=== PATIENT | male | born 1950 | race Caucasian/White ===

== ENCOUNTER 2021-11-11 18:13 | Observation (INO) | payer MEDICARE, SELFPAY ==
[2021-11-11] VITALS (17 sets, daily range): BP systolic 104–152; BP diastolic 51–83; PULSE 88–102; RESP 16–31; TEMP 36.3–36.9; O2SAT 95–98; BMI 23.3
--- NOTE | ~2021-11-11 | CT_ITS ---
EXAMINATION: CTA chest abdomen pelvis DATE: 11/11/2021 20:09 INDICATION: chest pain that radiates to abdomen . TECHNIQUE: Computed tomography angiography (CTA) of the chest, abdomen, and pelvis was performed with 100 mL Omnipaque-350 intravenous contrast. Automated exposure control and iterative reconstruction t echnique were employed. The dose-length product was 469.94 mGy-cm. COMPARISON: None FINDINGS: Thoracic aorta: Mild ectasia and arch calcification.. Lung parenchyma and airways: 3.7 cm right hilar/infrahilar mass with bronchial extension and/or obstr uction. Multiple pulmonary nodules bilaterally. Several nodules display cavitation. Emphysematous priyanka nge. Thoracic inlet, axillae and chest wall: No thyroid or soft tissue mass. No axillary lymphadenopathy. Mediastinum: Mediastinal lymphadenopathy with calcification. Dilated pulmonary arteries as can be see n with pulmonary arterial hypertension. Heart and pericardium: Normal heart size. Trace pericardial effusion. Coronary artery calcifications: Mild. Pleura: No effusion or mass. Thoracic bones: No acute osseous finding in the chest. ABDOMEN/PELVIS: Liver: Normal. Biliary/Gallbladder: Gallbladder is normal. No bile duct dilation. Pancreas: No mass or duct dilation. Spleen: Normal. Adrenals:Thickening, likely hyperplasia. No nodules. Kidneys: Left midpole subcentimeter hypodensity, too small to characterize but most likely represents a cyst. No calcification, suspicious mass, or hydronephrosis. GI tract: No small or large bowel dilation. Appendix not visualized. Diverticulosis without diverticu litis. Mesentery/Peritoneum: No ascites, mass, or free air. Retroperitoneum: No mass. Atherosclerotic abdominal aortic and/or arterial calcifications. Pelvis: Bladder distention with mild wall thickening, likely secondary to outlet compromise from pros tatomegaly. Soft Tissues: Soft tissues and body wall unremarkable. Abdominopelvic bones: No acute osseous finding in the abdomen/pelvis. IMPRESSION: 3.7 cm right hilar/infrahilar mass, with bronchial invasion and/or obstruction. Mediastinal lymphaden opathy. Multiple pulmonary nodules, several of which are cavitary. These findings are concerning for primary lung carcinoma, such as squamous cell or small cell. Reviewed, dictated and finalized at location K. IMPRESSION: 3.7 cm right hilar/infrahilar mass, with bronchial invasion and/or obstruction. Mediastinal lymphadenopathy. Multiple pulmonary nodules, several of which are cavitary. These findings are concerning for primary lung carcinoma, such as squ amous cell or small cell.
--- NOTE | ~2021-11-11 | XR_ITS ---
EXAMINATION: XR chest 2V Exam Date/Time: 11/11/2021 18:38 CDT HISTORY: cp Comparison: None available. RESULT: Lines, tubes, and devices: None. Lungs and pleura: Clear. Cardiomediastinal silhouette: Stable. Other: No acute osseous or upper abdominal finding. IMPRESSION: No acute cardiopulmonary process. Reviewed, dictated and finalized at location K.
--- NOTE | 2021-11-11 18:17 | ECG_ITS ---
Measurements Intervals [place] Rate: 102 P: [place]: 0 QRS: 73 QRSD: 97 T: 69 QT: 335 QTc: 437 Interpretive Statements SINUS TACHYCARDIA NO PREVIOUS ECG AVAILABLE FOR COMPARISON Electronically Signed On 11-12-2021 18:10:43 CDT by Monisha Tubbs M.D.
[2021-11-11 18:50] LABS: Basophils Absolute Auto 0.1 K/mm3 (0.0-0.1); Basophils Percent Auto 0.4 % (0.2-1.2); Eosinophils Absolute Auto 0.3 K/mm3 (0-0.3); Eosinophils Percent Auto 2.2 % (0-4.4); Hematocrit 38.4 % (42.0-52.0); Hemoglobin 12.7 g/dL (14.0-18.0); Immature Granulocyte Absolute 0.24 K/mm3 (0.00-0.031); Immature Granulocyte Percent A 1.8 % (0-0.5); Lymphocytes Absolute Auto 2.83 K/mm3 (0.9-3.2); Lymphocytes Percent Auto 20.9 % (18.3-44.2); Mean Corpuscular HGB Conc 33.1 g/dl (32-36); Mean Corpuscular Hemoglobin 30.5 pg (26-34); Mean Corpuscular Volume 92.1 fl (80-100); Mean Platelet Volume 9.3 fl (7.4-10.4); Monocytes Absolute Auto 1.7 K/mm3 (0.1-0.6); Monocytes Percent Auto 12.2 % (2.6-8.5); Neutrophils Absolute Auto 8.5 K/mm3 (1.3-6.7); Neutrophils Percent Auto 62.5 % (45.5-73.1); Nucleated Red Blood Cells Perc 0.2 % (0.0-0.2); Platelet Count Result 336 k/mm3 (150-375); Red Blood Count 4.17 M/mm3 (4.6-6.20); Red Cell Distribution Width 15.9 % (11.5-14.5); White Blood Count 13.6 K/mm3 (4.5-10.0)
[2021-11-11 18:57] LABS: Alanine Aminotransferase 20 U/L (6-50); Albumin Level 4.2 g/dL (3.5-5.1); Alkaline Phosphatase 83 U/L (38-126); Anion Gap 12 mmol/L (8-16); Aspartate Amino Transferase 25 U/L (17-59); Bilirubin,Total 0.6 mg/dL (0.2-1.3); Blood Urea Nitrogen 6 mg/dL (9-20); Calcium 8.7 mg/dL (8.4-10.2); Carbon Dioxide 18 mmol/L (22-30); Chloride 91 mmol/L (98-107); Estimated CRCL calculation 96 ml/min; Estimated Glomerular Filt Rate > 60; Glucose 324 mg/dL (65-110); Lipase 39 U/L (23-300); Potassium 4.2 mmol/L (3.4-5.0); Sodium 121 mmol/L (137-145)
[2021-11-11 18:58] LABS: Prothrombin Time 13.2 Seconds (11.1-14.7)
[2021-11-11 18:59] LABS: Partial Thromboplastin Time 38.2 SECONDS (22.3-36.8)
[2021-11-11 19:07] LABS: Troponin I < 0.012 ng/mL (0.000-0.034)
--- NOTE | 2021-11-11 19:57 | ED.GENADULT ---
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 Patient states he has had increased stress over the last few weeks. Patient states that he had been abstaining from alcohol but over the last few weeks has been drinking again. Patient did have a recent hospitalization in [place] for colitis and is currently taking Augmentin. Patient states today he had some left-sided chest pain that radiated to his abdomen. Patient states it felt like a muscle spasm. Patient states he does also have some shortness of breath that is worsened when he lays down. Patient was aware of previous pulmonary nodules and had been following up with a party plan sales unit advisor in [place]. Patient states over the last few weeks he has been drinking approximately a case of beer a day and has not been eating or drinking well. Patient denies any prior history of seizure or alcohol withdrawal. Related Data Home Medications Medication Instructions Recorded Confirmed Humalog U-100 Insulin 11/11/21 albuterol sulfate 90 mcg/actuation 2 puff inhalation BID 11/11/21 11/11/21 aerosol inhaler alprazolam 0.5 mg tablet 0.5 mg PO HS PRN Anxiety 11/11/21 11/11/21 fluticasone propionate 50 2 spray intranasal DAILY PRN Sinus 11/11/21 11/11/21 mcg/actuation nasal Symptoms spray,suspension hydrocodone 7.5 mg-acetaminophen 1 tablet PO TID PRN Pain (Scale 11/11/21 11/11/21 325 mg tablet Score 7-10) [id number] 1 cap PO AC 11/11/21 11/11/21 36,000-114,000-180,000 unit capsule,delay rel (Creon) losartan 25 mg tablet 25 mg PO DAILY 11/11/21 11/11/21 pantoprazole 40 mg tablet,delayed 40 mg PO DAILY 11/11/21 11/11/21 release trazodone 150 mg tablet 150 mg PO HS 11/11/21 11/11/21 umeclidinium 62.5 mcg-vilanterol 1 inh inhalation BID 11/11/21 11/11/21 25 mcg/actuation powdr for inhalation (Anoro Ellipta) Allergies Allergy/AdvReac Type Severity Reaction Status Date / Time iodine Allergy Unknown Unknown Verified 11/11/21 19:57 Shrimp Allergy Unknown Vomiting Uncoded 11/11/21 18:30 Review of Systems Review of Systems: CONSTITUTIONAL: Dizziness lightheadedness EYES: Denies visual changes, redness, or discharge. ENT: Denies rhinorrhea, congestion, sore throat, or otalgia. CARDIOVASCULAR: Left-sided chest wall pain RESPIRATORY: See HPI GASTROINTESTINAL: Denies abdominal pain, nausea, vomiting, or diarrhea. GENITOURINARY: Denies dysuria or hematuria. SKIN: Denies rash or itching. MUSCULOSKELETAL: Denies back pain, joint pain, or myalgia. NEUROLOGIC: Denies headache, numbness, or weakness. PMFSH Social History Social History Smoking packs per day: 1 Smoking cigarettes per day: 20.0 Smoking status: Current every day smoker Tobacco type: cigarettes Alcohol intake: current Drinks per week: 84 Substance use: never Spiritual care concerns: No Exam Narrative: APPEARANCE: Well appearing, no pain, no distress, well-nourished. HEAD: normocephalic, atraumatic. EYES: PERRLA/EOMI, conjunctivae clear. NOSE: Normal no drainage THROAT: Pharynx clear, no exudate. NECK: Supple. No adenopathy, no masses. RESPIRATORY: Airway patent, respirations nonlabored. Clear to auscultation bilaterally, no rales, rhonchi, wheezing. CARDIOVASCULAR: Regular rate and rhythm without murmurs rubs or gallops. ABDOMINAL: Soft, nontender, nondistended, normal bowel sounds MUSCULOSKELETAL: Moves all extremities. Strength/ROM intact, No edema, No calf tenderness. NEURO: Alert. Cranial nerves II through XII intact. Grossly intact SKIN: Warm, dry. Normal Color PSYCHIATRIC: Normal affect/mood. Course Course Emergency
[2021-11-11] MEDS: SODIUM CHLORIDE 0.9% IV 1,000 ML 999 ML IV CONT (20:15)
[2021-11-11 20:45] LABS: Appearance Urine Clear (Clear); Bilirubin Urine Negative (Negative); Glucose Urine UA 2+ mg/dL (Negative); Ketones Urine Negative (Negative); Leukocyte Esterase Ur Negative LEU/UL (Negative); Nitrate Urine Negative (Negative); Protein Urine Negative (Negative); Urobilinogen Urine 0.2 mg/dL (<2.0)
[2021-11-11 20:51] LABS: RBC Urine 0-2 /hpf (0-2)
[2021-11-11 20:53] LABS: Add Urine Microscopic? YES; Blood Urine Trace-Intact (Negative); Color Urine Light Yellow (Yellow)
--- NOTE | 2021-11-11 21:10 | PC.NURSE ---
Dr. Zimmerman at bedside to update patient on results and plan of care.
--- NOTE | 2021-11-11 21:24 | PM.IMHP ---
H&P: HPI History of Present Illness Date/Time: 11/11/21 21:24 Chief Complaint: shortness of breath Narrative: This is a 70 yearWith past medical history significant for tobacco dependence patient smokes a pack of cigarettes daily, has been drinking a 12 pack of beers daily as of for the last 2 weeks or so, COPD/emphysema, obstructive sleep apnea on CPAP at nighttime. patient just recently relocated from [place]. presents today to the emergency room due to shortness of breath, unintentional weight loss of the cannot quantify how much, insomnia, anxiety, panic attacks, cough productive of clear phlegm, had been recently to emergency room in [place] where he was diagnosed with colitis and sent home on a course of amoxicillin. patient denies, hemoptysis, has had night sweats. Preliminary workup was significant for Chemistry panel showed a sodium of 121, CT angiogram of the chest with 3.7 cm right hilar/infrahilar mass, with bronchial invasion and/or obstruction. Mediastinal lymphadenopathy. Multiple pulmonary nodules, several of which are cavitary. These findings are concerning for primary lung carcinoma, such as squamous cell or small cell. patient is been admitted for further evaluation, management and treatment. Review of Systems Review of Systems: Shortness of breath, productive cough of clear phlegm, with unintentional weight loss, panic attacks, anxiety, binge drinking 12 pack of beers daily for the last 2 weeks, smoking up to 30 cigarettes a day. Constitutional: Constitutional: Reports difficulty sleeping, Reports night sweats, Reports poor appetite and Reports weight loss Eyes: Eyes: Denies change in vision ENT: Denies dysphagia, Denies vertigo, Denies dizziness and Denies odynophagia Cardiovascular: Cardiovascular: Denies pedal edema, Denies irregular heart rhythm, Denies leg edema, Denies lightheadedness, Denies palpitations, Reports dyspnea and Reports dyspnea on exertion Respiratory: Respiratory: Denies change in phlegm color, Reports cough, Denies hemoptysis, Reports dyspnea and Reports dyspnea on exertion Gastrointestinal: Gastrointestinal: Denies abdominal pain, Denies dyspepsia, Denies heartburn, Denies diarrhea, Denies nausea and Denies vomiting Genitourinary: Genitourinary: Reports no additional male genitourinary complaints and Reports as per HPI Musculoskeletal: Musculoskeletal: Denies myalgias Integumentary/Breasts: Skin/Breast: Denies rash Neurologic: Denies vertigo, Denies dizziness, Denies focal weakness and Denies Sensory deficit (Neuro) Psychiatric: Psychiatric: Reports no additional psychiatric complaints and Reports as per HPI Endocrine: Endocrine: Denies cold intolerance, Denies fatigue, Denies flushing, Denies heat intolerance, Denies polyphagia, Denies polydipsia and Denies palpitations Hematologic/Lymphatic: Hematologic/Lymphatic: Reports no additional hematologic/lymphatic complaints and Reports as per HPI Allergic/Immunologic: Allergic/Immunologic: Reports no additional allergic/immunologic complaints and Reports as per HPI PMFSH Social History Social History Smoking packs per day: 1 Smoking cigarettes per day: 20.0 Smoking status: Current every day smoker Tobacco type: cigarettes Alcohol intake: current Drinks per week: 84 Substance use: never Spiritual care concerns: No Meds Home Medications and Allergies Home Medications Medication Instructions Recorded Confirmed Type Humalog U-100 Insulin 11/11/21 History albuterol sulfate 90 mcg/actuation 2 puff inhalation BID 11/11/21 11/11/21 History aerosol inhaler alprazolam 0.5 mg tablet 0.5 mg PO HS PRN Anxiety 11/11/21 11/11/21 History fluticasone propionate 50 2 spray intranasal DAILY PRN Sinus 11/11/21 11/11/21 History mcg/actuation nasal Symptoms spray,suspension hydrocodone 7.5 mg-acetaminophen 1 tablet PO TID PRN Pain (Scale 11/11/21 11/11/21 History 325 mg tablet Score 7-10) [id number]
[2021-11-11] MEDS: LORazepam INJ (*CRX) 2 MG/ML VIAL 1 MG IV PUSH (21:49)
[2021-11-11] MEDS: SODIUM CHLORIDE 0.9% IV 1,000 ML 100 ML IV CONT (21:53)
[2021-11-11 21:56] LABS: NT Pro B Type Natriuretic Pept 56 pg/mL (5-100)
[2021-11-11 21:59] LABS: Troponin I < 0.012 ng/mL (0.000-0.034)
--- NOTE | 2021-11-11 23:19 | ADMGEN ---
This patient, Pradip Land, was admitted to 2 Medical Room 251-. Patient/family oriented to hospital policies and general routines including ID bracelet, bed and alarms, visiting hours, pain management, procedures, bathroom and other care routines, personal items, smoking policy, room service/diet, and visiting hours. Information on how to activate the Rapid Response Team has been discussed. Patient/Family are encouraged to report perceived risks to care and to ask questions if they do not understand what they are told or what they should do.
[2021-11-12 00:08] LABS: Glucose Point of Care 181 mg/dl (65-105)
[2021-11-12 00:40] LABS: Anion Gap 6 mmol/L (8-16); Blood Urea Nitrogen 5 mg/dL (9-20); Carbon Dioxide 26 mmol/L (22-30); Chloride 98 mmol/L (98-107); Estimated CRCL calculation 94 ml/min; Estimated Glomerular Filt Rate > 60; Glucose 174 mg/dL (65-110); Sodium 130 mmol/L (137-145)
[2021-11-12] MEDS: traZODone HCL 50 MG TABLET 150 MG PO ×2 (00:43→21:25)
[2021-11-12] MEDS: cefTRIAXone 2 GM in SODIUM CHLORIDE 0.9% IV 100 ML 200 ML IVPB (00:44)
[2021-11-12 00:51] LABS: Troponin I < 0.012 ng/mL (0.000-0.034)
[2021-11-12 05:46] VITALS: BP 122/73; PULSE 84; RESP 20; TEMP 36.7; O2SAT 99
[2021-11-12 06:41] LABS: Anion Gap 7 mmol/L (8-16); Blood Urea Nitrogen 5 mg/dL (9-20); Calcium 8.3 mg/dL (8.4-10.2); Carbon Dioxide 25 mmol/L (22-30); Chloride 101 mmol/L (98-107); Estimated CRCL calculation 108 ml/min; Estimated Glomerular Filt Rate > 60; Glucose 178 mg/dL (65-110); Sodium 133 mmol/L (137-145)
[2021-11-12] MEDS: LOSARTAN POTASSIUM 25 MG TABLET PO (08:53)
[2021-11-12] MEDS: LIPASE/AMYLASE/PROTEASE 12,000 UNITS CAP 3 CAP PO ×3 (08:53→16:20)
[2021-11-12] MEDS: ENOXAPARIN 40 MG/0.4 ML SYRINGE SUB-Q (08:54)
[2021-11-12] MEDS: PANTOPRAZOLE 40 MG TABLET PO (08:54)
[2021-11-12 09:02] LABS: Glucose Point of Care 130 mg/dl (65-105)
[2021-11-12] MEDS: UMECLIDINIUM/VILANTEROL 62.5-25 MCG ELLIPTA 1 PUFF INHALATION (09:10)
[2021-11-12 09:28] VITALS: O2SAT 97
--- NOTE | 2021-11-12 09:47 | PM.CNPUL ---
Assessment and Plan Assessment and plan (1) Hilar mass: Code(s): R91.8 - Other nonspecific abnormal finding of lung field Status: Acute Assessment and Plan: 70-year-old man with a history of COPD on maintenance bronchodilators, history of sarcoidosis for which he had had frequent chest CTs in [place], presented with some shortness of breath and atypical chest pain. Chest diagnostic studies have shown multiple lung nodules and a highly suspicious for malignancy right hilar mass. There is mediastinal lymphadenopathy as well. There is no evidence of COPD exacerbation or lower respiratory tract infection. The patient has been on bronchodilators and antibiotics. Plan: I would discontinue antibiotics and just treat patient with short-acting bronchodilators for COPD. patient has history of sarcoidosis with previous biopsy of left lung nodule done in 2009. Since then he has had frequent CT followups in [place] by his whiteprinting machine operator. The right hilar mass looks suspicious for lung cancer. We will request previous medical records and chest CTs from his whiteprinting machine operator in [place]. okay to discharge patient home following treatment for hyponatremia. We will re-evaluate the patient in the outpatient clinic after reviewing his medical records/chest CT. Patient's daughter will bring contact information for his doctor in [place]. The patient will remain on his maintenance bronchodilators for COPD. (2) Acute hyponatremia: Code(s): E87.1 - Hypo-osmolality and hyponatremia Status: Acute (3) Tobacco dependence: Code(s): F17.200 - Nicotine dependence, unspecified, uncomplicated Status: Acute (4) COPD (chronic obstructive pulmonary disease): Code(s): J44.9 - Chronic obstructive pulmonary disease, unspecified Status: Acute (5) T2DM (type 2 diabetes mellitus): Code(s): E11.9 - Type 2 diabetes mellitus without complications Status: Acute (6) Weight loss, unintentional: Code(s): R63.4 - Abnormal weight loss Status: Acute (7) History of sarcoidosis: Code(s): Z86.2 - Personal history of diseases of the blood and blood-forming organs and certain disorders involving the immune mechanism Status: Acute History of Present Illness History of Present Illness Consult date: 11/12/21 Chief complaint: hilar mass, hyponatremia Narrative: this 70-year-old man presented with a left-sided chest pain and some shortness of breath. The patient just relocated to [place] from [place] where he used to live. In fact he has not unloaded his car yet as he came to the emergency room complaining of some left-sided chest pain, productive cough and shortness of breath. he had no fever chills hemoptysis. He has had history of chronic acid reflux disease. The patient's history significant for COPD for which he has been on maintenance bronchodilators, hypertension, diabetes mellitus. The patient also stated that in 2009 he had a lung biopsy somewhere in [facility], which showed sarcoidosis. Since then the patient was followed with serial chest CTs by his doctor in [facility]. Recently he was told that 1 of the lung nodules had grown and needed a repeat chest CT that was going to be done next month. most details of his previous lung history are sketchy as patient could not recall where he had the 1st lung biopsy in [place] and what type of treatment has received in [facility] the for lung nodules. Just prior to coming to [place] he was evaluated at an emergency room in [place] for diarrhea. He was treated with antibiotics for possible colitis. He no longer has diarrhea. He has also history of obstructive sleep apnea on CPAP, history of anxiety insomnia panic attacks. A chest CT done on the day of admission showed no evidence of pulmonary embolism, COPD changes and a 3.7 cm right hilar/ infrahilar mass with bronchial invasion and obstruction. There was mediastinal lymphadenopathy and multiple
[2021-11-12] MEDS: SODIUM CHLORIDE 0.9% IV 1,000 ML 65 ML IV CONT (10:56)
--- NOTE | 2021-11-12 11:00 | PM.IMPN ---
Progress Note: A&P Assessment and Plan (1) Acute hyponatremia: Code(s): E87.1 - Hypo-osmolality and hyponatremia Status: Acute Assessment and Plan: likely to be multifactorial patient with lung mass hangs SIADH is a possibility also has been drinking a 12 pack beer daily for the last 2 weeks urine osmolality in progress serum osmolality in progress urine sodium in progress fluid restriction serial BMP responding to NS 0.9 normal saline (2) Hilar mass: Code(s): R91.8 - Other nonspecific abnormal finding of lung field Status: Acute Assessment and Plan: likely to be malignant??? Patient has had a biopsy of this mass before and has followed with a retail loss prevention specialist in [place]. Pending records retrieval. pulmonology consult IV antibiotics discontinue (3) Tobacco dependence: Code(s): F17.200 - Nicotine dependence, unspecified, uncomplicated Status: Acute Assessment and Plan: nicotine patch as needed (4) Alcohol abuse: Code(s): F10.10 - Alcohol abuse, uncomplicated Status: Acute Assessment and Plan: CIWA as needed (5) Weight loss, unintentional: Code(s): R63.4 - Abnormal weight loss Status: Acute Assessment and Plan: dietitian consult (6) T2DM (type 2 diabetes mellitus): Code(s): E11.9 - Type 2 diabetes mellitus without complications Status: Acute Assessment and Plan: Accu-Cheks AC and HS continue home meds (7) Pancreatic insufficiency: Code(s): K86.89 - Other specified diseases of pancreas Status: Acute Assessment and Plan: continue pancrelipase Subjective Date/time seen: 11/12/21 11:00 patient is alert and oriented this morning. He was sitting up in the bed on room air. He denies any chest pain or addition shortness of breath. IV antibiotics and IV fluids discontinued. Patient patient does not appear to have an acute infectious process. Will continue COPD medications pending pulmonary's recommendations about possible bronchoscopy inpatient versus outpatient. Pending outlying facility records from [place]. Review of Systems Review of Systems: All systems reviewed & are unremarkable except as noted in HPI and below Exam Narrative: General: No acute distress. Mental Status: Awake, alert and oriented to person, place, and time with clear speech. Skin: Skin in warm, dry and intact without rashes or lesions. Head: Normocephalic and atraumatic. Eyes: Conjunctivae are clear without exudates or hemorrhage. Sclera is non-icteric. EOM are intact, PERRLA. Ears: The external ear and canal are non-tender and without swelling or discharge. Nose: Nasal mucosa is pink and moist. Septum midline. Nares patent bilaterally. Throat: Oral mucosa pink and moist with good dentition. Tongue midline. Neck: The neck supple without adenopathy. Trachea midline. No JVD. Cardiac: S1 and S2 regular rate and rhythm. No murmurs, gallops, or rubs auscultated. Respiratory: Chest wall symmetric, nontender and without deformity or trauma. Respirations even and unlabored. Lung sounds are clear to auscultation in all lobes bilaterally without wheezes, rhonchi, or rales. Abdominal: Abdomen soft, round and non-tender to palpation. Bowel sounds present and normoactive in all 4 quadrants. Spine: Neck and back with grossly normal curvature, no deformity in appearance or signs of trauma. Extremities: Upper and lower extremities atraumatic without tenderness or deformity. Full range of motion and muscle strength 5/5 to all extremities bilaterally. Neurological: Full and symmetric motor and light touch sensation bilaterally. Cranial nerves II-XII grossly intact. Objective Data Vital Signs Vital Signs: Vital Signs - 24 hr 11/11/21 18:23 11/11/21 19:44 11/11/21 19:45 Temperature 98.5 F Pulse Rate 102 H 99 Respiratory Rate 16 31 H 21 H Blood Pressure 143/74 H Pulse Oximetry 95 [employer]
[2021-11-12 11:27] LABS: Sodium Urine Random 115 meq/L
[2021-11-12 11:46] LABS: Glucose Point of Care 149 mg/dl (65-105)
[2021-11-12 11:58] VITALS: BMI 23.3
[2021-11-12 14:19] VITALS: BP 116/61; PULSE 73; RESP 16; TEMP 36.4; O2SAT 98
[2021-11-12 16:51] LABS: Glucose Point of Care 154 mg/dl (65-105)
[2021-11-12] MEDS: NICOTINE (*PBKC) 21 MG PATCH 1 PATCH TRANSDERM (17:58)
[2021-11-12] MEDS: ALPRAZolam (*CRX) 0.5 MG TABLET PO (21:24)
[2021-11-12 21:56] VITALS: BP 119/73; PULSE 92; RESP 20; TEMP 36.2; O2SAT 98
[2021-11-12] MEDS: ALBUTEROL SULFATE (*SP) AEROSOL 1 PUFF 2 PUFF INHALATION (22:32)
[2021-11-13 00:14] LABS: Glucose Point of Care 166 mg/dl (65-105)
[2021-11-13 06:00] VITALS: BP 118/70; PULSE 84; RESP 20; TEMP 36.4; O2SAT 98
[2021-11-13 06:31] LABS: Basophils Percent Auto 0.3 % (0.2-1.2); Eosinophils Absolute Auto 0.3 K/mm3 (0-0.3); Eosinophils Percent Auto 2.9 % (0-4.4); Hematocrit 36.8 % (42.0-52.0); Hemoglobin 12.1 g/dL (14.0-18.0); Immature Granulocyte Absolute 0.12 K/mm3 (0.00-0.031); Immature Granulocyte Percent A 1.4 % (0-0.5); Lymphocytes Absolute Auto 2.09 K/mm3 (0.9-3.2); Mean Corpuscular HGB Conc 32.9 g/dl (32-36); Mean Corpuscular Volume 94.4 fl (80-100); Mean Platelet Volume 9.7 fl (7.4-10.4); Monocytes Absolute Auto 1.2 K/mm3 (0.1-0.6); Monocytes Percent Auto 14.2 % (2.6-8.5); Neutrophils Percent Auto 57.2 % (45.5-73.1); Platelet Count Result 301 k/mm3 (150-375); Red Cell Distribution Width 16.3 % (11.5-14.5); White Blood Count 8.7 K/mm3 (4.5-10.0)
--- NOTE | 2021-11-13 06:40 | PM.DS ---
DS: Admitting Diagnosis Discharge Date 11/13/2021 Admitting Diagnosis mild hyponatremia and hilar mass. DS: Discharge Diagnosis Discharge Diagnosis (1) Acute hyponatremia: Code(s): E87.1 - Hypo-osmolality and hyponatremia Status: Acute Assessment and Plan: likely to be multifactorial patient with lung mass hangs SIADH is a possibility also has been drinking a 12 pack beer daily for the last 2 weeks urine osmolality in progress serum osmolality in progress urine sodium in progress fluid restriction serial BMP responding to NS 0.9 normal saline (2) Hilar mass: Code(s): R91.8 - Other nonspecific abnormal finding of lung field Status: Acute Assessment and Plan: likely to be malignant??? Patient has had a biopsy of this mass before and has followed with a spa consultant in [place]. Pending records retrieval. pulmonology consult IV antibiotics discontinue (3) Tobacco dependence: Code(s): F17.200 - Nicotine dependence, unspecified, uncomplicated Status: Acute Assessment and Plan: nicotine patch as needed (4) Alcohol abuse: Code(s): F10.10 - Alcohol abuse, uncomplicated Status: Acute Assessment and Plan: CIWA as needed (5) Weight loss, unintentional: Code(s): R63.4 - Abnormal weight loss Status: Acute Assessment and Plan: dietitian consult (6) T2DM (type 2 diabetes mellitus): Code(s): E11.9 - Type 2 diabetes mellitus without complications Status: Acute Assessment and Plan: Accu-Cheks AC and HS continue home meds (7) Pancreatic insufficiency: Code(s): K86.89 - Other specified diseases of pancreas Status: Acute Assessment and Plan: continue pancrelipase DS: Summary Hospital Course Reason for hospitalization: Hyponatremia Hospital Course: patient is 70-year-old male with past medical history of tobacco dependence, COPD, emphysema, ANGY on CPAP and a known history of a hilar mass and sarcoidosis. Patient was recently located from [place]. He presented to the emergency department today due to increased shortness of breath, unintentional weight loss and unable to quantify how much weight loss however he also endorses insomnia, anxiety, panic attacks cough production with clear fluid and recently released from floor to emergency department was diagnosed with colitis was sent home with a course of antibiotics of amoxicillin. At the time of the evaluation patient denied any hemoptysis and night sweats. Preliminary workup in the emergency department revealed a WBC of 13.6, hemoglobin 12.7, hematocrit 38.4, platelet 336, sodium 121, potassium 4.2, chloride 91, carbon dioxide 18, BUN 6 and creatinine is 0.7 with a glucose at 3:24 a.m.. Patient's calcium 8.7- troponins and negative LFTs. UA was essentially negative. Chest CT of the abdomen and pelvis was performed which revealed a 3.7 cm hilar infrahilar mass with bronchial invasion and or obstruction. [place] down lymphadenopathy with multiple pulmonary nodules several of which are crit cavitary. These were concerning for primary lung carcinoma such as squamous cell or small cell. Therefore hospitalist was consulted for the hyponatremia as well as hilar mass. Pulmonary was consulted as well. Patient reported that he has previously had this mass biopsied however he would be interested in looking into this further if needed. Patient will follow up with Pulmonary outpatient basis within 2 weeks and discuss outpatient bronchoscopy for further evaluation. Patient's sodium level WNL upon discharge. Mental status WNL. And no neuro deficits. Blood glucose well controlled. Status at Discharge Cognitive/behavioral status at discharge: Alert and oriented x4 Time Spent with Patient Time attestation: Total time spent providing and/or coordinating discharge services: Exam Narrative: General: No acute distress. Mental S
[2021-11-13 07:08] LABS: Alanine Aminotransferase 18 U/L (6-50); Albumin Level 3.6 g/dL (3.5-5.1); Alkaline Phosphatase 71 U/L (38-126); Anion Gap 5 mmol/L (8-16); Aspartate Amino Transferase 26 U/L (17-59); Bilirubin,Total 0.5 mg/dL (0.2-1.3); Blood Urea Nitrogen 7 mg/dL (9-20); Calcium 8.6 mg/dL (8.4-10.2); Carbon Dioxide 29 mmol/L (22-30); Chloride 101 mmol/L (98-107); Estimated CRCL calculation 75 ml/min; Estimated Glomerular Filt Rate > 60; Glucose 107 mg/dL (65-110); Potassium 4.1 mmol/L (3.4-5.0); Sodium 135 mmol/L (137-145)
[2021-11-13 07:47] LABS: Glucose Point of Care 118 mg/dl (65-105)
[2021-11-13] MEDS: UMECLIDINIUM/VILANTEROL 62.5-25 MCG ELLIPTA 1 PUFF INHALATION (08:27)
[2021-11-13 08:29] VITALS: PULSE 97; O2SAT 97
[2021-11-13] MEDS: LIPASE/AMYLASE/PROTEASE 12,000 UNITS CAP 3 CAP PO ×2 (09:32→12:16)
[2021-11-13] MEDS: PANTOPRAZOLE 40 MG TABLET PO (09:33)
[2021-11-13] MEDS: ENOXAPARIN 40 MG/0.4 ML SYRINGE SUB-Q (09:33)
[2021-11-13] MEDS: NICOTINE (*PBKC) 21 MG PATCH 1 PATCH TRANSDERM (09:33)
[2021-11-13] MEDS: LOSARTAN POTASSIUM 25 MG TABLET PO (09:34)
[2021-11-13 11:38] LABS: Glucose Point of Care 204 mg/dl (65-105)
[2021-11-16 09:14] LABS: Osmolality, Urine 169 mOsm/kg (50-1200)
== END 2021-11-13 12:20 | disposition home or self-care (01) ==
LOC: ANHED 20:43 → ANH2MED 11-12 02:49
PROVIDERS: Family Medicine; Admitting Provider Internal Medicine; Emergency Provider Emergency Medicine; Visit Provider Nurse Practitioner Family
DX: E87.1 Hypo-osmolality and hyponatremia (principal); R91.8 Other nonspecific abnormal finding of lung field; F17.210 Nicotine dependence, cigarettes, uncomplicated; R63.4 Abnormal weight loss; Z68.23 Body mass index [BMI] 23.0-23.9, adult; E11.9 Type 2 diabetes mellitus without complications; K86.89 Other specified diseases of pancreas; R12 Heartburn; D86.9 Sarcoidosis, unspecified; G47.33 Obstructive sleep apnea (adult) (pediatric); R00.0 Tachycardia, unspecified; Z99.89 Dependence on other enabling machines and devices; J44.9 Chronic obstructive pulmonary disease, unspecified; F41.0 Panic disorder [episodic paroxysmal anxiety]; F41.9 Anxiety disorder, unspecified; K52.9 Noninfective gastroenteritis and colitis, unspecified; R06.02 Shortness of breath; F10.10 Alcohol abuse, uncomplicated; Z79.4 Long term (current) use of insulin; Z79.51 Long term (current) use of inhaled steroids; Z79.891 Long term (current) use of opiate analgesic
CPT/HCPCS: 36415; 71046; 71275; 74174; 80048; 80053; 81001; 82948; 83690; 83880; 83930; 83935; 84300; 84484; 85025; 85610; 85730; 87040; 93005; 94640; 96361; 96365; 96367; 96372; 96375; 99285; A9270; G0378; J0456; J0696; J1650; J2060; J7030; Q9967

== ENCOUNTER 2021-11-18 00:44 | Day surgery (SDC) | payer MEDICARE, SELFPAY ==
[2021-11-17 14:18] VITALS: BMI 21.6
[2021-11-18] VITALS (8 sets, daily range): BP systolic 106–129; BP diastolic 56–80; PULSE 95–108; RESP 16–23; TEMP 36.2–36.8; O2SAT 97–100
--- NOTE | ~2021-11-18 | XR_ITS ---
XR chest 1V portable 11/18/2021 14:33 Indication: Post bronchoscopy. Procedure: AP portable chest Comparison: CT dated 11/11/2021 Findings: There are bilateral upper lobe nodules, suspicious for malignancy. Heart size normal. The l ungs are hyperinflated which is consistent with, but not diagnostic of chronic obstructive pulmonary disease. No pneumothorax identified. No acute osseous abnormality. Impression: 1: No evidence for pneumothorax post bronchoscopy. 2: Bilateral upper lobe nodules, suspicious for malignancy. Reviewed, dictated and finalized at location B. Impression: 1: No evidence for pneumothorax post bronchoscopy. 2: Bilateral upper lobe nodules, suspicious for malignancy.
[2021-11-18] MEDS: LACTATED RINGERS 1,000 ML 150 ML IV CONT (11:56)
[2021-11-18 11:58] LABS: Glucose Point of Care 150 mg/dl (65-105)
--- NOTE | 2021-11-18 12:05 | WPDANESEPPF ---
Anes - Initial Pre Proc Eval Procedure: Operation Date: 11/18/21 13:00 Proposed Procedures p Flexible Bronchoscopy - Dylan Randall MD Date/Time: 11/18/21 12:05 Surgeon: Dylan Randall MD Pre Op Diagnosis: Lung nodule Patient Data Age: 70 Gender: M Height: 1.91 m Weight: 76.3 kg Last Vital Signs Temp 97.2 F L 11/18/21 11:51 Pulse 108 H 11/18/21 11:51 Resp 20 11/18/21 11:51 BP 106/56 L 11/18/21 11:51 Pulse Ox 97 11/18/21 11:51 O2 Del Method Room Air 11/18/21 11:51 Allergies Allergy/AdvReac Type Severity Reaction Status Date / Time Shrimp Allergy Unknown Vomiting Uncoded 11/18/21 11:49 Home Medications Medication Instructions Recorded Confirmed Type Humalog U-100 Insulin 1 unit subcut (via wearable 11/11/21 11/17/21 History injectr) Q1-2H albuterol sulfate 90 mcg/actuation 2 puff inhalation BID 11/11/21 11/17/21 History aerosol inhaler fluticasone propionate 50 2 spray intranasal DAILY PRN Sinus 11/11/21 11/17/21 History mcg/actuation nasal Symptoms spray,suspension hydrocodone 7.5 mg-acetaminophen 1 tablet PO TID PRN Pain (Scale 11/11/21 11/17/21 History 325 mg tablet Score 7-10) [id number]-cfzzocib-grtbaso 1 cap PO AC 11/11/21 11/17/21 History 36,000-114,000-180,000 unit capsule,delay rel (Creon) losartan 25 mg tablet 25 mg PO DAILY 11/11/21 11/17/21 History pantoprazole 40 mg tablet,delayed 40 mg PO DAILY 11/11/21 11/17/21 History release trazodone 150 mg tablet 150 mg PO HS 11/11/21 11/17/21 History umeclidinium 62.5 mcg-vilanterol 1 inh inhalation BID 11/11/21 11/17/21 History 25 mcg/actuation powdr for inhalation (Anoro Ellipta) alprazolam 0.5 mg tablet 0.5 mg PO HS PRN Anxiety #20 tabs 11/17/21 11/17/21 Rx Laboratory Tests 11/18/21 11:55 POC Capillary Glucose 150 mg/dl H mg/dl (65-105) Patient hx anesthesia problems: none Family hx anesthesia problems: none Results Review: All pre-operative results and documents have been reviewed as part of the pre-operative evaluation. [facility] Social History Social History Smoking packs per day: 1 Smoking cigarettes per day: 20.0 Years smoked: 20 Smoking pack-years: 20.00 Smoking status: Current every day smoker Tobacco type: cigarettes Alcohol intake: former Drinks per week: 84 Alcohol use details: stopped drinking for one year, recent stress caused binge weekend. No drinks since Substance use: never Substance use type: does not use Living arrangements: with family Spiritual care concerns: No Anes - Eval Final PreProcedure Day of Procedure 11/18/21 12:05 Patient weight: normal Heart: regular rate and rhythm Lungs: clear to auscultation Airway: Mallampati scale class II Neurological: alert and oriented Last oral intake: >/= 8 hours ASA classification: III Emergent: no Anesthetic plan: proceed Anesthesia type and monitoring: general ETT and standard monitoring Results Review: All pre-operative results and documents have been reviewed as part of the pre-operative evaluation. Informed Consent: The patient's anesthetic plan and its attendant risks and benefits were discussed with the patient/family/POA. Questions were solicited and answers provided to the satisfaction of the patient/family/POA.
--- NOTE | 2021-11-18 12:08 | SUR.PREOP ---
No repeat PT/INR lab draw per Dr Randall.
--- NOTE | 2021-11-18 12:50 | WPDHPUPDATE1 ---
History and Physical Update Update Date/Time: 11/18/21 12:50 History and Physical has been reviewed, including an updated exam of the patient. There are NO changes in the patient's condition. Risks, benefits, and alternatives have been discussed and questions answered. Patient agrees to proceed with procedure. 70-year-old man with a history of sarcoidosis with previous lung nodules and mediastinal lymphadenopathy for which he was having serial CTs to monitor stability of lung nodules and mediastinal lymphadenopathy. On most recent testing there was a question of increase in the size of the right hilar mass with bronchial obstruction. the patient will undergo a bronchoscopy today. Since last office visit he has had no new respiratory symptoms. Physical exam is also unchanged.
[2021-11-18 14:18] LABS: Glucose Point of Care 186 mg/dl (65-105)
[2021-11-18] MEDS: LIDOCAINE HCL 2% LOCAL INJ 20 ML VIAL INFILTRATE (14:36)
[2021-11-18] MEDS: SODIUM CHLORIDE 0.9% IV 500 ML BAG 40 ML IRRIGATION (14:38)
--- NOTE | 2021-11-18 14:40 | SUR.OPER ---
1mL Epinephrine diluted with 20 mL NS drawn up and on standby per Dr. Randall's verbal order but none was administered. Medication was wasted and disposed of per unit policy and procedure.
--- NOTE | 2021-11-19 10:17 | SUR.PHASEII ---
Dr Randall made aware of lab unable to run a respiratory culture on bronchoscopy specimen.
== END 2021-11-18 15:15 | disposition home or self-care (01) ==
PROVIDERS: Visit Provider Internal Medicine Pulmonary Disease
PROC: 0BJ08ZZ Inspection of Tracheobronchial Tree, Via Natural or Artificial Opening Endoscopic (ICD-10-PCS; CPT 31622; principal; 2021-11-18 13:00)
DX: D14.31 Benign neoplasm of right bronchus and lung (principal); R07.89 Other chest pain; J44.9 Chronic obstructive pulmonary disease, unspecified; F17.210 Nicotine dependence, cigarettes, uncomplicated; R91.8 Other nonspecific abnormal finding of lung field; Z86.2 Personal history of diseases of the blood and blood-forming organs and certain disorders involving the immune mechanism; F10.10 Alcohol abuse, uncomplicated; F41.9 Anxiety disorder, unspecified; Z79.4 Long term (current) use of insulin; Z79.51 Long term (current) use of inhaled steroids
CPT/HCPCS: 31625; 71045; 82948; 88108; 88305; 88342; J0171; J0330; J2405; J2704; J7040; J7120

== ENCOUNTER 2021-12-03 14:35 | Outpatient (CLI) | payer MEDICARE, SELFPAY ==
--- NOTE | 2021-12-04 06:54 | WPDPFTINT ---
PFT Procedure Performed PFT Procedure Performed Spirometry with Pre/Post Bronchodilator Plethysmography (Lung Vol) Diffusing Cap (DLCO) Flow Vol Loop PFT Interpretation This is a pulmonary function test with pre and post-bronchodilator spirometry, plethysmography and diffusing capacity. The test was performed and results interpreted in accordance with the 2019 and 2005 ATS/ERS Task Force guidelines respectively using the Global Lung Function Initiative-2012 reference equations. Patient demonstrated good effort and cooperation. Reproducibility criteria were met. The quality of the pre bronchodilator spirometry maneuver was Grade A and post bronchodilator spirometry maneuver was Grade A. Findings: Spirometry:There is decreased maximal expiratory airflow at all lung volumes with concave expiratory flow tracing. The contour the inspiratory flow tracing is normal. The pre bronchodilator FVC is 5.33 L, 105% predicted. The pre bronchodilator FEV1 is 2.67 L, 70% predicted. The pre bronchodilator FEV1: FVC ratio is 50%. The post bronchodilator FVC is 5.56 L, representing a 4% increase. The post bronchodilator FEV1 is 2.71 L, representing 1% increase. The post bronchodilator FEV1: FVC ratio is 49%. Plethysmography: Total lung capacity is 9.24 L, 114% predicted. The functional residual capacity is 6.24 L, 143% predicted. The residual volume is 3.91 L, 141% predicted. Diffusing capacity: The diffusing capacity unadjusted for hemoglobin and carboxyhemoglobin is 22.2, 78% predicted. The diffusing capacity adjusted for alveolar volume is 2.46, 67% predicted. Impression: There is a mild obstructive abnormality without significant improvement after inhaling a single dose of albuterol. The increase in residual volume is consistent with air trapping from an obstructive abnormality. Hyperinflation is present as demonstrated by the increase in functional residual capacity and is consistent with an obstructive abnormality. The diffusing capacity unadjusted for hemoglobin and carboxyhemoglobin is normal and is mildly decreased when adjusted for alveolar volume. There are no prior studies for comparison
== END 2021-12-03 14:36 | disposition home or self-care (01) ==
LOC: ANHPFT 14:38
PROVIDERS: PCP Family Medicine; Visit Provider Internal Medicine Pulmonary Disease
DX: J44.9 Chronic obstructive pulmonary disease, unspecified (principal); R94.2 Abnormal results of pulmonary function studies
CPT/HCPCS: 94060; 94726; 94729

== ENCOUNTER 2021-12-04 09:42 | Outpatient (CLI) | payer MEDICARE, SELFPAY ==
--- NOTE | ~2021-12-04 | PE_ITS ---
EXAMINATION: PET skull to mid thigh DATE: 12/04/2021 11:22 INDICATION: Abnormal finding of lung field. Lung nodule. TECHNIQUE: Blood glucose level was 117 mg/dL. 9.144 mCi of 18-fluorodeoxyglucose (18-FDG) was adminis tered i.v. Low dose computed tomography (CT) images were acquired from the base of the brain to the p roximal thighs for attenuation correction and anatomic localization. Positron emission tomography (PE T) images were acquired in the same distribution beginning 77 minutes after injection. Images includi ng fused PET/CT images were reconstructed in axial, coronal, and sagittal planes. Automated exposure control technique was employed. The dose-length product was 613.17mGy-cm. COMPARISON: CT chest, abdomen and pelvis dated 11/11/2021 FINDINGS: Head/neck: There is symmetric increased activity in the oral cavity, palatine tonsils, laryngeal muscles and ocu lar muscles without CT correlate, likely physiologic. No pathologically enlarged cervical lymphadenop athy or suspicious foci of increased FDG uptake in the visualized head or neck. Chest: Moderate emphysema. Again seen are reticular nodular opacities at the right upper lobe with a couple foci of increased FDG uptake with maximal SUV of 6.1 and 3.7 associated with an ill-defined approxima tely 2.6 x 1.5 cm spiculated, partially cavitary nodule at the right apex minimal FDG activity with m aximal SUV of 1.7 associated with a 1.4 x 1.0 cm left upper lobe nodule. 2.9 x 1.6 cm right upper lob e nodule with small central cavitation with maximal SUV of 2.0. The more peripheral to this nodule is a cluster of multiple subcentimeter nodules with slightly higher degree of increased FDG uptake with maximal SUV of 2.9. 3.9 x 3.4 cm right hilar mass with intense FDG uptake with maximal SUV of 14.0. There is persistent mucous plugging in the more peripheral basilar bronchi of the right lower lobe. T here are multiple additional scattered bilateral pulmonary nodules, the next largest in the superior segment of the left lower lobe measuring 1.6 x 0.7 cm, which are without discernible increased FDG ac tivity. Calcified right lower lobe nodule along with some calcified right hilar and mediastinal lymph nodes consistent with old granulomatous disease. 2.1 x 1.4 cm precarinal lymph node with mild to mod erately increased FDG uptake with maximal SUV of 4.3. Mild FDG uptake in the subcarinal lymph nodes w ith maximal SUV of 3.3 which is unable to be clearly distinguished from the esophagus and adjacent ly mph nodes to allow for accurate measurement. Heart size is normal. No pericardial or pleural effusion . Thoracic aorta is normal in caliber. Abdomen/pelvis/proximal thighs: Physiologic renal accumulation and excretion of FDG activity in the kidneys, bladder and along portio ns of ureters. Normal degree and heterogenous pattern of increased uptake throughout the liver withou t radiologic correlate or dominant FDG avid lesion. The gallbladder, pancreas, and spleen are normal. Nodular thickening of the midportion of the bilateral adrenal glands which is of relatively low dens ity without discernible FDG uptake has likely either adrenal adenomas or hyperplasia. Moderate scatte red colonic diverticulosis most prominent on the sigmoid colon without adjacent from 3 change to sugg est diverticulitis. Postoperative changes along the proximal colon with right lower quadrant ileocoli c anastomosis. Mild uptake scattered throughout the bowels without radiologic correlate, also likely physiologic. No other abnormal foci of increased FDG uptake or pathologically enlarged lymphadenopath y in the abdomen, pelvis or proximal thighs. Musculoskeletal: Extensive regions of osteonecrosis at the cephalad aspect of the bilateral femoral heads. No other horton spicious lytic, blastic or FDG avid bone lesions. IMPRESSION: 1. Moderate emphysema with mild to moderate increased uptake associate
[2021-12-04 09:56] LABS: Glucose Point of Care 117 mg/dl (65-105)
== END 2021-12-04 09:43 | disposition home or self-care (01) ==
PROVIDERS: PCP Family Medicine; Visit Provider Internal Medicine Pulmonary Disease
DX: R91.8 Other nonspecific abnormal finding of lung field (principal)
CPT/HCPCS: 78815; A9552

== ENCOUNTER 2022-01-05 11:27 | Outpatient (CLI) | payer MEDICARE, SELFPAY ==
[2022-01-05 19:48] LABS: Alanine Aminotransferase 18 U/L (6-50); Albumin Level 4.7 g/dL (3.5-5.1); Alkaline Phosphatase 79 U/L (38-126); Anion Gap 12 mmol/L (8-16); Aspartate Amino Transferase 77 U/L (17-59); Bilirubin,Total 0.6 mg/dL (0.2-1.3); Blood Urea Nitrogen 8 mg/dL (9-20); Calcium 9.3 mg/dL (8.4-10.2); Carbon Dioxide 23 mmol/L (22-30); Chloride 101 mmol/L (98-107); Cholesterol 185 mg/dL (0-200); Estimated Glomerular Filt Rate > 60; Glucose 189 mg/dL (65-110); HDL Direct 48 mg/dL; Potassium 3.9 mmol/L (3.4-5.0); Sodium 136 mmol/L (137-145); Triglycerides 115 mg/dL (<150)
[2022-01-05 19:58] LABS: Hemoglobin A1C 7.2 % (<5.7)
[2022-01-05 19:59] LABS: LDL Cholesterol Direct 95 mg/dL
[2022-01-05 20:16] LABS: Prostate Specific Antigen 1.6 ng/mL (< OR = 4.0)
[2022-01-05 20:37] LABS: Creatinine Urine 19.3 mg/dL
[2022-01-05 20:45] LABS: Microalbumin Urine Random < 6.0 mg/L (0-16.7)
[2022-01-05 20:48] LABS: Basophils Percent Auto 0.3 % (0.2-1.2); Eosinophils Absolute Auto 0.2 K/mm3 (0-0.3); Eosinophils Percent Auto 1.7 % (0-4.4); Hematocrit 42.1 % (42.0-52.0); Hemoglobin 13.6 g/dL (14.0-18.0); Immature Granulocyte Absolute 0.09 K/mm3 (0.00-0.031); Immature Granulocyte Percent A 0.7 % (0-0.5); Lymphocytes Absolute Auto 2.03 K/mm3 (0.9-3.2); Mean Corpuscular HGB Conc 32.3 g/dl (32-36); Mean Corpuscular Hemoglobin 30.5 pg (26-34); Mean Corpuscular Volume 94.4 fl (80-100); Mean Platelet Volume 10.1 fl (7.4-10.4); Monocytes Absolute Auto 1.3 K/mm3 (0.1-0.6); Monocytes Percent Auto 10.4 % (2.6-8.5); Neutrophils Percent Auto 70.9 % (45.5-73.1); Platelet Count Result 342 k/mm3 (150-375); Red Blood Count 4.46 M/mm3 (4.6-6.20); Red Cell Distribution Width 15.7 % (11.5-14.5); White Blood Count 12.7 K/mm3 (4.5-10.0)
== END 2022-01-05 11:28 | disposition home or self-care (01) ==
PROVIDERS: PCP Family Medicine; Visit Provider Family Medicine
DX: Z12.5 Encounter for screening for malignant neoplasm of prostate (principal); E11.9 Type 2 diabetes mellitus without complications; F10.10 Alcohol abuse, uncomplicated; F17.200 Nicotine dependence, unspecified, uncomplicated; Z00.00 Encounter for general adult medical examination without abnormal findings
CPT/HCPCS: 36415; 80053; 80061; 82043; 83036; 84153; 85025; G0103

== ENCOUNTER 2022-01-27 02:33 | Emergency (ER) | payer MEDICARE, SELFPAY ==
--- NOTE | ~2022-01-27 | CT_ITS ---
EXAMINATION: CTA chest PE protocol DATE: 01/27/2022 08:44 CDT INDICATION: Chest pain. History of lung cancer. TECHNIQUE: Computed tomographic angiography (CTA) of the chest was performed with 100 mL Omnipaque-35 0 intravenous contrast. The dose-length product was 315.83 mGy-cm. Maximum intensity projection 3D-re constructions of the aorta and other arteries were constructed by the technologist on a separate work station. COMPARISON: CT dated 11/11/2021 and PET/CT dated 12/04/2021 FINDINGS: There are is atherosclerosis of the aorta without evidence for aneurysm. No dissection. Mike dy is technically adequate without evidence for pulmonary embolism. There is mediastinal lymphadenopathy which has progressed. For instance right hilar lymph node measur ing 1.6 cm short axis compared with 1.3 cm on prior examination. Subcarinal lymph node measures 2.5 c m short axis compared with 2.1 cm on prior examination. Right hilar mass measures 3.9 x 3.5 cm compar ed with 3.4 x 3.1 cm on prior examination. There is either endobronchial spread of tumor or mucus plu gging in the right lower lobe. No significant pleural or pericardial effusion. Stable bilateral adren al thickening. Severe emphysema. Enlargement of partially cavitary nodule in the right upper lobe james suring 2.4 cm compared with 1.6 cm on prior examination. Right upper lobe nodule on series 4 image 49 has decreased slightly in size compared with prior examination now measuring 1.9 x 1.3 cm compared w ith 2.3 x 1.5 cm on prior study. No significant change to left upper lobe nodule, image 39 measuring 1.4 x 0.8 cm on current study. Left lower lobe nodule measures 1.7 x 0.8 cm compared with 1.2 x 0.7 c m on prior study. Mild thoracic spondylosis. No focal lytic or blastic lesions. IMPRESSION: 1. No evidence for pulmonary embolism. 2: Enlargement of right hilar mass and multiple mediastinal/hilar lymph nodes, consistent with progre ssion of malignancy. There is possible endobronchial spread of tumor in the right lower lobe versus m ucous plugging. 3: Severe emphysema. Reviewed, dictated and finalized at location B. IMPRESSION: 1. No evidence for pulmonary embolism. 2: Enlargement of right hilar mass and multiple mediastinal/hilar lymph nodes, consistent with progression of malignancy. There is possible endobronchial spre ad of tumor in the right lower lobe versus mucous plugging. 3: Severe emphysema.
--- NOTE | ~2022-01-27 | XR_ITS ---
EXAMINATION: XR chest 2V DATE: 01/27/2022 03:14 INDICATION: Lung cancer. Chest pain. TECHNIQUE: frontal view of the chest was obtained. COMPARISON: Chest radiograph dated 11/18/2021 and PET/CT dated 12/04/2021 FINDINGS: Hyperexpansion of lungs consistent with emphysema. Again seen is a right hilar mass concerning for ma lignancy. Persistent nodular airspace opacities at the right apex which were FDG avid on prior PET st udy consistent with either additional malignancy or chronic infection. There are few scattered small calcified nodules consistent with old granulomatous disease. No pleural effusion or pneumothorax. Hea rt size is normal. IMPRESSION: 1. No acute cardiopulmonary disease. 2. Persistent right hilar mass concerning for malignancy. 3. Unchanged nodular opacities at the right apex which could represent additional malignancy or chron ic infection. Reviewed, dictated and finalized at location A. IMPRESSION: 1. No acute cardiopulmonary disease. 2. Persistent right hilar mass concerning for malignancy. 3. Unchanged nodular opacities at the right apex which could represent addition al malignancy or chronic infection.
--- NOTE | 2022-01-27 02:36 | ECG_ITS ---
Measurements Intervals [place] Rate: 96 P: 150 [place]: 169 QRS: 145 QRSD: 102 T: 150 QT: 351 QTc: 444 Interpretive Statements SINUS RHYTHM ARM LEADS REVERSED [INVERTED P AND QRS IN I] COMPARED TO ECG 11/11/2021 18:34:33 SINUS RHYTHM NOW PRESENT LEAD REVERSAL NOW PRESENT Electronically Signed On 01-27-2022 16:07:00 CDT by Lionel Chi M.D.
[2022-01-27 02:37] VITALS: BP 141/93; PULSE 99; RESP 17; TEMP 36.5; O2SAT 98
[2022-01-27 02:44] VITALS: PULSE 99
[2022-01-27 02:48] LABS: Basophils Percent Auto 0.4 % (0.2-1.2); Eosinophils Absolute Auto 0.4 K/mm3 (0-0.3); Eosinophils Percent Auto 3.9 % (0-4.4); Hematocrit 40.7 % (42.0-52.0); Hemoglobin 13.6 g/dL (14.0-18.0); Immature Granulocyte Absolute 0.12 K/mm3 (0.00-0.031); Immature Granulocyte Percent A 1.2 % (0-0.5); Lymphocytes Absolute Auto 3.29 K/mm3 (0.9-3.2); Lymphocytes Percent Auto 32.4 % (18.3-44.2); Mean Corpuscular HGB Conc 33.4 g/dl (32-36); Mean Corpuscular Volume 92.7 fl (80-100); Mean Platelet Volume 9.3 fl (7.4-10.4); Monocytes Absolute Auto 1.3 K/mm3 (0.1-0.6); Monocytes Percent Auto 12.5 % (2.6-8.5); Neutrophils Absolute Auto 5.1 K/mm3 (1.3-6.7); Neutrophils Percent Auto 49.6 % (45.5-73.1); Platelet Count Result 301 k/mm3 (150-375); Red Blood Count 4.39 M/mm3 (4.6-6.20); Red Cell Distribution Width 16.4 % (11.5-14.5); White Blood Count 10.2 K/mm3 (4.5-10.0)
[2022-01-27] MEDS: SODIUM CHLORIDE 0.9% IV 1,000 ML 999 ML IV CONT (02:52)
[2022-01-27] MEDS: ASPIRIN 81 MG CHEWABLE TABLET 324 MG PO (02:53)
[2022-01-27] MEDS: ONDANSETRON INJ 4 MG/2 ML VIAL IV PUSH (02:53)
[2022-01-27 03:00] LABS: Alanine Aminotransferase 16 U/L (6-50); Albumin Level 4.5 g/dL (3.5-5.1); Alkaline Phosphatase 71 U/L (38-126); Anion Gap 12 mmol/L (8-16); Aspartate Amino Transferase 28 U/L (17-59); Bilirubin,Total 0.5 mg/dL (0.2-1.3); Blood Urea Nitrogen 6 mg/dL (9-20); Calcium 8.5 mg/dL (8.4-10.2); Carbon Dioxide 23 mmol/L (22-30); Chloride 102 mmol/L (98-107); Estimated Glomerular Filt Rate > 60; Glucose 214 mg/dL (65-110); Lipase 28 U/L (23-300); Prothrombin Time 12.5 Seconds (11.1-14.7); Sodium 137 mmol/L (137-145)
[2022-01-27 03:01] LABS: Partial Thromboplastin Time 36.2 SECONDS (22.3-36.8)
--- NOTE | 2022-01-27 03:06 | ED.GENADULT ---
HPI - General Adult General Chief complaint: Chest Pain Stated complaint: chest pain Time Seen by Provider: 01/27/22 02:39 History of Present Illness HPI narrative: Patient is a 71-year-old gentleman who presents the emergency department with chief complaint of chest pain. Patient states that he has been undergoing a lot of anxiety since he was diagnosed with lung cancer the patient states that over the last few weeks has been having some uncomfortable feeling in his chest and also over the last 3 days its gotten worse. The patient states that its been pretty well constant since then reports that its not worsened or improved by anything except that he has been under a lot of stress and has been not drinking more than normal. Patient states that he had an episode similar to this back in November whenever he was drinking heavily. Related Data Home Medications Medication Instructions Recorded Confirmed Humalog U-100 Insulin 1 unit subcut (via wearable 11/11/21 11/17/21 injectr) Q1-2H albuterol sulfate 90 mcg/actuation 2 puff inhalation BID 11/11/21 11/17/21 aerosol inhaler fluticasone propionate 50 2 spray intranasal DAILY PRN Sinus 11/11/21 11/17/21 mcg/actuation nasal Symptoms spray,suspension hydrocodone 7.5 mg-acetaminophen 1 tablet PO TID PRN Pain (Scale 11/11/21 11/17/21 325 mg tablet Score 7-10) losartan 25 mg tablet 25 mg PO DAILY 11/11/21 11/17/21 pantoprazole 40 mg tablet,delayed 40 mg PO DAILY 11/11/21 11/17/21 release trazodone 150 mg tablet 150 mg PO HS 11/11/21 11/17/21 umeclidinium 62.5 mcg-vilanterol 1 inh inhalation BID 11/11/21 11/17/21 25 mcg/actuation powdr for inhalation (Anoro Ellipta) fluticasone propionate 250 2 inh inhalation Q12H 01/05/22 mcg/actuation blister powder for inhalation [id number]-jmozunoo-nwlkjsn 1 cap PO BID 01/05/22 36,000-114,000-180,000 unit capsule,delay rel (Creon) Allergies Allergy/AdvReac Type Severity Reaction Status Date / Time Shrimp Allergy Unknown Vomiting Uncoded 01/05/22 10:12 Review of Systems Review of Systems: A 10 system review of systems was completed on the patient and is negative except for what is stated in the HPI. Nursing and ancillary documentation was reviewed. [facility] Social History Social History Smoking packs per day: 1 Smoking cigarettes per day: 20.0 Years smoked: 20 Smoking pack-years: 20.00 Smoking status: Current every day smoker Tobacco type: cigarettes Alcohol intake: former Drinks per week: 84 Alcohol use details: stopped drinking for one year, recent stress caused binge weekend. No drinks since Substance use: never Substance use type: does not use Gender identity (if verbalized by the patient): Male Spiritual care concerns: No Exam Narrative: GENERAL: Well-appearing, well-nourished, and in no acute distress. HEAD: Normocephalic, atraumatic. EYES: PERRLA and EOMI. ENT: Nares clear, no rhinorrhea or epistaxis. Mucous membranes moist. NECK: Supple. CHEST: Clear to auscultation. No respiratory distress. HEART: Regular rate and rhythm. No murmur heard. Normal peripheral pulses. ABDOMEN: Soft, nontender, nondistended, normal active bowel sounds. EXTREMITIES: Normal range of motion. No edema. SKIN: Warm, dry, no rash. NEURO: No focal deficits. Alert and oriented x3. PSYCH: Normal mood and affect. Course Course Emergency Course: EKG is sinus rhythm rate of [address] elevation or ST depression Vital Signs Vital signs: Vital Signs Temperature 36.5 C 01/27/22 02:37 Pulse Rate 99 01/27/22 02:37 Respiratory Rate 17 01/27/22 02:37 Blood Pressure 141/93 H 01/27/22 02:37 Pulse Oximetry 98 01/27/22 02:37 Oxygen Delivery Room Air 01/27/22 02:37 Temperature 36.5 C 01/27/22 02:37 Pulse Rate 89 01/27/22 04:15 Respiratory Rate 18 01/27/22 04:15 Blood Pressure 114/76 01/27/22 04:15 Pulse Oxim
--- NOTE | 2022-01-27 03:15 | PC.NURSE ---
pt. to ct
[2022-01-27 03:17] LABS: Ethanol 187 mg/dL (<10)
[2022-01-27 03:23] LABS: Troponin I < 0.012 ng/mL (0.000-0.034)
[2022-01-27 03:31] LABS: Influenza A QL RT-PCR Negative (Negative); Influenza B QL RT-PCR Negative (Negative); SARS-CoV-2 RNA PCR Negative
[2022-01-27] MEDS: LORazepam INJ (*CRX) 2 MG/ML VIAL 0.5 MG IV PUSH (03:41)
[2022-01-27 04:15] VITALS: BP 114/76; PULSE 89; RESP 18; O2SAT 94
[2022-01-27 05:35] VITALS: BP 132/80; PULSE 99; RESP 14; O2SAT 97
[2022-01-27 06:06] LABS: Troponin I < 0.012 ng/mL (0.000-0.034)
[2022-01-27 06:35] VITALS: BP 129/83; PULSE 95; RESP 14; O2SAT 97
--- NOTE | 2022-01-27 06:37 | PC.NURSE ---
pt. states he cannot call a ride until 0700.
== END 2022-01-27 07:00 | disposition home or self-care (01) ==
PROVIDERS: Emergency Provider Emergency Medicine; PCP Family Medicine
DX: R07.89 Other chest pain (principal); F41.9 Anxiety disorder, unspecified; C34.91 Malignant neoplasm of unspecified part of right bronchus or lung; F10.129 Alcohol abuse with intoxication, unspecified; Z20.822 Contact with and (suspected) exposure to COVID-19; Y90.6 Blood alcohol level of 120-199 mg/100 ml; F17.210 Nicotine dependence, cigarettes, uncomplicated; Z79.4 Long term (current) use of insulin; Z79.899 Other long term (current) drug therapy; J43.9 Emphysema, unspecified
CPT/HCPCS: 36415; 71046; 71275; 80053; 80307; 83690; 84484; 85025; 85610; 85730; 87502; 93005; 96361; 96374; 96375; 99284; A9270; J2060; J2405; J7030; Q9967; U0003; U0005

== ENCOUNTER 2022-04-16 10:00 | Outpatient (CLI) | payer MEDICARE, SELFPAY ==
[2022-04-16 10:40] LABS: Creatinine Urine 17.1 mg/dL
[2022-04-16 10:47] LABS: Hemoglobin A1C 7.6 % (<5.7)
[2022-04-16 10:58] LABS: Microalbumin Urine Random < 6.0 mg/L (0-16.7)
[2022-04-16 10:59] LABS: MALB Creatinine Ratio < 35.1 mg/g (0-30)
== END 2022-04-16 10:01 | disposition home or self-care (01) ==
LOC: ANHLAB 10:02
PROVIDERS: PCP Family Medicine; Visit Provider Family Medicine
DX: E11.9 Type 2 diabetes mellitus without complications (principal)
CPT/HCPCS: 36415; 82043; 83036

== ENCOUNTER 2022-07-16 10:00 | Outpatient (CLI) | payer MEDICARE, SELFPAY ==
[2022-07-16 11:28] LABS: Alanine Aminotransferase 18 U/L (6-50); Albumin Level 4.5 g/dL (3.5-5.1); Alkaline Phosphatase 71 U/L (38-126); Anion Gap 9 mmol/L (8-16); Aspartate Amino Transferase 23 U/L (17-59); Bilirubin,Total 0.5 mg/dL (0.2-1.3); Blood Urea Nitrogen 9 mg/dL (9-20); Calcium 9.1 mg/dL (8.4-10.2); Carbon Dioxide 26 mmol/L (22-30); Chloride 101 mmol/L (98-107); Estimated Glomerular Filt Rate > 60; Glucose 158 mg/dL (65-110); Potassium 4.5 mmol/L (3.4-5.0); Sodium 136 mmol/L (137-145)
[2022-07-16 11:51] LABS: Hemoglobin A1C 7.5 % (<5.7)
[2022-07-16 12:21] LABS: Creatinine Urine 164.9 mg/dL
[2022-07-16 12:24] LABS: Microalbumin Urine Random 54.4 mg/L (0-16.7)
== END 2022-07-16 10:01 | disposition home or self-care (01) ==
LOC: ANHLAB 10:01
PROVIDERS: PCP Family Medicine; Visit Provider Family Medicine
DX: E11.9 Type 2 diabetes mellitus without complications (principal)
CPT/HCPCS: 36415; 80053; 82043; 83036

== ENCOUNTER 2022-10-15 10:35 | Outpatient (CLI) | payer MEDICARE, SELFPAY ==
[2022-10-15 11:45] LABS: Hemoglobin A1C 7.5 % (<5.7)
== END 2022-10-15 10:36 | disposition home or self-care (01) ==
LOC: ANHLAB 10:36
PROVIDERS: PCP Family Medicine; Visit Provider Family Medicine
DX: E11.9 Type 2 diabetes mellitus without complications (principal)
CPT/HCPCS: 36415; 83036

== ENCOUNTER 2022-10-19 11:56 | Outpatient (CLI) | payer MEDICARE, SELFPAY ==
--- NOTE | ~2022-10-19 | XR_ITS ---
Right Knee Technique: AP, lateral, and sunrise views were obtained. Clinical History: Pain Findings: No fracture or dislocation is seen. There is mild spurring of the patella and medial joint line. Mild medial compartment narrowing. Soft tissues are unremarkable. No joint effusion is seen. Impression: Degenerative change of the medial and patellofemoral compartment, as above. Reviewed, dictated and finalized at location M. Impression: Degenerative change of the medial and patellofemoral compartment, as above.
[2022-10-19 19:35] LABS: Hemoglobin 12.8 g/dL (14.0-18.0); Mean Corpuscular HGB Conc 31.2 g/dl (32-36); Mean Corpuscular Hemoglobin 29.9 pg (26-34); Mean Corpuscular Volume 95.8 fl (80-100); Mean Platelet Volume 9.9 fl (7.4-10.4); Platelet Count Result 270 k/mm3 (150-375); Red Blood Count 4.28 M/mm3 (4.6-6.20); Red Cell Distribution Width 15.9 % (11.5-14.5)
[2022-10-19 19:38] LABS: Appearance Urine Clear (Clear); Bilirubin Urine Negative (Negative); Blood Urine Negative (Negative); Color Urine Yellow (Yellow); Glucose Urine UA 1+ mg/dL (Negative); Ketones Urine Negative (Negative); Leukocyte Esterase Ur Negative LEU/UL (NEGATIVE); Nitrate Urine Negative (Negative); Protein Urine Negative (Negative); Specific Grav Ur 1.006 (1.001-1.035); Urobilinogen Urine 0.2 mg/dL (<2.0)
[2022-10-19 19:54] LABS: Alanine Aminotransferase 18 U/L (6-50); Albumin Level 4.4 g/dL (3.5-5.1); Alkaline Phosphatase 55 U/L (38-126); Anion Gap 6 mmol/L (8-16); Aspartate Amino Transferase 45 U/L (17-59); Bilirubin,Total 0.5 mg/dL (0.2-1.3); Blood Urea Nitrogen 9 mg/dL (9-20); Calcium 9.3 mg/dL (8.4-10.2); Carbon Dioxide 31 mmol/L (22-30); Chloride 100 mmol/L (98-107); Estimated Glomerular Filt Rate > 60; Glucose 210 mg/dL (65-110); Potassium 4.4 mmol/L (3.4-5.0); Sodium 137 mmol/L (137-145)
[2022-10-19 19:57] LABS: Add Urine Microscopic? NO
== END 2022-10-19 11:57 | disposition home or self-care (01) ==
PROVIDERS: PCP Family Medicine; Visit Provider Family Medicine
DX: M25.561 Pain in right knee (principal); R53.83 Other fatigue; I10 Essential (primary) hypertension; G62.9 Polyneuropathy, unspecified; F10.10 Alcohol abuse, uncomplicated; F17.200 Nicotine dependence, unspecified, uncomplicated
CPT/HCPCS: 36415; 73562; 80053; 81003; 85027; 87086

== ENCOUNTER 2023-02-23 10:18 | Outpatient (CLI) | payer MEDICARE, SELFPAY ==
[2023-02-23 10:48] LABS: Hematocrit 42.8 % (42.0-52.0); Hemoglobin 13.5 g/dL (14.0-18.0); Mean Corpuscular HGB Conc 31.5 g/dl (32-36); Mean Corpuscular Hemoglobin 29.9 pg (26-34); Mean Corpuscular Volume 94.7 fl (80-100); Mean Platelet Volume 9.4 fl (7.4-10.4); Platelet Count Result 234 k/mm3 (150-375); Red Blood Count 4.52 M/mm3 (4.6-6.20); Red Cell Distribution Width 16.7 % (11.5-14.5); White Blood Count 10.2 K/mm3 (4.5-10.0)
[2023-02-23 11:00] LABS: Alanine Aminotransferase 17 U/L (6-50); Albumin Level 4.7 g/dL (3.5-5.1); Alkaline Phosphatase 50 U/L (38-126); Anion Gap 11 mmol/L (8-16); Aspartate Amino Transferase 28 U/L (17-59); Bilirubin,Total 0.7 mg/dL (0.2-1.3); Blood Urea Nitrogen 11 mg/dL (9-20); Calcium 9.4 mg/dL (8.4-10.2); Carbon Dioxide 26 mmol/L (22-30); Chloride 99 mmol/L (98-107); Estimated Glomerular Filt Rate > 60; Glucose 146 mg/dL (65-110); Potassium 4.6 mmol/L (3.4-5.0); Sodium 136 mmol/L (137-145)
[2023-02-23 11:09] LABS: Hemoglobin A1C 7.1 % (<5.7)
[2023-02-23 11:30] LABS: Prostate Specific Antigen 1.8 ng/mL (< OR = 4.0)
[2023-02-23 23:38] LABS: Creatinine Urine 34.9 mg/dL
[2023-02-23 23:59] LABS: Microalbumin Urine Random < 6.0 mg/L (0-16.7)
[2023-02-24] LABS: MALB Creatinine Ratio < 17.2 mg/g (0-30)
== END 2023-02-23 10:19 | disposition home or self-care (01) ==
PROVIDERS: PCP Family Medicine; Referring Provider Internal Medicine; Visit Provider Family Medicine
DX: Z00.00 Encounter for general adult medical examination without abnormal findings (principal); C34.90 Malignant neoplasm of unspecified part of unspecified bronchus or lung; E11.9 Type 2 diabetes mellitus without complications; E78.5 Hyperlipidemia, unspecified; E87.1 Hypo-osmolality and hyponatremia; F10.10 Alcohol abuse, uncomplicated; F17.200 Nicotine dependence, unspecified, uncomplicated; F41.9 Anxiety disorder, unspecified; G47.00 Insomnia, unspecified; G62.9 Polyneuropathy, unspecified; G89.4 Chronic pain syndrome; I10 Essential (primary) hypertension; J44.9 Chronic obstructive pulmonary disease, unspecified; K21.9 Gastro-esophageal reflux disease without esophagitis; K86.89 Other specified diseases of pancreas; R41.3 Other amnesia; R53.83 Other fatigue; R63.4 Abnormal weight loss; Z12.5 Encounter for screening for malignant neoplasm of prostate
CPT/HCPCS: 36415; 80053; 82043; 83036; 84153; 85027; G0103

== ENCOUNTER 2023-03-10 11:01 | Outpatient (CLI) | payer MEDICARE, SELFPAY ==
--- NOTE | ~2023-03-10 | XR_ITS ---
XR abdomen/kub 1V 03/10/2023 11:11 INDICATION: Left upper abdominal pain TECHNIQUE: KUB COMPARISON: None FINDINGS: Bowel gas pattern is normal. Moderate colonic fecal loading. There is no evidence of free a ir, mass, organomegaly, ascites or obstruction. No abnormal calculi are seen. The bones appear inta ct. IMPRESSION: 1: No acute abdominal abnormality identified. Reviewed, dictated and finalized at location B. [employer]
[2023-03-10 19:16] LABS: Basophils Percent Auto 0.3 % (0.2-1.2); Eosinophils Absolute Auto 0.2 K/mm3 (0-0.3); Eosinophils Percent Auto 1.7 % (0-4.4); Hematocrit 43.5 % (42.0-52.0); Hemoglobin 13.9 g/dL (14.0-18.0); Immature Granulocyte Absolute 0.05 K/mm3 (0.00-0.031); Immature Granulocyte Percent A 0.4 % (0-0.5); Mean Corpuscular Hemoglobin 30.5 pg (26-34); Mean Corpuscular Volume 95.6 fl (80-100); Mean Platelet Volume 9.9 fl (7.4-10.4); Monocytes Percent Auto 8.9 % (2.6-8.5); Neutrophils Absolute Auto 8.2 K/mm3 (1.3-6.7); Neutrophils Percent Auto 72.7 % (45.5-73.1); Platelet Count Result 258 k/mm3 (150-375); Red Blood Count 4.55 M/mm3 (4.6-6.20); Red Cell Distribution Width 16.1 % (11.5-14.5); White Blood Count 11.2 K/mm3 (4.5-10.0)
[2023-03-10 19:29] LABS: Amylase 53 U/L (30-110); Lipase 42 U/L (23-300)
== END 2023-03-10 11:02 | disposition home or self-care (01) ==
PROVIDERS: PCP Nurse Practitioner Adult Health; Visit Provider Nurse Practitioner Adult Health
DX: R10.9 Unspecified abdominal pain (principal)
CPT/HCPCS: 36415; 74018; 82150; 83690; 85025

== ENCOUNTER 2023-12-01 00:55 | Day surgery (SDC) | payer BC, SELFPAY ==
[2023-11-15 10:14] VITALS: BMI 25.0
[2023-12-01 08:22] VITALS: BP 136/77; PULSE 106; RESP 18; TEMP 36.5; O2SAT 98; BMI 24.3
--- NOTE | 2023-12-01 08:36 | WPDANESEPPF ---
Anes - Initial Pre Proc Eval Procedure: Operation Date: 12/01/23 09:30 Proposed Procedures p Esophagogastroduodenoscopy&Screen Colon - Wyatt Wong MD Date/Time: 12/01/23 08:36 Surgeon: Wyatt Wong MD Pre Op Diagnosis: GERD, Neoplasm screening Patient Data Age: 72 Gender: M Height: 1.88 m Weight: 88.6 kg Allergies Allergy/AdvReac Type Severity Reaction Status Date / Time Shrimp Allergy Unknown Vomiting Uncoded 12/01/23 08:29 Home Medications Medication Instructions Recorded Confirmed Type gabapentin 300 mg capsule 600 mg PO QPM 09/01/22 12/01/23 History insulin pump cartridge,automated #1 ea 12/15/22 12/01/23 Rx dose,BT with controller subcutaneous (Omnipod 5 G6 Intro Kit (Gen 5) subcutaneous cartridge with controller) insulin aspart U-100 100 unit/mL See Rx Instructions .Route 03/10/23 12/01/23 Rx subcutaneous solution (Novolog .COMPLEX insulin pump #90 mL U-100 Insulin aspart) insulin pump cart,automated,BT #45 caps 03/10/23 12/01/23 Rx (Omnipod 5 G6 Pods (Gen 5) subcutaneous cartridge) glucagon 1 mg/0.2 mL subcutaneous 1 mg (0.2 mL) subcut ONCE #0.4 mL 05/26/23 12/01/23 Rx auto-injector (Gvoke HypoPen 2-Pack) glucose 4 gram chewable tablet 16 g PO Q15M PRN hypoglycemia #360 05/26/23 12/01/23 Rx tabs insulin glargine 100 unit/mL (3 20 unit (0.2 mL) subcut QAM #3 mL 05/26/23 12/01/23 Rx mL) subcutaneous pen (Lantus Solostar U-100 Insulin) pantoprazole 40 mg tablet,delayed 40 mg PO DAILY #90 tabs 07/13/23 12/01/23 Rx release losartan 25 mg tablet See Rx Instructions .Route 07/14/23 12/01/23 Rx .COMPLEX #180 tabs atorvastatin 20 mg tablet 20 mg PO DAILY #90 tabs 09/07/23 12/01/23 Rx [id number] See Rx Instructions .Route 09/20/23 12/01/23 Rx 36,000-114,000-180,000 unit .COMPLEX #810 caps capsule,delay rel (Creon) albuterol sulfate 90 mcg/actuation See Rx Instructions .Route 10/14/23 12/01/23 Rx aerosol inhaler .COMPLEX #18 grams pantoprazole 40 mg tablet,delayed 40 mg PO QAM #90 tabs 10/14/23 12/01/23 Rx release (Protonix) trazodone 150 mg tablet See Rx Instructions .Route 10/14/23 12/01/23 Rx .COMPLEX #90 tabs hydrocodone 7.5 mg-acetaminophen 1 tablet PO TID PRN Pain (Scale 11/22/23 12/01/23 Rx 325 mg tablet Score 7-10) #90 tabs Patient hx anesthesia problems: none Family hx anesthesia problems: none Results Review: All pre-operative results and documents have been reviewed as part of the pre-operative evaluation. [facility] Past Medical History Medical History Acute hyponatremia Anxiety Chronic pain syndrome COPD (chronic obstructive pulmonary disease) Diabetes mellitus type 1.5 GERD (gastroesophageal reflux disease) Hilar mass History of sarcoidosis Hypertension Insomnia Lung cancer Neuropathy Pancreatic insufficiency Squamous papilloma T2DM (type 2 diabetes mellitus) Type 1.5 diabetes, managed as type 1 Surgical History Surgical History History of appendectomy History of tonsillectomy Family History Family History Sibling Carcinoma of colon sister Alcoholism brother Father Esophagus cancer Social History Social History Smoking packs per day: 0.75 Smoking cigarettes per day: 15.0 Years smoked: 59 Smoking pack-years: 44.25 Smoking status: Current every day smoker Tobacco type: cigarettes Additional smoking assessment comments: Started smoke around age 13 or 14 Alcohol intake: former Drinks per week: 84 Alcohol use details: stopped drinking for one year, recent stress caused binge weekend. No drinks since. Has quit drinking since 11/2022. Substance use: former Substance use type: does not use Other horton
[2023-12-01] MEDS: LACTATED RINGERS 1,000 ML 150 ML IV CONT (08:47)
[2023-12-01 08:49] LABS: Glucose Point of Care 196 mg/dl (65-105)
--- NOTE | 2023-12-01 09:35 | PM.HPGS ---
History of Present Illness History of Present Illness Consent: Risks, benefits, and alternatives have been discussed and questions answered. Patient agrees to proceed with procedure. Chief complaint: GERD, Neoplasm screening Narrative: Pradip Land is a 72 year old male with gerd controlled with pantoprazole, last egd 2019 (more symptomatic when was getting radiation therapy for lung cancer), also h/o colon polyp. Review of Systems Review of Systems: All systems reviewed & are unremarkable except as noted in HPI and below PMFSH Past Medical History Medical History (Updated 12/01/23 @ 09:38 by Wyatt Wong MD) Acute hyponatremia Anxiety Chronic pain syndrome Colon polyp COPD (chronic obstructive pulmonary disease) Diabetes mellitus type 1.5 GERD (gastroesophageal reflux disease) Hilar mass History of sarcoidosis Hypertension Insomnia Lung cancer Neuropathy Pancreatic insufficiency Squamous papilloma T2DM (type 2 diabetes mellitus) Type 1.5 diabetes, managed as type 1 Surgical History Surgical History History of appendectomy History of tonsillectomy Family History Family History Sibling Carcinoma of colon sister Alcoholism brother Father Esophagus cancer Social History Social History Smoking packs per day: 0.75 Smoking cigarettes per day: 15.0 Years smoked: 59 Smoking pack-years: 44.25 Smoking status: Current every day smoker Tobacco type: cigarettes Additional smoking assessment comments: Started smoke around age 13 or 14 Alcohol intake: former Drinks per week: 84 Alcohol use details: stopped drinking for one year, recent stress caused binge weekend. No drinks since. Has quit drinking since 11/2022. Substance use: former Substance use type: does not use Other substance usage details: cocaine Last use: 2009 Lack of Transportation: No Lack of Food: Never True Current Housing: I Have Housing Concerned About Future Housing: No Difficulty Paying Gas/Electric Bills: No Difficulty Paying for Meds: No Currently Unemployed: No Education: High School Diploma/GED Difficulty w/ Childcare or Family Care: No Living arrangements: with family Occupation/Education: retired Gender identity (if verbalized by the patient): Male Spiritual care concerns: No Meds Home Medications and Allergies Home Medications Medication Instructions Recorded Confirmed Type gabapentin 300 mg capsule 600 mg PO QPM 09/01/22 12/01/23 History insulin pump cartridge,automated #1 ea 12/15/22 12/01/23 Rx dose,BT with controller subcutaneous (Omnipod 5 G6 Intro Kit (Gen 5) subcutaneous cartridge with controller) insulin aspart U-100 100 unit/mL See Rx Instructions .Route 03/10/23 12/01/23 Rx subcutaneous solution (Novolog .COMPLEX insulin pump #90 mL U-100 Insulin aspart) insulin pump cart,automated,BT #45 caps 03/10/23 12/01/23 Rx (Omnipod 5 G6 Pods (Gen 5) subcutaneous cartridge) glucagon 1 mg/0.2 mL subcutaneous 1 mg (0.2 mL) subcut ONCE #0.4 mL 05/26/23 12/01/23 Rx auto-injector (Gvoke HypoPen 2-Pack) glucose 4 gram chewable tablet 16 g PO Q15M PRN hypoglycemia #360 05/26/23 12/01/23 Rx tabs insulin glargine 100 unit/mL (3 20 unit (0.2 mL) subcut QAM #3 mL 05/26/23 12/01/23 Rx mL) subcutaneous pen (Lantus Solostar U-100 Insulin) pantoprazole 40 mg tablet,delayed 40 mg PO DAILY #90 tabs 07/13/23 12/01/23 Rx release losartan 25 mg tablet See Rx Instructions .Route 07/14/23 12/01/23 Rx .COMPLEX #180 tabs atorvastatin 20 mg tablet 20 mg PO DAILY #90 tabs 09/07/23 12/01/23 Rx [id number] See Rx Instructions .Route 09/20/23 12/01/23 Rx 36,000-114,000-180,000 unit .COMPLEX #810 caps capsule,delay rel (Creon) albut
[2023-12-01] MEDS: BENZOCAINE (*SP) 60 ML SPRAY CAN (HURRICAINE) 1 SPRAY MUCOUS MEM (09:40)
--- NOTE | 2023-12-01 09:52 | SUR.OPER ---
EGD end time: 944, Colonoscopy start time: 951
[2023-12-01 10:15] VITALS: BP 106/68; PULSE 93; RESP 21; O2SAT 96
[2023-12-01 10:25] VITALS: BP 107/90; PULSE 90; RESP 21; O2SAT 98
--- NOTE | 2023-12-01 10:32 | SUR.PHASEII ---
pt has a dexcom and blood glucose is 147
[2023-12-01 10:35] VITALS: BP 128/94; PULSE 90; RESP 20; O2SAT 100
== END 2023-12-01 10:48 | disposition home or self-care (01) ==
PROVIDERS: PCP Nurse Practitioner Adult Health; Referring Provider Nurse Practitioner Adult Health; Visit Provider Internal Medicine Gastroenterology
PROC: 0DJ08ZZ Inspection of Upper Intestinal Tract, Via Natural or Artificial Opening Endoscopic (ICD-10-PCS; CPT 43235; principal; 2023-12-01 09:30)
DX: Z12.11 Encounter for screening for malignant neoplasm of colon (principal); D12.2 Benign neoplasm of ascending colon; D12.8 Benign neoplasm of rectum; K63.5 Polyp of colon; K57.30 Diverticulosis of large intestine without perforation or abscess without bleeding; K64.8 Other hemorrhoids; Z98.0 Intestinal bypass and anastomosis status; Z90.49 Acquired absence of other specified parts of digestive tract; K21.00 Gastro-esophageal reflux disease with esophagitis, without bleeding; K29.50 Unspecified chronic gastritis without bleeding; K44.9 Diaphragmatic hernia without obstruction or gangrene; Z85.118 Personal history of other malignant neoplasm of bronchus and lung; Z92.3 Personal history of irradiation; J44.9 Chronic obstructive pulmonary disease, unspecified; E13.40 Other specified diabetes mellitus with diabetic neuropathy, unspecified; G89.4 Chronic pain syndrome; F41.9 Anxiety disorder, unspecified; F17.210 Nicotine dependence, cigarettes, uncomplicated; Z96.41 Presence of insulin pump (external) (internal); Z79.4 Long term (current) use of insulin; Z79.51 Long term (current) use of inhaled steroids; Z79.891 Long term (current) use of opiate analgesic
CPT/HCPCS: 45385; 43239; 82948; 88305; J2704; J7120

== ENCOUNTER 2024-02-01 14:47 | Outpatient (CLI) | payer BC, SELFPAY ==
[2024-02-01 21:10] LABS: Prostate Specific Antigen 1.8 ng/mL (< OR = 4.0)
== END 2024-02-01 14:48 | disposition home or self-care (01) ==
LOC: ANHBWCLAB 14:48
PROVIDERS: PCP Nurse Practitioner Adult Health; Visit Provider Nurse Practitioner Adult Health
DX: Z12.5 Encounter for screening for malignant neoplasm of prostate (principal)
CPT/HCPCS: 36415; 84153; G0103

== ENCOUNTER 2024-05-24 11:45 | Inpatient (IN) | payer MEDICARE, SELFPAY ==
[2024-05-24] VITALS (9 sets, daily range): BP systolic 109–132; BP diastolic 72–88; PULSE 92–110; RESP 15–21; TEMP 36.3–36.8; O2SAT 94–98
--- NOTE | ~2024-05-24 | MR_ITS ---
EXAMINATION: MR venography brain DATE: 05/27/2024 07:43 INDICATION: Diplopia TECHNIQUE: Magnetic resonance venography (MRV) of the head was performed without intravenous contrast by coronal and sagittal 2D ljkp-et-kzidwy technique. Rotating maximum intensity projections were co nstructed. COMPARISON: Brain MR dated 05/26/2024 and brain and carotid CTA dated 05/24/2024 FINDINGS: The superior sagittal sinus, transverse and sigmoid sinuses, and proximal internal jugular veins are patent. Normal anatomic variant relative decreased size of the left transverse and sigmoid sinus and proximal left internal jugular vein relative to the contralateral right transverse and sigmoid sinuse s with corresponding asymmetric decreased size of the left jugular foramen on prior brain CTA. The i nternal cerebral veins, vein of Amor, and straight sinus are patent. IMPRESSION: 1. Normal MRV of the head Reviewed, dictated and finalized at location A. ALING OVEN OPERATOR IMPRESSION: 1. Normal MRV of the head
--- NOTE | ~2024-05-24 | MR_ITS ---
EXAMINATION: MR brain/brain stem wo/w con DATE: 05/26/2024 15:05 INDICATION: Diplopia TECHNIQUE: Magnetic resonance imaging (MRI) of the brain and brainstem was performed without and with 18 mL Multihance intravenous contrast. Sequences included sagittal and axial T1-weighted SE, axial d iffusion-weighted FS SE, axial 3D SWAN, axial T2-weighted FLAIR, and axial T2-weighted FSE. Postcontr ast axial and coronal T1-weighted SE was obtained. Apparent diffusion coefficient (ADC) maps were cre ated. COMPARISON: Head CT and CT angiogram dated 05/24/2024 FINDINGS: There are no areas of restricted diffusion to suggest acute infarction. No intracranial hemorrhage or abnormal intracranial mass lesion. There are no intraparenchymal signal abnormalities seen on the ot her pulse sequences. The ventricles are symmetric and normal in size. There are no abnormal extra-axi al fluid collections. Flow voids are seen in the cerebral arteries on the T2-weighted sequences consi stent with their expected patency. Left vertebral artery is dominant. Visualized orbits and soft tiss ues are unremarkable. There are no areas of abnormal enhancement on the post contrast images. IMPRESSION: 1. Normal brain. No acute intracranial process or abnormally enhancing brain lesions. Reviewed, dictated and finalized at location A. AL NURSE IMPRESSION: 1. Normal brain. No acute intracranial process or abnormally enhancing brain le sions.
--- NOTE | ~2024-05-24 | CT_ITS ---
Non-contrast Head CT History: Double vision Technique: Axial non-contrast imaging of the brain was performed. Dose reduction technique was used on this scan by utilizing automated exposure control and iterative reconstruction technique. The dose -length product (DLP) was 605.33 mGy-cm. Findings: There is no evidence of intracranial hemorrhage, mass lesion, or acute infarct. Brain par enchyma appears normal. The ventricles and subarachnoid spaces are normal in size. The calvarium ap pears normal. The visualized paranasal sinuses and mastoid air cells are clear. Impression: No significant abnormality seen. Reviewed, dictated and finalized at location . ALLERGY Impression: No significant abnormality seen.
--- NOTE | ~2024-05-24 | CT_ITS ---
Clinical Indication: Sarcoid, history of lung cancer CT Scan of the Chest, Abdomen, and Pelvis with Contrast: Technique: Contiguous sections were acquired throughout the chest, abdomen, and pelvis after intraven ous administration of 100 cc of Omnipaque 350. Dose reduction technique was used on this scan by dima saldana automated exposure control and iterative reconstruction technique. The dose-length product (DL P) was 1438.89 mGy-cm. Comparison: 01/27/2022 Findings: Mediastinal and hilar lymphadenopathy similar to prior exam, some which demonstrate coarse complicati on. No large central pulmonary embolus seen. No aortic aneurysm or dissection. No axillary lymphadeno yas. There is no evidence of pleural or pericardial effusion. There is a thick-walled cavitary lesion/nodule at the right lung apex measuring 4.0 cm in maximum tra nsverse dimension. There are several satellite irregular nodule opacities. These findings are likely chronic, and while they're more prominent than prior exam, are somewhat similar in distribution. Ther e are a few subcentimeter left apical pulmonary nodules, also somewhat similar to prior exam. There i s moderate emphysema in the upper lobes. There are a few scattered subcentimeter irregular nodules in the right lower lobe. There is patchy consolidation in the medial, perihilar right lower lobe. The liver, spleen, pancreas, gallbladder, left adrenal and, and kidneys are within normal limits. Sta ble right adrenal nodule present. There are atherosclerotic calcifications of the aorta. No lymphadenopathy. No teresa bowel obstruction. There is an area of possible concentric wall thickening and luminal narro wing at the hepatic flexure/proximal transverse colon versus peristalsis (axial images 158-178). Smal l bowel is unremarkable. Urinary bladder is unremarkable. No pelvic mass seen. No ascites. Impression: Thick-walled cavitary lesion/nodule the right lung apex with several irregular satellite nodules. Alt teresa these findings are more prominent as compared to prior exam, distribution is relatively similar , suggesting chronic findings such as postinflammatory change or sarcoidosis. Treated metastatic dise ase is a consideration. Active malignancy not excluded, though felt to be less likely. Patchy consolidation at the medial, perihilar right lower lobe at site of previous noted mass. This p robably represents postradiation change and sequelae of treated disease. Several irregular subcentimeter right lower lobe pulmonary nodules, indeterminate. Stable subcentimet er left apical pulmonary nodules. Moderate emphysema. Stable mediastinal/hilar lymphadenopathy, compatible with history of sarcoidosis. Luminal narrowing and possible concentric wall thickening at the hepatic flexure/proximal transverse colon, which could reflect colonic adenocarcinoma versus peristalsis. Correlate clinically. Consider colonoscopy. Reviewed, dictated and finalized at [facility]. EMER CONVERTER OPERATOR Impression: Thick-walled cavitary lesion/nodule the right lung apex with several irregular satellite nodules. Although these findings are more prominent as compared to pr ior exam, distribution is relatively similar, suggesting chronic findings such as postinflammatory change or sarcoidosis. Treated metastatic disease is a cons ideration. Active malignancy not excluded, though felt to be less likely. Patchy consolidation at the medial, perihilar right lower lobe at site of previ ous noted mass. This probably represents postradiation change and sequelae of t reated disease. Several irregular subcentimeter right lower lobe pulmonary nodules, indetermina te. Stable subcentimeter left apical pulmonary nodules. Moderate emphysema. Stable mediastinal/hilar lymphadenopathy, compatible with history of sarcoidosi s. Luminal narrowing and possible concentric wall thickening at the hepatic flexur e/proximal transverse colon, which could reflect colonic adenocarcinoma versus peristalsis. Correlate clinically. Consider colonoscopy.
--- NOTE | ~2024-05-24 | CT_ITS ---
EXAMINATION: CTA BRAIN/CAROTID DATE: 05/24/2024 15:52 INDICATION: Stroke with diplopia. TECHNIQUE: Computed tomographic angiography (CTA) of the head and neck was performed with 100 mL Omni paque-350 intravenous contrast. Multiplanar reconstructions and maximum intensity projection 3D-recon structions of the carotid arteries and of the intracranial arteries were created by the technologist on a separate workstation. Precontrast CT of the head was also obtained. Automated exposure control and iterative reconstruction technique were employed.The dose-length product was 1259.44 mGy-cm. COMPARISON: Head CT dated 05/24/2024 FINDINGS: Carotid arteries: Nonhemodynamically significant atherosclerotic plaque along the normal caliber thoracic aorta and gre at vessels arising from the arch with no dissection. The left vertebral artery is dominant. There is 30% stenosis of the right carotid bulb relative to normal distal artery lumen diameter (NASCET criter ia). There is 40% stenosis of the left carotid bulb relative to normal distal artery lumen diameter. Moderate emphysema with 3.8 x 1.9 cm cavitary mass in the right upper lobe. Mild thoracic lymphadenop athy calcified lymph nodes consistent with old granulomatous disease. Cervical soft tissues are unrem arkable. Mild to moderate cervical and upper thoracic spondylosis. Intracranial arteries Evaluation is mildly limited by suboptimal contrast opacification with the peak of the contrast bolus having passed into the venous phase. Left vertebral artery is dominant. There is small amount of ath erosclerotic plaque along the bilateral carotid siphons. There is no hemodynamically significant sten osis in the vertebral, basilar and internal carotid arteries. Vertebral arteries are codominant. Ther e are no aneurysms identified. Both A1 and P1 segments are patent. Cerebral arterial arborization a ppears symmetric. There are no abnormally enhancing brain lesions. IMPRESSION: 1. 30% stenosis of the right carotid bulb relative to normal distal artery lumen diameter (NASCET cri teria). 2. 40% stenosis of the left carotid bulb relative to normal distal artery lumen diameter. 3. Atherosclerotic plaque at the bilateral carotid siphons with no hemodynamically significant stenos is. No thrombosis or aneurysm in the cerebral arteries. 4. Moderate emphysema with cavitary mass in right upper lobe which could be infectious or malignant i n etiology. See separate chest CT report for further detail. Reviewed, dictated and finalized at location A. DER IMPRESSION: 1. 30% stenosis of the right carotid bulb relative to normal distal artery lume n diameter (NASCET criteria). 2. 40% stenosis of the left carotid bulb relative to normal distal artery lumen diameter. 3. Atherosclerotic plaque at the bilateral carotid siphons with no hemodynamica lly significant stenosis. No thrombosis or aneurysm in the cerebral arteries. 4. Moderate emphysema with cavitary mass in right upper lobe which could be inf ectious or malignant in etiology. See separate chest CT report for further deta il.
--- OUTSIDE RECORDS SUMMARY | 2024-05-24 11:48 | XMS_ITS | Patient Health Record ---
Author Organization [facility] Address [address] [place] [address] Care Team Providers Care Soiled Linen Distributor Name Role Phone Evaristo PINZON, Brian Primary Care Provider Unavailab rand Staples MD, Diana Unavailable [phone] Allergies Allergen (clinical drug ingredient) Drug/Non Drug Allergy documented on EMR Reaction Allergy Type Onset Date Status iodine (uncoded) Unknown Allergy Act ruth Shellfish (FN) shellfish (uncoded) Unknown Allergy Active Reason For Referral No Information Medications Medication SIG (Take, Route, Frequency, Duration) Notes Start Date End Date Status Metamucil 48.57 % 3 tablespoons Orally daily Active Vitamin B Complex - 1 tablet Orally once a day Active ProAir HFA 108 (90 Base) MCG/ACT 1 puff as needed Inhalation as needed Active HumaLOG 100 UNIT/ML as directed Subcutaneous Active Fluticasone Propionate 50 MCG/ACT 1 spray in each nostril Nasally Once a day Active Advair Diskus 250-50 MCG/DOSE 1 puff Inhalation Twice a day Active traZODone HCl 150 MG 1 tablet at bedtime Orally Once a day Active Pantoprazole Sodium 40 MG 1 tablet Orally Once a day Active Losartan Potassium 25 MG 1 tablet Orally Once a day Active HYDROcodone-Acetaminophen 7.5-325 MG 1 tablet as needed Orally every 6 hrs Active Immunizations Vaccine Route Administration Date Status Comme nts Influenza vaccine, high dose seasonal Unknown 02/03/2019 Administered Pneumococcal polysaccharide PPV23 Unknown 09/05/2019 Re fused Social History Tobacco Use: Social History Observation Description Date Details (start date - stop date) Current Smoker NA - NA Tobacco Use/Smoking (Archived) Question Answer Notes Are you a? current smoker How often do you smoke cigarettes? every day How many cigarettes a day do you smoke? 21-30 How soon after you wake up d o you smoke your first cigarette? after 60 minutes Are you interested in quitting? Ready to quit Additional Findings: Tobacco User Heavy cigarett e smoker (20-39 cigs/day) Additional Findings: Tobacco Non-User Does not u se moist powdered tobacco Alcohol Screen (Audit-C) Question Answer Notes Did you have a drink contain ing alcohol in the past year? Yes How often did you have a dri nk containing alcohol in the past year? 2 to 3 times a week (3 points) How many drinks did you have on a typical day when you were drinking in the past year? 7 to 9 drinks (3 points) How often did you have 6 or more drinks on one occasion in the past year? Daily or almost daily (4 points) Points 10 Interpretation Positive Smoking Cessation Question Answer Notes Patient counselled on the da ngers of tobacco use and urged to quit. 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 Problem 665949850 Ventral hernia without obstruction or gangrene (K43.9) Active confirmed Problem 636139967 First degree hemorrhoids (K64.0) Active confirmed Problem 940389791 Generalized abdominal pain (R10.84) Active confirmed Problem 74774822 Heartburn (R12) Active confirmed Problem 559581587 History of adenomatous polyp of colon (Z86.010) Active confirmed Problem 959951441 Diverticulosis large intestine w/o perforation or abscess w/o bleeding (K57.30) Active confirmed Problem 938036136 Family history o f colon cancer (Z80.0) Active confirmed Problem 38687912 Hiatal hernia (K44.9) Active confirmed Problem 2547076 Gastritis, prese nce of bleeding unspecified, unspecified chronicity, unspecified gastritis type (K29.70) Active confirmed Problem 10342630 Esophageal stricture (K22.2) Active confirmed Problem 17148068 Alcohol abuse (F10.10) Active confirmed Problem 076351363 Fecal soiling (R15.1) Active confirmed Problem 023834898 Tobacco abuse (Z72.0) Active confirmed Problem 510945082 Polyp of sigmoid colon, unspecified type (K63.5) Active confirmed Plan Of Treatment No Information Insurance Providers Payer Name Payer Address Payer Phone Subscriber Number Group Number Insured Name Patient Relationship to Insured Coverage Start Date Coverage End Date [employer] MEDICARE [address] [place], [place] [id number] Pradip Land Self - patient is the insured Medical (General) History Medical History History ICD Code diabetes hypertension COPD asthma sarcoidosis adenomatous colon polyps diverticulosis Correia's esophagus gastritis hiatal hernia ventral hernia Surgical History Surgery Date(Month/Year) right knee arthroscopy x 2 tonsillectomy left knee arthroscopy colonoscopy 2019 EGD 2019
--- OUTSIDE RECORDS SUMMARY | 2024-05-24 11:48 | XMS_ITS | Encounter Summary ---
Author Organization [facility] Address [address] [place] [address] Phone Care Team Providers Care Roller Print Tender Name Role Phone Eugene Vega MD Primary Care Provi shantell Todd Gallardo MD Primary Care Provider [phone] aWi Espinoza MD Unavailable [phone] Justin Pineda MD Unavailable Encounter Details Date Type Department Care Team (Latest Contact Info) Description 11/11/2021 Orders Only [facility] Scanning, Provider Social History Tobacco Use Types Packs/Day Years Used Date Smoking Tobacco: Every Day Cigarettes 1 61.1 Started: 1962 Smokeless Tobacco: Never Alcohol Use Standard Drinks/Week Comments Yes 0 (1 standard drink = 0.6 oz pur e alcohol) PHQ-2 Answer Date Recorded PHQ-2 Score 4 12/15/2018 Sex and Gender Information Value Date Recorded Sex Assigned at Not on file Legal Sex Male 12:03 AM PULL UP HAND Gender Identity Male 01/06/2022 12:16 PM CDT Sexual Orientation Not on file documented as of this encounter Plan of Treatment Not on file documented as of this encounter Procedures Procedure Name Priority Date/Time Associated Diagnosis Comments SCAN - RADIOLOGY/IMAGING 11/11/2021 documented in this encounter Results * SCAN - RADIOLOGY/IMAGING (11/11/2021) Anatomical Region Laterality Modality Other us Provider Scanning Final Result documented in this encounter Visit Diagnoses Not on filedocumented in this encounter Care Teams Roller Print Tender Relationship Specialty Start Date End Date Eugene Vega MD [address] [place] [address] PCP - General Family Medicine 08/30/18 01/19/22 Todd Gallardo MD [address] [place] [address] PCP - General Family Practice 01/20/22 Wai Espinoza MD [address] DIV IM MEDICAL ONCOLOGY, [address] [place] [address] Medical Oncologist/Sailor Medical Oncology 01/20/22 Justin Pineda MD [address] [place] [address] Radiation Oncologist Radiation Oncology 02/02/22 documented as of this encounter
--- OUTSIDE RECORDS SUMMARY | 2024-05-24 11:48 | XMS_ITS | Encounter Summary ---
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 Gender Identity Male 01/06/2022 12:16 PM CDT Sexual Orientation Not on file documented as of this encounter Plan of Treatment Not on file documented as of this encounter Procedures Procedure Name Priority Date/Time Associated Diagnosis Comments SCAN - RADIOLOGY/IMAGING 12/05/2021 documented in this encounter Results * SCAN - RADIOLOGY/IMAGING (12/05/2021) Anatomical Region Laterality Modality Other us Provider Scanning Final Result documented in this encounter Visit Diagnoses Not on filedocumented in this encounter Care Teams Skills Trainer Relationship Specialty Start Date End Date Eugene Vega MD [address] [place] [address] PCP - General Family Medicine 08/30/18 01/19/22 Todd Gallardo MD [address] [place] [address] PCP - General Family Practice 01/20/22 Wai Espinoza MD [address] DIV IM MEDICAL ONCOLOGY, [address] [place] [address] Medical Oncologist/Quality Review Specialist Medical Oncology 01/20/22 Justin Pineda MD [address] [place] [address] Radiation Oncologist Radiation Oncology 02/02/22 documented as of this encounter
--- OUTSIDE RECORDS SUMMARY | 2024-05-24 11:48 | XMS_ITS | Encounter Summary ---
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 Gender Identity Male 01/06/2022 12:16 PM CDT Sexual Orientation Not on file documented as of this encounter Plan of Treatment Not on file documented as of this encounter Procedures Procedure Name Priority Date/Time Associated Diagnosis Comments SCAN - RADIOLOGY/IMAGING 12/04/2021 documented in this encounter Results * SCAN - RADIOLOGY/IMAGING (12/04/2021) Anatomical Region Laterality Modality Other us Provider Scanning Final Result documented in this encounter Visit Diagnoses Not on filedocumented in this encounter Care Teams Parts Room Assistant Relationship Specialty Start Date End Date Eugene Vega MD [address] [place] [address] PCP - General Family Medicine 08/30/18 01/19/22 Todd Gallardo MD [address] [place] [address] PCP - General Family Practice 01/20/22 Wai Espinoza MD [address] DIV IM MEDICAL ONCOLOGY, [address] [place] [address] Medical Oncologist/Fingerer Medical Oncology 01/20/22 Justin Pineda MD [address] [place] [address] Radiation Oncologist Radiation Oncology 02/02/22 documented as of this encounter
--- OUTSIDE RECORDS SUMMARY | 2024-05-24 11:48 | XMS_ITS | Clinical Summary ---
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 Role Phone Todd Gallardo MD Primary Care Provider [phone] Wai Espinoza MD Unavailable [phone] Justin Pineda MD Unavailable Allergies Active Allergy Reactions Criticality Noted Date Comments Lisinopril Cough Low 09/06/2018 Shellfish Unknown 05/07/2022 Shellfish Containing Products Vomiting Low 2013 Medications insulin aspart (NovoLOG) 100 unit/mL (3 mL) pen for injection daily Active losartan (COZAAR) 25 mg tablet 1 tablet (25 mg total) daily 09/25/19 17 Active albuterol HFA (PROVENTIL HFA,VENTOLIN HFA,PROAIR HFA) 90 mcg/actuation inhaler Inhale 2 puffs every 4 (four) hours as needed Active fluticasone propion-salmet Jackie (ADVAIR DISKUS) 250-50 mcg/dose diskus inhaler 1 puff every 12 hours Active traZODone (DESYREL) 100 mg tablet TAKE 1 TABLET BY MOUTH EVERY DAY AT BEDTIME NEEDED 30 tablet 6 10/28/19 19 Active HYDROcodone-ac etaminophen (NORCO) 7.5-325 mg per tabletIndicati ons:Cervicalgi a Take 1 tablet by mouth every 6 (six) hours as needed for pain 120 tablet 11/25/19 19 Active ALPRAZolam (XANAX) 0.5 mg tabletIndicati ons:Psychophys iological insomnia Take 1 tablet (0.5 mg total) by mouth nightly as needed for anxiety 30 tablet 2 12/08/19 19 Active Additional Information Patient not taking.Reported on 09/30/2023 OneTouch Ultra Test strip 11/21/19 22 Active OneTouch Ultra2 Meter misc 11/21/19 22 Active fluticasone propionate (FLONASE) 50 mcg/actuation nasal spray Administer 1 spray into affected nostril(s) daily as needed Active Creon 36,000-114,000 - 180,000 unit capsule 12/12/19 22 Active prochlorperazi ne (Compazine) 10 mg tabletIndicati ons:Prophylaxi s for chemotherapy-i nduced neutropenia,Pr imary cancer of right upper lobe of lung (HCC) Take 1 tablet (10 mg total) by mouth every 6 (six) hours as needed for nausea or vomiting Use first for nausea 120 tablet 3 02/12/20 22 Active ondansetron (ZOFRAN) 8 mg tabletIndicati ons:Prophylaxi s for chemotherapy-i nduced neutropenia,Pr imary cancer of right upper lobe of lung (HCC) Take 1 tablet (8 mg total) by mouth every 8 (eight) hours as needed for nausea or vomiting Use if prochlorperazine does not stop nausea 24 tablet 3 02/12/20 22 Active loratadine (CLARITIN) 10 mg tablet Take 1 tablet daily for 5 days 02/12-02/16 and 03/04-03/08/22 10 tablet 02/13/20 22 Active tamsulosin (FLOMAX) 0.4 mg extended release capsule 03/10/20 22 Active traZODone (DESYREL) 150 mg tablet 05/12/[address] (PROTONIX) 40 mg EC tabletIndicati ons:Primary cancer of right upper lobe of lung (HCC) Take 1 tablet (40 mg total) by mouth daily 30 tablet 06/13/19 23 Active guaiFENesin-co deine (GUAITUSS AC) liquid 100-10 mg/5 mLIndications: Primary cancer of right upper lobe of lung (HCC) Take 5 mL by mouth 3 (three) times a day as needed for cough 120 mL 1 06/20/19 23 Active Omnipod 5 G6 Pods, Gen 5, cartridge 10/08/19 23 Active LANTUS 100 unit/mL (3 mL) pen for injection 10/08/19 23 Active Gvoke HypoPen 2-Pack 1 mg/0.2 mL auto-injector 10/08/19 23 Active benzonatate (TESSALON) 100 mg capsuleIndicat ions:Cough Take 1 capsule (100 mg total) by mouth 3 (three) times a day as needed for cough 90 capsule 02/13/20 23 Active atorvastatin (LIPITOR) 20 mg tablet Take 1 tablet (20 mg total) by mouth daily 02/25/20 23 Active NovoLOG 100 unit/mL vial for injection 06/21/19 24 Active gabapentin (NEURONTIN) 300 mg capsule Take 2 capsules (600 mg total) by mouth nightly 60 capsule 3 09/30/19 24 Active baclofen (LIORESAL) 5 mg tablet Take 1 tablet (5 mg total) by mouth 3 (three) times a day as needed for muscle spasms 60 tablet 09/30/19 24 Active buPROPion XL (WELLBUTRIN XL) 150 mg 24 hr tablet Take 1 tablet (150 mg total) by mouth every morning 02/01/20 24 Active Omnipod 5 G6-G7 Pods, Gen 5, cartridge 02/24/20 24 Active celecoxib (CeleBREX) 200 mg capsule Take by mouth daily 12/16/19 24 Active Active Problems Problem Noted Date Diagnosed Date Prophylaxis for chemotherapy-induced neutropenia 02/05/2022 Primary cancer of right upper lobe of lung 01/21 Cancer Staging:Clinical:Stage IIB(cT2b, cN1, cM0) - Unsigned Right lower lobe pulmonary nodule 12/24/2021 Chronic pain 09/06/2018 Diabetes mellitus with insulin therapy ([facility]) 09/06/2018 Disorder of vitamin B12 09/06/2018 Hypoglycemia 09/06/2018 Vitamin D deficiency 09/06/2018 Anxiety disorder 05/06/2018 Tobacco abuse 05/06/2018 Type 2 diabetes mellitus wit h other circulatory complications 09/06/2017 CPAP (continuous positive airway pressure) depen dence 09/06/2017 Insulin long-term use ([facility]) 09/06/[address] 09/06/2017 Major depressive disorder, r ecurrent episode with anxious distress ([facility]) 09/06/2017 Opioid use 09/06/2017 Chronic sinusitis 10/27/2016 Moderate persistent asthma, uncomplicated 2016 Occupational exposure to unspecified risk factor 10/27/2016 Sleep apnea 10/27/2016 Alcohol dependence 09/29/2016 Sarcoidosis 09/29/2016 Hypertensive disorder 01/17/2016 Hyperlipidemia 01/17/2016 Gastroesophageal reflux disease 01/10/2016 Cervicalgia 11/01/2015 ED (erectile dysfunction) 10/23/2015 Encounters Date Type Department Care Team Description 03/23/2024 10:00 AM [facility] Office Visit [facility] Oncology [facility] Floor [address] [place] [address] Wai Espinoza MD Primary cancer of right upper lobe of lung (HCC) (Primary Dx) 03/20/2024 1:30 PM [facility] Lab [facility] Oncology Lab [facility] Floor [address] [place] [address] Primary cancer of right upper lobe of lung (HCC) 03/20/2024 12:45 PM [facility]VER Clinical Support [facility] - Lab Collection [address] [facility] [address] [place] [address] Primary cancer of right upper lobe of lung (HCC) 03/20/2024 11:37 AM VALVER - 03/20/2024 11:59 PM [facility]VER Hospital Encounter [facility] - [place] [address] [facility] [address] [place] [address] Primary cancer of right upper lobe of lung (HCC) Discharge Disposition: Discharge to home or self care from Last 3 Months Immunizations Immunization Administration Dates Next Due Influenza, Quadrivalent, Spl it, Intramuscular 01/26/2017 Influenza, Quadrivalent, Spl it, Preservative Free, Intramuscular 01/06/2020 Influenza, Trivalent, High D ose, Split, Preservative Free, Intramuscular 02/03/2019 Influenza, Trivalent, Preser vative Free, Intramuscular 12/31/2011 Pneumococcal Conjugate PCV 13 02/23/2017 Pneumococcal Polysaccharide PPV23 12/12/2013,04/2013,12/31/2011 TD Preservative Free 10/04/2015 Tdap 10/03/2015,01/02/2014 Surgical History Surgery Date Site/Laterality Comments KNEE SURGERY 04/05/2000 - 04/04/2001 Right meniscus x2 KNEE SURGERY Left meniscus x2 TONSILLECTOMY APPENDECTOMY 04/05/2019 - 04/04/2020 COLON SURGERY 01/04/2020 - 02/03/2020 they cut some of it out EYE SURGERY PORT PLACEMENT CHEST >5 YEARS 02/11/2022 N/A PORT REMOVAL 07/23/2022 N/A Medical History Medical History Date Comments Insomnia GERD (gastroesophageal reflux disease) Diabetes mellitus (HCC) Alcoholism (CMS/HCC) (HCC) Sleep apnea Arthritis Asthma COPD (chronic obstructive pulmonary disease) (HC C) Awareness under anesthesia Primary cancer of right upper lobe of lung (HCC) 01/21/2022 Hypertension Type 2 diabetes mellitus (HCC) Family History Medical History Relation Name Comments Cancer Father Esophageal cancer Father Colon cancer Sister Relation Name Status Comments Father Sister Social History Tobacco Use Types Packs/Day Years Used Date Smoking Tobacco: Every Day Cigarettes 1 61.1 Started: 1962 Smokeless Tobacco: Never Tobacco Cessation:Ready to Q uit: Not Asked; Counseling Given: Not Answered Alcohol Use Standard Drinks/Week Comments Yes 0 (1 standard drink = 0.6 oz pur e alcohol) AUDIT-C Answer Date Recorded Q1: How often do you have a drink containing alc ohol? Monthly or less 07/23/2022 Average Number of Drinks Not on file 023 Frequency of Binge Drinking Not on file 07/05 PHQ-2 Answer Date Recorded PHQ-2 Score 4 12/15/2018 Personal Safety Answer Date Recorded Have you ever been in or are you currently in a harmful physical or emotional relationship or is someone making you feel afraid or unsafe? Denies 07/23/2022 Sex and Gender Information Value Date Recorded Sex Assigned at Not on file Legal Sex Male 12:03 AM VALVER Gender Identity Male 01/06/2022 12:16 PM CDT Sexual Orientation Not on file Obstetrics History Last Filed Vital Signs Vital Sign Reading Time Taken Comments Blood Pressure 135/70 03/23/2024 10:02 AM VALVER Pulse 97 03/23/2024 10:02 AM VALVER Temperature 36.4 C (97.5 F) 03/23/2024 10:02 AM VALVER Respiratory Rate 18 03/23/2024 10:02 AM VALVER Oxygen Saturation 93% 03/23/2024 10:02 AM VALVER Inhaled Oxygen Concentration - - Weight 87.8 kg (193 lb 9.6 oz) 03/23/2024 10:02 AM VALVER Height 187 cm (6' 1.62 ) 10/08/2022 9:27 AM CDT Body Mass Index 25.11 10/08/2022 9:27 AM CDT Plan of Treatment Health Maintenance Due Date Last Done Comments Colon Cancer Screening-Colonoscopy 1950 Hepatitis C Screening 1950 Dilated Eye Exam 1950 Foot Exam 1950 Hepatitis B Screening 12/28/1969 Zoster Vaccine (1 of 2) 12/28/2001 Albumin Creatinine Ratio, Urine 11/08/2018 8 Pneumococcal vaccine 65+ (3 of 3 - PPSV23 or PCV20) 12/12/2018 02/23/2017, 12/12/2013, 04/05/2013, Additional history exists Hemoglobin A1C 06/08/2019 12/08/2018, 08/04, 09/15/2016, Additional history exists Lipid Panel 12/09/2019 12/08/2018, 08/2018, 08/30/2018, Additional history exists Depression Screening 12/16/2019 12/15/2018, 12/15/2018, 09/06/2018, Additional history exists Well Visit 65+ 12/16/2019 12/15/2018, 09/06/2018 Fall Risk Assessment 07/24/2023 07/23/2022, 02/04/2022, 12/15/2018, Additional history exists Influenza Vaccine (#1) 2023 , 02/03/2019, 01/26/2017, Additional history exists eGFR 03/20/2025 03/20/2024, 11/05, 09/13/2023, Additional history exists DTaP/Tdap/Td Vaccine (4 - Td or Tdap) 10/03/2025 10/04/2015, 10/03/2015, 01/02/2014 Prostate Cancer Screening-PSA Discontinued 11/08/2017, 10/23/2015 Abdominal Aortic Aneurysm (A AA) Screen Completed 03/20/2024, 12/04/2023, 09/13/2023, Additional history exists Medical Devices Implanted Type Area Model Technician Device Identifier Shelf Expiration Date Model / Serial / Lot [employer] Power Inj. Port 8f Plastic Preattached Implanted:Qty: 1 on 02/11/2022 at [facility] [employer] [facility] [id number] 06/24/2026 [id number] / / [id number] Procedures Procedure Name Priority Date/Time Associated Diagnosis Comments EGFR Routine 03/20/2024 12:44 PM [facility] Primary cancer of right upper lobe of lung (HCC) DIFFERENTIAL AUTO Routine 03/20/2024 12:44 PM [facility] Primary cancer of right upper lobe of lung (HCC) CBC WITH AUTO DIFFERENTIAL Routine 03/20/2024 12:44 PM [facility] Primary cancer of right upper lobe of lung (HCC) COMPREHENSIVE METABOLIC PANEL Routine 03/20/2024 12:44 PM [facility] Primary cancer of right upper lobe of lung (HCC) CT CHEST ABDOMEN W CONTRAST Schedule Routine, Read Routine (OP Routine) 03/20/2024 12:03 PM [facility] Primary cancer of right upper lobe of lung (HCC) POCT CREATININE - DEVICE Routine 03/20/2024 11:54 AM [facility] HEMOGLOBIN A1C Routine 12/08/2018 7:35 AM CDT Type 2 diabetes mellitus with other circulatory complications (CMS/HCC) LIPID PANEL Routine 12/08/2018 7:35 AM CDT Mixed hyperlipidemia ALBUMIN CREATININE RATIO, URINE Routine 11/08/2017 7:48 AM CDT PSA, TOTAL Routine 11/08/2017 7:48 AM CDT from Last 3 Months or Most Recently Relevant to Health Maintenance Results * eGFR (03/20/2024 12:44 PM [facility]) eGFR 80 >=60 mL/min/1. 73 m2 Comment: Interpretive Data Reference Interval Normal >/= 90 mL/min/1.73m2 Mildly decreased* 60 - 89 mL/min/1.73m2 Mildly to moderately decreased 45 - 59 mL/min/1.73m2 Moderately to severely decreased 30 - 44 mL/min/1.73m2 Severely decreased 15 - 29 mL/min/1.73m2 Kidney Failure < 15 mL/min/1.73m2 *Relative to young adult level Estimated glomerular filtration rate is determined by the 2020 CKD-EPI equation recommended by the National Kidney Foundation (A Unifying Approach to GFR Estimation: Recommendations of the NKF-ASK Task Force on Reassessing the Inclusion of Race in Diagnosing Kidney Disease, JASN 2020). The CKD-EPI equation should not be used for patients with unstable renal function and has not been validated in children and those over 70. Current interpretive data was last reviewed 2021. Blood 03/20/2024 12:4 4 PM [facility] 03/20/2024 12:51 PM [facility]VER us Wai Espinoza MD LAB BLOOD ORDERABLES Marysol dietrich Result [facility] Department [place] [address] * (ABNORMAL) Differential, auto (03/20/2024 12:44 PM [facility]) Neutrophil abs 7.7(H) 1.5 - 6.5 K/cumm Comment:Testing performed by : [facility], [address] [place] [phone] Lymphocyte abs 2.0 0.8 - 3.3 K/cumm [facility] Comment:Testing performed by : [facility], [address] [place] [phone] Monocyte abs 0.8 0.2 - 0.8 K/cumm [facility] Comment:Testing performed by : [facility], [address] [place] [phone] Eosinophil abs 0.2 0.0 - 0.5 K/cumm [facility] Comment:Testing performed by : [facility], [address] [place] [phone] Basophil abs 0.1 0.0 - 0.1 K/cumm [facility] Comment:Testing performed by : [facility], [address] [place] [phone] Neutrophil pct 71.4 % [facility] Comment: Interpretive Data Percent cell count reference ranges are not reported, since discordance with absolute values may lead to misinterpretation of CBC data. Current Interpretive Data was last revised on 2017. Testing performed by: [facility], [address] [place] [phone] Lymphocyte pct 18.4 % [facility] Comment: Interpretive Data Percent cell count reference ranges are not reported, since discordance with absolute values may lead to misinterpretation of CBC data. Current Interpretive Data was last revised on 2017. Testing performed by: [facility], [address] [place] [phone] Monocyte pct 7.8 % [facility] Comment: Interpretive Data Percent cell count reference ranges are not reported, since discordance with absolute values may lead to misinterpretation of CBC data. Current Interpretive Data was last revised on 2017. Testing performed by: [facility], [address] [place] [phone] Eosinophil pct 1.5 % [facility] Comment: Interpretive Data Percent cell count reference ranges are not reported, since discordance with absolute values may lead to misinterpretation of CBC data. Current Interpretive Data was last revised on 2017. Testing performed by: [facility], [address] [place] [phone] Basophil pct 0.9 % [facility] Comment: Interpretive Data Percent cell count reference ranges are not reported, since discordance with absolute values may lead to misinterpretation of CBC data. Current Interpretive Data was last revised on 2017. Testing performed by: [facility], [address] [place] [phone] Blood 03/20/2024 12:4 4 PM [facility] 03/20/2024 12:49 PM [facility]VER us Wai Espinoza MD LAB BLOOD ORDERABLES Marysol kaur Result [facility] Department [place] [address] * (ABNORMAL) CBC with auto differential (03/20/2024 12:44 PM [facility]) WBC 10.8(H) 3.8 - 9.9 K/cumm Comment:Testing performed by : [facility], [address] [place] [address] Hgb 12.9(L) 13.0 - 17.5 g/dL [facility] Comment:Testing performed by : [facility], [address] [place] [address] Hct 40.0 38.9 - 50.3 % [facility] Comment:Testing performed by : [facility], [address] [place] [address] Plt 262 150 - 400 K/cumm [facility] Comment:Testing performed by : [facility], [address] [place] [address] MPV 8.0 6.8 - 10.[address] [facility] Comment:Testing performed by : [facility], [address] [place] [address] RBC 4.32 4.30 - 5.80 M/cumm [facility] Comment:Testing performed by : [facility], [address] [place] [address] MCV 92.7 81.3 - 96.[address] [facility] Comment:Testing performed by : [facility], [address] [place] [address] MCH 30.0 27.1 - 33.3 pg [facility] Comment:Testing performed by : [facility], [address] [place] [address] MCHC 32.4 32.3 - 35.7 g/dL [facility] Comment:Testing performed by : [facility], [address] [place] [address] RDW CV 16.1(H) 11.1 - 14.9 % [facility] Comment:Testing performed by : [facility], [address] [place] [address] NRBC abs 0.00 0.00 - 0.01 K/cumm [facility] Comment:Testing performed by : [facility], [address] [place] [phone] Blood 03/20/2024 12:4 4 PM [facility] 03/20/2024 12:49 PM [facility]VER us Wai Espinoza MD LAB BLOOD ORDERABLES Marysol kaur Result [facility] Department [place] [address] * Comprehensive metabolic panel (03/20/2024 12:44 PM [facility]) Sodium 136 135 - 145 mmol/L Potassium, pl 4.4 3.3 - 4.9 mmol/L [facility] Chloride 102 97 - 110 mmol/L [facility] CO2 30 22 - 32 mmol/L [facility] Anion gap 4 2 - 15 mmol/L [facility] BUN 10 6 - 25 mg/dL [facility] Creatinine 1.00 0.80 - 1.30 mg/dL [facility] Glucose 151 70 - 199 mg/dL [facility] Comment: Interpretive Data Fasting glucose >/= 126 mg/dl is diagnostic for diabetes. Fasting is defined as no caloric intake for at least 8 hours. Fasting glucose between 100 mg/dl to 125 mg/dl is diagnostic of prediabetes. In a patient with classic symptoms of hyperglycemia or hyperglycemic crisis, a random glucose >/= 200 mg/dl is diagnostic for diabetes. In the absence of unequivocal hyperglycemia, results should be confirmed by repeat testing. The classification and Diagnosis of Diabetes Diabetes Care 202; 46: S19-S40. Current interpretive data was last revised 2022. Calcium 8.8 8.5 - 10.3 mg/dL [facility] Bilirubin, total 0.3 0.1 - 1.2 mg/dL [facility] Protein, pl 6.8 6.5 - 8.5 g/dL [facility] Albumin 4.1 3.5 - 5.0 g/dL [facility] Alk phos 62 40 - 130 Units/L [facility] ALT 8 7 - 55 Units/L [facility] AST 17 10 - 50 Units/L [facility] Comment:Hemolyzed; result ma y be falsely elevated Blood 03/20/2024 12:4 4 PM [facility] 03/20/2024 12:51 PM [facility]VER us Wai Espinoza MD LAB BLOOD ORDERABLES Marysol l Result [facility] Department [place] [address] * CT Chest Abdomen W Contrast (03/20/2024 12:03 PM [facility]) Anatomical Region Laterality Modality Body N/A Computed Tomogra phy 03/20/2024 12:5 1 PM [facility] Impressions 03/20/2024 12:51 PM [facility] 1. Stable posttreatment changes in the right lung with stable scattered pulmonary nodules bilaterally. 2. No evidence of metastatic disease in the abdomen. Electronically signed by: Padmaja Gibbs M.D. 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 COMPARISON: 12/04/2023 FINDINGS: Chest: Chronic biapical pleural parenchymal scarring. Moderately severe upper lobe predominant centrilobular emphysematous change. Stable spiculated cavitary medial right upper lobe lung mass which currently measures 4.3 x 1.7 cm, previously 4.3 x 1.9 cm (series 3, image 41). Persistent architectural distortion and scarring comments portable with posttreatment change. Unchanged architectural distortion with traction bronchiectasis and consolidation within the right lower lobe. Stable cluster of sub-5 mm nodules within the peripheral right upper lobe for example 5 mm nodule on image 54, unchanged. No new pulmonary nodule. No focal pneumonic consolidation, pneumothorax or pleural effusion. Stable scattered calcified granulomata. Dependent secretions within the trachea. Visualized thyroid gland is unremarkable. No suspicious supraclavicular, axillary adenopathy. Unchanged appearance of multiple partly calcified prominent bilateral mediastinal and hilar lymph nodes for example 1.4 cm short axis right lower paratracheal lymph node on image 78 and stable calcified 2 cm short axis subcarinal node on image 91. No new lymphadenopathy. Stable heart size without pericardial effusion. Scattered atherosclerotic calcifications in the thoracic aorta and branch vessels including three-vessel coronary artery calcifications. Small sliding hiatal hernia. Abdomen: Unchanged benign appearing portal caval and gastrohepatic lymph nodes. No new or suspicious abdominal or lymphadenopathy. Stable tiny segment 4/8 hypodensity, too small to characterize but possibly simple cyst on image 153. No new or suspicious liver lesions. Portal vein branches are patent. Normal gallbladder, pancreas and spleen with adjacent accessory splenule. Stable 1.5 cm right adrenal adenoma, with unchanged nodular thickening of the left adrenal gland. Subcutaneous changes of right hemicolectomy, partly visualized. Scattered uncomplicated diverticulosis of the imaged colon without abnormal bowel thickening or dilatation. Moderately severe atherosclerotic calcifications of the imaged nonaneurysmal abdominal aorta. Nephrograms are symmetric bilaterally without hydronephrosis or nephrocalcinosis. No aggressive osseous lesions. 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 COMPARISON: 12/04/2023 FINDINGS: Chest: Chronic biapical pleural parenchymal scarring. Moderately severe upper lobe predominant centrilobular emphysematous change. Stable spiculated cavitary medial right upper lobe lung mass which currently measures 4.3 x 1.7 cm, previously 4.3 x 1.9 cm (series 3, image 41). Persistent architectural distortion and scarring comments portable with posttreatment change. Unchanged architectural distortion with traction bronchiectasis and consolidation within the right lower lobe. Stable cluster of sub-5 mm nodules within the peripheral right upper lobe for example 5 mm nodule on image 54, unchanged. No new pulmonary nodule. No focal pneumonic consolidation, pneumothorax or pleural effusion. Stable scattered calcified granulomata. Dependent secretions within the trachea. Visualized thyroid gland is unremarkable. No suspicious supraclavicular, axillary adenopathy. Unchanged appearance of multiple partly calcified prominent bilateral mediastinal and hilar lymph nodes for example 1.4 cm short axis right lower paratracheal lymph node on image 78 and stable calcified 2 cm short axis subcarinal node on image 91. No new lymphadenopathy. Stable heart size without pericardial effusion. Scattered atherosclerotic calcifications in the thoracic aorta and branch vessels including three-vessel coronary artery calcifications. Small sliding hiatal hernia. Abdomen: Unchanged benign appearing portal caval and gastrohepatic lymph nodes. No new or suspicious abdominal or lymphadenopathy. Stable tiny segment 4/8 hypodensity, too small to characterize but possibly simple cyst on image 153. No new or suspicious liver lesions. Portal vein branches are patent. Normal gallbladder, pancreas and spleen with adjacent accessory splenule. Stable 1.5 cm right adrenal adenoma, with unchanged nodular thickening of the left adrenal gland. Subcutaneous changes of right hemicolectomy, partly visualized. Scattered uncomplicated diverticulosis of the imaged colon without abnormal bowel thickening or dilatation. Moderately severe atherosclerotic calcifications of the imaged nonaneurysmal abdominal aorta. Nephrograms are symmetric bilaterally without hydronephrosis or nephrocalcinosis. No aggressive osseous lesions. IMPRESSION: 1. Stable posttreatment changes in the right lung with stable scattered pulmonary nodules bilaterally. 2. No evidence of metastatic disease in the abdomen. Electronically signed by: Padmaja Gibbs M.D. Wai Espinoza MD IMG CT PROCEDURES Final R esult * POCT creatinine (03/20/2024 11:54 AM [facility]) Creatinine POC 1.2 0.7 - 1.3 mg/dL Blood 03/20/2024 11:5 4 AM [facility] 03/20/2024 11:54 AM [facility] us Wai Espinoza MD LAB POCT ORDERABLES - DEV ICE Final Result [facility] Department [place] [address] * (ABNORMAL) Hemoglobin A1c (12/08/2018 7:35 AM CDT) Pathologist [facility] Hgb A1C 7.5(H) <5.7 % of total Hgb [facility] - [place] Comment: For someone without known diabetes, a hemoglobin A1c value of 6.5% or greater indicates that they may have diabetes and this should be confirmed with a follow-up test. For someone with known diabetes, a value <7% indicates that their diabetes is well controlled and a value greater than or equal to 7% indicates suboptimal control. A1c targets should be individualized based on duration of diabetes, age, comorbid conditions, and other considerations. Currently, no consensus exists regarding use of hemoglobin A1c for diagnosis of diabetes for children. Blood specimen (specimen) 12/08/2018 7:35 AM CDT 12/08/2018 7:36 AM CDT Narrative [facility] - 12/09/2018 11:40 AM CDT FASTING:YES FASTING: YES Resulting Agency Comment Performing Organization Information: Site ID: ID Name: [facility] Address: [address] [place] [id number] Director: Robin Case D.O., MPH us Eugene Vega MD LAB BLOOD ORDERABLE S Final Result [facility] [place] * (ABNORMAL) Lipid panel (12/08/2018 7:35 AM CDT) Pathologist [facility] Cholesterol 238(H) <200 mg/dL [facility] - [place] HDL 77 >40 mg/dL [facility] - [place] Triglycerides 84 <150 mg/dL [facility] - [place] LDL 142(H) mg/dL (calc) [facility] Comment: Reference range: <100 Desirable range <100 mg/dL for primary prevention; <70 mg/dL for patients with CHD or diabetic patients with > or = 2 CHD risk factors. LDL-C is now calculated using the Izaiah calculation, which is a validated novel method providing better accuracy than the Friedewald equation in the estimation of LDL-C. Kervin LUGO et al. KP. 2013;310(19): 5207-3157 (http://education.[employer].MVERSE/faq/VYI080) Chol/HDL ratio 3.1 <5.0 (calc) [facility] [place] Non-HDL, (LDL+VLDL) 161(H) <130 mg/dL (calc) [facility] [place] Comment: For patients with diabetes plus 1 major ASCVD risk factor, treating to a non-HDL-C goal of <100 mg/dL (LDL-C of <70 mg/dL) is considered a therapeutic option. Blood specimen (specimen) 12/08/2018 7:35 AM CDT 12/08/2018 7:36 AM CDT Narrative [facility] - 12/09/2018 11:40 AM CDT FASTING:YES FASTING: YES Resulting Agency Comment Performing Organization Information: Site ID: ID Name: [facility] Address: [address] [facility] [place] [id number] Director: Robin Case D.O., MPH us Eugene Vega MD LAB BLOOD ORDERABLE S Final Result [facility] [place] * PSA, total (11/08/2017 7:48 AM CDT) Pathologist [facility] PSA, TOTAL 1.0 < OR = 4.0 ng/mL [facility] Comment: The total PSA value from this assay system is standardized against the WHO standard. The test result will be approximately 20% lower when compared to the equimolar-standardized total PSA (Brendon [place]). Comparison of serial PSA results should be interpreted with this fact in mind. This test was performed using the Siemens chemiluminescent method. Values obtained from different assay methods cannot be used interchangeably. PSA levels, regardless of value, should not be interpreted as absolute evidence of the presence or absence of disease. 11/08/2017 7:48 AM CDT 11/09/2017 1:15 PM CDT Narrative [facility] - 11/09/2017 1:01 PM CDT AN UPDATE OR CORRECTION HAS BEEN MADE TO NAME PERFORMING LAB: [place], [facility] [address], [place] [id number] Robin Caes D.O., MPH Eugene Vega MD LAB BLOOD ORDERABLE S Final Result Performing Organization Address [facility]/ZIP Co de Phone Number [facility] * Microalbumin / creatinine ratio, urine, random (11/08/2017 7:48 AM CDT) CREATININE, RANDOM URINE 201 20 - 370 mg/dL [facility] MICROALBUMIN 1.4 See Note: mg/dL [facility] Comment: Reference Range: Reference Range Not established MICROALBUMIN/CREAT ININE RATIO, RANDOM URINE 7 <30 mcg/mg creat [facility] Comment: The ADA defines abnormalities in albumin excretion as follows: Category Result (mcg/mg creatinine) Normal < 30 Microalbuminuria 30-299 Clinical albuminuria > OR = 300 The ADA recommends that at least two of three specimens collected within a 3-6 month period be abnormal before considering a patient to be within a diagnostic category. 11/08/2017 7:48 AM CDT 11/09/2017 1:15 PM CDT Narrative [facility] - 11/09/2017 1:01 PM CDT AN UPDATE OR CORRECTION HAS BEEN MADE TO NAME PERFORMING LAB: [place] [facility] [address], [place] [id number] Robin Case D.O., MPH Eugene Vega MD LAB URINE ORDERABLE S Final Result Performing Organization Address [facility] Co de Phone Number [facility] from Last 3 Months or Most Recently Relevant to Health Maintenance Insurance [employer] COV[place] ASO CMR PPO AET MEDICARE BLUE [employer] MEDICARE PREFERRED HMO PPO [employer]UE [employer] MEDICARE PREFERRED HMO PPO Advance Directives For more information, please contact: [phone] * Full Code (Latest Code Status on File) Date Activated Date Inactivated Comments 07/23/2022 12:36 PM 07/24/2022 4:57 AM * Full Code Date Activated Date Inactivated Comments 02/11/2022 7:13 AM 02/12/2022 5:03 AM Care Teams Rope Silica Machine Operator Relationship Specialty Start Date End Date Todd Gallardo MD PCP - General Family Practice 01/20/22 Wai Espinoza MD [address] DIV IM MEDICAL ONCOLOGY, [address] [place] [address] Medical Oncologist/Concert Manager Medical Oncology 01/20/22 Justin Pineda MD [address] [place] [address] Radiation Oncologist Radiation Oncology 02/02/22
--- OUTSIDE RECORDS SUMMARY | 2024-05-24 11:48 | XMS_ITS | Encounter Summary ---
Author Organization [facility] Address [address] [place] [address] Phone Care Team Providers Care Apartment House Manager Name Role Phone Eugene Vega MD Primary Care Provi shantell Todd Gallardo MD Primary Care Provider [phone] Wai Espinoza MD Unavailable [phone] Justin Pineda MD Unavailable Encounter Details Date Type Department Care Team (Latest Contact Info) Description 11/18/2021 Orders Only [facility] Scanning, Provider [...] on file Legal Sex Male 12:03 AM PARCEL POST CARRIER Gender Identity Male 01/06/2022 12:16 PM CDT Sexual Orientation Not on file documented as of this encounter Plan of Treatment Not on file documented as of this encounter Procedures Procedure Name Priority Date/Time Associated Diagnosis Comments PULMONARY - RESULT SCAN 12/03/2021 documented in this encounter Results * PULMONARY - RESULT SCAN (12/03/2021) Anatomical Region Laterality Modality Other us Provider Scanning Edited Result - Final documented in this encounter Visit Diagnoses Not on filedocumented in this encounter Care Teams Apartment House Manager Relationship Specialty Start Date End Date Eugene Vega MD [address] [place] [address] PCP - General Family Medicine 08/30/18 01/19/22 Todd Gallardo MD [address] [place] [address] PCP - General Family Practice 01/20/22 Wai Espinoza MD [address] DIV IM MEDICAL ONCOLOGY, [address] [place] [address] Medical Oncologist/Training Development Specialist Medical Oncology 01/20/22 Justin Pineda MD [address] [place] [address] Radiation Oncologist Radiation Oncology 02/02/22 documented as of this encounter
--- OUTSIDE RECORDS SUMMARY | 2024-05-24 11:48 | XMS_ITS | Referral Summary ---
Author Organization [facility] [place] [address] Address [address] [place] [address] Care Team Providers Care Radio Program Checker Name Role Phone Todd Gallardo MD Primary Care Provider [phone] Wai Espinoza MD Unavailable [phone] Justin Pineda MD Unavailable Encounters Date Type Department Care Team Description 03/23/2024 10:00 AM LICENSED MASSAGE PRACTITIONER Office Visit [facility] Oncology [address] [facility] Floor 5 [place] [id number] Wai Espinoza MD Primary cancer of right upper lobe of lung (HCC) (Primary Dx) 03/20/2024 12:45 PM LICENSED MASSAGE PRACTITIONER Clinical Support [facility] - Lab Collection [address] [facility] Floor 6 [place] [address] Primary cancer of right upper lobe of lung (HCC) 03/20/2024 1:30 PM LICENSED MASSAGE PRACTITIONER Lab [facility] Oncology Lab [address] [facility] Floor 6 [place] [address] Primary cancer of right upper lobe of lung (HCC) 03/20/2024 11:37 AM LICENSED MASSAGE PRACTITIONER - 03/20/2024 11:59 PM LICENSED MASSAGE PRACTITIONER Hospital Encounter [facility] - [place] [address] [facility] Floor 8 [place] [address] Primary cancer of right upper lobe of lung (HCC) Discharge Disposition: Discharge to home or self care from Last 3 Months Allergies Active Allergy Reactions Criticality Noted Date [...] on 09/30/2023 OneTouch Ultra Test strip 11/21/19 Active OneTouch Ultra2 Meter misc 11/21/19 Active fluticasone propionate (FLONASE) 50 mcg/actuation nasal [...] 5 G6-G7 Pods, Gen 5, cartridge 02/24/20 Active celecoxib (CeleBREX) 200 mg capsule Take by mouth daily 12/16/19 24 Active Active Problems Problem Noted Date Diagnosed Date Prophylaxis for chemotherapy-induced neutropenia 02/05/2022 Primary cancer of right upper lobe of lung 01/21 Cancer Staging:Clinical:Stage IIB(cT2b, cN1, cM0) - Unsigned Right lower lobe pulmonary nodule 12/24/2021 Chronic pain 09/06/2018 Diabetes mellitus with insulin therapy ([facility]) 09/06/2018 Disorder of vitamin B12 09/06/2018 Hypoglycemia 09/06/2018 Vitamin D deficiency 09/06/2018 Anxiety disorder 05/06/2018 Tobacco abuse 05/06/2018 Type 2 diabetes mellitus wit h other circulatory complications 09/06/2017 CPAP (continuous positive airway pressure) depen dence 09/06/2017 Insulin long-term use ([facility]) 09/06/[address] 09/06/2017 Major depressive disorder, r ecurrent episode with anxious distress ([facility]) 09/06/2017 Opioid use 09/06/2017 Chronic sinusitis 10/27/2016 Moderate persistent asthma, uncomplicated 2016 Occupational exposure to unspecified risk factor 10/27/2016 Sleep apnea 10/27/2016 Alcohol dependence 09/29/2016 Sarcoidosis 09/29/2016 Hypertensive disorder 01/17/2016 Hyperlipidemia 01/17/2016 Gastroesophageal reflux disease 01/10/2016 Cervicalgia 11/01/2015 ED (erectile dysfunction) 10/23/2015 Immunizations Immunization Administration Dates Next Due Influenza, Quadrivalent, Spl it, Intramuscular 01/26/2017 Influenza, Quadrivalent, Spl it, Preservative Free, Intramuscular 01/06/2020 Influenza, Trivalent, High D ose, Split, Preservative Free, Intramuscular 02/03/2019 Influenza, Trivalent, Preser vative Free, Intramuscular 12/31/2011 Pneumococcal Conjugate PCV 13 02/23/2017 Pneumococcal Polysaccharide PPV23 12/12/2013,04/2013,12/31/2011 TD Preservative Free 10/04/2015 Tdap 10/03/2015,01/02/2014 Social History Tobacco Use Types Packs/Day Years [...] on file Legal Sex Male 12:03 AM LICENSED MASSAGE PRACTITIONER Gender Identity Male 01/06/2022 12:16 PM CDT Sexual Orientation Not on file Last Filed Vital Signs Vital Sign Reading Time Taken Comments Blood Pressure 135/70 03/23/2024 10:02 AM LICENSED MASSAGE PRACTITIONER Pulse 97 03/23/2024 10:02 AM LICENSED MASSAGE PRACTITIONER Temperature 36.4 C (97.5 F) 03/23/2024 10:02 AM LICENSED MASSAGE PRACTITIONER Respiratory Rate 18 03/23/2024 10:02 AM LICENSED MASSAGE PRACTITIONER Oxygen Saturation 93% 03/23/2024 10:02 AM LICENSED MASSAGE PRACTITIONER Inhaled Oxygen Concentration - - Weight 87.8 kg (193 lb 9.6 oz) 03/23/2024 10:02 AM LICENSED MASSAGE PRACTITIONER Height 187 cm (6' 1.62 ) 10/08/2022 9:27 AM CDT Body Mass Index 25.11 10/08/2022 9:27 AM CDT Plan of Treatment Not on file Medical Devices Implanted Type Area Ton Cylinder Inspector Device Identifier Shelf Expiration Date Model / Serial / Lot [employer] Power Inj. Port 8f Plastic Preattached Implanted:Qty: 1 on 02/11/2022 at [facility] [place] [id number] 06/24/2026 [id number] / / [id number] Procedures Procedure Name Priority Date/Time Associated Diagnosis Comments EGFR Routine 03/20/2024 12:44 PM LICENSED MASSAGE PRACTITIONER Primary cancer of right upper lobe of lung (HCC) DIFFERENTIAL AUTO Routine 03/20/2024 12:44 PM LICENSED MASSAGE PRACTITIONER Primary cancer of right upper lobe of lung (HCC) CBC WITH AUTO DIFFERENTIAL Routine 03/20/2024 12:44 PM LICENSED MASSAGE PRACTITIONER Primary cancer of right upper lobe of lung (HCC) COMPREHENSIVE METABOLIC PANEL Routine 03/20/2024 12:44 PM LICENSED MASSAGE PRACTITIONER Primary cancer of right upper lobe of lung (HCC) CT CHEST ABDOMEN W CONTRAST Schedule Routine, Read Routine (OP Routine) 03/20/2024 12:03 PM LICENSED MASSAGE PRACTITIONER Primary cancer of right upper lobe of lung (HCC) POCT CREATININE - DEVICE Routine 03/20/2024 11:54 AM LICENSED MASSAGE PRACTITIONER HEMOGLOBIN A1C Routine 12/08/2018 7:35 AM CDT Type 2 diabetes mellitus with other circulatory complications (CMS/HCC) LIPID PANEL Routine 12/08/2018 7:35 AM CDT Mixed hyperlipidemia ALBUMIN CREATININE RATIO, URINE Routine 11/08/2017 7:48 AM CDT PSA, TOTAL Routine 11/08/2017 7:48 AM CDT from Last 3 Months or Most Recently Relevant to Health Maintenance Results * eGFR (03/20/2024 12:44 PM LICENSED MASSAGE PRACTITIONER) eGFR 80 >=60 mL/min/1. 73 m2 Comment: [...] of Race in Diagnosing Kidney Disease, JASN 2021). The CKD-EPI equation should not be used for patients with unstable renal function and has not been validated in children and those over 70. Current interpretive data was last reviewed 2021. Blood 03/20/2024 12:4 4 PM LICENSED MASSAGE PRACTITIONER 03/20/2024 12:51 PM LICENSED MASSAGE PRACTITIONER us Wai Espinoza MD LAB BLOOD ORDERABLES Marysol kaur Result [facility] Department [place] [address] * (ABNORMAL) Differential, auto (03/20/2024 12:44 PM LICENSED MASSAGE PRACTITIONER) Neutrophil abs 7.7(H) 1.5 - 6.5 K/cumm Comment:Testing performed by : [facility], [address] [place], [place] [phone] Lymphocyte abs 2.0 0.8 - 3.3 K/cumm CERNER BJ Comment:Testing performed by : [facility], [address] [place] [phone] Monocyte abs 0.8 0.2 - 0.8 K/cumm CERNER BJ Comment:Testing performed by : [facility], [address] [place] [phone] Eosinophil abs 0.2 0.0 - 0.5 K/cumm CERNER BJ Comment:Testing performed by : [facility], [address] [place] [phone] Basophil abs 0.1 0.0 - 0.1 K/cumm CERNER BJ Comment:Testing performed by : [facility], [address] [place] [phone] Neutrophil pct 71.4 % CERNER BJ Comment: Interpretive Data Percent cell count reference ranges are not reported, since discordance with absolute values may lead to misinterpretation of CBC data. Current Interpretive Data was last revised on 2017. Testing performed by: [facility], [address] [place] [phone] Lymphocyte pct 18.4 % CERTAMARA RUBIN Comment: Interpretive Data Percent cell count reference ranges are not reported, since discordance with absolute values may lead to misinterpretation of CBC data. Current Interpretive Data was last revised on 2017. Testing performed by: [facility], [address] [place] [phone] Monocyte pct 7.8 % FABY RUBIN Comment: Interpretive Data Percent cell count reference ranges are not reported, since discordance with absolute values may lead to misinterpretation of CBC data. Current Interpretive Data was last revised on 2017. Testing performed by: [facility], [address] [place] [phone] Eosinophil pct 1.5 % FABY RUBIN Comment: Interpretive Data Percent cell count reference ranges are not reported, since discordance with absolute values may lead to misinterpretation of CBC data. Current Interpretive Data was last revised on 2017. Testing performed by: [facility], [address] [place] [phone] Basophil pct 0.9 % FABY RUBIN Comment: Interpretive Data Percent cell count reference ranges are not reported, since discordance with absolute values may lead to misinterpretation of CBC data. Current Interpretive Data was last revised on 2017. Testing performed by: [facility], [address] [place] [phone] Blood 03/20/2024 12:4 4 PM LICENSED MASSAGE PRACTITIONER 03/20/2024 12:49 PM LICENSED MASSAGE PRACTITIONER us Wai Espinoza MD LAB BLOOD ORDERABLES Marysol l Result FABY RUBIN [facility] Department [place] [address] * (ABNORMAL) CBC with auto differential (03/20/2024 12:44 PM LICENSED MASSAGE PRACTITIONER) WBC 10.8(H) 3.8 - 9.9 K/cumm Comment:Testing performed by : [facility], [address] [place] [address] Hgb 12.9(L) 13.0 - 17.5 g/dL CERNER BJ Comment:Testing performed by : [facility], [address] [place] [address] Hct 40.0 38.9 - 50.3 % CERNER BJ Comment:Testing performed by : [facility], [address] [place], [place] [phone] Plt 262 150 - 400 K/cumm CERNER BJ Comment:Testing performed by : [facility], [address] [place] [address] MPV 8.0 6.8 - 10.4 fL CERNER BJ Comment:Testing performed by : [facility], [address] [place], [place] [phone] RBC 4.32 4.30 - 5.80 M/cumm CERNER BJ Comment:Testing performed by : [facility], [address] [place] [address] MCV 92.7 81.3 - 96.4 fL CERNER BJ Comment:Testing performed by : [facility], [address] [place] [address] MCH 30.0 27.1 - 33.3 pg CERNER BJ Comment:Testing performed by : [facility], [address] [place] [address] MCHC 32.4 32.3 - 35.7 g/dL CERNER BJ Comment:Testing performed by : [facility], [address] [place] [address] RDW CV 16.1(H) 11.1 - 14.9 % CERNER BJ Comment:Testing performed by : [facility], [address] [place] [address] NRBC abs 0.00 0.00 - 0.01 K/cumm CERNER BJ Comment:Testing performed by : [facility], [address] [place] [address] Blood 03/20/2024 12:4 4 PM LICENSED MASSAGE PRACTITIONER 03/20/2024 12:49 PM LICENSED MASSAGE PRACTITIONER us Wai Espinoza MD LAB BLOOD ORDERABLES Marysol dietrich Result [facility] Department [place] [address] * Comprehensive metabolic panel (03/20/2024 12:44 PM LICENSED MASSAGE PRACTITIONER) Pathologist [facility] Sodium 136 135 - 145 mmol/L Potassium, pl 4.4 3.3 - 4.9 mmol/L [facility] Chloride 102 97 - 110 mmol/L CERNER [facility] CO2 30 22 - 32 mmol/L CERNER [facility] Anion gap 4 2 - 15 mmol/L [facility] BUN 10 6 - 25 mg/dL [facility] Creatinine 1.00 0.80 - 1.30 mg/dL [facility] Glucose 151 70 - 199 mg/dL [facility] Comment: Interpretive Data Fasting glucose >/= 126 [...] classification and Diagnosis of Diabetes Diabetes Care 2021; 46: S19-S40. Current interpretive data was last revised 2022. Calcium 8.8 8.5 - 10.3 mg/dL CERNER [facility] Bilirubin, total 0.3 0.1 - 1.2 mg/dL [facility] Protein, pl 6.8 6.5 - 8.5 g/dL [facility] Albumin 4.1 3.5 - 5.0 g/dL [facility] Alk phos 62 40 - 130 Units/L CERNER [facility] ALT 8 7 - 55 Units/L [facility] AST 17 10 - 50 Units/L [facility] Comment:Hemolyzed; result ma y be falsely elevated Blood 03/20/2024 12:4 4 PM LICENSED MASSAGE PRACTITIONER 03/20/2024 12:51 PM LICENSED MASSAGE PRACTITIONER us Wai Espinoza MD LAB BLOOD ORDERABLES Marysol dietrich Result F[facility]Y [facility] Department [place] [address] * CT Chest Abdomen W Contrast (03/20/2024 12:03 PM LICENSED MASSAGE PRACTITIONER) Anatomical Region Laterality Modality Body N/A Computed Tomogra phy 03/20/2024 12:5 1 PM LICENSED MASSAGE PRACTITIONER Impressions 03/20/2024 12:51 PM LICENSED MASSAGE PRACTITIONER 1. Stable posttreatment changes in the right lung with stable scattered pulmonary nodules bilaterally. 2. No evidence of metastatic disease in the abdomen. Electronically signed by: Padmaja Gibbs M.D. Narrative 03/20/2024 12:51 PM LICENSED MASSAGE PRACTITIONER EXAMINATION: Computed tomography of the chest and [...] esult * POCT creatinine (03/20/2024 11:54 AM LICENSED MASSAGE PRACTITIONER) [facility] [address] Creatinine POC 1.2 0.7 - 1.3 mg/dL Blood 03/20/2024 11:5 4 AM LICENSED MASSAGE PRACTITIONER 03/20/2024 11:54 AM LICENSED MASSAGE PRACTITIONER Wai Espinoza MD LAB POCT ORDERABLES - DEV ICE Final Result FABY [facility] Department [place] [address] * (ABNORMAL) Hemoglobin A1c (12/08/2018 7:35 AM CDT) Pathologist [facility] Hgb A1C 7.5(H) <5.7 % of total Hgb [facility] [place] Comment: For someone without known diabetes, a [...] Agency Comment Performing Organization Information: Site ID: [place] Name: [facility] Address: [address] [address] Director: Robin Case D.O., MPH Eugene Vega MD LAB BLOOD ORDERABLE S Final Result [facility] [place] * (ABNORMAL) Lipid panel (12/08/2018 7:35 AM CDT) Cholesterol 238(H) <200 mg/dL [facility] [place] HDL 77 >40 mg/dL [facility] [place] Triglycerides 84 <150 mg/dL [facility] [place] LDL 142(H) mg/dL (calc) [facility] [place] Comment: Reference range: <100 Desirable range <100 mg/dL for primary prevention; <70 mg/dL for patients with CHD or diabetic patients with > or = 2 CHD risk factors. LDL-C is now calculated using the Izaiah calculation, which is a validated novel method providing better accuracy than the Friedewald equation in the estimation of LDL-C. Kervin LUGO et al. KP. 2013;310(19): 5976-9990 (http://education.CompassMed/faq/NVT931) Chol/HDL ratio 3.1 <5.0 (calc) [facility] [place] Non-HDL, (LDL+VLDL) 161(H) <130 mg/dL (calc) [facility] [place] Comment: For patients with diabetes plus 1 major ASCVD risk factor, treating to a non-HDL-C goal of <100 mg/dL (LDL-C of <70 mg/dL) is considered a therapeutic option. Blood specimen (specimen) 12/08/2018 7:35 AM CDT 12/08/2018 7:36 AM CDT Narrative [facility] - 12/09/2018 11:40 AM CDT FASTING:YES FASTING: YES Resulting Agency Comment Performing Organization Information: Site ID: [place] Name: [facility] Address: [address] [address] Director: Robin Case D.O. MPH Eugene Vega MD LAB BLOOD ORDERABLE S Final Result Performing Organization Address [facility] Co de Phone Number [facility] - [place] * PSA, total (11/08/2017 7:48 AM CDT) Pathologist [facility] PSA, TOTAL 1.0 < OR = 4.0 ng/mL [facility] HISTORICAL RESULTS Comment: The total PSA value from this assay system is standardized against the WHO standard. The test result will be approximately 20% lower when compared to the equimolar-standardized total PSA (Brendon Sadia). Comparison of serial PSA results should be interpreted with this fact in mind. This test was performed using the Siemens chemiluminescent method. Values obtained from different assay methods cannot be used interchangeably. PSA levels, regardless of value, should not be interpreted as absolute evidence of the presence or absence of disease. 11/08/2017 7:48 AM CDT 11/09/2017 1:15 PM CDT [facility] HISTORICAL RESULTS - 11/09/2017 1:01 PM CDT AN UPDATE OR CORRECTION HAS BEEN MADE TO NAME PERFORMING LAB: [place] [facility] [address] [place] [address] Robin Case D.O., MPH Eugene Vega MD LAB BLOOD ORDERABLE S Final Result Performing Organization Address City/[facility]/ZIP Co de Phone Number [facility] HISTORICAL RESULTS * Microalbumin / creatinine ratio, urine, random (11/08/2017 7:48 AM CDT) CREATININE, RANDOM URINE 201 20 - 370 mg/dL [facility] HISTORICAL RESULTS MICROALBUMIN 1.4 See Note: mg/dL [facility] HISTORICAL RESULTS Comment: Reference Range: Reference Range Not established MICROALBUMIN/CREAT ININE RATIO, RANDOM URINE 7 <30 mcg/mg creat [facility] HISTORICAL RESULTS Comment: The ADA defines abnormalities [...] AM CDT 11/09/2017 1:15 PM CDT Narrative [facility] HISTORICAL RESULTS - 11/09/2017 1:01 PM CDT AN UPDATE OR CORRECTION HAS BEEN MADE TO NAME PERFORMING LAB: [place], [facility] [address] [place] [address] Robin Case D.O., MPH Eugene Vega MD LAB URINE ORDERABLE S Final Result [facility] HISTORICAL RESULTS from Last 3 Months or Most Recently Relevant to Health Maintenance Insurance [facility] AET[employer] MEDICARE [place]UE [place] MEDICARE PREFERRED O PPO [employer]UE [employer] MEDICARE PREFERRED O PPO Advance Directives For more information, please contact: [phone] * Full Code (Latest Code Status on File) Date Activated Date Inactivated Comments 07/23/2022 12:36 PM 07/24/2022 4:57 AM * Full Code Date Activated Date Inactivated Comments 02/11/2022 7:13 AM 02/12/2022 5:03 AM Care Teams Radio Program Checker Relationship Specialty Start Date End Date Todd Gallardo MD PCP - General Family Practice 01/20/22 Wai Espinoza MD [address] DIV IM MEDICAL ONCOLOGY, [address] [place] [address] Medical Oncologist/Hand I Blocker Medical Oncology 01/20/22 Justin Pineda MD [address] [place] [address] Radiation Oncologist Radiation Oncology 02/02/22
--- OUTSIDE RECORDS SUMMARY | 2024-05-24 11:49 | XMS_ITS | Encounter Summary ---
Author Organization [facility] Address [address] [place] [address] Care Team Providers Care Setter Helper Name Role Phone Todd Gallardo MD Primary Care Provider [phone] Wai Espinoza MD Unavailable [phone] Justin Pineda MD Unavailable Encounter Details Date Type Department Care Team (Late st Contact Info) Description 02/10/2022 Telephone [facility] Radiology [address] [place] [address] Shruthi Higgins, RN Social History Tobacco Use Types Packs/Day Years Used Date Smoking Tobacco: Every Day Cigarettes 1 61.1 Started: 1962 Smokeless Tobacco: Never Alcohol Use Standard Drinks/Week Comments Yes 0 (1 standard drink = 0.6 oz pur e alcohol) AUDIT-C Answer Date Recorded Q1: How often do you have a drink containing alcohol? Monthly or less 02/11/2022 Q2: How many drinks containi ng alcohol do you have on a typical day when you are drinking? 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 Gender Identity Male 01/06/2022 12:16 PM CDT Sexual Orientation Not on file documented as of this encounter Functional Status documented as of this encounter Miscellaneous Notes * Telephone Encounter - Shruthi Higgins, KEVYN - 02/10/2022 4:39 PM CST EL LOADER documented in this encounter Plan of Treatment Not on file documented as of this encounter Visit Diagnoses Not on filedocumented in this encounter Care Teams Setter Helper Relationship Specialty Start Date End Date Todd Gallardo MD PCP - General Family Practice 01/20/22 Wai Espinoza MD [address] DIV IM MEDICAL ONCOLOGY, [address] [place] [address] Medical Oncologist/Negative Turner Apprentice Medical Oncology 01/20/22 Justin Pineda MD [address] [place] [address] Radiation Oncologist Radiation Oncology 02/02/22 documented as of this encounter
--- OUTSIDE RECORDS SUMMARY | 2024-05-24 11:49 | XMS_ITS ---
Author Organization [facility] [address] Address [address] [place] [address] Care Team Providers Care Finger Lift Operator Name Role Phone Todd Gallardo MD Primary Care Provider [phone] Wai Espinoza MD Unavailable Justin Pineda MD Unavailable Active Problems Problem Noted Date Diagnosed Date Prophylaxis for chemotherapy-induced neutropenia 02/05/2022 Primary cancer of right upper lobe of lung 01/21 Cancer Staging:Clinical:Stage IIB(cT2b, cN1, cM0) - Unsigned Right lower lobe pulmonary nodule 12/24/2021 Chronic pain 09/06/2018 Diabetes mellitus with insulin therapy ([facility]) 09/06/2018 Disorder of vitamin B12 09/06/2018 Hypoglycemia 09/06/2018 Vitamin D deficiency 09/06/2018 Anxiety disorder 05/06/2018 Tobacco abuse 05/06/2018 Type 2 diabetes mellitus wit h other circulatory complications 09/06/2017 CPAP (continuous positive airway pressure) depen dence 09/06/2017 Insulin long-term use ([facility]) 09/06/[address] 09/06/2017 Major depressive disorder, r ecurrent episode with anxious distress ([facility]) 09/06/2017 Opioid use 09/06/2017 Chronic sinusitis 10/27/2016 Moderate persistent asthma, uncomplicated 2016 Occupational exposure to unspecified risk factor 10/27/2016 Sleep apnea 10/27/2016 Alcohol dependence 09/29/2016 Sarcoidosis 09/29/2016 Hypertensive disorder 01/17/2016 Hyperlipidemia 01/17/2016 Gastroesophageal reflux disease 01/10/2016 Cervicalgia 11/01/2015 ED (erectile dysfunction) 10/23/2015 Current Treatment and Therapy Plans HYDRATION THERAPY PLAN* Plan Start Date:02/19/2022 Plan Provider:Wai Espinoza MD Linked Problems Primary cancer of right uppe r lobe of lung (HCC) Treatment Medications No medications scheduled. Past Treatment and Therapy Plans Oncology Chemotherapy Treatment Plan Name Start Date Discontinue Date Treatment Medications Discontinue Reason Plan Provider Cycles durvalumab consolidation 14 Day Cycles - Lung 3 10/08/2022 durvalumab (IMFINZI)durva lumab (IMFINZI) IVPB in 100 mL solution Therapy Complete Wai Monroy rn, MD 4 of 26 cycles started nab-PACLItaxel / CARBOplatin with Concurrent Radiation: Induction / Weekly - Non-Small Cell Lung 3 06/22/2022 albumin-bound PACLItaxel (ABRAXANE) 5 mg/mLCARBOplat in (PARAPLATIN) IVPB in 250 mL Therapy Complete Wai Monroy rn, MD 1 of 1 cycle started nab-PACLItaxel (Changed Cycle 2 from Paclitaxel) / CARBOplatin 21 Day Cycles - Non-Small Cell Lung 02/13/20 22 04/09/2022 albumin-bound PACLItaxel (ABRAXANE) 5 mg/mLCARBOplat in (PARAPLATIN)CA RBOplatin (PARAPLATIN) IVPB in 250 mLPACLitaxel (TAXOL)PACLIta xel (TAXOL) IVPB in 500 mL Therapy Complete Wai Monroy rn, MD 2 of 2 cycles started PACLItaxel / CARBOplatin with Concurrent Radiation: Induction / Weekly - Non-Small Cell Lung 02/13/20 22 02/05/2022 CARBOplatin (PARAPLATIN)PA CLitaxel (TAXOL) Provider Discretion Wai Monroy rn, MD Treatment not started Radiation Treatments * Course [id number] - 06/10/2022 Treatment Period Energy Fraction Dose Fractions Total Dose Plans Planned RT HILUM 04/29/2022 - 06/10/2022 200 30 / 6,000 Reference Points Delivered [id number] 04/29/2022 - 06/10/2022 6,000 Lifetime Dose Tracking * Chemical Lifetime Dose Automatic Entry Manual Entr y Fluoro Time 1 minutes 1 minutes 0 minutes Air kerma at the reference point (Ka,r) 2 mGy 2 mGy 0 mGy DLP 6,425.8 mGycm 6,425.8 mGycm 0 mGycm
--- OUTSIDE RECORDS SUMMARY | 2024-05-24 11:49 | XMS_ITS ---
Author Organization [facility] Address [address] [place] [address] Care Team Providers [employer]er Name Role Phone Migration, Provider Unavailable Unavailable REASON FOR VISIT [facility] Encounters Encounter Location Date Provider Diagnosis [facility] [address] [place] [address] 02/05/2024 Provider Migration Plan Of Treatment Medication Medication Name Sig Start Date Stop Date Notes predniSONE 20 MG take 1 tablet by oral route every day Oral 12/27/2019 05/14/2020 Tamsulosin HCl 0.4 MG take 1 capsule by oral route every day 1/2 hour following the same meal each day Oral 03/19/2021 07/24/2021 taking as directed Protonix 40 MG TAKE 1 TABLET BY MOUTH EVERY DAY Oral 04/08/2021 08/20/2021 taking as directed traZODone HCl 50 MG take 1 tablet by oral route every day Oral 02/11/2015 02/23/2017 taking as directed tiZANidine HCl 2 MG take 1 capsule by oral route every 12 - 24 hours as needed not to exceed 3 doses in 24 hours Oral 05/14/2020 08/20/2020 taking as directed Naproxen 500 MG take 1 tablet by oral route every day with food Oral 06/07/2013 10/09/2013 taking as directed Ondansetron HCl 4 MG take 1 Tablet by oral route every 8 hours for 2 days Oral 03/20/2014 03/21/2014 predniSONE 10 MG take 1 tablet by oral route every day Oral 03/15/2019 03/15/2019 NovoLOG Mix 70/30 FlexPen (70-30) 100 UNIT/ML inject by subcutaneous route 30 units QAM Subcutaneous 10/02/2013 10/17/2013 taking as directed NexIUM 40 MG take 1 capsule by oral route every day Oral 11/09/2013 01/08/2014 taking as directed Nabumetone 500 MG take 1 tablet by oral route 2 times every day Oral 10/09/2013 12/14/2013 taking as directed metFORMIN HCl 500 MG take 1 tablet by oral route every day with morning meal Oral 02/13/2014 02/27/2014 Medrol 4 MG take by Oral route as directed Oral 04/16/2021 07/24/2021 Losartan Potassium 25 MG take 1 tablet b y oral route 2 times every day for hypertension Oral 07/24/2021 08/20/2021 taking as directed Lexapro 10 MG take 1 tablet by oral route every day Oral 04/07/2019 04/18/2019 taking as directed Levemir FlexPen 100 UNIT/ML inject by Subdermal route 65 units in am and 45at night Subcutaneous 01/08/2014 02/11/2015 taking as directed *Reorder from [employer] for eRx and Interaction Alerts* Flomax 0.4 MG take 1 capsule by oral route every day 1/2 hour following the same meal each day Oral 07/24/2021 11/14/2021 taking as directed DULoxetine HCl 60 MG take 1/2 capsule by oral route every day Oral 03/15/2019 04/07/2019 taking as directed Fluticasone Furoate 50 MCG/ACT SHAKE LIQUID AND USE 1 TO 2 SPRAYS IN EACH NOSTRIL EVERY DAY NEEDED Inhalation 07/24/2021 09/22/2021 taking as directed hydroCHLOROthiazide 25 MG take 1 tablet by oral route every day Oral 08/16/2017 02/22/2018 taking as directed Cymbalta 60 MG take 1 capsule by oral route every day Oral 07/31/2014 02/11/2015 DULoxetine HCl 30 MG take 1 capsule by oral route every day Oral 01/17/2019 03/15/2019 taking as directed Cymbalta 30 MG take 1 capsule by oral route every day Oral 07/31/2014 02/11/2015 Ciprofloxacin-dexAMETHason e 0.3-0.1 % instill 4 drop by otic route 2 times every day for 7 days into affected ear(s) Otic 05/09/2015 05/15/2015 Cyclobenzaprine HCl 10 MG take 1 tablet by oral route 3 times every day Oral 11/09/2013 02/13/2014 taking as directed Cetirizine HCl 10 MG take 1 tablet by oral route every day Oral 02/14/2019 07/24/2021 taking as directed busPIRone HCl 10 MG take 1 tablet by oral route 2 times every day Oral 02/17/2021 03/19/2021 taking as directed HYDROcodone-Acetaminophen 7.5-325 MG take 1 tablet by oral route every 8 hours as needed for pain for Non Acute Pain Oral 01/29/2022 04/14/2022 taking as directed busPIRone HCl 5 MG take 1 tablet by oral route 2 times every day Oral 04/18/2018 01/17/2019 taking as directed Azithromycin 250 MG take 2 tablet by oral route every day for 1 day then 1 tablet (250 mg) by oral route once daily for 4 days Oral 04/16/2021 04/20/2021 Amoxicillin-Pot Clavulanate 875-125 MG take 1 tablet by oral route every 12 hours Oral 02/22/2019 03/15/2019 taking as directed Atorvastatin Calcium 20 MG take 1 tablet by oral route every day Oral 03/31/2017 08/16/2017 taking as directed hydrocodone 7.5 mg-acetaminophen 750 mg tablet 7.5 mg-750 mg take 1 tablet by oral route every 6 hours as needed for pain not to exceed 5 tablets in 24hrs ORAL 05/24/2013 06/07/2013 *Reorder from [employer] for eRx and Interaction Alerts* azelastine 137 mcg (0.1 %) nasal spray aerosol 137 mcg (0.1 %) spray 2 spray by intranasal route 2 times every day in each nostril NASAL 02/14/2019 07/24/2021 taking as directed *Reorder from [employer] for eRx and Interaction Alerts* Azithromycin 500 MG take 1 tablet by oral route every day for 7 days Oral 03/20/2014 03/26/2014 Fluticasone Propionate Diskus 50 MCG/ACT SHAKE LIQUID AND USE 1 TO 2 SPRAYS IN EACH NOSTRIL EVERY DAY NEEDED Inhalation 06/18/2021 07/24/2021 taking as directed *Reorder from [employer] for eRx and Interaction Alerts* FLUTICASONE PROPIONATE 50MCG/ACTUATION SPRY 50 mcg/actuation SHAKE LIQUID AND USE 1 TO TWO SPRAYS IN EACH NOSTRIL DAILY NEEDED NASAL 09/22/2021 11/25/2021 taking as directed [facility]* Flonase Allergy Relief 50 MCG/ACT SPRAY 1 - 2 SPRAY BY INTRANASAL ROUTE EVERY DAY IN EACH NOSTRIL NEEDED Nasal 08/16/2017 02/22/2018 Patient requests 90 days supply ProAir RespiClick 108 (90 Base) MCG/ACT inhale 2 puff by inhalation route every 6 hours as needed Inhalation 04/28/2019 09/07/2019 Ambien 10 MG take 1 tablet by oral route every day at bedtime Oral 01/07/2015 02/11/2015 Nesina 25 MG take 1 tablet by oral route every day Oral 03/20/2014 02/11/2015 taking as directed Anoro Ellipta 62.5-25 MCG/INH inhale 1 puff by inhalation route every day at the same time each day Inhalation 10/23/2019 01/26/2020 ALPRAZolam 0.5 MG take 1 tablet by oral route every day as needed for anxiety Oral 01/13/2021 02/17/2021 taking as directed Tribenzor 40-10-25 MG take 1/2 Tablet by oral route every day Oral 06/07/2013 09/14/2013 Advair Diskus 250-50 MCG/DOSE INHALE 1 PUFF INTO THE LUNGS TWICE A DAY IN THE MORNING AND THE EVENING APPROXIMATELY 12 HOURS APART Inhalation 11/25/2021 12/16/2021 taking as directed Wellbutrin XL 150 MG take 1 tablet by oral route every day Oral 03/19/2021 07/24/2021 taking as directed traZODone HCl 150 MG take 1 tablet by oral route every day Oral 04/16/2021 09/15/2021 taking as directed Ventolin HFA 108 (90 Base) MCG/ACT inhale 2 puff by inhalation route every 6 hours as needed Inhalation 05/24/2013 04/28/2019 taking as directed Victoza 18 MG/3ML inject 0.6 milliliter by subcutaneous route every day Subcutaneous 02/28/2014 04/03/2014 taking as directed Wellbutrin XL 300 MG TAKE 1 TABLET BY ORAL ROUTE EVERY DAY Oral 01/12/2022 01/19/2022 taking as directed traZODone HCl 100 MG take 1 tablet by oral route every day after meals Oral 01/07/2018 04/18/2019 taking as directed Progress Notes * Pradip CELESTE DDOB:1950 (73 yo M)Acc No.[id number]:02/05/2024 Patient: Pradip CALZADA :1950 A ge:73 Y S ex:Male Address:[address] [place] [address], [place] [address] * Refills Stop Advair Diskus Aerosol Powder Breath Activated, 250-50 MCG/DOSE, Inhalation, 0, inhale 1 puff by inhalation route 2 times every day in the morning and evening approximately 12 hours apart Stop Advair Diskus Aerosol Powder Breath Activated, 250-50 MCG/DOSE, Inhalation, 1, inhale 1 puff by inhalation route 2 times every day in the morning and evening approximately 12 hours apart Stop Advair Diskus Aerosol Powder Breath Activated, 250-50 MCG/DOSE, Inhalation, 30, inhale 1 puff by inhalation route 2 times every day in the morning and evening approximately 12 hours apart Stop Advair Diskus Aerosol Powder Breath Activated, 250-50 MCG/DOSE, Inhalation, 30, inhale 1 puff by inhalation route 2 times every day in the morning and evening approximately 12 hours apart Stop Advair Diskus Aerosol Powder Breath Activated, 250-50 MCG/DOSE, Inhalation, 60, INHALE 1 PUFF INTO THE LUNGS TWICE DAILY IN THE MORNING AND THE EVENING APPROXIMATELY 12 HOURS APART Stop Advair Diskus Aerosol Powder Breath Activated, 250-50 MCG/DOSE, Inhalation, 60, INHALE 1 PUFF INTO THE LUNGS TWICE A DAY IN THE MORNING AND THE EVENING APPROXIMATELY 12 HOURS APART Stop Advair Diskus Aerosol Powder Breath Activated, 250-50 MCG/DOSE, Inhalation, 60, INHALE 1 PUFF INTO THE LUNGS TWICE A DAY IN THE MORNING AND THE EVENING APPROXIMATELY 12 HOURS APART Stop ALPRAZolam Tablet, 0.5 MG, Oral, 15, take 1 tablet by oral route every day as needed for anxiety Stop Ambien Tablet, 10 MG, Oral, 30, take 1 tablet by oral route every day at bedtime Stop Ambien Tablet, 10 MG, Oral, 30, take 1 tablet by oral route every day at bedtime Stop Amoxicillin-Pot Clavulanate Tablet, 875-125 MG, Oral, 14, take 1 tablet by oral route every 12 hours Stop Amoxicillin-Pot Clavulanate Tablet, 875-125 MG, Oral, 14, take 1 tablet by oral route every 12 hours Stop Amoxicillin-Pot Clavulanate Tablet, 875-125 MG, Oral, 14, take 1 tablet by oral route every 12 hours Stop Amoxicillin-Pot Clavulanate Tablet, 875-125 MG, Oral, 14, take 1 tablet by oral route every 12 hours Stop Atorvastatin Calcium Tablet, 20 MG, Oral, 0, take 1 tablet by oral route every day Stop Atorvastatin Calcium Tablet, 20 MG, Oral, 0, take 1 tablet by oral route every day Stop Atorvastatin Calcium Tablet, 20 MG, Oral, 90, take 1 tablet by oral route every day Stop Azithromycin Tablet, 500 MG, Oral, 7, take 1 tablet by oral route every day for 7 days Stop Azithromycin Tablet, 250 MG, Oral, 1, take 2 tablet by oral route every day for 1 day then 1 tablet (250 mg) by oral route once daily for 4 days Stop busPIRone HCl Tablet, 10 MG, Oral, 0, take 1 tablet by oral route 2 times every day Stop busPIRone HCl Tablet, 10 MG, Oral, 0, take 1 tablet by oral route 3 times every day Stop busPIRone HCl Tablet, 5 MG, Oral, 60, take 1 tablet by oral route 2 times every day for anxiety Stop busPIRone HCl Tablet, 5 MG, Oral, 60, take 1 tablet by oral route 2 times every day Stop busPIRone HCl Tablet, 10 MG, Oral, 60, take 1 tablet by oral route 2 times every day Stop busPIRone HCl Tablet, 10 MG, Oral, 60, take 1 tablet by oral route 2 times every day Stop Cetirizine HCl Tablet, 10 MG, Oral, 30, take 1 tablet by oral route every day Stop Cetirizine HCl Tablet, 10 MG, Oral, 30, take 1 tablet by oral route every day Stop Ciprofloxacin-dexAMETHasone Suspension, 0.3-0.1 %, Otic, 1, instill 4 drop by otic route 2 times every day for 7 days into affected ear(s) Stop Cyclobenzaprine HCl Tablet, 10 MG, Oral, 0, take 1 tablet by oral route 3 times every day Stop Cymbalta Capsule Delayed Release Particles, 30 MG, Oral, 7, take 1 capsule by oral route every day Stop Cymbalta Capsule Delayed Release Particles, 60 MG, Oral, 90, take 1 capsule by oral route every day Stop DULoxetine HCl Capsule Delayed Release Particles, 30 MG, Oral, 30, take 1 capsule by oral route every day Stop DULoxetine HCl Capsule Delayed Release Particles, 60 MG, Oral, 30, take 1 capsule by oral route every day Stop DULoxetine HCl Capsule Delayed Release Particles, 60 MG, Oral, 30, take 1/2 capsule by oral route every day Stop Flomax Capsule, 0.4 MG, Oral, 90, take 1 capsule by oral route every day 1/2 hour following the same meal each day Stop Flomax Capsule, 0.4 MG, Oral, 30, take 1 capsule by oral route every day 1/2 hour following the same meal each day Stop Fluticasone Furoate Aerosol Powder Breath Activated, 50 MCG/ACT, Inhalation, 1, spray 1 - 2 spray by intranasal route every day in each nostril as needed Stop Fluticasone Furoate Aerosol Powder Breath Activated, 50 MCG/ACT, Inhalation, 1, SPRAY 1 - 2 SPRAY BY INTRANASAL ROUTE EVERY DAY IN EACH NOSTRIL NEEDED Stop Fluticasone Furoate Aerosol Powder Breath Activated, 50 MCG/ACT, Inhalation, 1, SPRAY 1 - 2 SPRAY BY INTRANASAL ROUTE EVERY DAY IN EACH NOSTRIL NEEDED Stop Fluticasone Furoate Aerosol Powder Breath Activated, 50 MCG/ACT, Inhalation, 1, SPRAY 1 - 2 SPRAY BY INTRANASAL ROUTE EVERY DAY IN EACH NOSTRIL NEEDED Stop Fluticasone Furoate Aerosol Powder Breath Activated, 50 MCG/ACT, Inhalation, 1, SPRAY 1 - 2 SPRAY BY INTRANASAL ROUTE EVERY DAY IN EACH NOSTRIL NEEDED Stop Fluticasone Furoate Aerosol Powder Breath Activated, 50 MCG/ACT, Inhalation, 16, SHAKE LIQUID AND USE 1 TO 2 SPRAYS IN EACH NOSTRIL EVERY DAY NEEDED Stop hydroCHLOROthiazide Tablet, 25 MG, Oral, 0, take 1 tablet by oral route every day Stop HYDROcodone-Acetaminophen Tablet, 7.5-325 MG, Oral, 0, take 1 tablet by oral route every 6 hours as needed for pain Stop HYDROcodone-Acetaminophen Tablet, 7.5-325 MG, Oral, 90, take 1 tablet by oral route every 6 hours as needed for pain Stop HYDROcodone-Acetaminophen Tablet, 7.5-325 MG, Oral, 90, take 1 tablet by oral route every 6 hours as needed for pain Stop HYDROcodone-Acetaminophen Tablet, 7.5-325 MG, Oral, 90, take 1 tablet by oral route every 6 hours as needed for pain Stop HYDROcodone-Acetaminophen Tablet, 7.5-325 MG, Oral, 90, take 1 tablet by oral route every 6 hours as needed for pain Stop HYDROcodone-Acetaminophen Tablet, 7.5-325 MG, Oral, 90, take 1 tablet by oral route every 6 hours as needed for pain Stop HYDROcodone-Acetaminophen Tablet, 7.5-325 MG, Oral, 90, take 1 tablet by oral route every 6 hours as needed for pain Stop HYDROcodone-Acetaminophen Tablet, 7.5-325 MG, Oral, 90, take 1 tablet by oral route every 6 hours as needed for pain Stop HYDROcodone-Acetaminophen Tablet, 7.5-325 MG, Oral, 90, take 1 tablet by oral route every 6 hours as needed for pain Stop HYDROcodone-Acetaminophen Tablet, 7.5-325 MG, Oral, 90, take 1 tablet by oral route every 6 hours as needed for pain Stop HYDROcodone-Acetaminophen Tablet, 7.5-325 MG, Oral, 90, take 1 tablet by oral route every 6 hours as needed for pain Stop HYDROcodone-Acetaminophen Tablet, 7.5-325 MG, Oral, 90, take 1 tablet by oral route every 6 hours as needed for pain Stop HYDROcodone-Acetaminophen Tablet, 7.5-325 MG, Oral, 90, take 1 tablet by oral route every 6 hours as needed for pain Stop HYDROcodone-Acetaminophen Tablet, 7.5-325 MG, Oral, 90, take 1 tablet by oral route every 6 hours as needed for pain Stop HYDROcodone-Acetaminophen Tablet, 7.5-325 MG, Oral, 90, take 1 tablet by oral route every 6 hours as needed for pain Stop HYDROcodone-Acetaminophen Tablet, 7.5-325 MG, Oral, 90, take 1 tablet by oral route every 6 hours as needed for pain Stop HYDROcodone-Acetaminophen Tablet, 7.5-325 MG, Oral, 90, take 1 tablet by oral route every 6 hours as needed for pain Stop HYDROcodone-Acetaminophen Tablet, 7.5-325 MG, Oral, 90, take 1 tablet by oral route every 6 hours as needed for pain Stop HYDROcodone-Acetaminophen Tablet, 7.5-325 MG, Oral, 90, take 1 tablet by oral route every 6 hours as needed for pain Stop HYDROcodone-Acetaminophen Tablet, 7.5-325 MG, Oral, 90, take 1 tablet by oral route every 6 hours as needed for pain Stop HYDROcodone-Acetaminophen Tablet, 7.5-325 MG, Oral, 90, take 1 tablet by oral route every 6 hours as needed for pain Stop HYDROcodone-Acetaminophen Tablet, 7.5-325 MG, Oral, 90, take 1 tablet by oral route every 6 hours as needed for pain Stop HYDROcodone-Acetaminophen Tablet, 7.5-325 MG, Oral, 90, take 1 tablet by oral route every 6 hours as needed for pain Stop HYDROcodone-Acetaminophen Tablet, 7.5-325 MG, Oral, 90, take 1 tablet by oral route every 6 hours as needed for pain Stop HYDROcodone-Acetaminophen Tablet, 7.5-325 MG, Oral, 90, take 1 tablet by oral route every 6 hours as needed for pain Stop HYDROcodone-Acetaminophen Tablet, 7.5-325 MG, Oral, 90, take 1 tablet by oral route every 6 hours as needed for pain Stop HYDROcodone-Acetaminophen Tablet, 7.5-325 MG, Oral, 90, take 1 tablet by oral route every 6 hours as needed for pain Stop HYDROcodone-Acetaminophen Tablet, 7.5-325 MG, Oral, 90, take 1 tablet by oral route every 6 hours as needed for pain Stop HYDROcodone-Acetaminophen Tablet, 7.5-325 MG, Oral, 90, take 1 tablet by oral route every 6 hours as needed for pain Stop HYDROcodone-Acetaminophen Tablet, 7.5-325 MG, Oral, 90, take 1 tablet by oral route every 6 hours as needed for pain Stop HYDROcodone-Acetaminophen Tablet, 7.5-325 MG, Oral, 90, take 1 tablet by oral route every 6 hours as needed for pain Stop HYDROcodone-Acetaminophen Tablet, 7.5-325 MG, Oral, 120, take 1 tablet by oral route every 6 hours as needed for pain Stop HYDROcodone-Acetaminophen Tablet, 7.5-325 MG, Oral, 120, take 1 tablet by oral route every 6 hours as needed for pain Stop HYDROcodone-Acetaminophen Tablet, 7.5-325 MG, Oral, 120, take 1 tablet by oral route every 6 hours as needed for pain Stop HYDROcodone-Acetaminophen Tablet, 7.5-325 MG, Oral, 120, take 1 tablet by oral route every 6 hours as needed for pain Stop HYDROcodone-Acetaminophen Tablet, 7.5-325 MG, Oral, 120, take 1 tablet by oral route every 6 hours as needed for pain for chronic pain Stop HYDROcodone-Acetaminophen Tablet, 7.5-325 MG, Oral, 120, take 1 tablet by oral route every 6 hours as needed for pain for Non Acute Pain Stop HYDROcodone-Acetaminophen Tablet, 7.5-325 MG, Oral, 120, take 1 tablet by oral route every 6 hours as needed for pain for Non Acute Pain Stop HYDROcodone-Acetaminophen Tablet, 7.5-325 MG, Oral, 120, take 1 tablet by oral route every 6 hours as needed for pain for Non Acute Pain Stop HYDROcodone-Acetaminophen Tablet, 7.5-325 MG, Oral, 120, take 1 tablet by oral route every 6 hours as needed for pain for Non Acute Pain Stop HYDROcodone-Acetaminophen Tablet, 7.5-325 MG, Oral, 120, take 1 tablet by oral route every 6 hours as needed for pain for Non Acute Pain Stop HYDROcodone-Acetaminophen Tablet, 7.5-325 MG, Oral, 120, take 1 tablet by oral route every 6 hours as needed for pain for Non Acute Pain Stop HYDROcodone-Acetaminophen Tablet, 7.5-325 MG, Oral, 120, take 1 tablet by oral route every 6 hours as needed for pain for Non Acute Pain Stop HYDROcodone-Acetaminophen Tablet, 7.5-325 MG, Oral, 120, take 1 tablet by oral route every 6 hours as needed for pain for Non Acute Pain Stop HYDROcodone-Acetaminophen Tablet, 7.5-325 MG, Oral, 120, take 1 tablet by oral route every 6 hours as needed for pain for Non Acute Pain Stop HYDROcodone-Acetaminophen Tablet, 7.5-325 MG, Oral, 120, take 1 tablet by oral route every 6 hours as needed for pain for Non Acute Pain Stop HYDROcodone-Acetaminophen Tablet, 7.5-325 MG, Oral, 120, take 1 tablet by oral route every 6 hours as needed for pain for Non Acute Pain Stop HYDROcodone-Acetaminophen Tablet, 7.5-325 MG, Oral, 120, take 1 tablet by oral route every 6 hours as needed for pain for Non Acute Pain Stop HYDROcodone-Acetaminophen Tablet, 7.5-325 MG, Oral, 120, take 1 tablet by oral route every 6 hours as needed for pain for Non Acute Pain Stop HYDROcodone-Acetaminophen Tablet, 7.5-325 MG, Oral, 120, take 1 tablet by oral route every 6 hours as needed for pain for Non Acute Pain Stop HYDROcodone-Acetaminophen Tablet, 7.5-325 MG, Oral, 120, take 1 tablet by oral route every 6 hours as needed for pain for Non Acute Pain Stop HYDROcodone-Acetaminophen Tablet, 7.5-325 MG, Oral, 90, take 1 tablet by oral route every 8 hours as needed for pain for Non Acute Pain Stop HYDROcodone-Acetaminophen Tablet, 7.5-325 MG, Oral, 90, take 1 tablet by oral route every 8 hours as needed for pain for Non Acute Pain Stop HYDROcodone-Acetaminophen Tablet, 7.5-325 MG, Oral, 90, take 1 tablet by oral route every 8 hours as needed for pain for Non Acute Pain Stop HYDROcodone-Acetaminophen Tablet, 7.5-325 MG, Oral, 90, take 1 tablet by oral route every 8 hours as needed for pain for Non Acute Pain Stop HYDROcodone-Acetaminophen Tablet, 7.5-325 MG, Oral, 90, take 1 tablet by oral route every 8 hours as needed for pain for Non Acute Pain Stop HYDROcodone-Acetaminophen Tablet, 7.5-325 MG, Oral, 90, take 1 tablet by oral route every 8 hours as needed for pain for Non Acute Pain Stop HYDROcodone-Acetaminophen Tablet, 7.5-325 MG, Oral, 90, take 1 tablet by oral route every 8 hours as needed for pain for Non Acute Pain Stop HYDROcodone-Acetaminophen Tablet, 7.5-325 MG, Oral, 90, take 1 tablet by oral route every 8 hours as needed for pain for Non Acute Pain Stop HYDROcodone-Acetaminophen Tablet, 7.5-325 MG, Oral, 90, take 1 tablet by oral route every 8 hours as needed for pain for Non Acute Pain Stop HYDROcodone-Acetaminophen Tablet, 7.5-325 MG, Oral, 90, take 1 tablet by oral route every 8 hours as needed for pain for Non Acute Pain Stop HYDROcodone-Acetaminophen Tablet, 7.5-325 MG, Oral, 90, take 1 tablet by oral route every 8 hours as needed for pain for Non Acute Pain Stop HYDROcodone-Acetaminophen Tablet, 7.5-325 MG, Oral, 90, take 1 tablet by oral route every 8 hours as needed for pain for Non Acute Pain Stop HYDROcodone-Acetaminophen Tablet, 7.5-325 MG, Oral, 90, take 1 tablet by oral route every 8 hours as needed for pain for Non Acute Pain Stop HYDROcodone-Acetaminophen Tablet, 7.5-325 MG, Oral, 90, take 1 tablet by oral route every 8 hours as needed for pain for Non Acute Pain Stop HYDROcodone-Acetaminophen Tablet, 7.5-325 MG, Oral, 90, take 1 tablet by oral route every 8 hours as needed for pain for Non Acute Pain Stop HYDROcodone-Acetaminophen Tablet, 7.5-325 MG, Oral, 90, take 1 tablet by oral route every 8 hours as needed for pain for Non Acute Pain Stop HYDROcodone-Acetaminophen Tablet, 7.5-325 MG, Oral, 90, take 1 tablet by oral route every 8 hours as needed for pain for Non Acute Pain Stop HYDROcodone-Acetaminophen Tablet, 7.5-325 MG, Oral, 90, take 1 tablet by oral route every 8 hours as needed for pain for Non Acute Pain Stop HYDROcodone-Acetaminophen Tablet, 7.5-325 MG, Oral, 90, take 1 tablet by oral route every 8 hours as needed for pain for Non Acute Pain Stop HYDROcodone-Acetaminophen Tablet, 7.5-325 MG, Oral, 90, take 1 tablet by oral route every 8 hours as needed for pain for Non Acute Pain Stop HYDROcodone-Acetaminophen Tablet, 7.5-325 MG, Oral, 90, take 1 tablet by oral route every 8 hours as needed for pain for Non Acute Pain Stop HYDROcodone-Acetaminophen Tablet, 7.5-325 MG, Oral, 90, take 1 tablet by oral route every 8 hours as needed for pain for Non Acute Pain Stop HYDROcodone-Acetaminophen Tablet, 7.5-325 MG, Oral, 90, take 1 tablet by oral route every 8 hours as needed for pain for Non Acute Pain Stop HYDROcodone-Acetaminophen Tablet, 7.5-325 MG, Oral, 90, take 1 tablet by oral route every 8 hours as needed for pain for Non Acute Pain Stop HYDROcodone-Acetaminophen Tablet, 7.5-325 MG, Oral, 90, take 1 tablet by oral route every 8 hours as needed for pain for Non Acute Pain Stop HYDROcodone-Acetaminophen Tablet, 7.5-325 MG, Oral, 90, take 1 tablet by oral route every 8 hours as needed for pain for Non Acute Pain Stop HYDROcodone-Acetaminophen Tablet, 7.5-325 MG, Oral, 90, take 1 tablet by oral route every 8 hours as needed for pain for Non Acute Pain Stop Levemir FlexPen Solution Pen-injector, 100 UNIT/ML, Subcutaneous, 0, inject 60 units in am 40 units in pm Stop Levemir FlexPen Solution Pen-injector, 100 UNIT/ML, Subcutaneous, 0, inject by Subdermal route 55 units in am and 35 units in pm Stop Levemir FlexPen Solution Pen-injector, 100 UNIT/ML, Subcutaneous, 0, inject by Subdermal route 65 units in am and 25 units in pm Stop Levemir FlexPen Solution Pen-injector, 100 UNIT/ML, Subcutaneous, 0, inject by Subdermal route 65 units in am and 25 units in pm Stop Levemir FlexPen Solution Pen-injector, 100 UNIT/ML, Subcutaneous, 0, inject by Subdermal route 65 units in am and 30 units in pm Stop Levemir FlexPen Solution Pen-injector, 100 UNIT/ML, Subcutaneous, 0, inject by Subdermal route 60 units in am and 30 units in pm Stop Levemir FlexPen Solution Pen-injector, 100 UNIT/ML, Subcutaneous, 0, inject by Subdermal route 60 units in am Stop Levemir FlexPen Solution Pen-injector, 100 UNIT/ML, Subcutaneous, 20, inject by Subdermal route 60 units in am Stop Levemir FlexPen Solution Pen-injector, 100 UNIT/ML, Subcutaneous, 20, inject by Subdermal route 60 units in am Stop Levemir FlexPen Solution Pen-injector, 100 UNIT/ML, Subcutaneous, 20, inject by Subdermal route 60 units in am and 10 at night Stop Levemir FlexPen Solution Pen-injector, 100 UNIT/ML, Subcutaneous, 20, inject by Subdermal route 65 units in am and 30 at night Stop Levemir FlexPen Solution Pen-injector, 100 UNIT/ML, Subcutaneous, 20, inject by Subdermal route 65 units in am and 30 at night Stop Levemir FlexPen Solution Pen-injector, 100 UNIT/ML, Subcutaneous, 20, inject by Subdermal route 65 units in am and 45at night Stop Levemir FlexPen Solution Pen-injector, 100 UNIT/ML, Subcutaneous, 20, inject 65 units in am 40 units in pm Stop Lexapro Tablet, 10 MG, Oral, 30, take 1 tablet by oral route every day Stop Lexapro Tablet, 10 MG, Oral, 30, TAKE 1 TABLET BY ORAL ROUTE EVERY DAY Stop Lexapro Tablet, 10 MG, Oral, 30, take 1 tablet by oral route every day Stop Lexapro Tablet, 10 MG, Oral, 30, take 1 tablet by oral route every day Stop Losartan Potassium Tablet, 25 MG, Oral, 0, take 1 tablet by oral route every day Stop Losartan Potassium Tablet, 25 MG, Oral, 90, take 1 tablet by oral route every day for hypertension Stop Losartan Potassium Tablet, 25 MG, Oral, 90, take 1 tablet by oral route 2 times every day for hypertension Stop Medrol Tablet Therapy Pack, 4 MG, Oral, 1, take by Oral route as directed Stop metFORMIN HCl Tablet, 500 MG, Oral, 60, take 1 tablet by oral route 2 times every day with morning and evening meals Stop metFORMIN HCl Tablet, 500 MG, Oral, 60, take 1 tablet by oral route 2 times every day with morning and evening meals Stop metFORMIN HCl Tablet, 500 MG, Oral, 30, take 1 tablet by oral route every day with morning meal Stop Nabumetone Tablet, 500 MG, Oral, 0, take 1 tablet by oral route 2 times every day Stop Naproxen Tablet, 500 MG, Oral, 0, take 1 tablet by oral route every day with food Stop NexIUM Capsule Delayed Release, 40 MG, Oral, 30, take 1 capsule by oral route every day Stop NexIUM Capsule Delayed Release, 40 MG, Oral, 0, take 1 capsule by oral route every day Stop NexIUM Capsule Delayed Release, 40 MG, Oral, 30, take 1 capsule by oral route every day Stop NovoLOG Mix 70/30 FlexPen Suspension Pen-injector, (70-30) 100 UNIT/ML, Subcutaneous, 1, inject by subcutaneous route 10 units QAM Stop NovoLOG Mix 70/30 FlexPen Suspension Pen-injector, (70-30) 100 UNIT/ML, Subcutaneous, 1, inject by subcutaneous route 15 units QAM Stop NovoLOG Mix 70/30 FlexPen Suspension Pen-injector, (70-30) 100 UNIT/ML, Subcutaneous, 1, inject by subcutaneous route 20 units QAM Stop NovoLOG Mix 70/30 FlexPen Suspension Pen-injector, (70-30) 100 UNIT/ML, Subcutaneous, 1, inject by subcutaneous route 30 units QAM Stop Ondansetron HCl Tablet, 4 MG, Oral, 30, take 1 Tablet by oral route every 8 hours for 2 days Stop predniSONE Tablet, 10 MG, Oral, 0, take 1 tablet by oral route every day Stop predniSONE Tablet, 20 MG, Oral, 0, take 1 tablet by oral route every day Stop Protonix Tablet Delayed Release, 40 MG, Oral, 30, take 1 tablet by oral route every day Stop Protonix Tablet Delayed Release, 40 MG, Oral, 30, TAKE 1 TABLET BY MOUTH DAILY Stop Protonix Tablet Delayed Release, 40 MG, Oral, 30, TAKE 1 TABLET BY MOUTH DAILY Stop Protonix Tablet Delayed Release, 40 MG, Oral, 30, TAKE 1 TABLET BY MOUTH DAILY Stop Protonix Tablet Delayed Release, 40 MG, Oral, 90, TAKE 1 TABLET BY MOUTH EVERY DAY Stop Protonix Tablet Delayed Release, 40 MG, Oral, 90, take 1 tablet by oral route every day Stop Protonix Tablet Delayed Release, 40 MG, Oral, 90, TAKE 1 TABLET BY MOUTH EVERY DAY Stop Protonix Tablet Delayed Release, 40 MG, Oral, 90, TAKE 1 TABLET BY MOUTH EVERY DAY Stop Protonix Tablet Delayed Release, 40 MG, Oral, 90, TAKE 1 TABLET BY MOUTH EVERY DAY Stop Protonix Tablet Delayed Release, 40 MG, Oral, 90, TAKE 1 TABLET BY MOUTH EVERY DAY Stop Tamsulosin HCl Capsule, 0.4 MG, Oral, 90, take 1 capsule by oral route every day 1/2 hour following the same meal each day Stop Tamsulosin HCl Capsule, 0.4 MG, Oral, 90, take 1 capsule by oral route every day 1/2 hour following the same meal each day Stop tiZANidine HCl Capsule, 2 MG, Oral, 20, take 1 capsule by oral route every 12 - 24 hours as needed not to exceed 3 doses in 24 hours Stop tiZANidine HCl Capsule, 2 MG, Oral, 20, take 1 capsule by oral route every 12 - 24 hours as needed not to exceed 3 doses in 24 hours Stop traZODone HCl Tablet, 100 MG, Oral, 0, take 1 tablet by oral route every bedtime Stop traZODone HCl Tablet, 50 MG, Oral, 60, take 1 tablet by oral route every day Stop traZODone HCl Tablet, 100 MG, Oral, 60, take 1 tablet by oral route every day after meals Stop traZODone HCl Tablet, 100 MG, Oral, 60, take 1 tablet by oral route every day after meals Stop traZODone HCl Tablet, 100 MG, Oral, 60, take 1 tablet by oral route every day after meals Stop traZODone HCl Tablet, 150 MG, Oral, 90, take 1 tablet by oral route every day Stop traZODone HCl Tablet, 150 MG, Oral, 90, take 1 tablet by oral route every day Stop traZODone HCl Tablet, 150 MG, Oral, 90, take 1 tablet by oral route every day Stop traZODone HCl Tablet, 150 MG, Oral, 90, take 1 tablet by oral route every day Stop traZODone HCl Tablet, 150 MG, Oral, 90, TAKE 1 TABLET BY MOUTH EVERY DAY Stop traZODone HCl Tablet, 150 MG, Oral, 90, take 1 tablet by oral route every day Stop traZODone HCl Tablet, 150 MG, Oral, 90, TAKE 1 TABLET BY MOUTH EVERY DAY Stop traZODone HCl Tablet, 150 MG, Oral, 90, TAKE 1 TABLET BY MOUTH EVERY DAY Stop traZODone HCl Tablet, 150 MG, Oral, 90, TAKE 1 TABLET BY MOUTH EVERY DAY Stop traZODone HCl Tablet, 150 MG, Oral, 90, take 1 tablet by oral route every day Stop traZODone HCl Tablet, 150 MG, Oral, 90, take 1 tablet by oral route every day Stop Ventolin HFA Aerosol Solution, 108 (90 Base) MCG/ACT, Inhalation, 0, inhale 2 puff by inhalation route every 6 hours as needed Stop Wellbutrin XL Tablet Extended Release 24 Hour, 150 MG, Oral, 30, take 1 tablet by oral route every day Stop Wellbutrin XL Tablet Extended Release 24 Hour, 150 MG, Oral, 30, take 1 tablet by oral route every day Stop Wellbutrin XL Tablet Extended Release 24 Hour, 300 MG, Oral, 30, take 1 tablet by oral route every day Stop Wellbutrin XL Tablet Extended Release 24 Hour, 300 MG, Oral, 30, take 1 tablet by oral route every day Stop Wellbutrin XL Tablet Extended Release 24 Hour, 300 MG, Oral, 90, TAKE 1 TABLET BY ORAL ROUTE EVERY DAY Stop Victoza Solution Pen-injector, 18 MG/3ML, Subcutaneous, 5, inject 0.6 milliliter by subcutaneous route every day Stop Tribenzor Tablet, 40-10-25 MG, Oral, 0, take 1/2 Tablet by oral route every day Stop Nesina Tablet, 25 MG, Oral, 90, take 1 tablet by oral route every day Stop Anoro Ellipta Aerosol Powder Breath Activated, 62.5-25 MCG/INH, Inhalation, 3, inhale 1 puff by inhalation route every day at the same time each day Stop Flonase Allergy Relief Suspension, 50 MCG/ACT, Nasal, 1, spray 1 - 2 spray by intranasal route every day in each nostril as needed Stop Flonase Allergy Relief Suspension, 50 MCG/ACT, Nasal, 1, SPRAY 1 - 2 SPRAY BY INTRANASAL ROUTE EVERY DAY IN EACH NOSTRIL NEEDED Stop ProAir RespiClick Aerosol Powder Breath Activated, 108 (90 Base) MCG/ACT, Inhalation, 1, inhale 2 puff by inhalation route every 6 hours as needed Stop Fluticasone Propionate Diskus Aerosol Powder Breath Activated, 50 MCG/ACT, Inhalation, 16, SHAKE LIQUID AND USE 1 TO 2 SPRAYS IN EACH NOSTRIL EVERY DAY NEEDED Stop FLUTICASONE PROPIONATE 50MCG/ACTUATION SPRY SPRAY SUSP, 50 mcg/actuation, NASAL, 48, SHAKE LIQUID AND USE 1 TO TWO SPRAYS IN EACH NOSTRIL DAILY NEEDED Stop hydrocodone 7.5 mg-acetaminophen 750 mg tablet TABLET, 7.5 mg-750 mg, ORAL, 0, take 1 tablet by oral route every 6 hours as needed for pain not to exceed 5 tablets in 24hrs Stop azelastine 137 mcg (0.1 %) nasal spray aerosol SPRAY/PUMP, 137 mcg (0.1 %), NASAL, 1, spray 2 spray by intranasal route 2 times every day in each nostril Subjective: * Chief Complaints: * E MR-Gómez * Medical History: * Surgical History: * Hospitalization/Major Diagno stic Procedure: * Medications: Objective: * Physical Examination: Plan: * Treatment: * Procedure Codes: Billing Information: * Visit Code: * Procedure Codes: * * Date:
--- OUTSIDE RECORDS SUMMARY | 2024-05-24 11:49 | XMS_ITS | Encounter Summary ---
Author Organization [facility] Care Team Providers Care Senior Grant Writer Name Role Phone Eugene Vega MD Primary Care Provi shantell Todd Gallardo MD Primary Care Provider [phone] Wai Espinoza MD Unavailable [phone] Justin Pineda MD Unavailable Encounter Details Date Type Department Care Team (Latest Contact Info) Description 10/14/2016 Orders Only [facility] ProviderKayla MD [address] [place] [id number] Social History Tobacco Use Types Packs/Day Years Used Date Smoking Tobacco: Never Assessed Sex and Gender Information Value Date Recorded Sex Assigned at Not on file 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 Historical Provider [facility] Final Result documented in this encounter Visit Diagnoses Not on filedocumented in this encounter Care Teams Senior Grant Writer Relationship Specialty Start Date End Date Eugene Vega MD [address] [place] [address] PCP - General Family Medicine 08/30/18 01/19/22 Todd Gallardo MD [address] [place] [address] PCP - General Family Practice 01/20/22 Wai Espinoza MD [address] DIV IM MEDICAL ONCOLOGY, [address] [place] [address] Medical Oncologist/Branch Office Administrator Medical Oncology 01/20/22 Justin Pineda MD [address] [place] [address] Radiation Oncologist Radiation Oncology 02/02/22 documented as of this encounter
--- OUTSIDE RECORDS SUMMARY | 2024-05-24 11:49 | XMS_ITS | Clinical Summary ---
Author Organization [facility] Address [address] [place] [id number] Care Team Providers Care Finishing Supervisor Name Role Phone Eugene Vega MD Primary Care Provider Social History Tobacco Use Types Packs/Day Years Used Date Smoking Tobacco: Never Assessed Sex and Gender Information Value Date Recorded Sex Assigned at Not on file Legal Sex Male 9:06 PM CDT Gender Identity Not on file Sexual Orientation Not on file Plan of Treatment Health Maintenance Due Date Last Done Comments Colorectal Cancer Screening Colonoscopy (10 Years) 1950 Hepatitis C 12/28/1969 DTaP, Tdap and Td Vaccines ( 1 - Tdap) 12/28/1970 Zoster Vaccines (1 of 2) 12/28/2001 Pneumococcal Vaccine: 65+ Ye ars (1 of 1 - PCV) 12/28/2016 COVID-19 Vaccine ( - 2023-2 5 season) 2023 Influenza Adult (#1) 2024 RSV Immunization or 60+ Years (1 - 1-dose 75+ series) 12/28/2026 Meningococcal B Vaccine Aged Out No l onger eligible based on patient's age to complete this topic Meningococcal Vaccine Aged Out No kike sky eligible based on patient's age to complete this topic RSV Immunizations Under 20 Months Aged Out No longer eligible based on patient's age to complete this topic Care Teams Finishing Supervisor Relationship Specialty Start Date End Date Eugene Vega MD PCP - General 01/30/12
--- OUTSIDE RECORDS SUMMARY | 2024-05-24 11:49 | XMS_ITS | Continuity of Care Document ---
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 Name Role Phone Evaristo Jimenez MD, Armen Unavailable Unavail able Allergies, Adverse Reactions, Alerts Substance Reaction Status Criticality shellfish derived Nausea / Vomiting Active No In formation iodine Nausea / Vomiting Active No Informa tion Medications Medication Instructions Dosage Effective Dates (start - stop) Status Comments BUPROPION HCL XL 300MG TAB TAKE 1 TABLET BY ORAL ROUTE EVERY DAY - Active FLUTICASONE PROPIONA 250-50MCG/ACTUA INH INHALE 1 PUFF INTO THE LUNGS TWICE A DAY IN THE MORNING AND THE EVENING APPROXIMATELY 12 HOURS APART - Active tamsulosin 0.4 mg capsule take 1 capsule by oral route every day 1/2 hour following the same meal each day 0.4 MG - Active Medrol (Pola) 4 mg tablets in a dose pack take by Oral route as directed Not Available - Active TRAZODONE HYDROCHLOR 150MG TAB TAKE ONE TABLET BY MOUTH DAILY 150 MG - Active Protonix 40 mg tablet,delayed release TAKE 1 TABLET BY MOUTH EVERY DAY - Active losartan 25 mg tablet take 1 tablet by oral route 2 times every day for hypertension 25 MG - Active ProAir HFA 90 mcg/actuation aerosol inhaler inhale 2 puff by inhalation route every 6 hours as needed 2 puff - Active Humalog 100 unit/mL subcutaneous cartridge inject by subcutaneous route per prescriber's instructions. Insulin dosing requires individualization. 0.00 - Active hydrocodone 7.5 mg-acetaminophen 325 mg tablet take 1 tablet by oral route every 8 hours as needed for pain for Non Acute Pain 1 tablet - No Longer Active Procedures Procedure Date ESTABLISHED PATIENT DETAILED Covid & Flu Rapid Test ESTABLISHED PATIENT DETAILED OFFICE/OUTPATIENT VISIT EST ESTABLISHED PATIENT DETAILED OFFICE/OUTPATIENT VISIT EST ESTABLISHED PATIENT DETAILED OFFICE/OUTPATIENT VISIT EST OFFICE/OUTPATIENT VISIT EST OFFICE/OUTPATIENT VISIT EST OFFICE/OUTPATIENT VISIT EST ESTABLISHED PATIENT DETAILED ESTABLISHED PATIENT DETAILED ESTABLISHED PATIENT DETAILED ESTABLISHED PATIENT DETAILED ESTABLISHED PATIENT DETAILED OFFICE/OUTPATIENT VISIT, EST OFFICE/OUTPATIENT VISIT, EST Admin influenza virus vac FLU VACC PRSV FREE INC ANTIG OFFICE/OUTPATIENT VISIT, EST OFFICE/OUTPATIENT VISIT, EST OFFICE/OUTPATIENT VISIT, EST Admin pneumococcal vaccine PNEUMOCOCCAL VACC 13 MARY IM OFFICE/OUTPATIENT VISIT, EST Admin influenza virus vac Fluvirin vacc, 3 yrs & >, im OFFICE/OUTPATIENT VISIT, EST OFFICE/OUTPATIENT VISIT, EST OFFICE/OUTPATIENT VISIT, EST Admin influenza virus vac Fluvirin vacc, 3 yrs & >, im Admin influenza virus vac OFFICE/OUTPATIENT VISIT, EST OFFICE/OUTPATIENT VISIT, EST OFFICE/OUTPATIENT VISIT, EST OFFICE/OUTPATIENT VISIT, EST OFFICE/OUTPATIENT VISIT, EST OFFICE/OUTPATIENT VISIT, EST OFFICE/OUTPATIENT VISIT, EST OFFICE/OUTPATIENT VISIT, EST Afluria vacc, 3 yrs & >, im Admin influenza virus vac OFFICE/OUTPATIENT VISIT, EST OFFICE/OUTPATIENT VISIT, EST OFFICE/OUTPATIENT VISIT, EST OFFICE/OUTPATIENT VISIT, EST OFFICE/OUTPATIENT VISIT, NEW ELECTROCARDIOGRAM, COMPLETE Advance Directives Directive Yes / No Effective Date File Name No Information Encounters Encounter Description Practice Location Reason(s) For Visit Diagnoses Date Provider Providers Copied on Encounter [facility], [address], [place], [address] [place] [address], tel:[phone] [facility] No Information 2 MD Armen Mckeon. [address] [facility] , [place], [place], [address] [place] [address], . tel:[phone] [facility], [address], [place], [address] [place] [address], tel:[phone] [facility] No Information 2 MD Armen Mckeon. [address] [facility] [address] [place], [place], [address] [place] [address], . tel:[phone] [facility], [address], [place], [id number], tel:[phone] [facility] No Information 2 MD Armen Mckeon. [address] [facility] [address] [place], [place], [address] [place] [address], . tel:[phone] [facility], [address], [place], [address] [place] [address], tel:[phone] [facility] No Information 2 MD Armen Mckeon. [address] [facility] [address] [place], [address] [place] [address], . tel:[phone] [facility], [address] [facility], [address], [address] [place] [address], tel:[phone] [facility] No Information 2 MD Armen Mckeon. [address] [facility] , [place], [address] [place] [address], . tel:[phone] ESTABLISHED PATIENT DETAILED [facility], [address] [place] [address], [address] [place] [address], tel:[phone] [facility] Cough (chief complaint)Hea dache (chief complaint)Pos itive exposure (chief complaint) Mixed anxiety and depressive disorderEncou nter for observation for suspected exposure to other biological agents ruled outOther chronic pain 2 MD Armen Mckeon. [address] [place] [address] , [place], [address] [place] [address], . tel:[phone] Referring Provider: Matty Jones MD, [address] [place], [address] . tel:[phone] [facility], [address] [place] [address], [address] [place] [address], tel:[phone] [facility] No Information 2 MD Armen Mckeon. [address] [place] [address] , [place], [address] [place] [address], . tel:[phone] [facility], [address] [place] [address], [address] [place] [address], tel:[phone] [facility] No Information 2 MD Armen Mckeon. [address] [place] [address] , [place], [address] [place] [address], . tel:[phone] ESTABLISHED PATIENT DETAILED [facility], [address] [place] [address], [address] [place] [address], tel:[phone] [facility] hypertension (chief complaint)pro state enlargement (chief complaint)gay betes (chief complaint)Anx iety/Depressi on (chief complaint) Type 1 diabetes mellitus on insulin therapyMixed anxiety and depressive disorderOther chronic painTobacco use 2 MD Armen Mckeon. [address] [facility] , [place], [place], [id number], . tel:[phone] Referring Provider: Armen Jimenez MD, [address] [facility] , [place], [address] . tel:[phone] OFFICE/OUTPA TIENT VISIT EST [facility], [address] [place] [address], [address], [id number], tel:[phone] [facility] URI, acuteCOPD exacerbation 2 MD Armen Mckeon. [address] [place] [address] , [place], [place], [id number], . tel:[phone] Referring Provider: Armen Jimenez MD, [address] [place] [address] , [place], [address] . tel:[phone] [facility], [address] [place] [address], [address], [id number], tel:[phone] [facility] Mixed anxiety and depressive disorderType 1 diabetes mellitus on insulin therapyEssent ial (primary) hypertensionP rostate enlargementSc reening PSA (prostate specific antigen) 1 MD Armen Mckeon. [address] [place] [address] Dr [place], [place], [id number], . tel:[phone] Referring Provider: Armen Jimenez MD, [address] [place] [address] , [place], [address] . tel:[phone] ESTABLISHED PATIENT DETAILED [facility], [address] [place] [address], [address], [id number], tel:[phone] [facility] Depression (chief complaint) Tobacco useMixed anxiety and depressive disorderOther chronic pain 1 MD Armen Mckeon. [address] [place] [address] Dr [place], [place], [id number], . tel:[phone] Referring Provider: Armen Jimenez MD, [address] [place] [address] , [place], [address] . tel:[phone] OFFICE/OUTPA TIENT VISIT EST [facility], [address] [place] [address], [id number], tel:[phone] [facility] Mixed anxiety and depressive disorderOther chronic painAlcohol use disorder, mild, abuse 1 MD Armen Mckeon. [address] [place] [address] , [place], [place], [id number], [place]. tel:[phone] Referring Provider: Armen Jimenez MD, [address] [place] [address] , [place], [address] . tel:[phone] ESTABLISHED PATIENT DETAILED [facility], [address] [place] [address], [id number], tel:[phone] [facility] hyperlipidemi a (chief complaint)gay betes (chief complaint) Mixed anxiety and depressive disorderOther chronic painType 1 diabetes mellitus on insulin therapyAcute pain of right kneeOSA on CPAPDependenc e on other enabling machines and devicesTobacc o use 1 MD Armen Mckeon. [address] [place] [address] , [place], [place], [id number], [place]. tel:[phone] Referring Provider: Armen Jimenez MD, [address] [place] [address] , [place], [address] . tel:[phone] OFFICE/OUTPA TIENT VISIT EST [facility], [address] [place] [address], [address], [id number], [place] tel:[phone] [facility] Other chronic painAcute torticollisNe ck painMixed anxiety and depressive disorder 1 MD Armen Mckeon. [address] [place] [address] [address] [place], [place], [id number], . tel:[phone] Referring Provider: Armen Jimenez MD, [address] [place] [address] Dr, [place], [address] . tel:[phone] OFFICE/OUTPA TIENT VISIT EST [facility], [address] [place] [address], [id number], tel:[phone] [facility] Acute torticollisNe ck pain Sep-2 3-202 0 MD Armen Mckeon. [address] [facility] , [place], [place], [id number], [place]. tel:[phone] Referring Provider: Armen Jimenez MD, [address] [facility] , [place], [address] . tel:[phone] OFFICE/OUTPA TIENT VISIT EST [facility], [address] [place] [address], [id number], tel:[phone] [facility] Neck painAcute torticollis Sep-1 7-202 0 MD Armen Mckeon. [address] [facility] , [place], [id number], [place]. tel:[phone] Referring Provider: Armen Jimenez MD, [address] [facility] , [place], [address] . tel:[phone] OFFICE/OUTPA TIENT VISIT [facility], [address] [place] [address], [id number], tel:[phone] [facility] Essential (primary) hypertensionM ixed anxiety and depressive disorderOther chronic pain Иван-2 0-202 0 MD Armen Mckeon. [address] [facility] , [place], [id number], [place]. tel:[phone] Referring Provider: Armen Jimenez MD, [address] [facility] , [place], [address] . tel:[phone] [facility] [employer] [facility], [address] [place] [address], [address], [id number], tel:[phone] [facility] No Information Mainor-0 4-202 0 MD Armen Mckeon. [address] [facility] [address] [place], [place], [id number], . tel:[phone] ESTABLISHED PATIENT DETAILED [facility], [address], [id number], tel:[phone] [facility] Essential (primary) hypertensionM ixed anxiety and depressive disorderType 1 diabetes mellitus on insulin therapyUrinar y dribbling 0 MD Armen Mckeon. [address] [facility] [address] [place], [place], [id number], . tel:[phone] Referring Provider: Armen Jimenez MD, [address] [place] [address] [place], [address] . tel:[phone] ESTABLISHED PATIENT DETAILED [facility], [address] [place] [address], [id number], tel:[phone] [facility] hyperlipidemi a (chief complaint)gay betes (chief complaint) Body mass index (BMI) 25.0-25.9, adultType 1 diabetes mellitus on insulin therapyEssent ial (primary) hypertensionM ixed anxiety and depressive disorder 0 MD Armen Mckeon. [address] [place] [address] Dr [place], [place], [id number], . tel:[phone] Referring Provider: Matty Jones MD, [address] [facility] [place], [place], [address] . tel:[phone] ESTABLISHED PATIENT DETAILED [facility], [address] [place] [address], [address], [id number], tel:[phone] [facility] med review (chief complaint) Other chronic painType 1 diabetes mellitus on insulin therapyEssent ial (primary) hypertensionM ixed anxiety and depressive disorderAlcoh ol abuse with alcohol-induc ed disorder 9 MD Armen Mckeon. [address] [facility] [address] [place], [id number], . tel:[phone] Referring Provider: Armen Jimenez MD, [address] [place] [address] , [place], [address] . tel:[phone] ESTABLISHED PATIENT DETAILED [facility], [address] [facility], [address], [id number], tel:[phone] [facility] Med review (chief complaint) Body mass index (BMI) 24.0-24.9, adultOther chronic painViral upper respiratory tract infectionAlle rgic rhinitis, unspecified seasonality, unspecified triggerSleep apnea, unspecified type 9 MD Armen Mckeon. [address] [place] [address] Dr, [place], [place], [id number], [place]. tel:[phone] Referring Provider: Armen Jimenez MD, [address] [place] [address] , [place], [address] . tel:[phone] ESTABLISHED PATIENT DETAILED [facility], [address] [place] [address], [address], [id number], tel:[phone] [facility] med review (chief complaint) Body mass index (BMI) 24.0-24.9, adultType 1 diabetes mellitus on insulin therapyAnxiet yEssential (primary) hypertensionM ixed anxiety and depressive disorder 9 MD Matty Jones. [address] [place] [address], [id number], . tel:[phone] Referring Provider: Matty Jones MD, [address] [place] [address], [address] . tel:[phone] OFFICE/OUTPA TIENT VISIT, EST [facility], [address] [facility], [address], [id number], tel:[phone] [facility] cough (chief complaint)hea dache (chief complaint) Upper respiratory tract infection, unspecified typeRight ear impacted cerumenPain in right kneePain in left kneeOther chronic pain Jun-2 0 9 Sherrie Messina. [address], [address], [place], [place], [id number], . tel:[phone] Referring Provider: Matty Jones MD, [address] [place] [address], [address] . tel:[phone] OFFICE/OUTPA TIENT VISIT, [facility], [address] [place] [address], [address], [id number], [place] tel:[phone] [facility] medication review (chief complaint) Current mild episode of major depressive disorder without prior episodeEssent ial (primary) hypertensionT ype 1 diabetes mellitus on insulin therapyAnxiet y 8 LANDEN Garcia. [address] [place] [address] , [place], [address]. tel:[phone] Referring Provider: Matty Jones MD, [address] [place] [address], [address] . tel:[phone] OFFICE/OUTPA TIENT VISIT, [facility], [address] [place] [address], [address], [id number], [place] tel:[phone] [facility] ear problems (chief complaint)gay betes (chief complaint) Essential (primary) hypertensionT ype 1 diabetes mellitus on insulin therapyOther hyperlipidemi aAcute non-recurrent frontal sinusitisLeft otitis media with effusionCurre nt mild episode of major depressive disorder without prior episode 8 LANDEN Garcia. [address] [place] [address] , [place], [address]. tel:[phone] Referring Provider: Matty Jones MD, [address] [place] [address], [address] . tel:[phone] OFFICE/OUTPA TIENT VISIT, [facility], [address] [place] [address], [address], [id number], [place] tel:[phone] [facility] Back pain (chief complaint) Midline low back pain without sciatica, unspecified chronicityTyp e 2 diabetes mellitus with hyperglycemia Other hyperlipidemi a Feb 8 Dean Macdonald. [address] [place] [address] , [place], [place], [id number], [place]. tel:[phone] Referring Provider: Matty Jones MD, [address] [place] [address], [id number] . tel:[phone] OFFICE/OUTPA TIENT VISIT, [facility], [address] [place] [address], [address], [id number], tel:[phone] [facility] Hypertension (chief complaint)Hyp erlipidemia (chief complaint)Gay betes Mellitus (chief complaint) Essential (primary) hypertensionT ype 1 diabetes mellitus on insulin therapyOther hyperlipidemi a 7 Deray Ramu. [address] [facility], [address], [facility], [facility], . tel:[phone] Referring Provider: Matty Jones MD, [address] [place] [address], [address] . tel:[phone] OFFICE/OUTPA TIENT VISIT, [facility], [address] [place] [address], [address], [id number], [place] tel:[phone] [facility] Frequent urination (chief complaint) Urinary frequency 201 7 Deray Ramu. [address] [facility], [address] [place] [address], [facility], [facility], [place]. tel:[phone] Referring Provider: Matty Jones MD, [address] [place] [address], [address] . tel:[phone] OFFICE/OUTPA TIENT VISIT, [facility], [address] [place] [address], [address], [id number], tel:[phone] [facility] Pain (chief complaint) Type 2 diabetes mellitus with hyperglycemia Essential (primary) hypertensionO ther hyperlipidemi a 8201 6 Deray Ramu. [address] [facility], [address] [place] [address], [facility], [facility], [place]. tel:[phone] Referring Provider: Matty Jones MD, [address] [place] [address], [address] . tel:[phone] OFFICE/OUTPA TIENT VISIT, [facility], [address] [place] [address], [id number], tel:[phone] [facility] ringing in his left ear (chief complaint) Otitis externa 0 4201 6 Deray Ramu. [address] [facility], [address] [place] [address], [facility], [facility], . tel:[phone] Referring Provider: Matty Jones MD, [address] [place] [address], [address] . tel:[phone] OFFICE/OUTPA TIENT VISIT, [facility], [address] [place] [address], [id number], tel:[phone] [facility] SHOULDER PAIN (chief complaint) Pain in left shoulder 0 9201 5 Deray Ramu. [address] [facility], [address], [facility], [facility]–1983, . tel:[phone] Referring Provider: Matty Jones MD, [address] [place] [address], [address] . tel:[phone] OFFICE/OUTPA TIENT VISIT, [facility], [address] [place] [address], [id number], tel:[phone] [facility] diabetes (chief complaint) Diabetes Mellitus, Adult Onset, Uncontrolled Jul-2 8201 5 Deray Ramu. [address] [facility], [address], [facility], [facility], . tel:[phone] Referring Provider: Matty Jones MD, [address] [place] [address], [address] . tel:[phone] OFFICE/OUTPA TIENT VISIT, [facility], [address] [place] [address], [address], [id number], tel:[phone] [facility] diabetes (chief complaint)hyp ertension (chief complaint) Diabetes Mellitus, Adult Onset, UncontrolledH ypertension, BenignOther and unspecified hyperlipidemi a Jun- 0-201 5 Deray Ramu. [address] [facility], [address] [place] [address], [facility], [facility], . tel:[phone] Referring Provider: Matty Jones MD, [address] [place] [address], [address] . tel:[phone] OFFICE/OUTPA TIENT VISIT, [facility], [address] [place] [address], [id number], tel:[phone] [facility] fatigue (chief complaint)gay betes (chief complaint) Diabetes Mellitus, Adult Onset, UncontrolledF atigueHyperte nsion, Benign 0-201 4 Deray Ramu. [address] [facility], [address], [facility], [facility]–1983, . tel:[phone] Referring Provider: Matty Jones MD, [address] [place] [address], [address] . tel:[phone] OFFICE/OUTPA TIENT VISIT, [facility], [address] [place] [address], [id number], tel:[phone] [facility] fatigue (chief complaint)gauri sea (chief complaint)vom itting (chief complaint) Fatigue 6201 4 Deray Ramu. [address] [facility], [address] [place] [address], [facility], [facility], . tel:[phone] Referring Provider: Matty Jones MD, [address] [place] [address], [address] . tel:[phone] OFFICE/OUTPA TIENT VISIT, [facility], [address] [place] [address], [id number], tel:[phone] [facility] diabetes (chief complaint) Diabetes Mellitus, Adult Onset, Uncontrolled 4 Deray Ramu. [address] [facility], [address] [place] [address], [facility], [facility], . tel:[phone] Referring Provider: Matty Jones MD, [address] [place] [address], [address] . tel:[phone] OFFICE/OUTPA TIENT VISIT, [facility], [address] [place] [address], [id number], tel:[phone] [facility] diabetes (chief complaint)sandra rtness of breath (chief complaint) Diabetes Mellitus, Adult Onset, Uncontrolled 4 Deray Ramu. [address] [facility], [address], [place], [place], [facility], [facility], . tel:[phone] Referring Provider: Matty Jones MD, [address] [place] [address], [address] . tel:[phone] OFFICE/OUTPA TIENT VISIT, [facility], [address] [place] [address], [id number], [place] tel:[phone] [facility] high blood sugars (chief complaint) Diabetes Mellitus, Adult Onset, UncontrolledN ondependent alcohol abuse, continuous drinking behaviorTobac co Abuse 4 No Information Referring Provider: Matty Jones MD, [address] [place] [address], [address] . tel:[phone] [facility], [address] [place] [address], [id number], tel:[phone] [facility] No Information 4 MD Matty Jones. [address] [place] [address], [id number], [place]. tel:[phone] OFFICE/OUTPA TIENT VISIT, [facility], [address] [facility], [address], [id number], tel:[phone] [facility] Diabetes (chief complaint) Diabetes Mellitus, Adult Onset, UncontrolledH ypertension, Benign Dec- 4 Deray Ramu. [address] [facility], [address] [place] [address], [facility], [facility]–1983, . tel:[phone] Referring Provider: Matty Jones MD, [address] [place] [address], [address] . tel:[phone] OFFICE/OUTPA TIENT VISIT, [facility], [address] [place] [address], [address], [id number], [place] tel:[phone] [facility] diabetes (chief complaint) Diabetes Mellitus, Adult Onset, UncontrolledH ypertension, BenignTobacco Abuse 4 Deray Ramu. [address] [facility], [address] [place] [address], [facility], [facility]–1983, . tel:[phone] Referring Provider: Matty Jones MD, [address] [place] [address], [address] . tel:[phone] OFFICE/OUTPA TIENT VISIT, [facility], [address] [place] [address], [address], [id number], [place] tel:[phone] [facility] diabetes (chief complaint) Diabetes Mellitus, Adult Onset, UncontrolledH ypertension, Benign 4 Deray Ramu. [address] [facility], [address], [place], [facility], [facility], . tel:[phone] Referring Provider: Matty Jones MD, [address] [place] [address], [address] . tel:[phone] OFFICE/OUTPA TIENT VISIT, [email or web address], [facility], [address], [id number], [place] tel:[phone] [facility] depression (chief complaint)gay betes (chief complaint) Diabetes Mellitus, Adult Onset, UncontrolledO ther and unspecified hyperlipidemi aHypertension , Benign 4 MD Matty Jones. [address] [place] [address], [address] [place] [address], . tel:[phone] Referring Provider: Matty Jones MD, [address] [place] [address], [id number] . tel:[phone] OFFICE/OUTPA TIENT VISIT, [facility], [address] [place] [address], [address], [id number], [phone] [place] [facility] diabetes (chief complaint)tristin k pain (chief complaint) Diabetes Mellitus, Adult Onset, UncontrolledH ypertension, BenignOther and unspecified hyperlipidemi a 4 MD Matty Jones. [address] [place] [address], [id number], . [phone] Referring Provider: Matty Jones MD, [address] [place] [address], [id number] . tel:[phone] OFFICE/OUTPA TIENT VISIT, [facility] [employer] [facility], [address] [place] [address], [address], [id number], [phone] [facility] new patient (chief complaint)vom iting (chief complaint)ins omnia (chief complaint)wea kness (chief complaint)no energy (chief complaint) Other and unspecified hyperlipidemi aHypertension , BenignGastrit isTobacco AbuseDiabetes Mellitus, Adult Onset, UncontrolledS arcoidosisNon dependent alcohol abuse, continuous drinking behaviorHyper tension, Benign 4 MD Matty Jones. [address] [place] [address], [id number], . tel:[phone] Referring Provider: Matty Jones MD, [address] [place] [address], [address] . tel:[phone] Family History Family Member Type Diagnosis Age At Onset Mother Problem (finding) Fibromyalgia Sister Problem (finding) cancer of colon Father Problem (finding) cancer of the esophagus 89 Immunizations Vaccine Date Status Comments Influenza, high dose seasonal administere d Source: New Immunization Record Pneumococcal conjugate PCV 13 administere d Source: New Immunization Record Influenza, seasonal, injectable administered Source: New Immuniza tion Record Influenza, seasonal, injectable administered Source: New Immuniza tion Record Flu (split) (3 yrs or older) administered Note: office ; Source: Source Unspecified Pneumo (2 yrs or older)(PPV) administered Note: office ; Source: Source Unspecified Payers Payer name Insurance type Covered republican ID Authoriza tion(s) No Information Social History Type Description Quantity Date Captured Comments Sex Male Smoking Status No Information Sexual Orientation Choose not to disclose Gender Identity Female Chief Complaint And Reason For Visit No Information Reason For Referral Reason For Referral No Information Plan Of Treatment Date Type Action Status Goal Foot exam. Due on due Goal Dilated eye exam . Due on due Goal Abdominal Ultrasound due Goal Influenza vaccin e. Due on due Goal FOBT. Due on due Goal Cognitive assess ment. Due on due Goal Tetanus Toxoid V accine. Due on due Goal Medicare Wellnes s Visit. Due on due Goal Tdap. Due on due Goal Wellness Visit. Due on due Goal Chronic Care Man agement (CCM) Program. Due on due Goal Colonoscopy. Due on 020 due Goal Form for Advance d Directives. Due on due Goal Annual Care Visi t. Due on due Goal Depression scree meredith. Due on due Goal Dilated eye exam . Due on due Goal Foot exam. Due on due Goal Colonoscopy. Due on 020 due Goal Wellness Visit. Due on due Goal Annual Care Visi t. Due on due Goal Influenza vaccin e. Due on due Goal Tetanus Toxoid V accine. Due on due Goal Tdap. Due on due Goal Abdominal Ultrasound due Goal Medicare Wellnes s Visit. Due on due Goal Chronic Care Man agement (CCM) Program. Due on due Goal FOBT. Due on due Goal Form for Advance d Directives. Due on due Goal Cognitive assess ment. Due on due Goal Depression scree meredith. Due on due Goal Abdominal Ultrasound due Goal Annual Care Visi t. Due on due Goal Chronic Care Man agement (CCM) Program. Due on due Goal FOBT. Due on due Goal Cognitive assess ment. Due on due Goal Medicare Wellnes s Visit. Due on due Goal Tdap. Due on due Goal Form for Advance d Directives. Due on due Goal Wellness Visit. Due on due Goal Influenza vaccin e. Due on due Goal Colonoscopy. Due on due Goal Tetanus Toxoid V accine. Due on due Goal Foot exam. Due on due Goal Dilated eye exam . Due on due Goal Depression scree meredith. Due on due Goal Form for Advance d Directives. Due on due Goal Tetanus Toxoid V accine. Due on due Goal Medicare [facility] Visit. Due on due Goal Influenza vaccin e. Due on due Goal Abdominal Ultrasound due Goal Annual Care Visi t. Due on due Goal Wellness Visit. Due on due Goal FOBT. Due on due Goal Chronic Care Man agement (CCM) Program. Due on due Goal Depression scree meredith. Due on due Goal Tdap. Due on due Goal Colonoscopy. Due on due Goal Cognitive assess ment. Due on due Goal Medicare [facility] Visit. Due on due Goal FOBT. Due on due Goal Chronic Care Man agement (CCM) Program. Due on due Goal Colonoscopy. Due on due Goal Influenza vaccin e. Due on due Goal Tdap. Due on due Goal Wellness Visit. Due on due Goal Cognitive assess ment. Due on due Goal Tetanus Toxoid V accine. Due on due Goal Abdominal Ultrasound due Goal Depression scree meredith. Due on due Goal Form for Advance d Directives. Due on due Goal Annual Care Visi t. Due on due Goal Medicare [facility] Visit. Due on due Goal Chronic Care Man agement (CCM) Program. Due on due Goal Tetanus Toxoid V accine. Due on due Goal Cognitive assess ment. Due on due Goal Annual Care Visi t. Due on due Goal Colonoscopy. Due on 020 due Goal Abdominal Ultrasound due Goal Tdap. Due on due Goal FOBT. Due on due Goal Depression scree meredith. Due on due Goal Wellness Visit. Due on due Goal Form for Advance d Directives. Due on due Goal Influenza vaccin e. Due on due Goal Medicare [facility] Visit. Due on due Goal Form for Advance d Directives. Due on due Goal Abdominal Ultrasound due Goal FOBT. Due on due Goal Chronic Care Man agement (CCM) Program. Due on due Goal Influenza vaccin e. Due on due Goal Wellness Visit. Due on due Goal Annual Care Visi t. Due on due Goal Colonoscopy. Due on due Goal Depression scree meredith. Due on due Goal Cognitive assess ment. Due on due Goal Tdap. Due on due Goal Tetanus Toxoid V accine. Due on due Goal Chronic Care Man agement (CCM) Program. Due on due Goal Wellness Visit. Due on due Goal Lipid panel. Due on due Goal Abdominal Ultrasound due Goal Form for Advance d Directives. Due on due Goal Tetanus Toxoid V accine. Due on due Goal Tdap. Due on due Goal Medicare Wellnes s Visit. Due on due Goal Colonoscopy. Due on due Goal Influenza vaccin e. Due on due Goal Cognitive assess ment. Due on due Goal Annual Care Visi t. Due on due Goal Depression scree meredith. Due on due Goal FOBT. Due on due Goal Chronic Care Man agement (CCM) Program. Due on due Goal Tetanus Toxoid V accine. Due on due Goal Lipid panel. Due on due Goal Tdap. Due on due Goal Cognitive assess ment. Due on due Goal Abdominal Ultrasound due Goal Annual Care Visi t. Due on due Goal FOBT. Due on due Goal Depression scree meredith. Due on due Goal Medicare Wellnes s Visit. Due on due Goal Form for Advance d Directives. Due on due Goal Wellness Visit. Due on due Goal Influenza vaccin e. Due on due Goal Colonoscopy. Due on due Goal Abdominal Ultrasound due Goal Cognitive assess ment. Due on due Goal Chronic Care Man agement (CCM) Program. Due on due Goal Tetanus Toxoid V accine. Due on due Goal Lipid panel. Due on due Goal Tdap. Due on due Goal Depression scree meredith. Due on due Goal Form for Advance d Directives. Due on due Goal Wellness Visit. Due on due Goal Medicare Wellnes s Visit. Due on due Goal Annual Care Visi t. Due on due Goal Influenza vaccin e. Due on due Goal FOBT. Due on due Goal Colonoscopy. Due on due Goal Chronic Care Man agement (CCM) Program. Due on due Goal Tetanus Toxoid V accine. Due on due Goal Lipid panel. Due on due Goal Influenza vaccin e. Due on due Goal Depression scree meredith. Due on due Goal Cognitive assess ment. Due on due Goal Abdominal Ultras ound. Due on due Goal Tdap. Due on due Goal Annual Care Visi t. Due on due Goal Form for Advance d Directives. Due on due Goal Wellness Visit. Due on due Goal Medicare Wellnes s Visit. Due on due Goal FOBT. Due on due Goal Colonoscopy. Due on due Goal Lipid panel. Due on due Goal Colonoscopy. Due on due Goal Wellness Visit. Due on due Goal FOBT. Due on due Goal Medicare Wellnes s Visit. Due on due Goal Annual Care Visi t. Due on due Goal Tdap. Due on due Goal Cognitive assess ment. Due on due Goal Form for Advance d Directives. Due on due Goal Depression scree meredith. Due on due Goal Influenza vaccin e. Due on due Goal Chronic Care Man agement (CCM) Program. Due on due Goal Abdominal Ultras ound. Due on due Goal Tetanus Toxoid V accine. Due on due Goal Tdap. Due on due Goal Cognitive assess ment. Due on due Goal Wellness Visit. Due on due Goal Form for Advance d Directives. Due on due Goal Colonoscopy. Due on due Goal Abdominal Ultras ound. Due on due Goal Chronic Care Man agement (CCM) Program. Due on due Goal Depression scree meredith. Due on due Goal Annual Care Visi t. Due on due Goal Medicare Wellnes s Visit. Due on due Goal Lipid panel. Due on due Goal Influenza vaccin e. Due on due Goal Tetanus Toxoid V accine. Due on due Goal Special diet education compl eted Goal Lipid panel. Due on due Goal Tdap. Due on due Goal Cognitive assess ment. Due on due Goal Colonoscopy. Due on due Goal Form for Advance d Directives. Due on due Goal Wellness Visit. Due on due Goal Chronic Care Man agement (CCM) Program. Due on due Goal Annual Care Visi t. Due on due Goal Depression scree meredith. Due on due Goal Medicare Wellnes s Visit. Due on due Goal Influenza vaccin e. Due on due Goal Abdominal Ultras ound. Due on due Goal Tetanus Toxoid V accine. Due on due Goal Tdap. Due on due Goal Depression scree meredith. Due on due Goal Cognitive assess ment. Due on due Goal Lipid panel. Due on due Goal Abdominal Ultras ound. Due on due Goal Wellness Visit. Due on due Goal Form for Advance d Directives. Due on due Goal Colonoscopy. Due on due Goal Influenza vaccin e. Due on due Goal Chronic Care Man agement (CCM) Program. Due on due Goal Annual Care Visi t. Due on due Goal Medicare Wellnes s Visit. Due on due Goal Tetanus Toxoid V accine. Due on due Goal Tetanus Toxoid V accine. Due on due Goal Influenza vaccin e. Due on due Goal Depression scree meredith. Due on due Goal Form for Advance d Directives. Due on due Goal Colonoscopy. Due on due Goal Wellness Visit. Due on due Goal Abdominal Ultras ound. Due on due Goal Lipid panel. Due on due Goal Cognitive assess ment. Due on due Goal Annual Care Visi t. Due on due Goal Medicare Wellnes s Visit. Due on due Goal Tdap. Due on due Goal Chronic Care Man agement (CCM) Program. Due on due Goal Special diet education compl eted Goal Depression scree meredith. Due on due Goal Form for Advance d Directives. Due on due Goal Cognitive assess ment. Due on due Goal Annual Care Visi t. Due on due Goal Chronic Care Man agement (CCM) Program. Due on due Goal Tdap. Due on due Goal Medicare Wellnes s Visit. Due on due Goal Influenza vaccin e. Due on due Goal Colonoscopy. Due on due Goal Abdominal Ultras ound. Due on due Goal Wellness Visit. Due on due Goal Tetanus Toxoid V accine. Due on due Goal Wellness Visit. Due on due Goal Colonoscopy. Due on due Goal Medicare Wellnes s Visit. Due on due Goal Cognitive assess ment. Due on due Goal Form for Advance d Directives. Due on due Goal Annual Care Visi t. Due on due Goal Tetanus Toxoid V accine. Due on due Goal Chronic Care Man agement (CCM) Program. Due on due Goal Depression scree meredith. Due on due Goal Influenza vaccin e. Due on due Goal Abdominal Ultras ound. Due on due Goal Tdap. Due on due Goal Cognitive assess ment. Due on due Goal Medicare Wellnes s Visit. Due on due Goal Influenza vaccin e. Due on due Goal Wellness Visit. Due on due Goal Tetanus Toxoid V accine. Due on due Goal Annual Care Visi t. Due on due Goal Abdominal Ultras ound. Due on due Goal Chronic Care Man agement (CCM) Program. Due on due Goal Depression scree meredith. Due on due Goal Form for Advance d Directives. Due on due Goal Annual Care Visi t. Due on due Goal Tetanus Toxoid V accine. Due on due Goal Depression scree meredith. Due on due Goal Chronic Care Man agement (CCM) Program. Due on due Goal Cognitive assess ment. Due on due Goal Prevnar 13 due Goal Form for Advance d Directives. Due on due Goal Wellness Visit. Due on due Goal Medicare Wellnes s Visit. Due on due Goal Abdominal Ultras ound. Due on due Goal Prevnar 13. Due on 17 due Goal Wellness Visit. Due on due Goal Medicare Wellnes s Visit. Due on due Goal Annual Care Visi t. Due on due Goal Chronic Care Man agement (CCM) Program. Due on due Goal Cognitive assess ment. Due on due Goal Tetanus Toxoid V accine. Due on due Goal Depression scree meredith. Due on due Goal Abdominal Ultras ound. Due on due Goal Form for Advance d Directives. Due on due Goal Influenza vaccin e. Due on due Goal Tetanus Toxoid V accine. Due on due Goal Depression scree meredith. Due on due Goal PSA. Due on due Goal Tetanus Toxoid V accine. Due on due Goal Depression scree meredith. Due on due Goal Tetanus Toxoid V accine. Due on due Goal PSA. Due on due Goal Depression scree meredith. Due on due Goal Abdominal Ultras ound. Due on due Goal Wellness Visit. Due on due Goal Depression scree meredith. Due on due Goal PSA. Due on due Goal Abdominal Ultras ound. Due on due Goal Wellness Visit. Due on due Goal Tetanus Toxoid V accine. Due on due Goal Abdominal Ultras ound. Due on due Goal Abdominal Ultras ound. Due on due Goal Abdominal Ultras ound. Due on due Goal Abdominal Ultras ound. Due on due Goal Abdominal Ultras ound. Due on due Goal Abdominal Ultras ound. Due on due Goal Abdominal Ultras ound. Due on due Goal Pneumococcal vaccine due Goal Abdominal Ultras ound. Due on due Goal Abdominal Ultras ound. Due on due Goal Abdominal Ultras ound. Due on due Goal Depression scree meredith. Due on due Goal FOBT. Due on due Goal Zoster vaccine. Due on due Goal Influenza vaccin e. Due on due Goal Colonoscopy. Due on 014 due Goal Td Vaccine. Due on 14 due Goal Colonoscopy. Due on 014 due Goal Abdominal Ultras ound. Due on due Goal Td Vaccine. Due on 14 due Goal FOBT. Due on due Goal Zoster vaccine. Due on due Goal Influenza vaccin e. Due on due Goal Depression scree meredith. Due on due Goal Influenza vaccin e. Due on due Goal PSA. Due on due Goal Td Vaccine. Due on 14 due Goal FOBT. Due on due Goal Colonoscopy. Due on 014 due Future Order: Radiology Order Ch est X-ray, 2 views ([id number]), Ordered on: Ordered Future Order: Lab Order CMP ([id number]), Ordered on: Ordered Future Order: Lab Order Hemoglob in A1c ([id number]), Ordered on: Ordered Future Order: Lab Order CBC w/di ff ([id number]), Ordered on: Ordered Future Order: Lab Order CMP ([id number]), Ordered on: Ordered Future Order: Lab Order Lipid Pa miriam ([id number]), Ordered on: Ordered Future Order: Lab Order TSH Rfx on Abnormal to Free T4 ([id number]), Ordered on: Ordered Future Order: Lab Order CBC w/di ff ([id number]), Ordered on: Ordered Future Order: Lab Order BMP ([id number]), Ordered on: Ordered Future Order: Lab Order Hemoglob in A1c ([id number]), Ordered on: Ordered Future Order: Lab Order Microalb umin, Random Urine ([id number]), Ordered on: Ordered Future Order: Lab Order TSH Rfx on Abnormal to Free T4 ([id number]), Ordered on: Ordered Future Order: Lab Order Hemoglob in A1c ([id number]), Ordered on: Ordered Future Order: Lab Order CMP ([id number]), Ordered on: Ordered Future Order: Lab Order PSA ([id number]), Ordered on: Ordered Future Order: Lab Order HEMOGLOB IN A1C (HGBA1C), Ordered on: Ordered Future Order: Lab Order PSA FREE AND TOTAL (PSAFREE), Ordered on: Ordered Future Order: Lab Order CH7-BASI C METABOLIC PANEL (CH7), Ordered on: Ordered Future Order: Lab Order MICROALB UMIN (RANDOM) (MICROA), Ordered on: Ordered History Of Present Illness Encounter Date Complaint History Of Prese nt Illness Headache Cough Positive exposure Anxiety/Depression diabetes prostate enlargement hypertension Depression diabetes Comorbidity: Hyp ertension. hyperlipidemia Risk factors inc lude age over 50. hyperlipidemia Risk factors inc lude age over 50. diabetes Comorbidity: Hyp ertension. med review Med review med review cough headache medication review diabetes ear problems Back pain Hyperlipidemia Hypertension Diabetes Mellitus Frequent urination Pain ringing in his left ear SHOULDER PAIN diabetes hypertension diabetes fatigue diabetes vomitting fatigue nausea diabetes Comorbidity: Hyp ertension. shortness of breath diabetes He Has been herve ged with oral medications. Comorbidity: Hypertension. high blood sugars Diabetes diabetes He Has been herve ged with oral medications. Comorbidity: Hypertension. diabetes Functional Status Date Functional Assessmen t No Information Instructions Date Instruction Additional Infor mation Special diet education Related t o Body mass index (BMI) 25.0-25.9, adult Weight gain advised Related to B veronika mass index (BMI) 24.0-24.9, adult Prescribed activity/ exercise education Related to Body mass index (BMI) 24.0-24.9, adult Special diet education Related t o Body mass index (BMI) 24.0-24.9, adult Assessments Type Assessment Date No Information Patient Care Teams Name Effective Dates (start - stop) Status Members No Information
--- OUTSIDE RECORDS SUMMARY | 2024-05-24 11:49 | XMS_ITS | Data Portability ---
Author Organization [facility], MAIN OFFICE Address [address] [place] [address] Assessment No assessment recorded. Plan of Treatment Reminders Order Date Submit Date Provider Last Modified By Organization Details Last Modified Time Details Appointments None record ed. Lab None record ed. Referral ENT referr al 2014 015 ciroichesterslila pp Wes Cam MD, [address] [place] [address], [facility] [address], [address], 5 07:48:08 Procedures None record ed. Surgeries None record ed. Imaging None record ed. Medication Orders Medrol (Pola) 4 mg tablet s in a dose pack 2015 016 achichestershe pp Not available 6 09:05:10 amoxic illin 500 mg capsul e 2014 015 achichestershe pp [facility], [address], [address], [place], [address], 5 13:33:50 neomyc in-david ymyxin -hydro ray 3.5 mg-10, 000 unit/m L-1 % ear drops, susp 2014 015 INTERFACE [facility], [address], [address], [place], [address], 5 12:08:42 Patient TargetsNo targets recorded. Patient Instructions Encounter Date Encounter Id Patient Instructions Last Modified By Organization Details Last Modified Time 03/19/2015 [id number] pt d/c home in stable condtion pt states that he ears feels great pt understands that he might exp. some vertigo and he needs to be careful. [email or web address] Not available 03/19/2015 12:04:49 03/28/2015 1989 pt understands that he will have to f/u with ENT if no improvement in sx. 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 for further evaluation smoking cessation discussed [email or web address] Not available 05/04/2015 09:05:10 Reason for Referral ENT Referral for Otitis medi a Referring Physician: Chinedu Villarreal, Commercial Loan Officer, Encounter Date: 03/28/2015 Problems Name Problem SNOMED Code Status Onset Date Resolution Date Notes Provider Name and Address Organization Details Recorded Time Impacted cerumen 56613247 Active Sugey muñoz [place] - [facility] 6 08:42:17 Otitis media 31312134 Active Sugey muñoz [place] - [facility] 6 08:42:17 Tinnitus 84729642 Active Chinedu Yanez PA-C [address] [place] [address], [address] , [facility] 6 09:05:10 Problem Notes None recorded. Procedures Surgical History Date Name Laterality Status Provider Name and Address Organization Details Recorded Time 5 Cerumen Removal completed Chinedu hong PA-C [address] [place], [address], [facility] 03/19/2015 11:10:30 Imaging Results None recorded. Procedure Notes None recorded. Medical Equipment None Reported. Allergies No known drug allergies Medications Name Sig Start Date Stop Date Status Note LastModified by Organization Details LastModified Time novolog flexpen 100 unit/ml sopn active Not Available Not Available Not Available ondansetron hcl 4 mg tabs active Not Available Not Availabl e Not Available pantoprazole sodium 40 mg tbec active Not Available Not Available Not Available levemir flextouch 100 unit/ml sopn active Not Available Not Available Not Available duloxetine hcl 30 mg cpep active Not Available Not Available N ot Available humalog 100 unit/ml soln active Not Available Not Available Not Available nesina 25 mg tabs active Not Available Not Available Not Available hydrocodone/ac etaminophen 7.5-325 mg tabs active Not Available Not Available Not Available azithromycin 250 mg tabs active Not Available Not Available Not Available buspirone hcl 15 mg tabs active Not Available Not Available N ot Available amoxicillin 500 mg caps active Not Available Not Available Not Available ventolin hfa 108 (90 base) mcg/actaers active Not Available Not Available Not Available neomycin/polym yxin/hydrocort isone 3.5-83611-2 susp active Not Available Not Available Not Available pen needles 29gx1/2 29g x 12mm misc active Not Available Not Available No t Available trazodone hcl 100 mg tabs active Not Available Not Available Not Available azithromycin 500 mg tabs active Not Available Not Available Not Available levemir flexpen 100 unit/ml sopn active Not Available Not Available Not Available tramadol hcl 50 mg tabs active Not Available Not Available N ot Available trazodone hcl 50 mg tabs active Not Available Not Available N ot Available proair hfa 108 (90 base) mcg/act aers active Not Available Not Available Not Available amoxicillin 500 mg capsule Take 2 capsules every 12 hours by oral route for 10 days. 2014 active Not Available Not Available Not Avai lable Medrol (Pola) 4 mg tablets in a dose pack Take by oral route. 2015 active Not Available Not Available Not Avai lable neomycin-polym yxin-hydrocort 3.5 mg-10,000 unit/mL-1 % ear drops,susp INSTILL 4 DROPS INTO AFFECTED EAR(S) BY OTIC ROUTE 3 TIMES PER DAY 2014 active Not Available Not Available Not Avai lable Vitals Date Recorded Body weight Body height Oxygen saturation Oxygen saturation in Arterial blood by Pulse oximetry Body temperature Body mass index (BMI) Heart rate Systolic blood pressure Diastolic blood pressure Provider Name and Address Organization Details Last Updated DateTime 6 66258.6 9689 g 187.325 cm 97 % 97 % 98.2 [degF] 25.5 kg/m2 89 /min 136 mm[Hg] 77 mm[Hg] Sugey Tyler [facility] 6 08:42:17 Date Recorded Body weight Oxygen saturation Oxygen saturation in Arterial blood by Pulse oximetry Body height Body temperature Heart rate Body mass index (BMI) Systolic blood pressure Diastolic blood pressure Provider Name and Address Organization Details Last Updated DateTime 5 40116.6 9689 g 98 % 98 % 190.5 cm 98.4 [degF] 91 /min 24.6 kg/m2 143 mm[Hg] 85 mm[Hg] [facility] 5 10:57:07 Date Recorded Body weight Oxygen saturation Oxygen saturation in Arterial blood by Pulse oximetry Body height Body mass index (BMI) Body temperature Heart rate Systolic blood pressure Diastolic blood pressure Provider Name and Address Organization Details Last Updated DateTime 5 99745.8 8163 g 96 % 96 % 190.5 cm 24.9 kg/m2 98.1 [degF] 95 /min 142 mm[Hg] 84 mm[Hg] [facility] 5 10:34:23 Social History None recorded. Functional Status None recorded. Mental Status None recorded. Family History Nothing Reported. Medical History Condition Response Diabetes Y Asthma Y Past Encounters Encounter ID Performer Location Encounter Start Date Encounter Closed Date Diagnosis/Indication Diagnosis SNOMED-CT Code Diagnosis ICD10 Code Diagnosis Note 1864 Chinedu Yanez PA-C MAIN OFFICE [address] [place] [address] 03/19/2015 10:44:24 03/19/2015 15:06:21 Impacted cerumen 64606413 H61.21 1988 Chinedu Yanez PA-C MAIN OFFICE [address] [place] [address] 03/28/2015 10:11:22 03/28/2015 13:42:58 Otitis media 29945210 H65.04 [id number] Chinedu Yanez PA-C MAIN OFFICE [address] [place] [address] 05/04/2015 08:32:53 05/04/2015 14:49:28 Tinnitus 96001817 H93.12 Health Concerns Section Related Observation LastModified by Organization Detai ls LastModified Time None Recorded Concern Status LastModified by Organization Details LastModified Time None Recorded Advance Directives Directive None Recorded Payers Encounter Date Sequence Insurance Name Policy Number Policy Hooper Covered Member ID Hooper Member ID Guarantor Name 03/19/2015 [place] Pradip D Guard [id number] Pradip Guard 03/28/2015 1 [place] Pradip D Guard [id number] Pradip Guard 05/04/2015 1 [place] Pradip D Guard [id number] Pradip Guard 05/04/2015 2 [facility] (PPO) Pradip Guard [id number] Pradip Guard Notes Date Note Type Note Provider Name and Address Organization Details Recorded Time 03/19/2015 text/html [facility] Quality[facility] Severity:pain level 4/10 Duration:intermittent ; worst at night Onset/TiminweeksNo sara:sx x 1 week RT ear pain no D/C no recent swimming no dec. in hearing no Qtip use Chinedu quiros PA-C [address] [place], [address], [facility] 03/19/2015 12:05:32 03/28/2015 text/html EaracheRep[facility]patient.[facility] Quality:cannot identify Severity:same Duration:frequent Timing:gradual Context:no sick contacts; no recent swimming/water in ear Associated Symptoms:no discharge from the ears; no ringing in the earsNotes:pt states that after last visit his RT ear was better but states that last night he started have ear pain again no dec. in hear more than whats normal pt denies any d/c no rec. swimming pt unable to describe his RT ear discomfort Chinedu quiros PA-C [address] [place], [address], [facility] 03/28/2015 13:34:13 05/04/2015 text/html EaracheReported bypatient.Location:[facility] Quality:hissing Severity:same Duration:intermittent Context:no recent swimming/water in ear Associated Symptoms:no discharge from the ears; no hearing loss; no nose/sinus problemsNotes:pt state the saw ent and was to that his ear was fine pt describes humming/buzzing pt denies any pain no dec. in hearing but due to buzzing, pt is unable to really hear well no episodes of vertigo or hearing loss. pt reports that he uses to work in [employer] and has been exposed to a lot of loud noises LINDA RicciC [address] [place] [address], [address], [facility] - [facility] 05/04/2015 09:05:27
--- OUTSIDE RECORDS SUMMARY | 2024-05-24 11:49 | XMS_ITS | Encounter Summary ---
Author Organization [facility] Facility Care Team Providers Care Vocational Nurse Name Role Phone Eugene Vega MD Primary Care Provi shantell Todd Gallardo MD Primary Care Provider + [phone] Wai Espinoza MD Unavailable [phone] Justin Pineda MD Unavailable Encounter Details Date Type Department Care Team (Latest Contact Info) Description 09/29/2016 Orders Only [facility] CLINCONV ProviderKayla MD [address] [place] [address] Social History Tobacco Use Types Packs/Day Years Used Date Smoking Tobacco: Never Assessed Sex and Gender Information Value Date Recorded Sex Assigned at Not on file 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 Historical Provider [facility] Final Result documented in this encounter Visit Diagnoses Not on filedocumented in this encounter Care Teams Vocational Nurse Relationship Specialty Start Date End Date Eugene Vega MD [address] [place] [address] PCP - General Family Medicine 08/30/18 01/19/22 Todd Gallardo MD [address] [place] [address] PCP - General Family Practice 01/20/22 Wai Espinoza MD [address] DIV IM MEDICAL ONCOLOGY, [address] [place] [address] Medical Oncologist/Edge Trimming Machine Operator Medical Oncology 01/20/22 Justin Pineda MD [address] [place] [address] Radiation Oncologist Radiation Oncology 02/02/22 documented as of this encounter
--- OUTSIDE RECORDS SUMMARY | 2024-05-24 11:49 | XMS_ITS | Encounter Summary ---
Author Organization [facility] Facility Care Team Providers Care Stoneworker Name Role Phone Eugene Vega MD Primary Care Provi shantell Todd Gallardo MD Primary Care Provider + [phone] Wai Espinoza MD Unavailable [phone] Justin Pineda MD Unavailable Encounter Details Date Type Department Care Team (Latest Contact Info) Description 02/22/2012 Orders Only [facility] CLINCONV ProviderKayla MD [address] [place] [address] Social History Tobacco Use Types Packs/Day Years Used Date Smoking Tobacco: Never Assessed Sex and Gender Information Value Date Recorded Sex Assigned at Not on file 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 us Historical Provider Final Res ult documented in this encounter Visit Diagnoses Not on filedocumented in this encounter Care Teams Stoneworker Relationship Specialty Start Date End Date Eugene Vega MD [address] [place] [address] PCP - General Family Medicine 08/30/18 01/19/22 Todd Gallardo MD [address] [place] [address] PCP - General Family Practice 01/20/22 Wai Espinoza MD [address] DIV IM MEDICAL ONCOLOGY, [address] [place] [address] Medical Oncologist/Tool And Die Supervisor Medical Oncology 01/20/22 Justin Pineda MD [address] [place] [address] Radiation Oncologist Radiation Oncology 02/02/22 documented as of this encounter
--- OUTSIDE RECORDS SUMMARY | 2024-05-24 11:49 | XMS_ITS | Encounter Summary ---
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 Gender Identity Male 01/06/2022 12:16 PM CDT Sexual Orientation Not on file documented as of this encounter Plan of Treatment Not on file documented as of this encounter Visit Diagnoses Not on filedocumented in this encounter Care Teams Afternoon Nanny Relationship Specialty Start Date End Date Todd Gallardo MD PCP - General Family Practice 01/20/22 Wai Espinoza MD [address] DIV IM MEDICAL ONCOLOGY, [address] [place] [address] Medical Oncologist/Sales Developer Medical Oncology 01/20/22 Justin Pineda MD [address] [place] [address] Radiation Oncologist Radiation Oncology 02/02/22 documented as of this encounter
--- OUTSIDE RECORDS SUMMARY | 2024-05-24 11:49 | XMS_ITS | Patient Health Record ---
Author Organization [facility] Address [address] [place] [address] Care Team Providers Care Paper Wrapping Machine Operator Name Role Phone Migration, Provider Unavailable Unavailable Reason For Referral No Information Medications Medication SIG (Take, Route, Frequency, Duration) Notes Start Date End Date Status Ventolin HFA 108 (90 Base) MCG/ACT inhale 2 puff by inhalation route every 6 hours as needed Inhalation taking as directed 05/24/2013 Active Fluticasone Furoate 50 MCG/ACT SPRAY 1 - 2 SPRAY BY INTRANASAL ROUTE EVERY DAY IN EACH NOSTRIL NEEDED Inhalation Patient requests 90 days supply 06/22/2018 Active Wellbutrin XL 300 MG TAKE 1 TABLET BY OR AL ROUTE EVERY DAY Oral taking as directed 01/19/2022 Active HumaLOG 100 UNIT/ML inject by subcutaneo us route per prescriber's instructions. Insulin dosing requires individualization. Subcutaneous taking as directed 01/31/2016 Active ProAir RespiClick 108 (90 Base) MCG/ACT inhale 2 puff by inhalation route every 6 hours as needed Inhalation taking as directed 09/07/2019 Active HYDROcodone-Acetamin ophen 7.5-325 MG take 1 tablet by oral route every 6 hours as needed for pain for Non Acute Pain Oral taking as directed 07/27/2018 Active Losartan Potassium 25 MG take 1 tablet by oral route every day for hypertension Oral taking as directed 02/22/2018 Active Medrol 4 MG take by Oral route a s directed Oral 10/29/2021 Active Protonix 40 MG TAKE 1 TABLET BY LUIS TH EVERY DAY Oral taking as directed 08/05/2015 Active Advair Diskus 250-50 MCG/DOSE INHALE 1 PUFF INTO THE LUNGS TWICE A DAY IN THE MORNING AND THE EVENING APPROXIMATELY 12 HOURS APART Inhalation taking as directed 12/16/2021 Active traZODone HCl 100 MG take 1 tablet by or al route every day after meals Oral taking as directed 01/07/2018 Active busPIRone HCl 5 MG TAKE 1 TABLET BY ORA L ROUTE 2 TIMES EVERY DAY FOR ANXIETY Oral taking as directed 04/18/2018 Active traZODone HCl 150 MG TAKE ONE TABLET BY MOUTH DAILY Oral taking as directed 09/15/2021 Active Flomax 0.4 MG take 1 capsule by or al route every day 1/2 hour following the same meal each day Oral taking as directed 11/14/2021 Active Immunizations Vaccine Route Administration Date Status Comme nts Flu vaccine no Preserv 3 and > Unknown 12/14/2013 Administered office Influenza (split), 3 yrs and above IM Intramuscular 02/11/2015 Administered Influenza (split), 3 yrs and above IM Intramuscular 05/21/2016 Administered Influenza, high dose seasonal IM Intramuscular 02/22/2018 Administered Pneumococcal conjugate PCV 13 IM Intramuscular 02/23/2017 Administered Pneumococcal polysaccharide PPV23 Unknown 12/14/2013 Administered office Problems Problem Type SNOMED Code ICD Code Onset Dates Problem Status W/U Status Risk Notes Problem Sarcoidosis (70860553) Sarcoidosis (135) Active confirmed Problem Type II diabetes mellitus uncontrolled (569094202) Diabetes mellitus without mention of complication, type II or unspecified type, uncontrolled (250.02) Active confirmed Problem Hyperlipidemia (33077286) Other and unspecified hyperlipidemia (272.4) Active confirmed Problem Tobacco user (334437769) Nondependent tobacco use disorder (305.1) Active confirmed Problem Benign essential hypertension (0064366) Essential hypertension, benign (401.1) Active confirmed Problem Gastroduodenitis (171114849) Unspecified gastritis and gastroduodenitis without mention of hemorrhage (535.50) Active confirmed Problem Malaise and fatigue (791738144) Other malaise and fatigue (780.79) Active confirmed Problem Type I diabetes mellitus without complication (781717549) Type 1 diabetes mellitus without complications (E10.9) Active confirmed Problem Hyperglycemia due to type 2 diabetes mellitus (916533021743252) Type 2 diabetes mellitus with hyperglycemia (E11.65) Active confirmed Problem Hyperlipidemia (29763102) Other hyperlipidemia (E78.4) Active confirmed Problem Alcohol abuse (36257736) Alcohol abuse, uncomplicated (F10.10) Active confirmed Problem Alcohol abuse wi th unspecified alcohol-induced disorder (F10.19) Active confirmed Problem Mild major depression, single episode (14415084) Major depressive disorder, single episode, mild (F32.0) Active confirmed Problem Anxiety disorder (103347121) Other specified anxiety disorders (F41.8) Active confirmed Problem Anxiety disorder (411818550) Anxiety disorder, unspecified (F41.9) Active confirmed Problem Sleep apnea (94650382) Sleep apnea, unspecified (G47.30) Active confirmed Problem Obstructive sleep apnea syndrome (disorder) (61142039) Obstructive sleep apnea (adult) (pediatric) (G47.33) Active confirmed Problem Chronic pain (25377154) Other chronic pain (G89.29) Active confirmed Problem Otitis externa (7236412) Unspecified otitis externa, unspecified ear (H60.90) Active confirmed Problem Impacted cerumen (01005728) Impacted cerumen, right ear (H61.21) Active confirmed Problem Non-suppurative otitis media (152301775) Unspecified nonsuppurative otitis media, left ear (H65.92) 018 Active confirmed Problem Essential hypertension (72607861) Essential (primary) hypertension (I10) Active confirmed Problem Acute frontal sinusitis (93910902) Acute frontal sinusitis, unspecified (J01.10) 018 Active confirmed Problem Acute upper respiratory infection (44892076) Acute upper respiratory infection, unspecified (J06.9) Active confirmed Problem Allergic rhinitis (11538822) Allergic rhinitis, unspecified (J30.9) Active confirmed Problem Acute exacerbation of chronic obstructive airways disease (743760849) Chronic obstructive pulmonary disease with (acute) exacerbation (J44.1) Active confirmed Problem Shoulder joint pain (261797915) Pain in left shoulder (M25.512) Active confirmed Problem Pain of right knee region (finding) (452134515548390) Pain in right knee (M25.561) Active confirmed Problem Pain of left knee joint (finding) (836593800977863) Pain in left knee (M25.562) Active confirmed Problem Torticollis (15195860) Torticollis (M43.6) Active confirmed Problem Cervicalgia (59681747) Cervicalgia (M54.2) Active confirmed Problem Low back pain (149277463) Low back pain (M54.5) 018 Active confirmed Problem Dribbling of urine (03850746) Post-void dribbling (N39.43) Active confirmed Problem Frequency of micturition (487876085) Frequency of micturition (R35.0) 017 Active confirmed Problem History of suspected exposure to biological agent (23365716743594) Encounter for observation for suspected exposure to other biological agents ruled out (Z03.818) Active confirmed Problem Screening for malignant neoplasm of prostate (399106582) Encounter for screening for malignant neoplasm of prostate (Z12.5) Active confirmed Problem Tobacco use (066592919) Tobacco use (Z72.0) Active confirmed Problem Dependence on enabling machine or device (119269953) Dependence on other enabling machines and devices (Z99.89) Active confirmed Problem Enlarged prostate (562092520) Enlarged prostate without lower urinary tract symptoms (N40.0) Active confirmed Problem Normal body mass index (87981232) Body mass index (BMI) 24.0-24.9, adult (Z68.24) 019 Active confirmed Problem Nondependent alcohol abuse, continuous (864731546) Nondependent alcohol abuse, continuous pattern of use (305.01) Active confirmed Problem BMI 25-29 - overweight (652406236) Body mass index (BMI) 25.0-25.9, adult (Z68.25) 020 Active confirmed Encounters Encounter Location Date Provider Diagnosis Pooja Tapia ND [address] [address] 02/05/2024 Provider Migration Pooja Tapia [facility] [address] [address] 02/06/2024 Provider Migration Plan Of Treatment No Information Insurance Providers Payer Name Payer Address Payer Phone Subscriber Number Group Number Insured Name Patient Relationship to Insured Coverage Start Date Coverage End Date Rcm Missing Insurance PLEASE SCAN FRONT [place] [address] [phone] [id number] Pradip Land Self - patient is the insured Medical (General) History Surgical History Surgery Date(Month/Year) Med_system:HEENT, Sx_Procedure : Tonsill ectomy
--- OUTSIDE RECORDS SUMMARY | 2024-05-24 11:49 | XMS_ITS | Encounter Summary ---
Author Organization [facility] Facility Care Team Providers Care Pre School Manager Name Role Phone Eugene Vega MD Primary Care Provi shantell Todd Gallardo MD Primary Care Provider + [phone] Wai Espinoza MD Unavailable [phone] Justin Pineda MD Unavailable Encounter Details Date Type Department Care Team (Latest Contact Info) Description 10/08/2016 Orders Only [facility] CLINCONV ProviderKayla MD [address] [place] [id number] Social History Tobacco Use Types Packs/Day Years Used Date Smoking Tobacco: Never Assessed Sex and Gender Information Value Date Recorded Sex Assigned at Not on file 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 us Historical Provider Final Res ult documented in this encounter Visit Diagnoses Not on filedocumented in this encounter Care Teams Pre School Manager Relationship Specialty Start Date End Date Eugene Vega MD [address] [place] [address] PCP - General Family Medicine 08/30/18 01/19/22 Todd Gallardo MD [address] [place] [address] PCP - General Family Practice 01/20/22 Wai Espinoza MD [address] DIV IM MEDICAL ONCOLOGY, [address] [place] [address] Medical Oncologist/Metaphysicist Medical Oncology 01/20/22 Justin Pineda MD [address] [place] [address] Radiation Oncologist Radiation Oncology 02/02/22 documented as of this encounter
--- OUTSIDE RECORDS SUMMARY | 2024-05-24 11:49 | XMS_ITS ---
Author Organization [facility] Address [address] [place] [address] Care Team Providers Care Hydrographical Technical Officer Name Role Phone Migration, Provider Unavailable Unavailable Allergies Allergen (clinical drug ingredient) Drug/Non Drug Allergy documented on EMR Reaction Allergy Type Onset Date Status Iodine Nausea / Vomiting Drug Allergy Active Shellfish (FN) Shellfish-derived Products Nausea / Vomiting Drug Allergy Active REASON FOR VISIT EMR-[facility] Medications Medication SIG (Take, Route, Frequency, Duration) Notes Start Date End Date Status Ventolin HFA 108 (90 Base) MCG/ACT inhale 2 puff by inhalation route every 6 hours as needed Inhalation taking as directed 05/24/2013 Active Wellbutrin XL 300 MG TAKE 1 TABLET BY OR AL ROUTE EVERY DAY Oral taking as directed 01/19/2022 Active ProAir RespiClick 108 (90 Base) MCG/ACT inhale 2 puff by inhalation route every 6 hours as needed Inhalation taking as directed 09/07/2019 Active traZODone HCl 100 MG take 1 tablet by or al route every day after meals Oral taking as directed 01/07/2018 Active traZODone HCl 150 MG TAKE ONE TABLET BY MOUTH DAILY Oral taking as directed 09/15/2021 Active HumaLOG 100 UNIT/ML inject by subcutaneo us route per prescriber's instructions. Insulin dosing requires individualization. Subcutaneous taking as directed 01/31/2016 Active HYDROcodone-Acetamin ophen 7.5-325 MG take 1 [...] DAY Oral taking as directed 08/05/2015 Active Fluticasone Furoate 50 MCG/ACT SPRAY 1 - 2 SPRAY BY INTRANASAL ROUTE EVERY DAY IN EACH NOSTRIL NEEDED Inhalation Patient requests 90 days supply 06/22/2018 Active Advair Diskus 250-50 MCG/DOSE INHALE 1 PUFF INTO THE LUNGS TWICE A DAY IN THE MORNING AND THE EVENING APPROXIMATELY 12 HOURS APART Inhalation taking as directed 12/16/2021 Active busPIRone HCl 5 MG TAKE 1 TABLET BY ORA L ROUTE 2 TIMES EVERY DAY FOR ANXIETY Oral taking as directed 04/18/2018 Active Flomax 0.4 MG take 1 capsule by or al route every day 1/2 hour following the same meal each day Oral taking as directed 11/14/2021 Active Encounters Encounter Location Date Provider Diagnosis [facility] [place] [address] [place] [address] 02/06/2024 Provider Migration Plan Of Treatment No Information Progress Notes * Pradip CELESTE DDOB:1950 (73 yo M)Acc No.[id number]:02/06/2024 Patient: Glenis JOYCE Pradip Leos :1950 A ge:73 Y S ex:Male Address:[address] [place] [address] Subjective: * Chief Complaints: * E MR-[facility] * Medical History: Disease : anxiety, , Disease : apendectomy, , Disease : colon polyp, , Med_system:cardiovascular, Disease : Hyperlipidemia, , Med_system:metabolic/endocrine, Disease : Diabetes, , Med_system:psychiatric, Disease : Depression, , Med_system:pulmonary, Disease : COPD, , Med_system:pulmonary, Disease : Sarcoidosis, , Problems: Benign essential hypertension, Added Date: 09/15/2013, Onset Date: 05/24/2013:Active , Problems: Hyperlipidemia, Added Date: 09/15/2013, Onset Date: 05/24/2013:Active , Problems: Nondependent alcohol abuse, continuous, Added Date: 09/15/2013, Onset Date: 05/24/2013:Active , Problems: Sarcoidosis, Added Date: 09/15/2013, Onset Date: 05/24/2013:Active , Problems: Uncontrolled Type 2 diabetes mellitus, Added Date: 09/15/2013, Onset Date: 05/24/2013:Active * Surgical History: Med_system:HEENT, Sx_Procedure : Tonsillectomy * Hospitalization/Major Diagno stic Procedure: * Family History: A unt: MothersSister: cancer of colon. M aternal Grandfather: MothersFather: cancer of the esophagus. M aternal Grandmother: MothersMother: Fibromyalgia. * Medications: T akingAdvair Diskus 250-50 MCG/DOSE Aerosol Powder Breath Activated INHALE 1 PUFF INTO THE LUNGS TWICE A DAY IN THE MORNING AND THE EVENING APPROXIMATELY 12 HOURS APART Inhalation , Notes to Pharmacist: taking as directedbusPIRone HCl 5 MG Tablet TAKE 1 TABLET BY ORAL ROUTE 2 TIMES EVERY DAY FOR ANXIETY Oral , Notes to Pharmacist: taking as directedFlomax 0.4 MG Capsule take 1 capsule by oral route every day 1/2 hour following the same meal each day Oral , Notes to Pharmacist: taking as directedFluticasone Furoate 50 MCG/ACT Aerosol Powder Breath Activated SPRAY 1 - 2 SPRAY BY INTRANASAL ROUTE EVERY DAY IN EACH NOSTRIL NEEDED Inhalation , Notes to Pharmacist: Patient requests 90 days supplyHumaLOG 100 UNIT/ML Solution Cartridge inject by subcutaneous route per prescriber's instructions. Insulin dosing requires individualization. Subcutaneous , Notes to Pharmacist: taking as directedHYDROcodone-Acetaminophen 7.5-325 MG Tablet take 1 tablet by oral route every 6 hours as needed for pain for Non Acute Pain Oral , Notes to Pharmacist: taking as directedLosartan Potassium 25 MG Tablet take 1 tablet by oral route every day for hypertension Oral , Notes to Pharmacist: taking as directedLosartan Potassium 25 MG Tablet take 1 tablet by oral route 2 times every day for hypertension Oral , Notes to Pharmacist: taking as directedMedrol 4 MG Tablet Therapy Pack take by Oral route as directed Oral Protonix 40 MG Tablet Delayed Release TAKE 1 TABLET BY MOUTH EVERY DAY Oral , Notes to Pharmacist: taking as directedProtonix 40 MG Tablet Delayed Release TAKE 1 TABLET BY MOUTH EVERY DAY Oral , Notes to Pharmacist: taking as directedtraZODone HCl 100 MG Tablet take 1 tablet by oral route every day after meals Oral , Notes to Pharmacist: taking as directedtraZODone HCl 150 MG Tablet TAKE ONE TABLET BY MOUTH DAILY Oral , Notes to Pharmacist: taking as directedVentolin HFA 108 (90 Base) MCG/ACT Aerosol Solution inhale 2 puff by inhalation route every 6 hours as needed Inhalation , Notes to Pharmacist: taking as directedWellbutrin XL 300 MG Tablet Extended Release 24 Hour TAKE 1 TABLET BY ORAL ROUTE EVERY DAY Oral , Notes to Pharmacist: taking as directedProAir RespiClick 108 (90 Base) MCG/ACT Aerosol Powder Breath Activated inhale 2 puff by inhalation route every 6 hours as needed Inhalation , Notes to Pharmacist: taking as directedTaking Advair Diskus 250-50 MCG/DOSE Aerosol Powder Breath Activated INHALE 1 PUFF INTO THE LUNGS TWICE A DAY IN THE MORNING AND THE EVENING APPROXIMATELY 12 HOURS APART Inhalation , Notes to Pharmacist: taking as directedTaking busPIRone HCl 5 MG Tablet TAKE 1 TABLET BY ORAL ROUTE 2 TIMES EVERY DAY FOR ANXIETY Oral , Notes to Pharmacist: taking as directedTaking Flomax 0.4 MG Capsule take 1 capsule by oral route every day 1/2 hour following the same meal each day Oral , Notes to Pharmacist: taking as directedTaking Fluticasone Furoate 50 MCG/ACT Aerosol Powder Breath Activated SPRAY 1 - 2 SPRAY BY INTRANASAL ROUTE EVERY DAY IN EACH NOSTRIL NEEDED Inhalation , Notes to Pharmacist: Patient requests 90 days supplyTaking HumaLOG 100 UNIT/ML Solution Cartridge inject by subcutaneous route per prescriber's instructions. Insulin dosing requires individualization. Subcutaneous , Notes to Pharmacist: taking as directedTaking HYDROcodone-Acetaminophen 7.5-325 MG Tablet take 1 tablet by oral route every 6 hours as needed for pain for Non Acute Pain Oral , Notes to Pharmacist: taking as directedTaking Losartan Potassium 25 MG Tablet take 1 tablet by oral route every day for hypertension Oral , Notes to Pharmacist: taking as directedTaking Losartan Potassium 25 MG Tablet take 1 tablet by oral route 2 times every day for hypertension Oral , Notes to Pharmacist: taking as directedTaking Medrol 4 MG Tablet Therapy Pack take by Oral route as directed Oral Taking Protonix 40 MG Tablet Delayed Release TAKE 1 TABLET BY MOUTH EVERY DAY Oral , Notes to Pharmacist: taking as directedTaking Protonix 40 MG Tablet Delayed Release TAKE 1 TABLET BY MOUTH EVERY DAY Oral , Notes to Pharmacist: taking as directedTaking traZODone HCl 100 MG Tablet take 1 tablet by oral route every day after meals Oral , Notes to Pharmacist: taking as directedTaking traZODone HCl 150 MG Tablet TAKE ONE TABLET BY MOUTH DAILY Oral , Notes to Pharmacist: taking as directedTaking Ventolin HFA 108 (90 Base) MCG/ACT Aerosol Solution inhale 2 puff by inhalation route every 6 hours as needed Inhalation , Notes to Pharmacist: taking as directedTaking Wellbutrin XL 300 MG Tablet Extended Release 24 Hour TAKE 1 TABLET BY ORAL ROUTE EVERY DAY Oral , Notes to Pharmacist: taking as directedTaking ProAir RespiClick 108 (90 Base) MCG/ACT Aerosol Powder Breath Activated inhale 2 puff by inhalation route every 6 hours as needed Inhalation , Notes to Pharmacist: taking as directed * Allergies: I odine: Nausea / Vomiting - AllergyShellfish-derived Products: Nausea / Vomiting - Allergy Objective: * Physical Examination: Plan: * Treatment: * Procedure Codes: Billing Information: * Visit Code: * Procedure Codes: * * Date:
--- OUTSIDE RECORDS SUMMARY | 2024-05-24 11:49 | XMS_ITS | Encounter Summary ---
Author Organization [facility] Facility Care Team Providers Care Industrial Roofer Name Role Phone Eugene Vega MD Primary Care Provi shantell Todd Gallardo MD Primary Care Provider + [phone] Wai Espinoza MD Unavailable [phone] Justin Pineda MD Unavailable Encounter Details Date Type Department Care Team (Latest Contact Info) Description 10/02/2016 Orders Only [facility] CLINCONV ProviderKayla MD [address] [place] [address] Social History Tobacco Use Types Packs/Day Years Used Date Smoking Tobacco: Never Assessed Sex and Gender Information Value Date Recorded Sex Assigned at Not on file 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 Historical Provider [facility] Final Result documented in this encounter Visit Diagnoses Not on filedocumented in this encounter Care Teams Industrial Roofer Relationship Specialty Start Date End Date Eugene Vega MD [address] [place] [address] PCP - General Family Medicine 08/30/18 01/19/22 Todd Gallardo MD [address] [place] [address] PCP - General Family Practice 01/20/22 Wai Espinoza MD [address] DIV IM MEDICAL ONCOLOGY, [address] [place] [address] Medical Oncologist/Curb Worker Medical Oncology 01/20/22 Justin Pineda MD [address] [place] [address] Radiation Oncologist Radiation Oncology 02/02/22 documented as of this encounter
--- OUTSIDE RECORDS SUMMARY | 2024-05-24 11:49 | XMS_ITS | Encounter Summary ---
Author Organization [facility] Healthcare Address [address] [place] [address] Care Team Providers Care Pharmaceutical Service Representative Name Role Phone Todd Gallardo MD Primary Care Provider + [phone] Wai Espinoza MD Unavailable [phone] Justin Pineda MD Unavailable Encounter Details Date Type Department Care Team (Late st Contact Info) Description 02/06/2022 Telephone [facility] Radiology [address] [place] [address] Cristina Herrera, RN Social History Tobacco Use Types Packs/Day Years Used Date Smoking Tobacco: Every Day Cigarettes 1 61.1 Started: 1962 Smokeless Tobacco: Never Alcohol Use Standard Drinks/Week Comments Yes 0 (1 standard drink = 0.6 oz pur e alcohol) AUDIT-C Answer Date Recorded Frequency of Alcohol Consumption Not on file 01/02/2022 Q2: How many drinks containi ng alcohol do you have on a typical day when you are drinking? 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 Gender Identity Male 01/06/2022 12:16 PM CDT Sexual Orientation Not on file documented as of this encounter Plan of Treatment Not on file documented as of this encounter Visit Diagnoses Not on filedocumented in this encounter Care Teams Pharmaceutical Service Representative Relationship Specialty Start Date End Date Todd Gallardo MD PCP - General Family Practice 01/20/22 Wai Espinoza MD [address] DIV IM MEDICAL ONCOLOGY, [address] [place] [address] Medical Oncologist/Ripsaw Operator Medical Oncology 01/20/22 Justin Pineda MD [address] [place] [address] Radiation Oncologist Radiation Oncology 02/02/22 documented as of this encounter
--- OUTSIDE RECORDS SUMMARY | 2024-05-24 11:50 | XMS_ITS | Data Portability ---
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 Plan of Treatment Reminders Order Date Submit Date Provider Last Modified By Organization Details Last Modified Time Details Appointments None recorded. Lab HbA1c (hemoglobin A1c), blood 2021 [facility], [address], [place], [address], 2 03:58:06 CMP, serum or plasma 2021 [facility], [address], [place], [address], 2 03:58:06 lipid panel, serum 2021 [facility], [address], [place], [address], 2 03:58:07 HbA1c (hemoglobin A1c), blood 2021 022 [facility], [address], [place], [address], 2 03:23:17 glucose, fingerstick , blood 2021 In-Office Order, Internal Use Only DO Not Attach Compendium DO Not Attach Compendium, Do Not Delete/merge, [id number] 13:06:25 HbA1c (hemoglobin A1c), blood 2021 [facility], [address], [place], [address], 14:29:01 microalbumi n/creatinin e, mass ratio, urine 2021 [facility], [address], [place], [address], 14:29:00 Referral None recorded. Procedures None recorded. Surgeries None recorded. Imaging None recorded. Medication Orders Novolog U-100 Insulin aspart 100 unit/mL subcutaneou s solution 2021 [id number], [address] [facility], [place], [place], [id number], 13:06:25 Creon 36,000 unit-114,00 0 unit-180,00 0 unit capsule,del ayed release 2021 [facility], [address] [place] [address], [address], 12:28:57 Patient TargetsNo targets recorded. Patient Instructions Encounter Date Encounter Id Patient Instructions Last Modified By Organization Details Last Modified Time 01/15/2021 [id number] deciding about using medicines to quit smoking Not available 01/15/2021 13:37:23 Quitting Tobacco : Care Instructions Not available 01/15/2021 13:37:23 alcohol detoxification and withdrawal: care instructions Not available 01/15/2021 13:35:11 substance use disorder: care instructions Not available 01/15/2021 13:35:11 Notes to REhab ===== PLEASE keep insulin pump if possible ======== CGM must stay on == If insulin pump is not kept on ====== pt needs' Lantus 15-units am and 15 units PM plus Novolog 4 units with each meal Telehealth VisitHale- Discussion Total face to face time spent with patient for this Telehealth visit was over 30 minutes, of which more than 50% was spent in counseling and education. Also reviewed lab data - medications side effects and prescription Renewals [email or web address] Not available 01/15/2021 13:38:34 04/29/2021 [id number] medical record request* - Please forward copy of most recent diabetic eye exam. Thank you ATHENAFAX Not available 04/30/2021 09:20:14 glucose sensor download and interpretation* [email or web address] Not available 04/29/2021 12:00:36 Stay well hydrat ed avoid etoh dc smoking Not available 05/01/2021 06:27:11 Follow up as planned with PCP Follow up Dr Espino 3 to 4 months as scheduled --------- Total face to face time spent with patient for this office visit was over 30 minutes, of which more than 50% was spent in counseling and education. Dr Espino consulted during visit with plan and changes as above [email or web address] Not available 04/29/2021 11:57:24 06/20/2021 [id number] deciding about using medicines to quit smoking Not available 06/20/2021 13:01:58 Quitting Tobacco : Care Instructions Not available 06/20/2021 13:01:58 high cholesterol : care instructions Not available 06/20/2021 13:05:17 Patient explaine d about health risks related to smoking cigarettes. Patient understands that continuous smoking habit is a risk factor for CV events including stroke and [place] , and a risk factor for multiple malignancies Magen 2 vials samples given Plans will be adjusted in the future as appropriate to keep glucose readings/A1c controlled. Plans will be adjusted in the future as appropriate to keep blood pressure readings controlled. Plans will be adjusted in the future as appropriate to keep lipid levels controlled. Total face to face time spent with patient for this office visit was over 30 minutes, of which more than 50% was spent in counseling and education. CGM Records were downloaded and discussed with the patient. Explained to the patient the significance of the data obtained. Discussed TIR , ( Target BG range ) and significance regarding A1C correlation Discussed adjustments in Diabetes management strategy with the patient. Not available 06/20/2021 13:05:29 09/30/2021 [id number] Telehealth VisitHale- Discussion Total face to face time spent with patient for this Telehealth visit was over 30 minutes, of which more than 50% was spent in counseling and education. Also reviewed lab data - medications side effects and prescription Renewals === Patient explained about health risks related to smoking cigarrettes. Patient understands that continuous smoking habit is a risk factor for CV events including stroke and NJ , and a risk factor for multiple malignancies ==== no CGM data today no severe hypoglycemia reported Not available 09/30/2021 12:18:58 01/21/2022 [id number] alcohol detoxification and withdrawal: care instructions Not available 01/21/2022 13:03:49 substance use disorder: care instructions Not available 01/21/2022 13:03:49 Telehealth VisitHale- Discussion Total face to face time spent with patient for this Telehealth visit was over 30 minutes, of which more than 50% was spent in counseling and education. Also reviewed lab data - medications side effects and prescription Renewals Hypoglycemia prevention discussed. Use less mealtime insulin if eating less carbohydrates or have increased physical activity. Avoid taking rapid acting insulin at bedtime, aim for a bedtime glucose level of 140. Avoid nocturnal hypoglycemia. Before driving, always check your glucose and make sure is over 140. Use your medic alert bracelet. Understand symptoms and findings of Diabetic ketoacidosis. Not available 01/21/2022 13:08:00 Reason for Referral None Reported. Results Created Date Observation Date Name Description Value Unit Range Abnormal Flag Note LastModifiedBy Organization Detail LastModifiedTime 03/13/20 21 03/14/2021 LIPID PANEL WITH REFLE X TO DIREC T LDL cholesterol, total 149 mg/dL <200 normal Not Available [facility] [place] [facility] [address], [place], [address], 03/14/2021 21:29:03 03/13/20 21 03/14/2021 LIPID PANEL WITH REFLE X TO DIREC T LDL HDL cholesterol 47 mg/dL > or = 40 normal Not Available [facility] [place] [facility] [address], [place], [address], 03/14/2021 21:29:03 03/13/20 21 03/14/2021 LIPID PANEL WITH REFLE X TO DIREC T LDL triglyceride s 127 mg/dL <150 normal Not Available [facility] [place] [facility] [address], [place], [address], 03/14/2021 21:29:03 03/13/20 21 03/14/2021 LIPID PANEL WITH REFLE X TO DIREC T LDL LDL-choleste rol 80 mg/dL _(larry c) normal Refer ence range : <100 Chelsey able range <100 mg/dL for prima ry preve ntion ; <70 mg/dL for patie nts with CHD or diabe tic patie nts with > or = 2 CHD risk facto rs. LDL-C is now calcu lated using the Criss n-Hop kins miguel elizabeth n, which is a valid ated novel huy lantigua accarolann than the Fried lisa equat ion in the estim ation of LDL-C . Criss cortes SS et al. KP. 2013; 310(1 9): 2061- 2068 (http ://ed ucati on.Qu estDi Thereson S.p.A.s. com/f aq/FA Q164) Not Available [facility] [address], [place], [address], 03/14/2021 21:29:03 03/13/20 21 03/14/2021 LIPID PANEL WITH REFLE X TO DIREC T LDL chol/HDLC ratio 3.2 (calc ) <5.0 normal Not Available [facility] [address], [place], [address], 03/14/2021 21:29:03 03/13/20 21 03/14/2021 LIPID PANEL WITH REFLE X TO DIREC T LDL non HDL cholesterol 102 mg/dL _(larry c) <130 normal For patie nts with diabe sara plus 1 major ASCVD risk facto r, treat ing to a non-H DL-C goal of <100 mg/dL (LDL- C of <70 mg/dL ) is consi dered a thera peuti c optio n. Not Available [facility] [address], [place], [address], 03/14/2021 21:29:03 03/13/20 21 03/14/2021 COMP METAB OLIC PANEL W/ADJ CALCI UM, PLASM A glucose 251 mg/dL 65-139 high Non-f astin g refer ence inter yousuf Not Available [facility] [address], [place], [address], 03/14/2021 21:29:04 03/13/20 21 03/14/2021 COMP METAB OLIC PANEL W/ADJ CALCI UM, PLASM A urea nitrogen (BUN) 12 mg/dL 7-25 normal Not Available [facility] [address], [place], [address], 03/14/2021 21:29:04 03/13/20 21 03/14/2021 COMP METAB OLIC PANEL W/ADJ CALCI UM, PLASM A creatinine 0.92 mg/dL 0.70-1 .25 normal For patie nts >49 years of age, the refer ence limit for Creat inine is appro mahadt vera 13% highe r for peopl e ident ified as Afric an-Am mehnaz n. Not Available [facility] [place] [facility] [address], [place], [address], 03/14/2021 21:29:04 03/13/20 21 03/14/2021 COMP METAB OLIC PANEL W/ADJ CALCI UM, PLASM A eGFR non-afr. barbadian 85 mL/mi n/1.7 3m2 > or = 60 normal Not Available [facility] [place] [facility] [address], [place], [address], 03/14/2021 21:29:04 03/13/20 21 03/14/2021 COMP METAB OLIC PANEL W/ADJ CALCI UM, PLASM A eGFR 98 mL/mi n/1.7 3m2 > or = 60 normal Not Available [facility] [place] [facility] [address], [place], [address], 03/14/2021 21:29:04 03/13/20 21 03/14/2021 COMP METAB OLIC PANEL W/ADJ CALCI UM, PLASM A BUN/creatini ne ratio NOT APPLIC ABLE (calc ) 6-22 Not Available [facility] [place] [facility] [address], [place], [address], 03/14/2021 21:29:04 03/13/20 21 03/14/2021 COMP METAB OLIC PANEL W/ADJ CALCI UM, PLASM A sodium 130 mmol/ L 135-14 6 low Not Available [facility] [place] [facility] [address], [place], [address], 03/14/2021 21:29:04 03/13/20 21 03/14/2021 COMP METAB OLIC PANEL W/ADJ CALCI UM, PLASM A potassium 4.0 mmol/ L 3.4-4. 8 normal Not Available [facility] [place] [facility] [address], [place], [address], 03/14/2021 21:29:04 03/13/20 21 03/14/2021 COMP METAB OLIC PANEL W/ADJ CALCI UM, PLASM A chloride 95 mmol/ L 98-110 low Not Available [facility] [address], [place], [address], 03/14/2021 21:29:04 03/13/20 21 03/14/2021 COMP METAB OLIC PANEL W/ADJ CALCI UM, PLASM A carbon dioxide 23 mmol/ L 20-32 normal Not Available [facility] [address], [place], [address], 03/14/2021 21:29:04 03/13/20 21 03/14/2021 COMP METAB OLIC PANEL W/ADJ CALCI UM, PLASM A calcium 9.5 mg/dL 8.6-10 .3 normal Not Available [facility] [address], [place], [address], 03/14/2021 21:29:04 03/13/20 21 03/14/2021 COMP METAB OLIC PANEL W/ADJ CALCI UM, PLASM A calcium (adjusted for albumin) 9.7 mg/dL _(larry c) 8.6-10 .2 normal Not Available [facility] [address], [place], [address], 03/14/2021 21:29:04 03/13/20 21 03/14/2021 COMP METAB OLIC PANEL W/ADJ CALCI UM, PLASM A protein, total 7.3 g/dL 6.4-8. 4 normal Not Available [facility] [address], [place], [address], 03/14/2021 21:29:04 03/13/20 21 03/14/2021 COMP METAB OLIC PANEL W/ADJ CALCI UM, PLASM A albumin 4.1 g/dL 3.6-5. 1 normal Not Available [facility] [address], [place], [address], 03/14/2021 21:29:04 03/13/20 21 03/14/2021 COMP METAB OLIC PANEL W/ADJ CALCI UM, PLASM A globulin 3.2 g/dL_ (calc ) 2.2-4. 0 normal Not Available [facility] [address], [place], [address], 03/14/2021 21:29:04 03/13/20 21 03/14/2021 COMP METAB OLIC PANEL W/ADJ CALCI UM, PLASM A albumin/glob ulin ratio 1.3 (calc ) 0.9-2. 3 normal Not Available [facility] [address], [place], [address], 03/14/2021 21:29:04 03/13/20 21 03/14/2021 COMP METAB OLIC PANEL W/ADJ CALCI UM, PLASM A bilirubin, total 0.4 mg/dL 0.2-1. 2 normal Not Available [facility] [address], [place], [address], 03/14/2021 21:29:04 03/13/20 21 03/14/2021 COMP METAB OLIC PANEL W/ADJ CALCI UM, PLASM A alkaline phosphatase 58 U/L 35-144 normal Not Available [facility] [address], [place], [address], 03/14/2021 21:29:04 03/13/20 21 03/14/2021 COMP METAB OLIC PANEL W/ADJ CALCI UM, PLASM A AST 12 U/L 10-35 normal Not Available [facility] [address], [place], [address], 03/14/2021 21:29:04 03/13/20 21 03/14/2021 COMP METAB OLIC PANEL W/ADJ CALCI UM, PLASM A ALT 13 U/L 9-46 normal Not Available [facility] [place] [facility] [address], [place], [address], 03/14/2021 21:29:04 03/13/20 21 03/14/2021 HEMOG LOBIN A1C hemoglobin A1C 8.2 %_of_ total _HGB <5.7 high For someo ne witho ut known diabe sara, a hemog lobin A1c value of 6.5% or great er indic ates that they may have diabe sara and this shoul d be confi rmed with a follo w-up test. For someo ne with known diabe sara, a value <7% indic ates that their diabe sara is well contr olled and a value great er than or equal to 7% indic ates subop timal contr ol. A1c targe ts shoul d be indiv idual ized based on durat ion of diabe sara, age, comor bid condi tions , and other consi derat ions. Curre ntly, no conse nsus exist s regar ding use of hemog lobin A1c for diagn osis of diabe sara for child krissy. Not Available [facility] [place] [facility] [address], [place], [address], 03/14/2021 21:29:05 06/20/19 22 06/20/2021 ALBUM IN, RANDO M URINE W/CRE ATINI NE creatinine, random urine 45 mg/dL 20-320 normal Not Available [facility] [place] [facility] [address], [place], [address], 06/20/2021 14:29:00 06/20/19 22 06/20/2021 ALBUM IN, RANDO M URINE W/CRE ATINI NE albumin, urine 0.7 mg/dL see note: normal Refer ence Range : Refer ence Range Not estab lishe d Not Available [facility] [place] [facility] [address], [place], [address], 06/20/2021 14:29:00 06/20/19 22 06/20/2021 ALBUM IN, RANDO M URINE W/CRE ATINI NE albumin/crea tinine ratio, random urine 16 mcg/m g_cre at <30 normal The ADA defin es abnor malit ies in album in excre tion as follo ws: Album inuri a Categ ory Resul t (mcg/ mg creat inine ) Sara l to Mildl y incre ased <30 Moder ately incre ased 30-29 9 Sever vera incre ased > OR = 300 The ADA recom mends that at least two of three speci mens colle cted withi n a 3-6 month perio d be abnor mal befor e consi ilda g a patie nt to be withi n a diagn ostic categ ory. Not Available [facility] [place] [facility] [address], [place], [address], 06/20/2021 14:29:00 06/20/19 22 06/20/2021 HEMOG LOBIN A1C hemoglobin A1C 7.8 %_of_ total _HGB <5.7 high For someo ne witho ut known diabe sara, a hemog lobin A1c value of 6.5% or great er indic ates that they may have diabe sara and this shoul d be confi rmed with a follo w-up test. For someo ne with known diabe sara, a value <7% indic ates that their diabe sara is well contr olled and a value great er than or equal to 7% indic ates subop timal contr ol. A1c targe ts shoul d be indiv idual ized based on durat ion of diabe sara, age, comor bid condi tions , and other consi derat ions. Curre ntly, no conse nsus exist s annmarie davis use of hemog lobin A1c for diagn osis of diabe sara for child krissy. Not Available [facility] [place] [facility] [address], [place], [address], 06/20/2021 14:29:01 06/21/19 22 06/20/2021 gluco se, loy saha k, blood glucose 251 mg/dL 70-100 Not Available In-Office Order Internal Use Only DO Not Attach Compendium DO Not Attach Compendium, Do Not Delete/merge, [id number] 06/20/2021 11:28:03 09/05/19 22 09/05/2021 HEMOG LOBIN A1C hemoglobin A1C 8.4 %_of_ total _HGB <5.7 high For someo ne witho ut known diabe sara, a hemog lobin A1c value of 6.5% or great er indic ates that they may have diabe sara and this shoul d be confi rmed with a follo w-up test. For someo ne with known diabe sara, a value <7% indic ates that their diabe sara is well contr olled and a value great er than or equal to 7% indic ates subop timal contr ol. A1c targe ts shoul d be indiv idual ized based on durat ion of diabe sara, age, comor bid condi tions , and other consi derat ions. Curre ntly, no conse nsus exist s regandriy davis use of hemog lobin A1c for diagn osis of diabe sara for child krissy. Not Available [facility] [address], [place], [address], 09/05/2021 03:23:17 Result Notes None recorded. Problems Name Problem SNOMED Code Status Onset Date Resolution Date Notes Provider Name and Address Organization Details Recorded Time Gastropar esis due to type 1 diabetes mellitus 067389991 Active 2021 LANDEN Conrad [address], [place], [address], [facility], [place] [facility] [place] 2 11:21:14 Malignant tumor of lung 755454642 Active 2021 Bren Espino MD [address], [place], [address], [facility], [place] [facility] [place] 2 13:04:06 Diabetes mellitus 40341617 Completed 06/08/2017 Bren Espino MD [address] [address], [place], [address] [place] [address], [facility] 8 18:02:01 Hypertens ruth disorder 29711662 Active Arlette Rourk null, [facility], [facility] 6 16:39:06 Nondepend ent alcohol abuse, continuou s 926981697 Active off 2014 Arlette Rourk null, [facility], [facility] 6 16:39:06 Hyperlipi demia 29462729 Active Arlette Rourk null, [facility], [facility] 6 16:39:06 Uncontrol led type 2 diabetes mellitus 401336006 Completed 08/26/2014 [facility] 6 16:39:06 Hypoglyce carlene 880946804 Active Arlette Rourk null, [facility], [facility] 6 16:39:06 Sleep apnea 47167850 Active Arlette Rourk null, [facility], [facility] 6 16:39:06 Gastropar esis syndrome 940128736 Completed 04/10/2020 Removal Reason: pt does not have dx [place] [place] [facility], [facility], [facility] 1 11:31:57 Sarcoidos is 34456984 Active Arlette Rourk null, [facility], [facility] 6 16:39:06 Chronic pain 72616735 Active Arlette Rourk null, [facility], [facility] 6 16:39:06 Disorder of vitamin B12 768869571 Active Arlette Rourk null, [facility], [facility] 6 16:39:06 Vitamin D deficienc y 33326039 Active Arlette Rourk null, [facility], [facility] 6 16:39:06 Type 1 diabetes mellitus 91017267 Active low c-peptid e Arlette Rourk null, [facility], [facility] 6 16:39:06 Tobacco dependenc e syndrome 32452116 Active Arlette Rourk null, [facility], [facility] 6 16:39:06 Diabetic on insulin 369630927 Active Arlette Rourk null, [facility], [facility] 6 16:49:56 Uncontrol led type 1 diabetes mellitus 807722130 Active Arlette Rourk null, [facility], [facility] 6 16:39:06 Alcohol dependenc e 87899536 Active Arlette Rourk null, [facility], [facility] 6 16:39:06 Nicotine dependenc e 82201534 Active Arlette Rourk null, [facility], [facility] 6 16:39:06 Disorder due to type 1 diabetes mellitus 289564331 Active Arlette Rourk [facility], [facility] 6 16:39:06 Chronic sinusitis 92493393 Active 2016 Bren Espino MD [address], [place], [address], [facility] 7 13:17:59 History of appendect ethan 111173683 Active 2019 Bren Espino MD [address], [place], [address], [facility] 0 11:46:58 Chronic hyponatre carlene 56322667 Active 2020 Bren Espino MD [address], [place], [address], [facility] 1 09:53:44 Exocrine pancreati c insuffici ency 13451510 Active 2020 Bren Espino MD [address], [place], [address], [facility], [facility] 1 09:59:14 Screening for malignant neoplasm of colon Active 2020 Karthik muñoz [facility], [facility] 11:09:33 Adenomato us polyp of colon 299992067 Active 2020 Bren Espino MD [address], [place], [address], [facility], [facility] 09:26:57 Smoker 67022028 Active 2020 Bren Espino MD [address], [place], [address], [facility], [facility] 13:59:44 Chronic pancreati tis 868666078 Active 2020 Bren Espino MD [address], [place], [address], [facility], [facility] 13:37:59 Problem Notes None recorded. Procedures Surgical History Date Name Laterality Status Provider Name and Address Organization Details Recorded Time 04/29/19 22 Quality Tobacco User completed LANDEN Conrad [address], [place], [address], [facility], [facility] 04/29/2021 11:39:12 07/09/19 21 biopsy of mouth completed Xin Piper [facility], [facility] 07/17/2020 08:52:05 04/19/19 21 Colonoscopy completed Bren Espino MD [address], [place], [address], [facility], [facility] 07/17/2020 09:14:40 09/21/19 20 Colonoscopy completed Karthik Chiang [facility], [facility] 04/10/2020 11:00:08 04/05/19 20 Diabetic Eye exam completed Xin Piper [facility], [facility] 01/15/2021 13:17:48 02/09/20 19 CM Care Plan Followup completed Pearl mcclure [facility], [facility] 02/08/2019 13:29:53 01/05/20 19 CM Care Plan Followup completed Jill Camacho [facility], [facility] 01/04/2019 08:28:23 12/10/19 19 CM Care Plan Followup completed Jill Camacho [facility], [facility] 12/09/2018 11:32:12 10/19/19 19 CM Care Plan Followup completed Jill Camacho [facility], [facility] 10/18/2018 08:40:32 09/23/19 19 CM Care Plan Followup completed Jill Camacho [facility], [facility] 09/22/2018 11:43:54 08/17/19 19 CM Care Plan Followup completed Jill Camacho [facility], [facility] 08/16/2018 09:02:49 06/09/19 19 CM Care Plan Followup completed Christina Pena [facility], [facility] 06/08/2018 10:22:22 05/03/19 19 CM Care Plan Followup completed Christina Pena [facility], [facility] 05/03/2018 16:22:36 01/06/20 18 CM Care Plan Followup completed Christina Pena [facility], [facility] 01/05/2018 13:21:08 12/04/19 18 CM Care Plan Followup completed Christina Pena [facility], [facility] 12/03/2017 10:48:06 08/20/19 18 CM Care Plan Followup completed Anthony Colon [facility], [facility] 08/20/2017 09:32:48 07/10/19 18 CM Care Plan Followup completed Anthony Colon [facility], [facility] 07/09/2017 15:17:13 06/12/19 18 CM Care Plan Followup completed Anthony Colon [facility], [facility] 06/11/2017 09:28:28 06/09/19 18 Diabetic Foot Exam completed Bren Espino MD [address] [address], [place], [address], [facility], [facility] 06/08/2017 10:57:20 04/21/19 18 CM Care Plan Followup completed Anthony Colon [facility], [facility] 04/21/2017 12:25:19 03/18/20 17 CM Care Plan Followup completed Anthony Colon [facility], [facility] 03/18/2017 11:52:53 02/25/20 17 CM Care Plan Followup completed Anthony Genao [facility], [facility] 02/24/2017 11:22:01 02/03/20 17 CM Care Plan Followup completed Arlette Orozco [facility], [facility] 02/03/2017 09:48:33 12/31/19 17 CM Care Plan Followup completed Arlette Orozco [facility], [facility] 01/28/2017 09:40:16 12/04/19 17 CM Care Plan Followup completed Arlette Orozco [facility], [facility] 12/10/2016 10:12:29 10/16/19 17 CCM-Care Plan completed Bethanie Antunez [facility], [facility] 10/16/2016 10:54:28 10/16/19 17 CCM Time completed Bethanie Antunez [facility], [facility] 10/15/2016 16:37:15 10/16/19 17 CCM-Assessment Questionnaire completed Bethanie Antunez [facility], [facility] 10/16/2016 10:17:45 09/02/19 17 CM Care Plan Followup completed Arlette Orozco [facility], [facility] 10/14/2016 16:09:14 07/17/19 17 CM Care Plan Followup completed Arlette Orozco [facility], [facility] 07/16/2016 15:07:06 06/04/19 17 CM Care Plan Followup completed Arlette Orozco [facility], [facility] 06/03/2016 16:26:50 04/28/19 17 CM Care Plan Followup completed Urvashi Lechuga [facility], [facility] 04/28/2016 11:30:41 04/05/19 17 Colonoscopy completed Jennie Gold [facility], [facility] 07/01/2016 09:12:23 04/01/20 16 CM Care Plan Followup completed Joya Munoz [facility], [facility] 04/01/2016 11:12:34 03/24/20 16 Diabetic Foot [place] [address], [address], [facility], [facility] 03/24/2016 08:23:16 01/02/20 16 CM Care Plan Followup completed Arlette Orozco [facility], [facility] 01/02/2016 16:49:56 11/25/19 16 CCM-Care Plan completed Farideh Gould [facility], [facility] 11/25/2015 09:26:35 11/25/19 16 CM Care Plan Followup completed Farideh Gould [facility], [facility] 11/25/2015 09:38:02 10/25/19 16 CCM-Care Plan completed Livier Mack [facility], [facility] 10/25/2015 15:29:27 10/25/19 16 CCM Time completed Livier Mack [facility], [facility] 10/25/2015 15:22:04 10/25/19 16 CCM-Assessment Questionnaire completed Livier Mack [facility], [facility] 10/25/2015 15:22:04 09/24/19 16 CCM-Care Plan completed Julianna Mckee [facility], [facility] 09/24/2015 15:33:16 09/24/19 16 CM Care Plan Followup completed Julianna Mckee [facility], [facility] 09/24/2015 15:33:17 08/23/19 16 CCM-Care Plan completed Julianna Mckee [facility], [facility] 08/23/2015 12:44:49 08/23/19 16 CM Care Plan Followup completed Julianna Mckee [facility], [facility] 08/27/2015 08:01:56 06/26/19 16 CCM-Care Plan completed Julianna Mckee [facility], [facility] 06/26/2015 15:24:48 06/26/19 16 CM Care Plan Followup completed Julianna Mckee [facility], [facility] 06/26/2015 15:24:48 05/07/19 16 CCM-Care Plan [place]na [facility] [place] [facility], [facility] 05/07/2015 16:46:30 05/07/19 16 CM Care Plan Followup completed Julianna Mckee [facility], [facility] 05/10/2015 10:05:08 03/20/20 15 CCM-Care Plan completed Julianna Mckee [facility], [facility] 03/20/2015 11:21:22 03/20/20 15 CM Care Plan Followup completed Julianna Mckee [facility], [facility] 03/20/2015 11:25:39 02/20/20 15 CCM-Care Plan completed Juliannajose Mckee [facility], [facility] 02/19/2015 09:45:56 02/20/20 15 CM Care Plan Followup completed Julianna Mckee [facility], [facility] 02/19/2015 09:45:56 01/24/20 15 [facility], [facility] 01/23/2015 13:00:22 01/24/20 15 CM Care Plan Followup [facility], [facility] 01/23/2015 13:00:22 01/24/20 15 Quality (DM ) A1C < 7 % completed Bren Espino MD [address], [place], [address], [facility], [facility] 01/23/2015 10:04:29 01/03/20 15 Quality (DM ) A1C < 7 % completed Bren Espino MD [address], [place], [address], [facility], [facility] 01/02/2015 16:05:50 12/28/19 15 CCM-Care Plan completed [facility], [facility] 12/27/2014 10:01:59 12/28/19 15 CM Care Plan Followup completed Juliannajose Mckee [facility], [facility] 12/27/2014 11:40:21 11/07/19 15 Initial Assessment completed Livier Mack [facility], [facility] 11/06/2014 19:04:09 11/07/19 15 CCM-Diabetes Assessment completed Livier Hyattronak [facility], [facility] 11/06/2014 14:14:30 11/07/19 15 CCM-Care Plan completed Livier Edmarronak [facility] 11/06/2014 19:04:10 11/07/19 15 CCM Time completed Livier Edmarronak [facility] 11/06/2014 13:36:52 04/05/19 14 Colonoscopy completed Jennie Gold [facility] 03/24/2016 07:47:33 appendectomy completed Bren Espino MD [address], [address] 01/23/2020 11:41:43 Knee surgery completed Gabbi Gutierrez [facility] 01/23/2020 08:35:32 Tonsillectomy completed Sugey David [facility] 01/02/2015 15:38:48 Imaging Results None recorded. Procedure Notes None recorded. Medical Equipment None Reported. Allergies Allergen ID Allergen Name Allergen Category Reaction Reaction Severity Criticality Documentation Date Start Date Code Code System Note Provider Name and Address Organization Details Recorded Time 19861011 iodine medicatio n vomiting Not available Not available 08/09/2014 5933 RxNorm Karthik Андрей [facility] 1 11:37:13 shellfish derived food,medi cation vomiting Not available Not available 08/09/2014 49112 UNK Jennie Gold [facility] 5 08:31:49 [id number] lisinopri l medicatio n cough Not available Not available 05/07/2017 99422 RxNorm Sugey David [facility] 8 11:18:54 106142 Amylases / Endopepti dases / Lipase medicatio n Not available Not available Not available 07/17/2020 98607 20 RxNorm GI issue s Xin Ortel [facility] 1 09:40:20 Medications Name Sig Start Date Stop Date Status Note LastModified by Organization Details LastModified Time novolog flexpen 100 unit/ml sopn active Not Available Not Available Not Available boostrix 5-2.5-18. 5 susp 03/24 completed Not Available Not Available Not Available amoxicill in 500 mg caps active Not Available Not Available Not Available ondansetr on hcl 4 mg tabs active Not Available Not Available Not Available prednison e 10 mg tabs 08/04 completed Not Available Not Available Not Available methylpre dnisolone dose pack 4 mg tbpk active Not Available Not Available No t Available ciprodex 0.3-0.1 % susp active Not Available Not Available Not Available pantopraz ole sodium 40 mg tbec 02/23 completed Not Available Not Available Not Available levemir flextouch 100 unit/ml sopn active Not Available Not Available Not Available cyclobenz aprine hcl 10 mg tabs 04/21 completed Not Available Not Available Not Available duloxetin e hcl 30 mg cpep active Not Available Not Available Not Available ventolin hfa 108 (90 base) mcg/actae rs active Not Available Not Available Not Available nexium 40 mg cpdr active Not Available Not Available Not Available trazodone hydrochlo ride 100 mg tabs 04/21 completed Not Available Not Available Not Available humalog 100 unit/ml soln 07/12 completed Not Available Not Available Not Available neomycin/ polymyxin /hydrocor tisone 3.5-55367 -1 susp 04/21 completed Not Available Not Available Not Available pen needles 29gx1/2 29g x 12mm misc active Not Available Not Available No t Available amoxicill in/clavul anate potassium 875-125 mg tabs 02/23 completed Not Available Not Available Not Available bupropion hcl sr 150 mg tb12 04/21 completed Not Available Not Available Not Available buspirone hcl 10 mg tabs active Not Available Not Available Not Available dutasteri de 0.5 mg caps 03/24 completed Not Available Not Available Not Available hydrochlo rothiazid e 25 mg tabs 02/23 completed Not Available Not Available Not Available rapaflo 8 mg caps 06/08 completed Not Available Not Available Not Available atorvasta tin calcium 20 mg tabs 04/21 completed Not Available Not Available Not Available losartan potassium 25 mg tabs 04/21 completed Not Available Not Available Not Available virtussin a/c 100-10 mg/5ml soln 03/24 completed Not Available Not Available Not Available mometason e furoate 0.1 % soln 04/21 completed Not Available Not Available Not Available escitalop harvey oxalate 10 mg tabs 04/21 completed Not Available Not Available Not Available buspirone hcl 5 mg tabs 05/27 completed Not Available Not Available Not Available moviprep 100 gm solr 04/21 completed Not Available Not Available Not Available tamsulosi n hcl 0.4 mg caps 03/24 completed Not Available Not Available Not Available trazodone hcl 100 mg tabs 08/04 completed Not Available Not Available Not Available azithromy issac 500 mg tabs active Not Available Not Available Not Available nesina 25 mg tabs active Not Available Not Available Not Available hydrocodo ne/acetam inophen 7.5-325 mg tabs 02/23 completed Not Available Not Available Not Available sulfameth oxazole/t rimethopr im ds 800-160 mg tabs 06/08 completed Not Available Not Available Not Available metformin hcl 500 mg tabs active Not Available Not Available Not Available levemir flexpen 100 unit/ml sopn active Not Available Not Available Not Available alfuzosin hcl er 10 mg tb24 08/04 completed Not Available Not Available Not Available azithromy issac 250 mg tabs 06/08 completed Not Available Not Available Not Available tramadol hcl 50 mg tabs active Not Available Not Available Not Available trazodone hcl 50 mg tabs active Not Available Not Available Not Available buspirone hcl 15 mg tabs active Not Available Not Available Not Available lisinopri l 10 mg tabs 09/15 completed Not Available Not Available Not Available proair hfa 108 (90 base) mcg/act aers 03/24 completed Not Available Not Available Not Available cefuroxim e axetil 250 mg tabs 06/08 completed Not Available Not Available Not Available cyclobenz aprine 10 mg tablet 06/08 completed Not Available Not Available Not Available buspirone 5 mg tablet TK 1 T PO BID FOR ANXIETY 04/21 completed Not Available Not Available Not Available prednison e 10 mg tablet 02/23 completed Not Available Not Available Not Available atorvasta tin 20 mg tablet Take 1 tablet every day by oral route for 90 days. 04/10 completed Not Available Not Available Not Available azithromy issac 250 mg tablet 03/24 completed Not Available Not Available Not Available Glucagon Emergency Kit 1 mg solution for injection Take 1 mg as needed by injectio n route as directed for 360 days. 01/15 completed Not Available Not Available Not Available sulfameth oxazole 800 mg-trimet hoprim 160 mg tablet TK 1 T PO Q 12 H FOR 10 DAYS 06/08 completed Not Available Not Available Not Available Vitamin C 1,000 mg tablet Take 1 tablet every day by oral route. 03/24 completed Not Available Not Available Not Available tamsulosi n 0.4 mg capsule Take 1 capsule every day by oral route. active Not Available Not Available No t Available trazodone 100 mg tablet TK 1 T PO QD HS PRN active Not Available Not Available No t Available Humalog U-100 Insulin 100 unit/mL subcutane ous solution USE 100 UNITS D VIA INSULIN PUMP 05/05 completed Not Available Not Available Not Available hydrocodo ne 7.5 mg-acetam inophen 325 mg tablet TK 1 T PO Q 6 H PRN P active Not Available Not Available No t Available pantopraz ole 40 mg tablet,de layed release T 1 T PO ONCE D active Not Available Not Available No t Available buspirone 10 mg tablet Take 1 tablet 3 times a day by oral route. active Not Available Not Available No t Available lisinopri l 10 mg tablet TK 1 T PO ONCE D 05/03 completed Not Available Not Available Not Available losartan 25 mg tablet TAKE ONE TABLET BY MOUTH DAILY 2021 active Not Available Not Available Not Avai lable Advair Diskus 250 mcg-50 mcg/dose powder for inhalatio n Inhale 1 puff twice a day by inhalati on route. active Not Available Not Available No t Available pravastat in 20 mg tablet Take 1 tablet every day by oral route as directed for 90 days. 2020 active Not Available Not Available Not Avai lable hydrochlo rothiazid e 25 mg tablet TK 1 07/17 completed Not Available Not Available Not Available Novolog U-100 Insulin aspart 100 unit/mL subcutane ous solution INJECT 100 UNITS UNDER THE SKIN VIA INSULIN PUMP DAILY active Not Available Not Available No t Available lorazepam 1 mg tablet TK 1 T PO Q 8 H PRA 04/21 completed Not Available Not Available Not Available sertralin e 50 mg tablet TK 1 T PO D 04/21 completed Not Available Not Available Not Available amoxicill in 875 mg-potass ium clavulana te 125 mg tablet TK 1 T PO Q 12 H 04/21 completed Not Available Not Available Not Available neomycin- polymyxin -hydrocor t 3.5 mg-10,000 unit/mL-1 % ear drops,louis p PLACE 4 DROPS IN AFFECTED EAR QID FOR 5 DAYS 04/21 completed Not Available Not Available Not Available escitalop harvey 10 mg tablet TK 1 T PO QD 04/21 completed Not Available Not Available Not Available dutasteri de 0.5 mg capsule TK 1 C PO QD 03/24 completed Not Available Not Available Not Available Vitamin D3 25 mcg (1,000 unit) tablet Take 1 tablet every day by oral route. 03/24 completed Not Available Not Available Not Available Novolog FlexPen U-100 Insulin aspart 100 unit/mL (3 mL) subcutane ous Inject 50 units every day by subcutan eous route for 90 days. 2014 active Patient taking 25 Units with meals, adjusts for carbs. Not Available Not Available Not Available Levitra 20 mg tablet Take 1 tablet every week by oral route for 90 days. 03/24 completed Not Available Not Available Not Available alfuzosin ER 10 mg tablet,ex tended release 24 hr TK 1 T PO D 04/21 completed Not Available Not Available Not Available Boostrix Tdap 2.5 Lf unit-8 mcg-5 Lf/0.5 mL intramusc ular suspensio n ADM 0.5ML IM UTD 03/24 completed Not Available Not Available Not Available hydrocodo ne 7.5 mg-acetam inophen 300 mg tablet Take 1 tablet every 6 hours by oral route. active Not Available Not Available No t Available mometason e 0.1 % topical solution 08/04 completed Not Available Not Available Not Available ProAir HFA two puffs when needed, inhalati on active Not Available Not Available No t Available MoviPrep 100 gram-7.5 gram-2.69 1 gram oral powder packet USE DIRECTED 04/10 completed Not Available Not Available Not Available Prodigy Autocode Meter active Not Available Not Available Not Available Rapaflo 8 mg capsule TK 1 C PO ONCE D 04/21 completed Not Available Not Available Not Available Prodigy No Coding strips USE TO TEST 8 TIMES D active Not Available Not Available No t Available Nesina 25 mg tablet Take 1 tablet every day by oral route. active Not Available Not Available No t Available Creon 36,000 unit-114, 000 unit-180, 000 unit capsule,d elayed release TAKE THREE CAPSULES THREE TIMES A DAY BY ORAL ROUTE WITH MEALS FOR 90 DAYS. active Not Available Not Available No t Available Virtussin AC 10 mg-100 mg/5 mL oral liquid TK 5 ML PO Q 4 H 03/24 completed Not Available Not Available Not Available Levemir FlexTouch U-100 Insulin 100 unit/mL (3 mL) subcutane ous pen Inject 70 units every day by subcutan eous route for 30 days. 2014 active Not Available Not Available Not Avai lable Tresiba FlexTouch U-100 active Not Available Not Available Not Available Zenpep 40,000 unit-126, 000 unit-168, 000 unit capsule,d elayed release Take 1 capsule 4 times a day by oral route for 30 days. 07/17 completed Not Available Not Available Not Available Clenpiq 10 mg-3.5 gram-12 gram/160 mL oral solution Take 1 mL by oral route as directed for 1 day. 07/17 completed Not Available Not Available Not Available Dexcom G6 Sensor device active Not Available Not Available Not Available OneTouch Delica Plus Lancet 30 gauge DIRECTED UP TO THREE TIMES A DAY active Not Available Not Available No t Available Glucagon (HCl) Emergency Kit active Not Available Not Available Not Available t:slim X2 Control-I Q active Not Available Not Available Not Available Vitals Date Recorded Body height Body mass index (BMI) Body weight Systolic blood pressure Diastolic blood pressure Provider Name and Address Organization Details Last Updated DateTime 01/15/2021 187.96 cm 23.6 kg/m2 28447 g 130 mm[Hg] 80 mm[Hg] [facility], [facility] 1 13:14:26 Date Recorded Body height Body temperature Body mass index (BMI) Body weight Provider Name and Address Organization Details Last Updated DateTime 04/29/2021 187.96 cm 97.3 [degF] 23.1 kg/m2 97529.27 g LANDEN Conrad [address], [place], [address] , [facility], [facility] 04/29/2021 11:27:15 Date Recorded Body height Body mass index (BMI) Body weight Body temperature Respiratory rate Pain severity - 0-10 verbal numeric rating [Score] - Reported Heart rate Systolic blood pressure Diastolic blood pressure Provider Name and Address Organization Details Last Updated DateTime 2 187.96 cm 23.2 kg/m2 46819.2 2 g 97.3 [degF] 16 /min 0 100 /min 154 mm[Hg] 84 mm[Hg] [facility], [facility] 2 11:28:30 Date Recorded Body height Body mass index (BMI) Body weight Pain severity - 0-10 verbal numeric rating [Score] - Reported Systolic blood pressure Diastolic blood pressure Provider Name and Address Organization Details Last Updated DateTime 2 187.96 cm 23.5 kg/m2 97876.4 g 0 130 mm[Hg] 80 mm[Hg] [facility], [facility] 2 10:57:55 Date Recorded Body height Body mass index (BMI) Body weight Systolic blood pressure Diastolic blood pressure Provider Name and Address Organization Details Last Updated DateTime 01/21/2022 187.96 cm 22.6 kg/m2 33727.26 g 130 mm[Hg] 80 mm[Hg] Bren Espino MD [address], [place], [address], [facility], [facility] 2 13:05:08 Social History Question Answer Notes LastModified by Organizat ion Details LastModified Time Tobacco Smoking Status Current Every Day Smoker Jennie muñoz, [facility], [facility] 08/15/2014 08:51:39 What Is Your Level Of Alcohol Consumption? Heavy [email or web address] Information not available 10/14/2020 How Much Tobacco Do You Chew? None [email or web address] Information not available 01/02/2015 In The 14 Days Before Symptom Onset, Have You Had Close Contact With A Laboratory-confir med COVID-19 While That Case Was Ill? No [email or web address] Information not available 10/14/2020 In The 14 Days Before Symptom Onset, Have You Had Close Contact With A Person Who Is Under Investigation For COVID-19 While That Person Was Ill? No [email or web address] Information not available 10/14/2020 Which Illicit Or Recreational Drugs Have You Used? None Information not available 01/02/2015 Do You Or Have You Ever Used E-cigarettes Or Vape? Never Used Electronic Cigarettes [email or web address] Information not available 10/14/2020 Alcohol Use 2 Per Day [email or web address] Information n ot available 04/10/2020 Marital Status Informatio n not available 01/23/2020 What Was The Date Of Your Most Recent Tobacco Screening? 04/29/2021 [email or web address] Information not available 04/29/2021 At What Age Did You Start Smoking Tobacco? 13 [email or web address] Information not available 07/15/2015 Do You Or Have You Ever Used Smokeless Tobacco? Never Used Smokeless Tobacco [email or web address] Information not available 10/14/2020 How Much Tobacco Do You Smoke? 1 PPD [email or web address] Information not available 07/15/2015 Sex: Unknown Functional Status Question Answer Note LastModified by Organizat ion Details LastModified Time What is your exercise level? Occasional [email or web address] Information not available 08/15/2014 Mental Status None recorded. Family History Relationship Description Onset Age of this Age Resolved Age Notes LastModified by Organization Details LastModified Time Sister Malignant neoplastic disease 63 Colon Not available 2015 13:55:35 Father Malignant neoplastic disease 89 Esopha geal Not available 07/15/2015 13:55:35 Medical History Condition Response Diabetes Y High blood pressure Y Alcohol Overuse Y Emphysema/COPD Y Other Y Asthma Y High Cholesterol Y Immunizations Vaccine Type Date Status Note Provider Nam e and Address Organization Details Recorded Time Tdap 4 completed Karthik muñoz [facility], [facility] 04/10/2020 10:49:42 pneumococcal polysaccharide PPV23 4 completed [facility] 04/10/2020 10:49:42 Influenza, split virus, trivalent, preservative 7 completed Not Available [employer] 09/30/2021 06:57:19 Influenza, split virus, trivalent, preservative 5 completed Not Available [employer] 09/30/2021 06:57:19 Pneumococcal conjugate PCV 13 7 completed [facility] 04/10/2020 10:49:42 Influenza, split virus, quadrivalent, preservative 0 completed Not Available [employer] 09/30/2021 06:57:19 pneumococcal polysaccharide PPV23 4 completed [facility] 10:02:15 Past Encounters Encounter ID Performer Location Encounter Start Date Encounter Closed Date Diagnosis/Indication Diagnosis SNOMED-CT Code Diagnosis ICD10 Code Diagnosis Note [id number] MD [facility] [address] [facility] [address] 08/15/2014 08:32:10 08/15/2014 09:58:22 Diabetes mellitus 38978776 Uncontroll ed type 2 diabetes mellitus 965959632 Hypoglycemia 596958619 Sleep apnea 75115069 Gastropare sis syndrome 498540552 Sarcoidosis 87572525 Chronic pain 35145848 Disorder o f vitamin B12 284194213 Vitamin D deficiency 06315848 Diabetic on insulin 306716934 check labs as noted. [id number] MD SAMI Garcia [facility]iipaDONOVAN KIAN [facility] [address] [facility] [address] 09/17/2014 16:27:17 09/17/2014 17:24:11 Diabetic on insulin 558251733 Hypoglycemia 951464864 Type 1 gay betes mellitus 90446292 Uncontroll ed type 1 diabetes mellitus 660189656 [id number] Livier Mack [facility] [address] [facility] [address] [place] [address] 11/06/2014 13:34:10 11/06/2014 19:09:43 Type 1 diabetes mellitus 03131374 Hyperlipidemia 66165307 Sarcoidosis 61147456 [id number] Bren Espino MD [facility] [address] [facility] [address] [place] [address] 12/27/2014 09:45:29 12/27/2014 11:42:46 Uncontrolled type 1 diabetes mellitus 621947950 Type 1 gay betes mellitus 99540158 Hyperlipidemia 90894890 Sarcoidosis 68028254 [id number] [facility] [address] KIAN B [address] [place] [address] 01/02/2015 15:23:12 01/02/2015 16:11:56 Uncontrolled type 1 diabetes mellitus 936949408 Diabetic on insulin 024807909 Tobacco de pendence syndrome 48140959 now 30 cigs a day- Goal - 20 a day Hypoglycemia 047671471 w ith exercise- discussed- has to use less insulin or skip- mealtime insulin [id number] Bren Espino MD [facility] [address] B [address] [place] [address] 01/23/2015 08:50:27 01/23/2015 10:28:21 Uncontrolled type 1 diabetes mellitus 007810775 E10.65 Insulin pump present 450 158578 Z96.41 Alcohol dependence 04473 003 F10.280 Nicotine dependence 5629 4008 F17.210 Disorder d ue to type 1 diabetes mellitus 999431647 E10.43 E10.649 has gastropare sis [id number] Julianna Nafisajose [facility] [address] [place] [address] 01/23/2015 12:15:07 01/23/2015 13:01:51 Type 1 diabetes mellitus 76587083 E10.9 Hyperlipidemia 08999433 E78.5 Sarcoidosis 54310683 D86 .9 [id number] Julianna Skeltonjose [facility] [address] [place] [address] 02/19/2015 09:20:37 02/19/2015 09:48:09 Hyperlipidemia 38827247 E78.5 Type 1 gay betes mellitus 70508110 E10.9 Sarcoidosis 70063849 D86 .9 [id number] Julianna [facility] [address] [address] 03/20/2015 10:44:10 03/20/2015 11:34:32 Type 1 diabetes mellitus 46519673 E10.9 Hyperlipidemia 06467860 E78.5 Sarcoidosis 05639939 D86 .9 [id number] Bren Espino MD [facility] [address] [place] [address] 04/12/2015 10:18:29 04/12/2015 11:16:15 Uncontrolled type 1 diabetes mellitus 070444956 E10.65 Insulin pump present 450 907545 Z96.41 Disorder d ue to type 1 diabetes mellitus 960151073 E10.43 E10.649 has gastropare sis [id number] Julianna [facility] [address] [address] 05/07/2015 16:37:22 05/10/2015 10:08:27 Sarcoidosis 68804659 D86.9 Hyperlipidemia 14287746 E78.5 Type 1 gay betes mellitus 46321384 E10.9 [id number] [facility] [address] [address] 06/26/2015 15:11:44 06/27/2015 03:46:26 Sarcoidosis 83499182 D86.9 Hyperlipidemia 92469655 E78.5 Uncontroll ed type 1 diabetes mellitus 093943551 E10.65 [id number] Bren Espino MD [facility] [address] [place] [address] 07/15/2015 13:02:15 07/15/2015 13:51:34 Uncontrolled type 1 diabetes mellitus 700139865 E10.65 Disorder d ue to type 1 diabetes mellitus 147565864 E10.43 E10.649 has gastropare sis Diabetic on insulin 1707 35905 Z79.4 Insulin pump present 450 378526 Z96.41 [id number] Julianna Mckee [facility] [address] [place] [address] 08/23/2015 12:39:03 08/27/2015 08:06:29 Sarcoidosis 51415912 D86.9 Uncontroll ed type 1 diabetes mellitus 911800993 E10.65 Hyperlipidemia 85158388 E78.5 [id number] Julianna Mckee [facility] [address] [place] [address] 09/24/2015 15:12:01 09/24/2015 15:35:45 Uncontrolled type 1 diabetes mellitus 937028129 E10.65 Sarcoidosis 42118080 D86 .9 Hyperlipidemia 29354011 E78.5 [id number] Bren Espino MD [facility] [address] [address] 10/25/2015 15:02:33 10/26/2015 03:46:43 Nicotine dependence 91271869 F17.210 Uncontroll ed type 1 diabetes mellitus 039449473 E10.65 Sarcoidosis 95846583 D86 .9 Chronic pain 10413256 G8 9.29 Hyperlipidemia 06782091 E78.5 [id number] Farideh Gould [facility] [address] [place] [address] 11/25/2015 09:25:17 11/25/2015 09:42:51 Hyperlipidemia 34177799 E78.5 Type 1 gay betes mellitus 70586267 E10.65 [id number] Arlette Orozco [facility] [address] [place] [address] 01/02/2016 16:35:40 01/02/2016 16:51:54 Diabetes mellitus 40569295 E11.9 Diabetic on insulin 1707 35913 Z79.4 [id number] Bren Espino MD [facility] [address] [place] [address] [place] [address] 03/24/2016 07:32:53 03/24/2016 08:24:42 Uncontrolled type 1 diabetes mellitus 804487100 E10.65 stable Diabetic on insulin 1707 82102 Z79.4 stable Disorder d ue to type 1 diabetes mellitus 294865015 E10.43 E10.649 has gastropare sis Nicotine dependence 5629 4008 F17.210 discussed must dc smoking Alcohol dependence 36455 003 F10.280 discussed health risks Insulin pump present 450 849949 Z96.41 stable [id number] Joya Munoz [facility] [address] [facility] [address] [place] [address] 04/01/2016 11:04:52 04/01/2016 11:13:55 Diabetic on insulin 987924960 Z79.4 stable Type 1 gay betes mellitus 82180558 E10.65 [id number] Urvashi Lechuga [facility] [address] [place] [address] 04/28/2016 10:53:55 05/05/2016 09:25:09 Diabetic on insulin 258693980 Z79.4 stable Hypertensive disorder 38 508211 I10 Hyperlipidemia 42773021 E78.5 [id number] Arlette Roumelissa [facility] [address] [place] [address] 06/03/2016 15:56:50 06/03/2016 16:27:39 Disorder due to type 1 diabetes mellitus 106272976 E10.43 E10.649 has gastropare sis Hyperlipidemia 92055198 E78.5 Tobacco de pendence syndrome 52818790 F17.290 now 30 cigs a day- Goal - 20 a day [id number] Bren Espino MD [facility] [address] B [address] [place] [address] 07/01/2016 09:03:12 07/01/2016 09:59:37 Uncontrolled type 1 diabetes mellitus 594341267 E10.65 stable Gastropare sis syndrome 955805111 K31.84 Diabetic on insulin 1707 09594 Z79.4 stable Hyperlipidemia 27268004 E78.5 Nicotine dependence 5629 4008 F17.210 discussed must dc smoking Disorder d ue to type 1 diabetes mellitus 412555256 E10.43 E10.649 has gastropare sis Sarcoidosis 97337359 D86 .0 Insulin pump present 450 120769 Z96.41 stable Depressive disorder 3548 9007 F32.1 [id number] Arlette Orozco [facility] [address] [address] 07/16/2016 15:02:34 07/16/2016 15:07:51 Disorder due to type 1 diabetes mellitus 793854714 E10.43 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 60896026 F17.290 now 30 cigs a day- Goal - 20 a day [id number] Arlette Andrade [facility] [address] [address] 09/01/2016 13:50:13 09/01/2016 13:53:34 Uncontrolled type 1 diabetes mellitus 356877346 E10.65 stable Hyperlipidemia 59361360 E78.5 Nicotine dependence 5629 4008 F17.210 discussed must dc smoking [id number] Bren Espino MD [facility] [address] [address] 10/15/2016 15:51:56 10/16/2016 11:32:03 Hypertensive disorder 76686450 I10 Hyperlipidemia 54521006 E78.5 Nicotine dependence 5629 4008 F17.210 discussed must dc smoking Chronic pain 56881827 G8 9.29 Sarcoidosis 30807389 D86 .0 Alcohol dependence 35429 003 F10.280 discussed health risks Uncontroll ed type 1 diabetes mellitus 328768213 E10.65 stable [id number] Arlette Orozco [facility] [address] [address] 12/03/2016 15:59:47 12/03/2016 16:04:00 Hyperlipidemia 80057804 E78.5 Disorder d ue to type 1 diabetes mellitus 880760654 E10.43 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 22585459 F17.290 now 30 cigs a day- Goal - 20 a day [id number] Arlette Santos [facility] [address] [address] 12/30/2016 14:44:54 12/30/2016 14:48:15 Hyperlipidemia 35015653 E78.5 Diabetes mellitus 971979 09 E11.9 Tobacco de pendence syndrome 11019449 F17.290 now 30 cigs a day- Goal - 20 a day [id number] Arlette Orozco [facility] [address] [address] 02/02/2017 15:40:19 02/02/2017 15:53:45 Hyperlipidemia 05148506 E78.5 Hypertensive disorder 38 576272 I10 Nicotine dependence 5629 4008 F17.210 discussed must dc smoking Chronic pain 18134247 G8 9.29 Sarcoidosis 40824214 D86 .0 Alcohol dependence 18909 003 F10.280 discussed health risks Uncontroll ed type 1 diabetes mellitus 346890574 E10.65 stable [id number] Zaimy Colon [facility] [address] [place] [address] 02/24/2017 10:43:01 02/24/2017 11:22:19 Hypertensive disorder 21124403 I10 Hyperlipidemia 23982694 E78.5 Nicotine dependence 5629 4008 F17.210 discussed must dc smoking Chronic pain 79230983 G8 9.29 Sarcoidosis 07510724 D86 .0 Alcohol dependence 53991 003 F10.280 discussed health risks Uncontroll ed type 1 diabetes mellitus 343534863 E10.65 stable [id number] Bren Espino MD [facility] [address] [facility] [place] [address] 03/10/2017 13:01:37 03/10/2017 13:25:03 Uncontrolled type 1 diabetes mellitus 447353924 E10.65 stable Disorder d ue to type 1 diabetes mellitus 229466766 E10.43 E10.649 has gastropare sis Diabetic on insulin 1707 01915 Z79.4 stable Chronic sinusitis 518007 00 J32.8 [id number] Zaimy Colon [facility] [address] [address] 03/18/2017 11:47:38 03/18/2017 11:53:18 Hyperlipidemia 81290435 E78.5 Diabetes mellitus 158224 09 E11.9 Tobacco de pendence syndrome 58662007 F17.290 now 30 cigs a day- Goal - 20 a day [id number] [facility] [place] [address] [place] [address] 04/21/2017 11:49:19 04/21/2017 12:27:04 Hyperlipidemia 54930231 E78.5 Diabetes mellitus 330293 09 E11.9 Tobacco de pendence syndrome 81786355 F17.290 now 30 cigs a day- Goal - 20 a day [id number] MD SAMI Garcia [facility] [address] [place] [address] 06/08/2017 10:14:48 06/08/2017 11:03:32 Uncontrolled type 1 diabetes mellitus 679040896 E10.65 Disorder d ue to type 1 diabetes mellitus 051225864 E10.43 E10.649 has gastropare sis Diabetic on insulin 1707 24918 Z79.4 stable Tobacco de pendence syndrome 51243177 F17.290 now 30 cigs a day- Goal - 20 a day [id number] [facility] Colon [facility] [place] [address] [address] 06/11/2017 09:20:51 06/11/2017 09:29:29 Hyperlipidemia 16002778 E78.5 Diabetes mellitus 216835 09 E11.9 Tobacco de pendence syndrome 95446388 F17.290 now 30 cigs a day- Goal - 20 a day [id number] Zay Colon [facility] [place] [address] [address] 07/09/2017 15:04:19 07/09/2017 15:19:08 Hyperlipidemia 62977703 E78.5 Diabetes mellitus 334298 09 E11.9 Tobacco de pendence syndrome 98121331 F17.290 now 30 cigs a day- Goal - 20 a day [id number] MD SAMI Garcia [facility] B [address] [facility] [address] 08/04/2017 10:15:45 08/04/2017 11:02:53 Uncontrolled type 1 diabetes mellitus 534290599 E10.65 Diabetic on insulin 1707 85247 Z79.4 stable Disorder d ue to type 1 diabetes mellitus 933917431 E10.43 E10.649 has gastropare sis [id number] Zaimy Colon [facility] [place] [address] [address] 08/19/2017 09:57:16 08/20/2017 09:33:41 Hyperlipidemia 76546514 E78.5 Diabetes mellitus 734107 09 E11.9 Tobacco de pendence syndrome 34383166 F17.290 now 30 cigs a day- Goal - 20 a day [id number] Christina [place] [address] [address] 12/03/2017 10:42:27 12/03/2017 11:38:17 Hyperlipidemia 39834276 E78.5 Diabetes mellitus 231045 09 E11.9 Tobacco de pendence syndrome 34695898 F17.290 now 30 cigs a day- Goal - 20 a day [id number] [place] [address] [address] 01/05/2018 13:19:25 01/05/2018 13:51:42 Hyperlipidemia 39842845 E78.5 Diabetes mellitus 944522 09 E11.9 Tobacco de pendence syndrome 64676733 F17.290 now 30 cigs a day- Goal - 20 a day [id number] Bren Espino MD [facility] [address] [facility] [address] [place] [address] 02/23/2018 12:53:16 02/23/2018 13:33:53 Uncontrolled type 1 diabetes mellitus 734779341 E10.65 Disorder d ue to type 1 diabetes mellitus 900872423 E10.43 E10.649 has gastropare sis Diabetic on insulin 1707 32565 Z79.4 stable Nicotine dependence 5629 4008 F17.210 discussed must dc smoking Nondepende nt alcohol abuse, continuous 107386508 F10.10 [id number] Christina [place] [address] [address] 05/03/2018 16:17:01 05/04/2018 07:56:46 Hyperlipidemia 60481976 E78.5 Diabetes mellitus 139831 09 E11.9 Tobacco de pendence syndrome 33806209 F17.290 now 30 cigs a day- Goal - 20 a day [id number] Bren Espino MD [facility] [address] [place] [address] 05/27/2018 11:24:50 05/27/2018 12:04:07 Uncontrolled type 1 diabetes mellitus 156242645 E10.65 Diabetic on insulin 1707 40351 Z79.4 stable Disorder d ue to type 1 diabetes mellitus 315379386 E10.43 E10.649 has gastropare sis [id number] Christina Pena [place] [address] [address] 06/08/2018 10:20:05 06/08/2018 10:35:09 Hyperlipidemia 15253376 E78.5 Diabetes mellitus 059753 09 E11.9 Tobacco de pendence syndrome 15290918 F17.290 now 30 cigs a day- Goal - 20 a day [id number] [place] [address] [address] 08/16/2018 08:58:06 08/16/2018 09:03:34 Hyperlipidemia 11749110 E78.5 Diabetes mellitus 415891 09 E11.9 Tobacco de pendence syndrome 15804291 F17.290 now 30 cigs a day- Goal - 20 a day [id number] [place] [address] [address] 09/22/2018 11:40:53 09/22/2018 11:44:40 Hyperlipidemia 64277795 E78.5 Diabetes mellitus 829249 09 E11.9 Tobacco de pendence syndrome 02547684 F17.290 now 30 cigs a day- Goal - 20 a day [id number] Jill [facility] [address] [address] 10/18/2018 08:39:05 10/18/2018 08:50:25 Hyperlipidemia 15422838 E78.5 Diabetes mellitus 796629 09 E11.9 Tobacco de pendence syndrome 86892353 F17.290 now 30 cigs a day- Goal - 20 a day [id number] Jill [facility]rap[facility] T [address] [address] 12/09/2018 11:30:18 12/09/2018 11:38:00 Hyperlipidemia 35659465 E78.5 Diabetes mellitus 544205 09 E11.9 Tobacco de pendence syndrome 33421303 F17.290 now 30 cigs a day- Goal - 20 a day [id number] Jill [facility]rapeter [facility] [address] [address] 01/04/2019 08:26:59 01/04/2019 08:34:15 Hyperlipidemia 12776971 E78.5 Diabetes mellitus 961684 09 E11.9 Tobacco de pendence syndrome 02579948 F17.290 now 30 cigs a day- Goal - 20 a day [id number] Pearl hickman [facility] [address] [address] 02/08/2019 13:26:50 02/08/2019 13:52:29 Uncontrolled type 1 diabetes mellitus 773085105 E10.65 Hypertensive disorder 38 195791 I10 Hyperlipidemia 45223964 E78.5 [id number] Bren Espino MD [facility] [address] [place] B [address] [place] [address] 04/21/2019 13:18:18 04/21/2019 14:10:22 Disorder due to type 1 diabetes mellitus 688527473 E10.43 E10.649 has gastropare sis Diabetic on insulin 1707 95520 Z79.4 stable Uncontroll ed type 1 diabetes mellitus 984052145 E10.65 Nicotine dependence 5629 4008 F17.210 discussed must dc smoking Gastropare sis syndrome 641165399 K31.84 [id number] Bren Espino MD [address] [address] 07/13/2019 10:36:28 07/13/2019 13:45:14 Uncontrolled type 1 diabetes mellitus 350287514 E10.65 Disorder d ue to type 1 diabetes mellitus 432195344 E10.43 E10.649 has gastropare sis Diabetic on insulin 1707 35535 Z79.4 stable Nicotine dependence 5629 4008 F17.210 discussed must dc smoking Gastropare sis syndrome 465925145 K31.84 [id number] Bren Espino MD [address] [address] 10/17/2019 06:11:11 10/17/2019 07:26:28 Uncontrolled type 1 diabetes mellitus 092734853 E10.65 Disorder d ue to type 1 diabetes mellitus 566783474 E10.43 E10.649 has gastropare sis Gastropare sis syndrome 667020147 K31.84 Diabetic on insulin 1707 33343 Z79.4 stable Nondepende nt alcohol abuse, continuous 650710057 F10.10 [id number] Bren Espino MD [address] [address] 01/23/2020 08:35:13 01/31/2020 22:53:57 Uncontrolled type 1 diabetes mellitus 653095976 E10.65 Gastropare sis syndrome 491173003 K31.84 Disorder d ue to type 1 diabetes mellitus 178297602 E10.43 E10.649 has gastropare sis History of appendectomy 722440354 Z90.49 Nicotine dependence 5629 4008 F17.210 discussed must dc smoking Alcohol dependence 50662 003 F10.280 discussed health risks [id number] Des Hart [facility] [address] [place] [address] 04/10/2020 10:42:52 04/10/2020 11:45:25 Chronic diarrhea of unknown origin 36500889 K52.9 ETIOLOGY UNKNOWNSEE HPISEE ORDERSDECR EASE ETOH INTAKELACT OSE FREE DIET Family his tory of cancer of colon 272771280 Z80.0 SEE HPI History of partial resection of colon 558309780 Z90.49 SEE HPI [id number] Bren Espino MD [facility] B [address] [facility] [place] [address] 04/24/2020 07:22:51 04/24/2020 22:30:53 Uncontrolled type 1 diabetes mellitus 566587775 E10.65 medtronic 670-G--CSI I- changes sites every 3 days Dexcom G6 Replaces Bg monitor- checks BG 6 x a day No severe hypoglycem ia CGM Requiremen ts notes Insulin PUMP- CGM Pt is on an insulin treatment regimen that requires frequent adjustment s by the pt based on their BG readings Pt uses- Sliding scale IC ratio- uses IS-correct ion factor Increases and decreases insulin doses based on glucose reports data And adjusts insulin doses based on those calculatio ns labs 04/25 A1C 7.2 pancreatic elastase-1 114 Diabetic on insulin 1707 19691 Z79.4 stable Disorder d ue to type 1 diabetes mellitus 065479401 E10.43 E10.649 has gastropare sis celiac disease check neg Chronic hyponatremia 503 84867 E87.1 sodium 131 avoid etoh discussed avoid dehydratio n Exocrine p ancreatic insufficiency 80850888 K86.81 Creon trial suggested Tobacco de pendence syndrome 09293333 F17.290 now 30 cigs a day- Goal - 20 a day and slowly try his best to dc smoking [id number] Des Hart MD [facility] [address] [place] [address] 04/30/2020 11:00:23 04/30/2020 12:12:39 Chronic diarrhea 289199380 K52.9 POSSIBLE 2ARY TO PANCREATIC INSUFFICIE NCYLOW FAT DIETStop alcohol intake completely was strongly recommende d and reasons explained in detail.STA RT ZENPEPCT ABDOMEN WITH PANCREAS PROTOCOLF/ U APPT Pancreatic insufficiency 51088884 K86.89 Plan as mentioned above [id number] Des Hart MD [facility]STR[facility] EROLOG[facility] [address] [place] [address] 06/04/2020 09:52:06 06/04/2020 10:37:44 Pancreatic insufficiency 32484090 K86.89 CHRONIC AND UNSTABLECH HENRIQUE TO CREON OR GENERIC FOR BETTER MED COVERAGELO W FAT IDETAVOID ETOHStop alcohol intake completely was strongly recommende d and reasons explained in detail.STA RT MVI QD Chronic diarrhea 9412611 09 K52.9 CHRONIC AND UNSTABLELI DYANA 2ARY TO PANCREATIC INSUFFICIE NCYLOW FAT DIETStop alcohol intake completely was strongly recommende d and reasons explained in detail. ABOVE Alcohol abuse 66202916 F 10.10 Stop alcohol intake completely was strongly recommende d and reasons explained in detail. [id number] Bren Espino MD [facility] B [address] [facility] [address],[facility] [place] [address] 07/17/2020 07:42:24 07/17/2020 09:28:26 Uncontrolled type 1 diabetes mellitus 931608419 E10.65 Ulcer of mouth 95857486 K12.1 must dc smoking Disorder d ue to type 1 diabetes mellitus 968690484 E10.43 E10.649 has gastropare sis celiac disease check neg Diabetic on insulin 1707 74156 Z79.4 stable Exocrine p ancreatic insufficiency 00411470 K86.81 Nicotine dependence 5629 4008 F17.210 discussed must dc smoking Sleep apnea 93085388 G47 .30 Adenomatou s polyp of colon 871232272 D12.6 [id number] Des Hart MD [facility] [address] [place] [address] 07/31/2020 08:46:18 07/31/2020 09:13:42 Chronic diarrhea 664723927 K52.9 CHRONIC AND UNSTABLE LIKELY 2ARY TO PANCREATIC INSUFFICIE NCY LOW FAT DIET Stop alcohol intake completely was strongly recommende d and reasons explained in detail. IMODIUM 1 TAB PO QD NEEDED METAMUCIL 1 TBS QD CREON 1-2 TAB PO QD STRESS CONTROL Pancreatic insufficiency 62964236 K86.89 CHRONIC AND UNSTABLE CREON 1-2 TABS QAC LOW FAT IDET AVOID ETOH Stop alcohol intake completely was strongly recommende d and reasons explained in detail. MVI QD Gastroesop hageal reflux disease 931565386 K21.9 Diet & lifestyle changes for GERD were discussed. CONT PANTOPRAZO LE 40 MG QD [id number] Bren Espino MD [address] [place] [address] 10/14/2020 07:01:42 10/14/2020 14:41:58 Disorder due to type 1 diabetes mellitus 332264238 E10.43 E10.649 has gastropare sis celiac disease check neg Smoker 81781859 F17.200 Uncontroll ed type 1 diabetes mellitus 041197489 E10.65 A1C stable no CGM data today Exocrine p ancreatic insufficiency 53540257 K86.81 Nondepende nt alcohol abuse, continuous 630712093 F10.10 [id number] Bren Espino MD [address] [place] [address] 01/15/2021 07:57:13 01/15/2021 13:38:58 Uncontrolled type 1 diabetes mellitus 166197019 E10.65 A1C stable no CGM data today pt needs to go to Rehab kris Diabetic on insulin 1707 80560 Z79.4 stable Alcohol dependence 14116 003 F10.280 discussed health risks must go to Rehab Disorder d ue to type 1 diabetes mellitus 764480308 E10.43 E10.649 has gastropare sis celiac disease check neg Tobacco de pendence syndrome 89267531 F17.290 now 30 cigs a day- Goal - 20 a day and slowly try his best to dc smoking Chronic pancreatitis 235 922904 K86.1 must go to Rehab -pt has no suicidal ideas now but needs rehab [id number] Bren Espino MD [address] [address] 04/29/2021 11:05:59 04/29/2021 11:58:17 Uncontrolled type 1 diabetes mellitus 868990568 E10.65 FSBG 4 x day-Dexcom replaces-u sed to adjust insulin dose CGM Dexcom DOWNLOADS Records were downloaded and discussed with the patient. Explained to the patient the significan ce of the data obtained. Discussed adjustment s in the insulin regimen with the patient Dexcom data dates 04/16/2021 to 04/29/2021 TiR 28%High 55%Very High 17%Low noneVery low None High day and night but eats sweets before bed to keep him elevated and will eat during the night to keep himself elevatedBa lakia setting changes decreased during night so he does not need to eat to keep BG elevated Tandem pump-site changes every 2 to 3 days-Novol og used SettingsBa sal12a 0.875 u/hr decreased7 a 1.55 u/hr increased1 0p 0.875 u/hr I/C% 8 ISF 30 Target 110-120 insulin active 3 hours He thinks diana is up on [employer]- interested in T slim A1c 021 7.2 % of total Hgb 07/01/2020 7.6 % of total Hgb 10/04/2020 7.3 % of total Hgb 03/13/2021 8.2 % of total Hgb Pt has an insulin pump. If the insulin pump is discontinu ed-pt is explained that needs basal and bolus insulins- to avoid DKA Check TDD- use 50-% am and 50-% Pm- ( Lantus or Levemir )Pt has type 1 DM If NPO use mealtime insulin very carefully. 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 111465296 E10.43 Chronic-re ports stable Chronic hyponatremia 503 67740 E87.1 Chronic finding-st ablediscus sedadvised follow up/discuss with PCP npxiya50/1 06/2019 134 mmol/L01/0 10/2020 131 mmol/L12/0 12/2020 130 mmol/L [id number] Bren Espino MD [facility] [address] [place] [address] 06/20/2021 07:23:54 06/20/2021 11:58:50 Disorder due to type 1 diabetes mellitus 246002821 E10.43 E10.649 has gastropare sis celiac disease check neg Uncontroll ed type 1 diabetes mellitus 259181095 E10.65 labs P T slim referral texted Tori Barreto [facility] Basals 10 pm to 6 am lowered to 1 u/h pt had to eata night snack to keep BG stable he said no longer ETOH 5 months-- being sober Chronic pancreatitis 235 028619 K86.1 Take Creon 2-3 caps with food TID chronic stable Tobacco de pendence syndrome 09100011 F17.290 chronic stable Hyperlipidemia 62004634 E78.01 pravastati n 20 mg tabletTake 1 tablet every day by oral route as directed for 90 days. chronic stable [id number] Bren Espino MD [facility] [place] [address] 09/30/2021 06:57:14 09/30/2021 12:40:50 Chronic pancreatitis 946917830 K86.1 Take Creon 2-3 caps with food TID chronic stable Uncontroll ed type 1 diabetes mellitus 416081329 E10.65 chronic uncontroll ed insulin adjustment s discussed - T slim referral last appt texted rep call pt in 2 weeks ======= rx statins restart Exocrine p ancreatic insufficiency 51900750 K86.81 Take Creon 2-3 caps with food TID chronic stable Smoker 51222343 F17.200 chronic stable can not dc smoking per pt [id number] Bren Espino MD [facility] [address] [place] [address] 01/21/2022 06:59:39 01/21/2022 12:36:31 Uncontrolled type 1 diabetes mellitus 591030678 E10.65 chronic uncontroll ed insulin adjustment s discussed - T slim referral last appt ------ declined to start he moved to [facility] Smoker [id number] F17.200 chronic stable can not dc smoking per pt sees a in [facility] now 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 had no tx so far Alcohol dependence 24467 003 F10.280 discussed health risks must go to Rehab Chronic pancreatitis 235 181543 K86.1 Take Creon 2-3 caps with food TID chronic stable Disorder d ue to type 1 diabetes mellitus 415945195 E10.43 E10.649 has gastropare sis celiac disease check neg Malignant tumor of lung 437864630 C34.90 must dc smoking - explained feels very nervous back to smoking 1 PPD Health Concerns Section Related Observation LastModified by Organization Detai ls LastModified Time None Recorded Concern Status LastModified by Organization Details LastModified Time None Recorded Advance Directives Directive None Recorded Payers Encounter Date Sequence Insurance Name Policy Number Policy Hooper Covered Member ID Hooper Member ID Guarantor Name 01/15/2021 1 [employer] (MEDICARE REPLACEMENT PPO) [id number] Pradip D Guard [id number] Pradip Guard 04/29/2021 1 [employer] (MEDICARE REPLACEMENT PPO) [id number] Pradip Guard [id number] Pradip Guard 06/20/2021 1 [employer] (MEDICARE REPLACEMENT PPO) [id number] Pradip Guard [id number] Pradip Guard 09/30/2021 1 [employer] (MEDICARE REPLACEMENT PPO) [id number] Pradip Guard [id number] Pradip Guard 01/21/2022 1 [employer] (MEDICARE REPLACEMENT PPO) [id number] Pradip Guard [id number] Pradip Guard Notes Date Note Type Note Provider Name and Address Organization Details Recorded Time 01/15/2021 text/html Chronic Complain ts follow upReported bypatient.Notes:Dexco m G6---SMBG 6x a day---Replaces BG monitorNovolog insulin used in Medtronic pump--Changes site every 3 Elizabeth dataPatient stated he has been drinking a lot of alcohol--Patient is dealing with ex deathBrother passed todayc/otrouble sleepingPatient does not have Glucagon pen at home for emergenciesQuestions: FBG ranging 127-175recent surgeries/hospitaliza tions? Nrecent steroids/antibiotic? Nhypoglycemia events? Y at nightpt puts pump on suspend modePatient has novolog vials for emergenciesMedication s:Creon 36,000 unit-114,000 unit-180,000 unit BIDOn ARB'sOn statinsNo recent qqbsF0r6404/11/2020 7.2 % of total Hgb03 7.6 % of total Hgb10/04/2020 7.3 % of total Hgb --LO Vno CGM data todayceliac disease check negPatient explained about health risks related to smoking cigarrettes.print-blake l- lab as requestedtexted Moniquewe need to download dexcom remote if possible or pt has to stop by as we need to download devices This visit was conducted via our telehealth video visit service. Provider location: {{in office* at home If other - freetype location}} Patient location: {{at home address on file* in provider's office If other - freetype location}} Visit Participants in addition to provider and patient: {{none* free type names of additional participants & their relationship to patient}} Patient has given verbal consent to telehealth visit. Bren Espino MD [address] [address], [place], [address], [facility] - [facility], [facility] 01/15/2021 13:38:52 04/29/2021 text/html Diabetes with Complications*Reporte d bypatient.Notes:Endoc rine visit today with Sherrie Lindquist APRN and Dr Espino. Here to follow up type 1 diabetes FSBG 4 x day-Dexcom replaces-used to adjust insulin dose CGM Dexcom DOWNLOADS Records were downloaded and discussed with the patient. Explained to the patient the significance of the data obtained. Discussed adjustments in the insulin regimen with the patient Dexcom data dates 04/16/2021 to 04/29/2021 TiR 28%High 55%Very High 17%Low noneVery low None denies any lows but eats sweets before bed to keep him elevated and will eat during the night to keep himself elevated Tandem pump-site changes every 2 to 3 days-Novolog used PukyzfapOmhhc24a 0.95 u/hr7a 1.5 u/hr10p 0.9 u/hr I/C% 8 ISF 30 Target 110-120 insulin active 3 hours A1c04/11/2020 7.2 % of total Hgb07/01/2020 7.6 % of total Hgb10/04/2020 7.3 % of total Hgb105/14/2020 8.2 % of total Hgb Bren Espino MD [address] [facility] [address], [place], [address], [facility] - [facility], [facility] 05/01/2021 06:28:01 06/20/2021 text/html Chronic Complain ts follow upReported bypatient.Notes:Jose Alfredo nt is taking 2 boost shakes a day to gain weight Patient is scheduled for eye exam 06/2021 Requesting labs from [facility] now Dexcom G6---SMBG 6x a day---Replaces BG monitor Date range: 06/07/2021-06/20/2021 TIR 63%High 35%Very high 1%Low <1%Very low <1% Novolog insulin used in Medtronic pump--Changes site every 3 day Questions: recent surgeries/hospitaliza tions? N recent steroids/antibiotic? N hypoglycemia events? 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 Y insulin for emergencies? Y Medications: Creon 36,000 unit-114,000 unit-180,000 unit BID On ARB On statin--pravastatin 20mg--pt never started rx No recent labs A1c07/01/2020 7.6 % of total Hgb10/04/2020 7.3 % of total Hgb105/14/2020 8.2 % of total Hgb ---LOVimproved with meds but is costly-using Creon only one or two times daily but is costlyadvised need to quit ETOH use-he states quit in givendc smokingFollow up as planned with PCP CORONAVIRUS SCREENING TOOL Are you experiencing any NEW symptom(s) listed below that is not due to another health problem None of the below Is anyone else in your household experiencing any NEW symptoms No In the past 2 weeks did you have close contact (within 6 feet for at least 15 minutes) with someone with symptoms of COVID-19 or who tested positive for COVID-19 No In the past 2 weeks have you been tested for COVID-19 No, I have not been tested Why did you get tested? Please select all that apply N/A In the past 2 weeks has someone in your household tested positive for COVID-19 No Imported from [employer] on 06/20/2021 Bren Espino MD [address], [place], [address], [facility] - [facility] 06/20/2021 13:05:57 09/30/2021 text/html Patient is up no rth at this time Dexcom G6---SMBG 6x a day---Replaces BG monitor Novolog insulin used in Medtronic pump--Changes site every 3 day Na data T slim referral suggested last appt FBG ranging 150-210 recent surgeries/hospitaliza tions? N recent steroids/antibiotic? N hypoglycemia events? Y during the day Glucagon pen? Y--unknown if insulin for emergencies? Y unknown brand Medications: Creon 36,000 unit-114,000 unit-180,000 unit 3 capsules TID On ARB On statin--pravastatin 20 mg--pt has not been taking rx---last dose unknown per pt no ETOH now smoking- same A1c03/13/2021 8.2 % of total Hgb 06/19/2021 7.8 % of total Hgb 09/04/2021 8.4 % of total Hgb ---LOVT slim referral texted [facility]i Argueta [facility] Basals 10 pm to 6 am lowered to 1 u/h pt had to eat night snack to keep BG stable he said no longer -using ETOH 5 months-- being sober Bren Espino MD [address], [place], [address], [facility] 09/30/2021 12:19:14 01/21/2022 text/html Chronic Complain ts follow upReported bypatient.Notes:Labs ordered at last appt--No results in chart Dexcom G6---SMBG 6x a day---Replaces BG monitor Novolog insulin used in Medtronic pump--Changes site every 3 day Na data recent surgeries/hospitaliza tions? n recent steroids/antibiotic? n hypoglycemia events? y Glucagon pen? n insulin for emergencies? n Medications: Creon 36,000 unit-114,000 unit-180,000 unit 3 capsules TID On ARB On statin No recent labs A1c03/13/2021 8.2 % of total Hgb06/19/2021 7.8 % of total Hgb06 8.4 % of total Hgb ---JOHN T slim referral last appt texted rep call pt in 2 weeks=======rx statins restart This visit was conducted via our telehealth video visit service. Provider location: {{in office* at home If other - freetype location}} Patient location: {{at home address on file* in provider's office If other - freetype location}} Visit Participants in addition to provider and patient: {{none* free type names of additional participants & their relationship to patient}} Patient has given verbal consent to telehealth visit. Bren Espino MD [address], [place], [address], [facility] 01/21/2022 13:08:41
--- OUTSIDE RECORDS SUMMARY | 2024-05-24 11:50 | XMS_ITS | Continuity of Care Document ---
Author Organization [facility] Address [address] [facility] [place] [address] Phone Care Team Providers Care Geriatric Personal Care Aide Name Role Phone Evaristo Jimenez MD, Armen Unavailable Unavail able Allergies, Adverse Reactions, Alerts Substance Reaction Status Criticality shellfish derived Nausea / Vomiting Active No In formation shellfish derived Nausea / Vomiting Active No In formation iodine Nausea / Vomiting Active No Informa tion iodine Nausea / Vomiting Active No Informa [...] BY MOUTH DAILY 150 MG - Active losartan 25 mg tablet take 1 tablet by oral route 2 times every day for hypertension 25 MG - Active Protonix 40 mg tablet,delayed release TAKE 1 TABLET BY MOUTH EVERY DAY - Active ProAir HFA 90 mcg/actuation aerosol inhaler inhale 2 puff by inhalation route every 6 hours as needed 2 puff - Active hydrocodone 7.5 mg-acetaminophen 325 mg tablet take 1 tablet by oral route every 6 hours as needed for pain for Non Acute Pain 1.00 tablet - Active due to fill on 08/01/18 fluticasone 50 mcg/actuation nasal spray,suspension SPRAY 1 - 2 SPRAY BY INTRANASAL ROUTE EVERY DAY IN EACH NOSTRIL NEEDED - Active buspirone 5 mg tablet TAKE 1 TABLET BY ORAL ROUTE 2 TIMES EVERY DAY FOR ANXIETY 5 MG - Active losartan 25 mg tablet take 1 tablet by oral route every day for hypertension 25 MG - Active trazodone 100 mg tablet take 1 tablet by oral route every day after meals 100 MG - Active Humalog 100 unit/mL subcutaneous cartridge inject by subcutaneous route per prescriber's instructions. Insulin dosing requires individualization. 0.00 - Active Humalog 100 unit/mL subcutaneous cartridge inject by subcutaneous route per prescriber's instructions. Insulin dosing requires individualization. 0.00 - Active PANTOPRAZOLE 40MG TABLETS TAKE 1 TABLET BY MOUTH EVERY DAY 40 MG - Active Ventolin HFA 90 mcg/actuation aerosol inhaler inhale 2 puff by inhalation route every 6 hours as needed 2 puff - Active hydrocodone 7.5 mg-acetaminophen 325 mg [...] DETAILED OFFICE/OUTPATIENT VISIT, EST OFFICE/OUTPATIENT VISIT, EST OFFICE/OUTPATIENT VISIT, EST Admin influenza virus vac FLU VACC PRSV FREE INC ANTIG OFFICE/OUTPATIENT VISIT, EST Admin influenza virus vac FLU VACC PRSV FREE INC ANTIG OFFICE/OUTPATIENT VISIT, EST OFFICE/OUTPATIENT VISIT, EST OFFICE/OUTPATIENT VISIT, EST OFFICE/OUTPATIENT VISIT, EST OFFICE/OUTPATIENT VISIT, EST Admin pneumococcal vaccine PNEUMOCOCCAL VACC 13 MARY IM OFFICE/OUTPATIENT VISIT, EST Admin pneumococcal vaccine PNEUMOCOCCAL VACC 13 MARY IM OFFICE/OUTPATIENT VISIT, EST Admin influenza virus vac Fluvirin vacc, 3 yrs & >, im OFFICE/OUTPATIENT VISIT, EST Admin influenza virus vac Fluvirin vacc, 3 yrs & >, im OFFICE/OUTPATIENT VISIT, EST OFFICE/OUTPATIENT VISIT, EST OFFICE/OUTPATIENT VISIT, EST OFFICE/OUTPATIENT VISIT, EST OFFICE/OUTPATIENT VISIT, EST Admin influenza virus vac Fluvirin vacc, 3 yrs & >, im Admin influenza virus vac OFFICE/OUTPATIENT VISIT, EST Admin influenza virus vac [...] Admin influenza virus vac OFFICE/OUTPATIENT VISIT, EST Afluria vacc, 3 yrs & >, im Admin influenza virus vac OFFICE/OUTPATIENT VISIT, EST OFFICE/OUTPATIENT VISIT, EST OFFICE/OUTPATIENT VISIT, EST OFFICE/OUTPATIENT VISIT, EST OFFICE/OUTPATIENT VISIT, EST OFFICE/OUTPATIENT VISIT, EST OFFICE/OUTPATIENT VISIT, EST OFFICE/OUTPATIENT VISIT, EST OFFICE/OUTPATIENT VISIT, NEW ELECTROCARDIOGRAM, COMPLETE OFFICE/OUTPATIENT VISIT, NEW ELECTROCARDIOGRAM, COMPLETE Advance Directives Directive Yes / No Effective Date File Name No Information Encounters Encounter Description Practice Location Reason(s) For Visit Diagnoses Date Provider Providers Copied on Encounter [facility], [address] [place] [address], [id number] , tel: [phone] [facility] No Information 2 MD Armen Mckeon. [address] [place] [address] Dr [place], [place], [id number], [place]. tel:[phone] [facility], [address] [place] [address], [id number] , [place] tel: [phone] [facility] No Information 2 MD Armen Mckeon. [address] [place], [place], [id number], . tel:[phone] [facility], [address] [place] [address], [id number] , tel: [phone] [facility] No Information 2 MD Armen Mckeon. [address], [place], [address] [place] [address], . tel:[phone] [facility], [address] [facility] [place], [address] [place] [address] , tel: [phone] [facility] No Information 2 MD Armen Mckeon. [address], [place], [address] [place] [address], . tel:[phone] [facility], [address] [place] [address], [address] [place] [address] , tel: [phone] [facility] No Information 2 MD Armen Mckeon. [address] [place] [address] Dr, [place], [address] [place] [address], . tel:[phone] ESTABLISHED PATIENT DETAILED [facility], [facility] [address], [place], [address] [place] [address] , tel: [phone] [facility] Cough (chief complaint)Head ache (chief complaint)Posi tive exposure (chief complaint) Mixed anxiety and depressive disorderEncou nter for observation for suspected exposure to other biological agents ruled outOther chronic pain 2 MD Armen Mckeon. [address], [place], [address] [place] [address], . tel:[phone] Referring Provider: Matty Jones MD, [address] [place] [address], [address] . tel:[phone] [facility], [facility] [place] [id number] , tel: [phone] [facility] No Information 2 MD Armen Mckeon. [address], [place], [address] [place] [address], . tel:[phone] [facility], [address] [place] [address], [address] [place] [address] , tel: [phone] [facility] No Information 2 MD Armen Mckeon. [address] [place] [address] , [place], [address] [place] [address], . tel:[phone] ESTABLISHED PATIENT DETAILED [facility], [address] [place] [address], [place], [address] [place] [address] , tel: [phone] [facility] hypertension (chief complaint)pros woo enlargement (chief complaint)diab etes (chief complaint)Anxi ety/Depression (chief complaint) Type 1 diabetes mellitus on insulin therapyMixed anxiety and depressive disorderOther chronic painTobacco use 2 MD Armen Mckeon. [address] [place] [address] , [place], [place], [id number], . [phone] Referring Provider: Armen Jimenez MD, [address] [place] [address] , [place], [address] . tel:[phone] OFFICE/OUTPA TIENT VISIT EST [facility], [address] [place] [address], [address] [place] [address] , tel: [phone] [facility] URI, acuteCOPD exacerbation 2 MD Armen Mckeon. [address] [place] [address] , [place], [place], [id number], . [phone] Referring Provider: Armen Jimenez MD, [address] [place] [address] , [place], [address] . tel:[phone] [facility], [address] [place] [address], [id number] , tel: [phone] [facility] Mixed anxiety and depressive disorderType 1 diabetes mellitus on insulin therapyEssent ial (primary) hypertensionP rostate enlargementSc reening PSA (prostate specific antigen) 1 MD Armen Mckeon. [address] [place] [address] Dr [place], [place], [id number], . tel:[phone] Referring Provider: Armen Jimenez MD, [address] [facility] , [place], [address] . tel:[phone] ESTABLISHED PATIENT DETAILED [facility], [address] [place] [address], [id number] , tel: [phone] [facility] Depression (chief complaint) Tobacco useMixed anxiety and depressive disorderOther chronic pain 1 MD Armen Mckeon. [address] [facility] , [place], [place], [id number], [place]. tel:[phone] Referring Provider: Armen Jimenez MD, [address] [facility] , [place], [address] . tel:[phone] OFFICE/OUTPA TIENT VISIT EST [facility], [address] [place] [address], [place], [id number] , [place] tel: [phone] [facility] Mixed anxiety and depressive disorderOther chronic painAlcohol use disorder, mild, abuse Oct 1 MD Armen Mckeon. [address] [facility] , [place], [place], [id number], [place]. tel:[phone] Referring Provider: Armen Jimenez MD, [address] [place] [address] , [place], [address] . tel:[phone] ESTABLISHED PATIENT DETAILED [facility], [address] [place] [address], [place], [id number] , [place] tel: [phone] [facility] hyperlipidemia (chief complaint)diab etes (chief complaint) Mixed anxiety and depressive disorderOther chronic painType 1 diabetes mellitus on insulin therapyAcute pain of right kneeOSA on CPAPDependenc e on other enabling machines and devicesTobacc o use 1 MD Armen Mckeon. [address] [facility] , [place], [place], [id number], . tel:[phone] Referring Provider: Armen Jimenez MD, [address] [place] [address] , [place], [address] . tel:[phone] OFFICE/OUTPA TIENT VISIT EST [facility], [address] [place] [address], [id number] , tel: [phone] [facility] Other chronic painAcute torticollisNe ck painMixed anxiety and depressive disorder Feb-0 1 MD Armen Mckeon. [address] [place] [address] [place], [id number], . tel:[phone] Referring Provider: Armen Jimenez MD, [address] [place] [address] Dr, [place], [address] . tel:[phone] OFFICE/OUTPA TIENT VISIT EST [facility], [address] [place] [address], [id number] , tel: [phone] [facility] Acute torticollisNe ck pain Sep-2 0 MD Armen Mckeon. [address] [place] [address] [place], [id number], . [phone] Referring Provider: Armen Jimenez MD, [address] [place] [address], [address] . tel:[phone] OFFICE/OUTPA TIENT VISIT EST [facility], [address] [place] [address], [id number] , tel: [phone] [facility] Neck painAcute torticollis Sep-1 0 MD Armen Mckeon. [address] [place] [address] , [place], [place], [id number], [place]. [phone] Referring Provider: Armen Jimenez MD, [address] [place] [address] , [place], [address] . tel:[phone] OFFICE/OUTPA TIENT VISIT EST [facility], [address] [place] [address], [id number] , tel:[phone] [facility] Essential (primary) hypertensionM ixed anxiety and depressive disorderOther chronic pain Иван-2 0- 0 MD Armen Mckeon. [address] [place] [address] , [place], [place], [id number], . [phone] Referring Provider: Armen Jimenez MD, [address] [place] [address] , [place], [address] . tel:[phone] [facility], [address] [place] [address], [id number] , tel: [phone] [facility] No Information 0 MD Armen Mckeon. [address] [place] [address] , [place], [id number], [place]. tel:[phone] ESTABLISHED PATIENT DETAILED [facility], [address] [place] [address], [id number] , tel: [phone] [facility] Essential (primary) hypertensionM ixed anxiety and depressive disorderType 1 diabetes mellitus on insulin therapyUrinar y dribbling 0 MD Armen Mckeon. [address] [place] [address] , [place], [place], [id number], [place]. [phone] Referring Provider: Armen Jimenez MD, [address] [place] [address] , [place], [address] . tel:[phone] ESTABLISHED PATIENT DETAILED [facility], [address] [place] [address], [id number] , tel: [phone] [facility] hyperlipidemia (chief complaint)diab etes (chief complaint) Body mass index (BMI) 25.0-25.9, adultType 1 diabetes mellitus on insulin therapyEssent ial (primary) hypertensionM ixed anxiety and depressive disorder 0 MD Armen Mckeon. [address] [place] [address] , [place], [place], [id number], . [phone] Referring Provider: Matty Jones MD, [address] [place] [address], [place], [address] . tel:[phone] ESTABLISHED PATIENT DETAILED [facility], [address] [place] [address], [id number] , tel: [phone] [facility] med review (chief complaint) Other chronic painType 1 diabetes mellitus on insulin therapyEssent ial (primary) hypertensionM ixed anxiety and depressive disorderAlcoh ol abuse with alcohol-induc ed disorder 9 MD Armen Mckoen. [address] [place] [address] Dr, [place], [address] [place] [address], . tel:[phone] Referring Provider: Armen Jimenez MD, [address] [place] [address] Dr, [place], [address] . tel:[phone] ESTABLISHED PATIENT DETAILED [facility], [address] [place] [address], [id number] , tel:[phone] [facility] Med review (chief complaint) Body mass index (BMI) 24.0-24.9, adultOther chronic painViral upper respiratory tract infectionAlle rgic rhinitis, unspecified seasonality, unspecified triggerSleep apnea, unspecified type 9 MD Armen Mckeon. [address] [place] [address] Dr, [place], [place], [id number], . [phone] Referring Provider: Armen Jimenez MD, [address] [place] [address] Dr, [place], [address] . tel:[phone] ESTABLISHED PATIENT DETAILED [facility], [address] [place] [address], [id number] , tel: [phone] [facility] med review (chief complaint) Body mass index (BMI) 24.0-24.9, adultType 1 diabetes mellitus on insulin therapyAnxiet yEssential (primary) hypertensionM ixed anxiety and depressive disorder 9 MD Matty Jones. [address] [place] [address], [id number], [place]. tel:[phone] Referring Provider: Matty Jones MD, [address] [place] [address], [address] . tel:[phone] [facility], [address] [place] [address], [place], [id number] , [place] tel: [phone] [facility] No Information 9 Dean Espitiajaret Espinoir. [address] [facility] , [place], [place], [id number], [place]. tel:[phone] OFFICE/OUTPA TIENT VISIT, EST [facility], [facility] [address], [place], [place], [id number] , [place] tel: [phone] [facility] cough (chief complaint)head ache (chief complaint) Upper respiratory tract infection, unspecified typeRight ear impacted cerumenPain in right kneePain in left kneeOther chronic pain 0 9 Sherrie Mayuri. [address] [place], [place], [place], [id number], [place]. tel:[phone] Referring Provider: Matty Jones MD, [address] [place] [address], [address] . tel:[phone] OFFICE/OUTPA TIENT VISIT, EST [facility], [facility] [address], [place], [place], [id number] , [place] tel: [phone] [facility] cough (chief complaint)head ache (chief complaint) Upper respiratory tract infection, unspecified typeRight ear impacted cerumenPain in right kneePain in left kneeOther chronic pain 9 Sherrie Mayuri. [address] [place], [place], [place], [id number], [place]. [phone] Referring Provider: Matty Jones MD, [facility] [address], [place], [address] . tel:[phone] [facility], [address] [place] [address], [place], [place], [id number] , [place] tel: [phone] [facility] No Information 9 LANDEN Garcia. [address], [place], [address]. tel:[phone] OFFICE/OUTPA TIENT VISIT, EST [facility], [address] [place] [address], [id number] , [place] tel: [phone] [facility] medication review (chief complaint) Current mild episode of major depressive disorder without prior episodeEssent ial (primary) hypertensionT ype 1 diabetes mellitus on insulin therapyAnxiet y 0 8 LANDEN Garcia. [address], [place], [address]. tel:[phone] Referring Provider: Matty Jones MD, [address] [place] [address], [address] . tel:[phone] OFFICE/OUTPA TIENT VISIT, EST [facility], [address] [place] [address], [id number] , [place] tel: [phone] [facility] medication review (chief complaint) Current mild episode of major depressive disorder without prior episodeEssent ial (primary) hypertensionT ype 1 diabetes mellitus on insulin therapyAnxiet y 0 8 LANDEN Garcia. [address], [place], [address]. [phone] Referring Provider: Matty Jones MD, [address] [place] [address], [address] . tel:[phone] [facility], [address] [place] [address], [id number] , [place] tel: [phone] [facility] No Information 8 MD Matty Jones. [address] [place] [address], [id number], [place]. tel:[phone] OFFICE/OUTPA TIENT VISIT, EST [facility], [address] [place] [address], [id number] , [place] tel: [phone] [facility] ear problems (chief complaint)diab etes (chief complaint) Essential (primary) hypertensionT ype 1 diabetes mellitus on insulin therapyOther hyperlipidemi aAcute non-recurrent frontal sinusitisLeft otitis media with effusionCurre nt mild episode of major depressive disorder without prior episode 8 LANDEN Garcia. [address] [place] [address] , [place], [address]. tel:[phone] Referring Provider: Matty Jones MD, [address] [place] [address], [address] . tel:[phone] OFFICE/OUTPA TIENT VISIT, EST [facility], [address] [place] [address], [id number] , [place] tel: [phone] [facility] ear problems (chief complaint)diab etes (chief complaint) Essential (primary) hypertensionT ype 1 diabetes mellitus on insulin therapyOther hyperlipidemi aAcute non-recurrent frontal sinusitisLeft otitis media with effusionCurre nt mild episode of major depressive disorder without prior episode 8 LANDEN Garcia. [address] [place] [address] , [place], [address]. [phone] Referring Provider: Matty Jones MD, [address] [place] [address], [address] . tel:[phone] OFFICE/OUTPA TIENT VISIT, EST [facility], [address] [place] [address], [id number] , [place] [phone] [facility] Back pain (chief complaint) Midline low back pain without sciatica, unspecified chronicityTyp e 2 diabetes mellitus with hyperglycemia Other hyperlipidemi a 8 Dean Macdonald. [address] [place] [address] , [place], [place], [id number], [place]. tel:[phone] Referring Provider: Matty Jones MD, [address] [place] [address], [address] . tel:[phone] OFFICE/OUTPA TIENT VISIT, EST [facility], [address] [place] [address], [id number] , [place] tel:[phone] [facility] Back pain (chief complaint) Midline low back pain without sciatica, unspecified chronicityTyp e 2 diabetes mellitus with hyperglycemia Other hyperlipidemi a 8 Dean Madconald. [address] [place] [address] DrE[address], [place], [place], [id number], [place]. tel:[phone] Referring Provider: Matty Jones MD, [address] [place] [address], [address] . tel:[phone] OFFICE/OUTPA TIENT VISIT, EST [facility], [address] [place] [address], [id number] , [place] tel:[phone] [facility] Hypertension (chief complaint)Hype rlipidemia (chief complaint)Diab etes Mellitus (chief complaint) Essential (primary) hypertensionT ype 1 diabetes mellitus on insulin therapyOther hyperlipidemi a 7 Deray Ramu[address] [facility], [facility] [address], [address] [place] [address], [facility], . tel:[phone] Referring Provider: Matty Jones MD, [address] [place] [address], [address] . tel:[phone] OFFICE/OUTPA TIENT VISIT, EST [facility], [address] [place] [address], [id number] , [place] [phone] [facility] Hypertension (chief complaint)Hype rlipidemia (chief complaint)Diab etes Mellitus (chief complaint) Essential (primary) hypertensionT ype 1 diabetes mellitus on insulin therapyOther hyperlipidemi a Deray Ramu. [address] [facility] [address], [address], [place], [place], [facility], . tel:[phone] Referring Provider: Matty Jones MD, [address] [place] [address], [address] . tel:[phone] OFFICE/OUTPA TIENT VISIT, EST [facility], [address] [place] [address], [id number] , [place] [phone] [facility] Frequent urination (chief complaint) Urinary frequency 7 Deray Ramu. [address] [facility] [address], [address] [place] [address], [facility], . tel:[phone] Referring Provider: Matty Jones MD, [address] [place] [address], [address] . tel:[phone] OFFICE/OUTPA TIENT VISIT, EST [facility], [address] [place] [address], [id number] , [place] tel:[phone] [facility] Frequent urination (chief complaint) Urinary frequency 7 Deray Ramu. [address] [facility] [address], [address] [place] [address], [facility], . tel:[phone] Referring Provider: Matty Jones MD, [address] [place] [address], [address] . tel:[phone] OFFICE/OUTPA TIENT VISIT, EST [facility], [address] [place] [address], [id number] , [place] tel:[phone] [facility] Pain (chief complaint) Type 2 diabetes mellitus with hyperglycemia Essential (primary) hypertensionO ther hyperlipidemi a 6 Deray Ramu. [address] [facility] [address], [address] [place] [address], [facility], [place]. tel:[phone] Referring Provider: Matty Jones MD, [address] [place] [address], [address] . tel:[phone] OFFICE/OUTPA TIENT VISIT, EST [facility], [address] [place] [address], [id number] , [place] tel:[phone] [facility] Pain (chief complaint) Type 2 diabetes mellitus with hyperglycemia Essential (primary) hypertensionO ther hyperlipidemi a 6 Deray Ramu. [address] [facility] [address], [address] [place] [address], [facility], [place]. tel:[phone] Referring Provider: Matty Jones MD, [address] [place] [address], [address] . tel:[phone] [facility], [address] [place] [address], [id number] , [place] tel: [phone] [facility] No Information May-0 2-201 6 No Information OFFICE/OUTPA TIENT VISIT, EST [facility], [address] [place] [address], [id number] , [place] tel: [phone] [facility] ringing in his left ear (chief complaint) Otitis externa Feb-0 4-201 6 Deray Ramu. [address] [facility] [address], [address] [place] [address], [facility], . tel:[phone] Referring Provider: Matty Jones MD, [address] [place] [address], [address] . tel:[phone] OFFICE/OUTPA TIENT VISIT, EST [facility], [address] [place] [address], [id number] , [place] tel: [phone] [facility] ringing in his left ear (chief complaint) Otitis externa Feb-0 4-201 6 Deray Ramu. [address] [facility] [address], [address] [place] [address], [facility], . tel:[phone] Referring Provider: Matty Jones MD, [address] [place] [address], [address] . tel:[phone] OFFICE/OUTPA TIENT VISIT, EST [facility], [address] [place] [address], [id number] , [place] tel:[phone] [facility] SHOULDER PAIN (chief complaint) Pain in left shoulder Nov-0 9-201 5 Deray Ramu. [address] [facility] [address], [address] [place] [address], [facility], . tel:[phone] Referring Provider: Matty Jones MD, [address] [place] [address], [address] . tel:[phone] OFFICE/OUTPA TIENT VISIT, EST [facility], [address] [place] [address], [id number] , [place] tel: [phone] [facility] SHOULDER PAIN (chief complaint) Pain in left shoulder Nov-0 5 Deray Ramu. [address] [facility] [address], [address] [place] [address], [facility], . [phone] Referring Provider: Matty Jones MD, [address] [place] [address], [address] . tel:[phone] OFFICE/OUTPA TIENT VISIT, EST [facility], [address] [place] [address], [id number] , [place] tel: [phone] [facility] diabetes (chief complaint) Diabetes Mellitus, Adult Onset, Uncontrolled Jul- 5 Deray Ramu. [address] [facility] [address], [address] [place] [address], [facility], . tel:[phone] Referring Provider: Matty Jones MD, [address] [place] [address], [address] . tel:[phone] OFFICE/OUTPA TIENT VISIT, EST [facility], [address] [place] [address], [id number] , [place] tel: [phone] [facility] diabetes (chief complaint) Diabetes Mellitus, Adult Onset, Uncontrolled Jul-2 5 Deray Ramu. [address] [facility] [address], [address], [place], [facility], [place]. tel:[phone] Referring Provider: Matty Jones MD, [address] [place] [address], [address] . tel:[phone] OFFICE/OUTPA TIENT VISIT, EST [facility], [address] [place] [address], [id number] , [place] tel: [phone] [facility] diabetes (chief complaint)hype rtension (chief complaint) Diabetes Mellitus, Adult Onset, UncontrolledH ypertension, BenignOther and unspecified hyperlipidemi a Jun-3 0-201 5 Deray Ramu. [address] [facility] [address], [address] [place] [address], [facility], . tel:[phone] Referring Provider: Matty Jones MD, [address] [place] [address], [address] . tel:[phone] OFFICE/OUTPA TIENT VISIT, EST [facility], [address] [place] [address], [id number] , [place] tel: [phone] [facility] diabetes (chief complaint)hype rtension (chief complaint) Diabetes Mellitus, Adult Onset, UncontrolledH ypertension, BenignOther and unspecified hyperlipidemi a Jun-3 0-201 5 Deray Ramu. [facility] [facility], [address], [facility], . tel:[phone] Referring Provider: Matty Jones MD, [address] [place] [address], [address] . tel:[phone] OFFICE/OUTPA TIENT VISIT, [facility], [address] [place] [address], [id number] , [place] tel: [phone] [facility] fatigue (chief complaint)diab etes (chief complaint) Diabetes Mellitus, Adult Onset, UncontrolledF atigueHyperte nsion, Benign Dec-3 0-201 4 Deray Ramu. [address] [facility] [address], [address] [place] [address], [facility], [place]. tel:[phone] Referring Provider: Matty Jones MD, [address] [place] [address], [address] . tel:[phone] OFFICE/OUTPA TIENT VISIT, [facility], [address] [place] [address], [id number] , [place] tel: [phone] [facility] fatigue (chief complaint)diab etes (chief complaint) Diabetes Mellitus, Adult Onset, UncontrolledF atigueHyperte nsion, Benign Dec-3 0-201 4 Deray Ramu. [address] [facility] [address], [address], [facility], . tel:[phone] Referring Provider: Matty Jones MD, [address] [place] [address], [address] . tel:[phone] OFFICE/OUTPA TIENT VISIT, EST [facility], [address] [place] [address], [address] [place] [address] , tel: [phone] [facility] fatigue (chief complaint)naus ea (chief complaint)vomi tting (chief complaint) Fatigue Mar- 4 Deray Ramu. [address], [address], [facility], . tel:[phone] Referring Provider: Matty Jones MD, [address] [place] [address], [address] . tel:[phone] OFFICE/OUTPA TIENT VISIT, EST [facility], [address] [place] [address], [id number] , tel: [phone] [facility] fatigue (chief complaint)naus ea (chief complaint)vomi tting (chief complaint) Fatigue 4 Deray Ramu. [address] [facility] [address], [address], [facility], . tel:[phone] Referring Provider: Matty Jones MD, [address] [place] [address], [address] . tel:[phone] OFFICE/OUTPA TIENT VISIT, EST [facility], [address] [place] [address], [address] [place] [address] , tel:[phone] [facility] diabetes (chief complaint) Diabetes Mellitus, Adult Onset, Uncontrolled Mar-0 1 4 Deray Ramu. [address] [facility] [address], [address], [facility], . tel:[phone] Referring Provider: Matty Jones MD, [address] [place] [address], [address] . tel:[phone] OFFICE/OUTPA TIENT VISIT, EST [facility], [address] [place] [address], [id number] , [place] tel: [phone] [facility] diabetes (chief complaint) Diabetes Mellitus, Adult Onset, Uncontrolled Mar-0 4 Deray Ramu. [address] [facility] [address], [address] [place] [address], [facility], . tel:[phone] Referring Provider: Matty Jones MD, [address] [place] [address], [address] . tel:[phone] OFFICE/OUTPA TIENT VISIT, EST [facility], [address] [place] [address], [id number] , [place] tel: [phone] [facility] diabetes (chief complaint)shor tness of breath (chief complaint) Diabetes Mellitus, Adult Onset, Uncontrolled 2 4 Deray Ramu. [address] [address], [address] [place] [address], [facility], . tel:[phone] Referring Provider: Matty Jones MD, [address] [place] [address], [address] . tel:[phone] OFFICE/OUTPA TIENT VISIT, EST [facility], [address] [place] [address], [id number] , [place] tel:[phone] [facility] diabetes (chief complaint)shor tness of breath (chief complaint) Diabetes Mellitus, Adult Onset, Uncontrolled 2 4 Deray Ramu. [address] [facility] [address], [address], [place], [facility], . tel:[phone] Referring Provider: Matty Jones MD, [address] [place] [address], [address] . tel:[phone] OFFICE/OUTPA TIENT VISIT, EST [facility], [address] [facility] [place] [id number] , [place] tel: [phone] [facility] high blood sugars (chief complaint) Diabetes Mellitus, Adult Onset, UncontrolledN ondependent alcohol abuse, continuous drinking behaviorTobac co Abuse 4 No Information Referring Provider: Matty Jones MD, [address] [facility] [place], [address] . tel:[phone] OFFICE/OUTPA TIENT VISIT, EST [facility], [address] [facility], [id number] , [place] tel: [phone] [facility] high blood sugars (chief complaint) Diabetes Mellitus, Adult Onset, UncontrolledN ondependent alcohol abuse, continuous drinking behaviorTobac co Abuse 4 No Information Referring Provider: Matty Jones MD, [address] [facility] [place], [address] . tel:[phone] [facility], [address] [facility], [id number] , [place] tel: [phone] [facility] No Information 4 MD Matty Jones. [address] [place], [place], [id number], [place]. tel:[phone] [facility], [address] [place], [place], [id number] , [place] tel: [phone] [facility] No Information 4 MD Matty Jones. [address] [facility] [address], [id number], [place]. tel:[phone] OFFICE/OUTPA TIENT VISIT, EST [facility], [address] [facility] [address], [id number] , [place] tel: [phone] [facility] Diabetes (chief complaint) Diabetes Mellitus, Adult Onset, UncontrolledH ypertension, Benign 4 Deray Ramu. [address] [facility] [address], [address] [place] [address], [facility], [place]. tel:[phone] Referring Provider: Matty Jones MD, [address] [facility] [place], [address] . tel:[phone] OFFICE/OUTPA TIENT VISIT, EST [facility], [address] [facility], [id number] , [place] tel: [phone] [facility] Diabetes (chief complaint) Diabetes Mellitus, Adult Onset, UncontrolledH ypertension, Benign Sep- 4 Deray Ramu. [address] [facility] [address], [address] [place] [address], [facility], . tel:[phone] Referring Provider: Matty Jones MD, [address] [place], [address] . tel:[phone] OFFICE/OUTPA TIENT VISIT, EST [facility], [address] [facility], [id number] , [place] tel: [phone] [facility] diabetes (chief complaint) Diabetes Mellitus, Adult Onset, UncontrolledH ypertension, BenignTobacco Abuse 4 Deray Ramu. [address] [facility] [address], [address] [place] [address], [facility], [place]. tel:[phone] Referring Provider: Matty Jones MD, [address] [place], [address] . tel:[phone] OFFICE/OUTPA TIENT VISIT, EST [facility], [address] [facility], [id number] , [place] tel: [phone] [facility] diabetes (chief complaint) Diabetes Mellitus, Adult Onset, UncontrolledH ypertension, BenignTobacco Abuse 4 Deray Ramu. [address] [facility] [address], [address] [place] [address], [facility], [place]. tel:[phone] Referring Provider: Matty Jones MD, [address] [place] [address], [address] . tel:[phone] OFFICE/OUTPA TIENT VISIT, EST [facility], [address] [place] [address], [id number] , [place] tel: [phone] [facility] diabetes (chief complaint) Diabetes Mellitus, Adult Onset, UncontrolledH ypertension, Benign 4 Deray Ramu. [address] [facility] [address], [address], [place], [place], [facility], [place]. tel:[phone] Referring Provider: Matty Jones MD, [address] [place] [address], [address] . tel:[phone] OFFICE/OUTPA TIENT VISIT, EST [facility], [address] [place] [address], [id number] , [place] tel: [phone] [facility] diabetes (chief complaint) Diabetes Mellitus, Adult Onset, UncontrolledH ypertension, Benign 4 Deray Ramu. [address] [facility] [address], [address], [place], [place], [facility], [place]. tel:[phone] Referring Provider: Matty Jones MD, [address] [place] [address], [address] . tel:[phone] OFFICE/OUTPA TIENT VISIT, EST [facility], [address] [place] [address], [id number] , [place] tel: [phone] [facility] depression (chief complaint)diab etes (chief complaint) Diabetes Mellitus, Adult Onset, UncontrolledO ther and unspecified hyperlipidemi aHypertension , Benign 4 MD Matty Jones. [address] [place] [address], [id number], [place]. tel:[phone] Referring Provider: Matty Jones MD, [address] [place] [address], [address] . tel:[phone] OFFICE/OUTPA TIENT VISIT, EST [facility], [facility] [address], [place], [place], [address] [place] [address] , [place] tel: [phone] [facility] depression (chief complaint)diab etes (chief complaint) Diabetes Mellitus, Adult Onset, UncontrolledO ther and unspecified hyperlipidemi aHypertension , Benign Mainor-1 2-201 4 MD Matty Jones. [address] [place] [address], [address] [place] [address], [place]. tel:[phone] Referring Provider: Matty Jones MD, [facility] [address], [place], [address] . tel:[phone] OFFICE/OUTPA TIENT VISIT, EST [facility], [address] [place] [address], [address] [place] [address] , [place] tel: [phone] [facility] diabetes (chief complaint)back pain (chief complaint) Diabetes Mellitus, Adult Onset, UncontrolledH ypertension, BenignOther and unspecified hyperlipidemi a Jun-0 4 MD Matty Jones. [address] [place] [address], [id number], [place]. tel:[phone] Referring Provider: Matty Jones MD, [address] [place] [address], [address] . tel:[phone] OFFICE/OUTPA TIENT VISIT, EST [facility], [address] [place] [address], [id number] , [place] tel: [phone] [facility] diabetes (chief complaint)back pain (chief complaint) Diabetes Mellitus, Adult Onset, UncontrolledH ypertension, BenignOther and unspecified hyperlipidemi a 0 201 4 MD Matty Jones. [address] [place] [address], [id number], [place]. tel:[phone] Referring Provider: Matty Jones MD, [address] [place] [address], [address] . tel:[phone] OFFICE/OUTPA TIENT VISIT, NEW [facility], [address] [place] [address], [id number] , tel:[phone] [facility] new patient (chief complaint)vomi ting (chief complaint)inso mnia (chief complaint)weak ness (chief complaint)no energy (chief complaint) Other and unspecified hyperlipidemi aHypertension , BenignGastrit isTobacco AbuseDiabetes Mellitus, Adult Onset, UncontrolledS arcoidosisNon dependent alcohol abuse, continuous drinking behaviorHyper tension, Benign 4 MD Matty Jones. [address] [place] [address], [id number], . tel:[phone] Referring Provider: Matty Jones MD, [address] [place] [address], [address] . tel:[phone] OFFICE/OUTPA TIENT VISIT, [facility], [address] [place] [address], [id number] , tel:[phone] [facility] new patient (chief complaint)vomi ting (chief complaint)inso mnia (chief complaint)weak ness (chief complaint)no energy (chief complaint) Other and unspecified hyperlipidemi aHypertension , BenignGastrit isTobacco AbuseDiabetes Mellitus, Adult Onset, UncontrolledS arcoidosisNon dependent alcohol abuse, continuous drinking behaviorHyper tension, Benign 4 MD Matty Jones. [address] [place] [address], [id number], . tel:[phone] Referring Provider: Matty Jones MD, [address] [place] [address], [address] . tel:[phone] Family History Family Member Type Diagnosis Age At Onset Mother Problem (finding) Fibromyalgia Father Problem (finding) cancer of the esophagus 89 Father Problem (finding) cancer of the esophagus 89 Sister Problem (finding) cancer of colon Sister Problem (finding) cancer of colon Mother Problem (finding) Fibromyalgia Immunizations Vaccine Date Status Comments Influenza, high dose seasonal administere d Source: New Immunization Record Influenza, high dose seasonal administere d Source: New Immunization Record Pneumococcal conjugate PCV 13 administere d Source: New Immunization Record Pneumococcal [...] administered Note: office ; Source: Source Unspecified Flu (split) (3 yrs or older) administered Note: office ; Source: Source Unspecified Pneumo (2 yrs or older)(PPV) administered Note: office ; Source: Source Unspecified Payers Payer name Insurance type Covered democrat ID Authoriza tion(s) Medicare MB [id number] [facility] CI [id number] Medicare [id number] [facility] CI [id number] Medicare MB [id number] [facility] CI [id number] Medicare MB [id number] [facility] CI [id number] Social History Type Description Quantity Date Captured Comments Sex Male Smoking Status No Information Sexual Orientation Choose not to disclose Gender Identity Female Chief Complaint And Reason For Visit No Information Reason For Referral Reason For Referral No Information Plan Of Treatment Date Type Action Status Goal Foot exam. Due on due Goal Abdominal Ultrasound due Goal Chronic Care Man agement (CCM) Program. Due on due Goal Cognitive assess ment. Due on due Goal Annual Care Visi t. Due on due Goal Depression scree meredith. Due on due Goal Form for Advance d Directives. Due on due Goal Influenza vaccin e. Due on due Goal Tetanus Toxoid V accine. Due on due Goal [facility]. Due on due Goal Dilated eye exam . Due on due Goal Colonoscopy. Due on due Goal Wellness Visit. Due on due Goal FOBT. Due on due Goal Tdap. Due on due Goal Tdap. Due on due Goal FOBT. Due on due Goal Colonoscopy. Due on due Goal Influenza vaccin e. Due on due Goal Form for Advance d Directives. Due on due Goal Foot exam. Due on due Goal Annual Care Visi t. Due on due Goal Tetanus Toxoid V accine. Due on due Goal Chronic Care Man agement (CCM) Program. Due on due Goal Dilated eye exam . Due on due Goal Medicare Wellnes s Visit. Due on due Goal Depression scree meredith. Due on due Goal Cognitive assess ment. Due on due Goal Abdominal Ultrasound due Goal Wellness Visit. Due on due Goal Annual Care Visi t. Due on due Goal Foot exam. Due on due Goal Tdap. Due on due Goal Form for Advance d Directives. Due on due Goal Dilated eye exam . Due on due Goal Influenza vaccin e. Due on due Goal Wellness Visit. Due on due Goal Chronic Care Man agement (CCM) Program. Due on due Goal FOBT. Due on due Goal Tetanus Toxoid V accine. Due on due Goal Cognitive assess ment. Due on due Goal Medicare [facility]. Due on due Goal Colonoscopy. Due on due Goal Depression scree meredith. Due on due Goal Abdominal Ultrasound due Goal Annual Care Visi t. Due on due Goal Tetanus Toxoid V accine. Due on due Goal Influenza vaccin e. Due on due Goal Abdominal Ultrasound due Goal Cognitive assess ment. Due on due Goal FOBT. Due on due Goal Tdap. Due on due Goal Medicare [facility]. Due on due Goal Colonoscopy. Due on due Goal Wellness Visit. Due on due Goal Chronic Care Man agement (CCM) Program. Due on due Goal Form for Advance d Directives. Due on due Goal Depression scree meredith. Due on due Goal Colonoscopy. Due on due Goal Wellness Visit. Due on due Goal Depression scree meredith. Due on due Goal Cognitive assess ment. Due on due Goal Form for Advance d Directives. Due on due Goal Medicare Wellnes s Visit. Due on due Goal Influenza vaccin e. Due on due Goal Tetanus Toxoid V accine. Due on due Goal Abdominal Ultrasound due Goal Annual Care Visi t. Due on due Goal FOBT. Due on due Goal Tdap. Due on due Goal Chronic Care Man agement (CCM) Program. Due on due Goal Form for Advance d Directives. Due on due Goal Annual Care Visi t. Due on due Goal Influenza vaccin e. Due on due Goal Tetanus Toxoid V accine. Due on due Goal FOBT. Due on due Goal Wellness Visit. Due on due Goal Cognitive assess ment. Due on due Goal Colonoscopy. Due on due Goal Abdominal Ultrasound due Goal Tdap. Due on due Goal Depression scree meredith. Due on due Goal Medicare Wellnes s Visit. Due on due Goal Chronic Care Man agement ([facility]) Program. Due on due Goal Cognitive assess ment. Due on due Goal Abdominal Ultrasound due Goal Influenza vaccin e. Due on due Goal Annual Care Visi [...] on due Goal Lipid panel. Due on 021 due Goal Colonoscopy. Due on due Goal Abdominal Ultrasound due Goal FOBT. Due on due Goal Tdap. Due on due Goal Chronic Care Man agement (CCM) Program. Due on due Goal Form for Advance d Directives. Due on due Goal Medicare [facility]. Due on due Goal Influenza vaccin e. Due on due Goal Cognitive assess ment. Due on due Goal Chronic Care Man agement (CCM) Program. Due on due Goal Depression scree meredith. Due on due Goal Lipid panel. Due on due Goal Colonoscopy. Due on due Goal Tdap. Due on due Goal Annual Care Visi t. Due on due Goal Abdominal Ultrasound due Goal FOBT. Due on due Goal Medicare Wellnes s Visit. Due on due Goal Wellness Visit. Due on due Goal Tetanus Toxoid V accine. Due on due Goal Influenza vaccin e. Due on due Goal Form for Advance d Directives. Due on due Goal Chronic Care Man agement (CCM) Program. Due on due Goal Lipid panel. Due on due Goal Form for Advance d Directives. Due on due Goal Influenza vaccin e. Due on due Goal Colonoscopy. Due on due Goal Abdominal Ultrasound due Goal Annual Care Visi t. Due on due Goal Tetanus Toxoid V accine. Due on due Goal Tdap. Due on due Goal Cognitive assess ment. Due on due Goal FOBT. Due on due Goal Depression scree meredith. Due on due Goal Wellness Visit. Due on due Goal Medicare Wellnes s Visit. Due on due Goal Wellness Visit. Due on due Goal Chronic Care Man agement (CCM) Program. Due on due Goal Lipid panel. Due on due Goal Depression scree meredith. Due on due Goal Form for Advance d Directives. Due on due Goal Annual Care Visi t. Due on due Goal Abdominal Ultras ound. Due on due Goal FOBT. Due on due Goal Tetanus Toxoid V accine. Due on due Goal Colonoscopy. Due on due Goal Influenza vaccin e. Due on due Goal Medicare Wellnes s Visit. Due on due Goal Tdap. Due on due Goal Cognitive assess ment. Due on due Goal Tdap. Due on due Goal Wellness Visit. Due on due Goal Annual Care Visi t. Due on due Goal Cognitive assess ment. Due on due Goal Tetanus Toxoid V accine. Due on due Goal Medicare Wellnes s Visit. Due on due Goal Colonoscopy. Due on due Goal Lipid panel. Due on due Goal Chronic Care Man agement (CCM) Program. Due on due Goal FOBT. Due on due Goal Depression scree meredith. Due on due Goal Form for Advance d Directives. Due on due Goal Influenza vaccin e. Due on due Goal Abdominal Ultras ound. Due on due Goal Influenza vaccin e. Due on due Goal Chronic Care Man agement (CCM) Program. Due on due Goal Tetanus Toxoid V accine. Due on due Goal Lipid panel. Due on due Goal Form for Advance d Directives. Due on due Goal Wellness Visit. Due on due Goal Medicare Wellnes s Visit. Due on due Goal Depression scree meredith. Due on due Goal Tdap. Due on due Goal Cognitive assess ment. Due on due Goal Annual Care Visi t. Due on due Goal Colonoscopy. Due on due Goal Abdominal Ultras ound. Due on due Goal Special diet education compl eted Goal Cognitive assess ment. Due on due Goal Colonoscopy. Due on due Goal Tdap. Due on due Goal Wellness Visit. Due on due Goal Depression scree meredith. Due on due Goal Chronic Care Man agement (CCM) Program. Due on due Goal Annual Care Visi t. Due on due Goal Form for Advance d Directives. Due on due Goal Lipid panel. Due on due Goal Medicare Wellnes s Visit. Due on due Goal Tetanus Toxoid V accine. Due on due Goal Abdominal Ultras ound. Due on due Goal Influenza vaccin e. Due on due Goal Form for Advance d Directives. Due on due Goal Colonoscopy. Due on due Goal Tdap. Due on due Goal Tetanus Toxoid V accine. Due on due Goal Influenza vaccin e. Due on due Goal Medicare Wellnes s Visit. Due on due Goal Annual Care Visi t. Due on due Goal Lipid panel. Due on due Goal Cognitive assess ment. Due on due Goal Abdominal Ultras ound. Due on due Goal Chronic Care Man agement (CCM) Program. Due on due Goal Wellness Visit. Due on due Goal Depression scree meredith. Due on due Goal Annual Care Visi t. Due on due Goal Lipid panel. Due on due Goal Abdominal Ultras ound. Due on due Goal Cognitive assess ment. Due on due Goal Depression scree meredith. Due on due Goal Chronic Care Man agement (CCM) Program. Due on due Goal Tdap. Due on due Goal Form for Advance d Directives. Due on due Goal Medicare Wellnes s Visit. Due on due Goal Tetanus Toxoid V accine. Due on due Goal Influenza vaccin e. Due on due Goal Colonoscopy. Due on due Goal Wellness Visit. Due on due Goal Special diet education compl eted Goal Annual Care Visi t. Due on due Goal Tdap. Due on due Goal Form for Advance d Directives. Due on due Goal Colonoscopy. Due on due Goal Abdominal Ultras ound. Due on due Goal Cognitive assess ment. Due on due Goal Influenza vaccin e. Due on due Goal Tetanus Toxoid V accine. Due on due Goal Wellness Visit. Due on due Goal Chronic Care Man agement (CCM) Program. Due on due Goal Depression scree meredith. Due on due Goal Medicare Wellnes s Visit. Due on due Goal Medicare Wellnes [...] due Goal Colonoscopy. Due on due Goal Annual Care Visi t. Due on due Goal Medicare Wellnes s Visit. Due on due Goal Tetanus Toxoid V accine. Due on due Goal Tdap. Due on due Goal Influenza vaccin e. [...] Influenza vaccin e. Due on due Goal Form for Advance d Directives. Due on due Goal Abdominal Ultras ound. Due on due Goal Cognitive assess ment. Due on due Goal Tdap. Due on due Goal Depression scree meredith. Due on due Goal Annual Care Visi t. Due on due Goal Colonoscopy. Due on 020 due Goal Medicare Wellnes s Visit. Due on due Goal Tetanus Toxoid V accine. Due on due Goal Form for Advance [...] Abdominal Ultras ound. Due on due Goal Influenza vaccin e. Due on due Goal Medicare Wellnes s Visit. Due on due Goal Tetanus Toxoid V accine. Due on due Goal Annual Care Visi t. Due on due Goal Wellness Visit. Due on due Goal Depression scree meredith. Due on due Goal Form for Advance d Directives. Due on due Goal Chronic Care Man agement ([facility]) Program. Due on due Goal Annual Care Visi t. Due on due Goal Abdominal Ultras ound. Due on due Goal Medicare Wellnes s Visit. Due on due Goal Tetanus Toxoid V accine. Due on due Goal Depression scree meredith. Due on due Goal Chronic Care Man agement (CCM) Program. Due on due Goal Wellness Visit. Due on due Goal Form for Advance d Directives. Due on due Goal Cognitive assess ment. Due on due Goal Prevnar 13 due Goal Annual Care Visi t. Due on due Goal Tetanus Toxoid V accine. Due on due Goal Chronic Care Man agement (CCM) Program. Due on due Goal Abdominal Ultras ound. Due on due Goal Medicare Wellnes s Visit. Due on due Goal Cognitive assess ment. Due on due Goal Depression scree meredith. Due on due Goal Form for Advance d Directives. Due on due Goal Wellness Visit. Due on due Goal Prevnar 13 due Goal Chronic Care Man agement (CCM) Program. Due on due Goal Form for Advance d Directives. Due on due Goal Medicare Wellnes s Visit. Due on due Goal Prevnar 13. Due on 17 due Goal Abdominal Ultras ound. Due on due Goal Depression scree meredith. Due on due Goal Cognitive assess ment. Due on due Goal Annual Care Visi t. Due on due Goal Wellness Visit. Due on due Goal Tetanus Toxoid V accine. Due on due Goal Abdominal Ultras ound. Due on due Goal Tetanus Toxoid V accine. Due on due Goal Prevnar 13. Due on 17 due Goal Form for Advance d Directives. Due on due Goal Medicare Wellnes s [...] due Goal PSA. Due on due Goal PSA. Due on [...] Goal Wellness Visit. Due on due Goal PSA. Due on due Goal PSA. Due on [...] Abdominal Ultras ound. Due on due Goal FOBT. Due on due Goal Colonoscopy. Due on 014 due Goal Zoster vaccine. Due on due Goal Td Vaccine. Due on 14 due Goal Influenza vaccin e. Due on due Goal Abdominal Ultras ound. Due on due Goal Depression scree meredith. Due on due Goal Colonoscopy. Due on 014 due Goal Zoster vaccine. Due on due Goal FOBT. Due on due Goal Depression scree meredith. Due on due Goal Abdominal Ultras ound. Due on due Goal Td Vaccine. Due on 14 due Goal Influenza vaccin e. Due on due Goal Influenza vaccin e. Due on due Goal Depression scree meredith. Due on due Goal Zoster vaccine. Due on due Goal FOBT. Due on due Goal Td Vaccine. Due on 14 due Goal Colonoscopy. Due on due Goal Abdominal Ultras ound. Due on due Goal Abdominal Ultras ound. Due on due Goal Influenza vaccin e. Due on due Goal FOBT. Due on due Goal Depression scree meredith. Due on due Goal Colonoscopy. Due on 014 due Goal Td Vaccine. Due on 14 due Goal Zoster vaccine. Due on due Goal Influenza vaccin e. Due on due Goal PSA. Due on due Goal Td Vaccine. Due on 14 due Goal Colonoscopy. Due on 014 due Goal FOBT. Due on due Goal FOBT. Due on due Goal PSA. Due on due Goal Influenza vaccin e. Due on due Goal Colonoscopy. Due on 014 due Goal Td Vaccine. Due on 14 due Future Order: Radiology Order Ch est X-ray, 2 views ([id number]), Ordered on: Ordered Future Order: Lab Order CMP ([id number]), Ordered on: Ordered Future Order: Lab Order Hemoglob in A1c ([id number]), Ordered on: Ordered Future Order: Lab Order CBC w/di ff ([id number]), Ordered on: Ordered Future Order: Lab Order CMP ([id number]), Ordered on: Ordered Future Order: Lab Order Lipid Pa miriam ([id number]), Ordered on: Ordered Future Order: Lab Order TSH Rfx on Abnormal to Free T4 ([id number]), Ordered on: Ordered Future Order: Lab Order CBC w/di ff ([id number]), Ordered on: Ordered Future Order: Lab Order BMP ([id number]), Ordered on: Ordered Future Order: Lab Order Hemoglob in A1c ([id number]), Ordered on: Ordered Future Order: Lab Order Microalb umin, Random Urine ([id number]), Ordered on: Ordered Future Order: Lab Order TSH Rfx on Abnormal to Free T4 ([id number]), Ordered on: Ordered Future Order: Lab Order Hemoglob in A1c ([id number]), Ordered on: Ordered Future Order: Lab Order CMP ([id number]), Ordered on: Ordered Future Order: Lab Order PSA ([id number]), Ordered on: Ordered Future Order: Lab Order PSA ([id number]), Ordered on: Ordered Future Order: Lab Order HEMOGLOB IN A1C (HGBA1C), Ordered on: Ordered Future Order: Lab Order MICROALB UMIN (RANDOM) (MICROA), Ordered on: Ordered Future Order: Lab Order [...] Date Complaint History Of Prese nt Illness Positive exposure Headache Cough Anxiety/Depression prostate enlargement hypertension diabetes Depression hyperlipidemia Risk factors inc lude age over 50. diabetes Comorbidity: Hyp ertension. diabetes Comorbidity: Hyp ertension. hyperlipidemia Risk factors inc lude age over 50. med review Med review med review cough headache cough headache medication review medication review ear problems diabetes ear problems diabetes Back pain Back pain Diabetes Mellitus Hypertension Hyperlipidemia Diabetes Mellitus Hypertension Hyperlipidemia Frequent urination Frequent urination Pain Pain ringing in his left ear ringing in his left ear SHOULDER PAIN SHOULDER PAIN diabetes diabetes diabetes hypertension diabetes hypertension diabetes fatigue fatigue diabetes vomitting fatigue nausea fatigue nausea vomitting diabetes Comorbidity: Hyp ertension. diabetes Comorbidity: Hyp ertension. shortness of breath diabetes He Has been herve ged with oral medications. Comorbidity: Hypertension. shortness of breath diabetes He Has been herve ged with oral medications. Comorbidity: Hypertension. high blood sugars high blood sugars Diabetes Diabetes diabetes He Has been herve ged with oral medications. Comorbidity: Hypertension. diabetes He Has been herve ged with oral medications. Comorbidity: Hypertension. diabetes diabetes Functional Status Date Functional Assessmen t No Information Instructions Date Instruction Additional Infor anita Special diet education Related t o Body mass index (BMI) 25.0-25.9, adult Prescribed activity/ exercise education Related to Body mass index (BMI) 24.0-24.9, adult Weight gain advised Related to B veronika mass index (BMI) 24.0-24.9, adult Special diet education Related t o Body mass index (BMI) 24.0-24.9, adult Assessments Type Assessment Date No Information Patient Care Teams Name Effective Dates (start - stop) Status Members No Information
--- OUTSIDE RECORDS SUMMARY | 2024-05-24 11:50 | XMS_ITS | Data Portability ---
Author Organization [place] [facility] [email or web address], Main Office Address [address] [place] [address] Care Team Providers Care Construction Sales Manager Name Role Phone BRISEIDA OBRIEN Primary Care Provider BRISEIDA OBRIEN Referring Provider Assessment Encounter Date Assessment Date Assessment LastModified by Organization Details LastModified Time 07/28/2023 07/28/2023 72-year-old patient presents today with right knee pain that has been going on for the last few weeks. He denies any injury. He states that it feels like meniscal pain. He previously had surgery on his right medial meniscus in 2004 and again in 2009. He has pain and severe swelling with walking and twisting motions. The pain has been keeping him up at night for the last week. For treatment he has tried wearing a brace. Review of systems per patient questionnaire Imaging: X-rays reviewed show No acute bony abnormality or fracture. Moderate degenerative osteoarthritic changes/joint space narrowing on the medial side of the knee. Physical exam: Minimal edema. Pain with palpitation on medial side. range of motion 0-150. Some discomfort with deep flexion. Positive Loreto's. Sensation intact throughout. We will start with a course of physical therapy to help stretch and strengthen his knee. Today we discussed the risks and benefits of a cortisone injection. He elected to proceed with the injection today. He states he does not like taking medications but will try oral anti-inflammatori es [id number] if needed. We will see him back in 6-8 weeks to check his progress. [email or web address] Not available 07/30/2023 09:01:40 09/15/2023 09/15/2023 72-year-old male presents for follow-up of his knee arthritis. He got a cortisone injection last time. We also ordered physical therapy which she has not done yet because of scheduling issues. He is also taking anti-inflammatori es occasionally. He reports feeling better, rates his pain as 5/10. Nonantalgic gait. Tenderness over the medial and lateral joint line. Range of motion 10-130. Sensation intact to light touch X-rays reviewed, demonstrating degenerative changes especially the medial compartment with joint space narrowing and sclerosis and osteophytes We will continue conservative management. I advised him to try to schedule physical therapy, and in the meantime we will give him a printout with home exercise program. He should continue taking anti-inflammatori es. He inquired about repeat cortisone injections, and we discussed that although this can be repeated every several months, he should try the other therapy and medications 1st. He may follow up as needed. [email or web address] Not available 09/15/2023 12:01:40 12/16/2023 12/16/2023 The patient has severe primary osteoarthritis of the right knee joint as described. We reviewed his previous x-rays in detail today. Under sterile conditions I injected the patient's right knee joint in the office with for cc 0.5% bupivacaine and 20 mg of Kenalog. Patient tolerated procedure well. I will see him back as needed we can do this again in 3 months if necessary I have advised him to stop taking hydrocodone slowly wean himself off of that he was given a prescription for Celebrex 200 mg daily. If he has any problems difficulties or questions he is instructed to call he voiced understanding and agrees with the above plan. [email or web address] Not available 12/16/2023 14:12:47 Plan of Treatment Reminders Order Date Submit Date Provider Last Modified By Organization Details Last Modified Time Details Appointments None recorded. Lab None recorded. Referral physical therapist referral - eval and treat 2023 024 [email or web address] [facility], [address], [place], [address], 4 17:15:03 Procedures injection/a spiration joint/bursa (PROC) 2023 024 [email or web address] In-Office Order, Internal Use Only DO Not Attach Compendium DO Not Attach Compendium, Do Not Delete/merge, [id number] 09/12/202 4 13:50:42 injection/a spiration joint/bursa (PROC) - in office procedure, administere d by provider 2023 024 [email or web address] 3 In-Office Order, Internal Use Only DO Not Attach Compendium DO Not Attach Compendium, Do Not Delete/merge, [id number] 4 15:06:06 Surgeries None recorded. Imaging XR, knee, 3 view 2023 024 [email or web address] [facility] [place], [address] [facility] [address], [place], [address], 18:16:49 Medication Orders bupivacaine HCl 0.5 % (5 mg/mL) injection solution 2023 024 [id number], [address], [phone], 14:27:49 Kenalog 10 mg/mL suspension for injection 2023 024 [email or web address] [id number], [address] [facility] [address] [place] [address], [id number], 14:27:49 celecoxib 200 mg capsule 2023 024 [email or web address] [id number], [address] [facility] [address] [place] [address], [id number], 14:27:49 Kenalog 10 mg/mL suspension for injection 2023 024 [email or web address] Not available 09:17:15 ropivacaine (PF) 5 mg/mL (0.5 %) injection solution 2023 024 [email or web address] [facility], [address] [facility] [address] [place] [address], [id number], 17:15:03 Patient TargetsNo targets recorded. Patient InstructionsNo instructions recorded. Reason for Referral Physical Therapist Referral for Pain of right knee joint eval and treat Referring Physician: Sally Lockhart, Orthopedic Surgery, Encounter Date: 07/28/2023 Results Created Date Observation Date Name Description Value Unit Range Abnormal Flag Note LastModifiedBy Organization Detail LastModifiedTime 07/28/19 XR, knee, 3 view No observ ation record ed. [email or web address] [facility] [place] [address], [place], [address], 07/29/2023 18:16:47 Result Notes None recorded. Problems Name Problem SNOMED Code Status Onset Date Resolution Date Notes Provider Name and Address Organization Details Recorded Time Pain of right knee joint 4158338989839 00 Active 2023 LASHAE Mittal [employer] 14:40:11 Osteoarthri tis of right knee joint 7324148654111 00 Active 2023 BENITA Capellan [address], [address], [place], [address], [employer] 14:12:56 Problem Notes None recorded. Procedures Surgical History Date Name Laterality Status Provider Name and Address Organization Details Recorded Time 07/28/19 Ortho - Cortisone Injection completed Sally Lockhart NP [address], [address], [place], [address], [employer] 07/29/2023 18:26:30 Appendectomy completed LASHAE Mittal [employer] 07/28/2023 14:38:31 repair of meniscus completed LASHAE Mittal [employer] 07/28/2023 14:39:10 Imaging Results Imaging Date Name Status LastModified by Organiz ation Details LastModified Time 07/28/2023 XR, knee, 3 view completed [email or web address] [facility] [place] [address], [place], [address], 07/29/2023 18:16:47 Procedure Notes None recorded. Medical Equipment None Reported. Medications Name Sig Start Date Stop Date Status Note LastModified by Organization Details LastModified Time celecoxib 200 mg capsule TAKE 1 CAPSULE BY MOUTH EVERY DAY active Not Available Not Available No t Available fluticasone 250 mcg-salmete rol 50 mcg/dose blistr powdr for inhalation active Not Available Not Available N ot Available atorvastati n 20 mg tablet TAKE 1 TABLET BY MOUTH DAILY active Not Available Not Available No t Available bupivacaine HCl 0.5 % (5 mg/mL) injection solution Take 20 mg by injection route. 2023 active Not Available Not Available Not Avai lable prednisone 20 mg tablet 07/27 completed Not Available Not Available Not Available clobetasol 0.05 % topical cream APPLY TOPICALLY TO THE AFFECTED AREA TWICE DAILY FOR 2 WEEKS 07/27 completed Not Available Not Available Not Available alprazolam 0.5 mg tablet TAKE 1 TABLET BY MOUTH TWICE DAILY NEEDED FOR ANXIETY 07/27 completed Not Available Not Available Not Available Kenalog 10 mg/mL suspension for injection Take 20 mg by injection route. 2023 active [facility]: 0003- 0494- 20 Not Available Not Available Not Available benzonatate 100 mg capsule 07/27 completed Not Available Not Available Not Available hydrocodone 7.5 mg-acetamin ophen 325 mg tablet TAKE 1 TABLET BY MOUTH THREE TIMES DAILY NEEDED FOR PAIN active Not Available Not Available No t Available pantoprazol e 40 mg tablet,patt yed release TAKE 1 TABLET BY MOUTH DAILY active Not Available Not Available No t Available trazodone 150 mg tablet active Not Available Not Available Not Available losartan 25 mg tablet active Not Available Not Available No t Available gabapentin 300 mg capsule active Not Available Not Available Not Available Novolog U-100 Insulin aspart 100 unit/mL subcutaneou s solution active Not Available Not Available N ot Available albuterol sulfate HFA 90 mcg/actuati on aerosol inhaler active Not Available Not Available Not Available Novolog FlexPen U-100 Insulin aspart 100 unit/mL (3 mL) subcutaneou s active Not Available Not Available Not Available Lantus Solostar U-100 Insulin 100 unit/mL (3 mL) subcutaneou s pen active Not Available Not Available Not Available ropivacaine (PF) 5 mg/mL (0.5 %) injection solution in office 2023 active [facility] [address]30 -[phone] 01 Not Available Not Available Not Available Creon 36,000 unit-114,00 0 unit-180,00 0 unit capsule,del ayed release active Not Available Not Available Not Available baclofen 5 mg tablet active Not Available Not Available No t Available Gvoke HypoPen 2-Pack 1 mg/0.2 mL subcutaneou s auto-inject or active Not Available Not Available Not Available Omnipod 5 G6 Pods (Gen 5) subcutaneou s cartridge CHANGE EVERY 3 DAYS DIRECTED active Not Available Not Available No t Available Omnipod 5 G6 Intro Kit (Gen 5) subcutaneou s cartridge with controller USE DIRECTED active Not Available Not Available No t Available Vitals Date Recorded Body height Body mass index (BMI) Body weight Pain severity - 0-10 verbal numeric rating [Score] - Reported Provider Name and Address Organization Details Last Updated DateTime 07/28/2023 190.5 cm 24.2 kg/m2 94485.92 g 8 LASHAE Mittal [employer] [facility] [email or web address] 07/28/2023 14:36:48 Date Recorded Body height Body mass index (BMI) Body weight Pain severity - 0-10 verbal numeric rating [Score] - Reported Provider Name and Address Organization Details Last Updated DateTime 09/15/2023 190.5 cm 24.4 kg/m2 33892.51 g 6 LASHAE Mittal [employer] 09/15/2023 11:49:00 Date Recorded Body height Body mass index (BMI) Body weight Provider Name and Address Organization Details Last Updated DateTime 12/16/2023 190.5 cm 24.4 kg/m2 72640.51 g Makayla Ponce 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 None [email or web address] Information not available 07/28/2023 What Was The Date Of Your Most Recent Tobacco Screening? 07/28/2023 [email or web address] Information not available 07/28/2023 How Much Tobacco Do You Smoke? 0.5 PPD [email or web address] Information not available 07/28/2023 Sex: Unknown Functional Status None recorded. Mental Status None recorded. Family History Relationship Description Onset Age of this Age Resolved Age Notes LastModified by Organization Details LastModified Time Father Family history of malignant neoplasm [email or web address] Not available 2023 14:37:48 Medical History Condition Response CANCER: SPECIFY Y Past Encounters Encounter ID Performer Location Encounter Start Date Encounter Closed Date Diagnosis/Indication Diagnosis SNOMED-CT Code Diagnosis ICD10 Code Diagnosis Note [id number] Sally Lockhart NP [facility] [place] [address] [place] [address] 07/28/2023 14:18:47 07/28/2023 15:07:31 Pain of right knee joint [id number] 22005 M25.322 [id number] Cristiano Senior MD [facility] [place] [address] [place] [address] 09/15/2023 11:46:54 09/15/2023 12:07:43 Pain of right knee joint 2755213043 23792 M25.267 [id number] BENITA Capellan [facility] [place] [address] [place] [address] 12/16/2023 13:41:09 12/16/2023 14:28:15 Pain of right knee joint 7838209269 90808 M25.561 Osteoarthr itis of right knee joint 4168527607 41692 M17.11 Health Concerns Section Related Observation LastModified by Organization Detai ls LastModified Time None Recorded Concern Status LastModified by Organization Details LastModified Time None Recorded Advance Directives Directive None Recorded Payers Encounter Date Sequence Insurance Name Policy Number Policy Hooper Covered Member ID Hooper Member ID Guarantor Name 07/28/2023 1 [place] [id number] Pradip D Guard [id number] Pradip Guard 09/15/2023 1 [place] [id number] Pradip D Guard [id number] Pradip Guard 12/16/2023 1 [place] - [place]) [id number] Pradip Leos Guard [id number] Pradip Guard Notes Date Note Type Note Provider Name and Address Organization Details Recorded Time 12/16/2023 text/html Patient returns with right knee pain he has known severe primary osteoarthritis with [id number] changes in medial compartment and significant narrowing in the patellofemoral articulation as well with small marginal osteophytes. He states he has had a shot of cortisone earlier this year it has been several months this worked well for him his last visit with Dr. Senior is 3 months ago he was doing well was advised to continue with therapy exercises and a home program. The patient states he does take hydrocodone daily 2 to 3 times a day for right knee pain I have advised him this is not an appropriate treatment for osteoarthritis particularly with a single joint I have advised him to get off of that and try some nonsteroidal anti-inflammatory medication currently he states he is not taking anything we will get him set up with Celebrex in the meantime he would also like a shot of cortisone in his right knee again. BENITA Capellan [address], [facility] [address], [place], [address], [place] [employer] [email or web address] 12/16/2023 14:13:33
--- NOTE | 2024-05-24 12:04 | ED_ITS ---
HPI - Back Pain/Injury General Chief Complaint: Back Pain/Injury <Tianna Dorantes MD - Last Filed: 05/25/24 21:43> Stated Complaint: double vision/back pain since yesterday AM <Tianna Dorantes MD - Last Filed: 05/25/24 21:43> Time Seen by Provider: 05/24/24 11:56 <Tianna Dorantes MD - Last Filed: 05/25/24 21:43> Source: patient <Tianna Dorantes MD - Last Filed: 05/25/24 21:43> Mode of arrival: ambulatory <Tianna Dorantes MD - Last Filed: 05/25/24 21:43> Limitations: no limitations <Tianna Dorantes MD - Last Filed: 05/25/24 21:43> History of Present Illness HPI Narrative: 73 years old white male came to the ED with his significant other by car complaining of double vision with both eyes open, headache, dizziness, right lower back pain started yesterday morning after waking up from sleep. Double vision get worse if he goes outside. Patient had history of lower back pain at the right side for years, resolved over the last 10 years and started coming back again yesterday morning. Patient denies any trauma or new physical activities. History of diabetes hypertension hyperlipidemia COPD could depression tobacco use, lung cancer of unknown name been managed by chemotherapy and radiation therapy and was told is done, Sarcoidosis. <Tianna Dorantes MD - Last Filed: 05/25/24 21:43> Related Data Home Medications: Home Medications ?Medication ?Instructions ?Recorded ?Confirmed ?Last Taken ?Type gabapentin 300 mg capsule 600 mg PO QPM 09/01/22 04/19/24 11/29/23 History <Tianna Dorantes MD - Last Filed: 05/25/24 21:43> Allergies/Adverse Reactions: Allergies Allergy/AdvReac Type Severity Reaction Status Date / Time Shrimp Allergy Unknown Vomiting Uncoded 05/24/24 12:05 <Tianna Dorantes MD - Last Filed: 05/25/24 21:43> Review of Systems 2 Review of Systems: All systems reviewed & are unremarkable except as noted in HPI and below <Tianna Dorantes MD - Last Filed: 05/25/24 21:43> PMFSH Past Medical History Medical History: Medical History Colon polyp Diabetes mellitus type 1.5 Neuropathy GERD (gastroesophageal reflux disease) Hypertension Type 1.5 diabetes, managed as type 1 Insomnia Chronic pain syndrome Lung cancer Squamous papilloma Anxiety History of sarcoidosis COPD (chronic obstructive pulmonary disease) Pancreatic insufficiency T2DM (type 2 diabetes mellitus) Hilar mass Acute hyponatremia <Tianna Dorantes MD - Last Filed: 05/25/24 21:43> Surgical History Surgical History: Surgical History History of appendectomy History of tonsillectomy <Tianna Dorantes MD - Last Filed: 05/25/24 21:43> Family History Family History: Family History Sibling Carcinoma of colon sister Alcoholism brother Father Esophagus cancer <Tianna Dorantes MD - Last Filed: 05/25/24 21:43> Social History Social History: Social History Smoking packs per day: 0.75 Smoking cigarettes per day: 15.0 Years smoked: 59 Smoking pack-years: 44.25 Smoking status: Current every day smoker Tobacco type: cigarettes Additional smoking assessment comments: Started smoke around age 13 or 14 Alcohol intake: former Drinks per week: 84 Alcohol use details: stopped drinking for one year, recent stress caused binge weekend. No drinks since. Has quit drinking since 11/2022. Substance use: former Substance use type: does not use Other substance usage details: cocaine Last use: 2009 Lack of Transportation: No Lack of Food: Never True Current Housing: I Have Housing Concerned About Future Housing: No Difficulty Paying Gas/Electric Bills: No Difficulty Paying for Meds: No Currently Unemployed: No Education: High School Diploma/GED Difficulty w/ Childcare or Family Care: No Living arrangements: with family Occupation/Education: retired Gender identity (if verbalized by the patient): Male Spiritual care concerns: No <Tianna Dorantes MD - Last Filed: 05/25/24 21:43> Exam 2 Narrative: General appearance: Well-developed, well-nourished Skin: Normal color Head: Normocephalic, nontraumatic Eyes: Clear conjunctiva ENT: Oropharynx normal, ears normal, nose normal Neck: Supple, nontender Chest and respiratory: Airway patent, no respiratory distress, no accessory muscle use Heart: Regular rate/rhythm Abdomen: Soft, nontender, no organomegaly, quiet bowel sounds Vascular: Normal peripheral pulses, normal capillary refill. Musculoskeletal: Limited range of motion at the lumbar area because of right lower back pain, no localized tenderness, no bruises, no rash or swelling Neurologic: Alert and oriented ?3, EARTHMOVING LABOURER is normal as tested, no gross motor deficit <Tianna Dorantes MD - Last Filed: 05/25/24 21:43> Course Course Emergency Course: Patient resting comfortably. Having some visual disturbance and dizziness when he walks. I have discussed with the hospitalist service and he has been here for 48 hours still waiting a bed and we will admit for MRI in observation. <Raphael Atwodo MD - Last Filed: 05/26/24 12:31> Consultations Consultation #1: DR SANTOS, WEASAND TRIMMER AT [facility],/WAITING LIST <Tianna Dorantes MD - Last Filed: 05/25/24 21:43> Date: 05/24/24 <Tianna Dorantes MD - Last Filed: 05/25/24 21:43> Consultation #2: DR BARRY, ONCOLOGIST AT [facility] WHO ACCEPTED PATIENT TRANSFER <Tianna Dorantes MD - Last Filed: 05/25/24 21:43> Date: 05/24/24 <Tianna Dorantes MD - Last Filed: 05/25/24 21:43> Consultation #3: PATIENT CARE TRANSFERRED TO DR. GAMBOA AT [facility] WAITING FOR DISPOSITION <Tianna Dorantes MD - Last Filed: 05/25/24 21:43> Date: 05/24/24 <Tianna Dorantes MD - Last Filed: 05/25/24 21:43> Vital Signs Vital signs: Vital Signs Temperature 97.4 F L 05/24/24 11:57 Pulse Rate 110 H 05/24/24 11:57 Respiratory Rate 16 05/24/24 11:57 Blood Pressure 132/80 05/24/24 11:57 Pulse Oximetry 96 05/24/24 11:57 Oxygen Delivery Room Air 05/24/24 11:57 Temperature 98.2 F 05/26/24 09:26 Pulse Rate 78 05/26/24 09:26 Respiratory Rate 16 05/26/24 09:26 Blood Pressure 138/86 05/26/24 09:26 Pulse Oximetry 99 05/26/24 09:26 Oxygen Delivery Room Air 05/24/24 11:57 <Tianna Dorantes MD - Last Filed: 05/25/24 21:43> Vital Signs Temperature 97.4 F L 05/24/24 11:57 Pulse Rate 110 H 05/24/24 11:57 Respiratory Rate 16 05/24/24 11:57 Blood Pressure 132/80 05/24/24 11:57 Pulse Oximetry 96 05/24/24 11:57 Oxygen Delivery Room Air 05/24/24 11:57 Temperature 98.2 F 05/26/24 09:26 Pulse Rate 78 05/26/24 09:26 Respiratory Rate 16 05/26/24 09:26 Blood Pressure 138/86 05/26/24 09:26 Pulse Oximetry 99 05/26/24 09:26 Oxygen Delivery Room Air 05/24/24 11:57 <Raphael Atwood MD - Last Filed: 05/26/24 12:31> MDM - Back Pain/Injury MDM Narrative Medical decision making narrative: Patient presents with double vision, headache, dizziness and right lower back pain started yesterday morning Vital signs showing heart rate of 110 otherwise within normal limit Physical examination showing limited range of motion at the lumbar area because of pain otherwise within normal limit Differential diagnosis include metastasis, CVA, musculoskeletal pain, kidney stone, malignancy Blood workup today includes CBC, CMP, lipase, showed WBC 12.9, otherwise within normal limit EKG on arrival showed normal sinus rhythm at 98 beats per minute, left atrial enlargement, borderline EKG, no previous EKG available for comparison CT head without contrast showed no acute abnormalities CT chest abdomen and pelvis with IV contrast showed questionable lung malignancy, emphysema, finding consistent with sarcoidosis, questionable colonic adenocarcinoma versus peristalsis, consider colonoscopy Urinalysis showed showed no evidence of infection Patient tested negative for COVID flu and RSV Visual acuity 20/20 right eye, 20/20 left eye <Tianna Dorantes MD - Last Filed: 05/25/24 21:43> Differential Diagnosis Differential diagnosis: Likely other (As above) <Tianna Dorantes MD - Last Filed: 05/25/24 21:43> Medical Records Attestation: I reviewed the patient's medical records. <Tianna Dorantes MD - Last Filed: 05/25/24 21:43> Lab Data Attestation: I reviewed the patient's lab results. <Tianna Dorantes MD - Last Filed: 05/25/24 21:43> Result diagrams: 05/24/24 12:44 05/24/24 12:44 <Tianna Dorantes MD - Last Filed: 05/25/24 21:43> Labs: Lab Results 05/24/24 05/24/24 05/24/24 Range/Units 12:44 13:26 22:29 WBC 12.9 H (4.5-10.0) K/mm3 RBC 4.31 L (4.6-6.20) M/mm3 Hgb 13.4 L (14.0-18.0) g/dL Hct 40.2 L (42.0-52.0) % MCV 93.3 (80-100) fl MCH 31.1 (26-34) pg MCHC 33.3 (32-36) g/dl RDW 16.0 H (11.5-14.5) % Plt Count 259 (150-375) k/mm3 MPV 9.8 (7.4-10.4) fl Immature Gran % (Auto) 0.5 (0-0.5) % Neut % (Auto) 70.8 (45.5-73.1) % Lymph % (Auto) 16.8 L (18.3-44.2) % [place] % (Auto) 10.0 H (2.6-8.5) % Eos % (Auto) 1.6 (0-4.4) % Baso % (Auto) 0.3 (0.2-1.2) % Lymph # (Auto) 2.16 (0.9-3.2) K/mm3 [place] # (Auto) 1.3 H (0.1-0.6) K/mm3 Eos # (Auto) 0.2 (0-0.3) K/mm3 Baso # (Auto) 0.0 (0.0-0.1) K/mm3 Abs Immat Gran (auto) 0.07 H (0.00-0.031) K/mm3 Absolute Neuts (auto) 9.1 H (1.3-6.7) K/mm3 Absolute Nucleated RBC 0.000 (0.0-0.012) K/mm3 Nucleated RBC % 0.0 (0.0-0.2) % PT 13.6 (11.1-14.7) Seconds INR 1.0 APTT 34.8 (22.3-36.8) Seconds Sodium 136 L (137-145) mmol/L Potassium 4.7 (3.4-5.0) mmol/L Chloride 101 (98-107) mmol/L Carbon Dioxide 27 (22-30) mmol/L Anion Gap 8 (4-12) mmol/L BUN 13 (9-20) mg/dL Creatinine 0.93 (0.7-1.3) mg/dL Estim Creat Clear Calc 73 ml/min Estimated GFR > 60 (59 - ) Glucose 153 H (65-110) mg/dL POC Capillary Glucose 107 H (65-105) mg/dl Calcium 9.2 (8.4-10.2) mg/dL Total Bilirubin 0.6 (0.2-1.3) mg/dL AST 21 (17-59) U/L ALT 21 (6-50) U/L Alkaline Phosphatase 55 (38-126) U/L Total Protein 7.0 (6.3-8.2) g/dL Albumin 4.1 (3.5-5.1) g/dL Urine Color Yellow (Yellow) Urine Appearance Clear (Clear) Urine pH 7.5 (5.0-9.0) Ur Specific [place] 1.012 (1.001-1.035) Urine Protein Negative (Negative) mg/dL Urine Glucose (UA) Negative (Negative) mg/dL Urine Ketones Negative (Negative) mg/dL Ur Blood (Man) Negative (Negative) Urine Nitrate Negative (Negative) Urine Bilirubin Negative (Negative) Urine Urobilinogen 1.0 (<2.0) mg/dL Leukocyte Esterase Rfl Negative (Negative) NORTH/UL Influenza A (RT-PCR) Negative (Negative) Influenza B (RT-PCR) Negative (Negative) RSV (RT-PCR) Negative (Negative) SARS-CoV-2 RNA (RT-PCR) Negative (Negative) <Mahmoud Dorantes, MD - Last Filed: 05/25/24 21:43> Lab Results 05/24/24 05/24/24 05/24/24 Range/Units 12:44 13:26 22:29 WBC 12.9 H (4.5-10.0) K/mm3 RBC 4.31 L (4.6-6.20) M/mm3 Hgb 13.4 L (14.0-18.0) g/dL Hct 40.2 L (42.0-52.0) % MCV 93.3 (80-100) fl MCH 31.1 (26-34) pg MCHC 33.3 (32-36) g/dl RDW 16.0 H (11.5-14.5) % Plt Count 259 (150-375) k/mm3 MPV 9.8 (7.4-10.4) fl Immature Gran % (Auto) 0.5 (0-0.5) % Neut % (Auto) 70.8 (45.5-73.1) % Lymph % (Auto) 16.8 L (18.3-44.2) % [place] % (Auto) 10.0 H (2.6-8.5) % Eos % (Auto) 1.6 (0-4.4) % Baso % (Auto) 0.3 (0.2-1.2) % Lymph # (Auto) 2.16 (0.9-3.2) K/mm3 [place] # (Auto) 1.3 H (0.1-0.6) K/mm3 Eos # (Auto) 0.2 (0-0.3) K/mm3 Baso # (Auto) 0.0 (0.0-0.1) K/mm3 Abs Immat Gran (auto) 0.07 H (0.00-0.031) K/mm3 Absolute Neuts (auto) 9.1 H (1.3-6.7) K/mm3 Absolute Nucleated RBC 0.000 (0.0-0.012) K/mm3 Nucleated RBC % 0.0 (0.0-0.2) % PT 13.6 (11.1-14.7) Seconds INR 1.0 APTT 34.8 (22.3-36.8) Seconds Sodium 136 L (137-145) mmol/L Potassium 4.7 (3.4-5.0) mmol/L Chloride 101 (98-107) mmol/L Carbon Dioxide 27 (22-30) mmol/L Anion Gap 8 (4-12) mmol/L BUN 13 (9-20) mg/dL Creatinine 0.93 (0.7-1.3) mg/dL Estim Creat Clear Calc 73 ml/min Estimated GFR > 60 (59 - ) Glucose 153 H (65-110) mg/dL POC Capillary Glucose 107 H (65-105) mg/dl Calcium 9.2 (8.4-10.2) mg/dL Total Bilirubin 0.6 (0.2-1.3) mg/dL AST 21 (17-59) U/L ALT 21 (6-50) U/L Alkaline Phosphatase 55 (38-126) U/L Total Protein 7.0 (6.3-8.2) g/dL Albumin 4.1 (3.5-5.1) g/dL Urine Color Yellow (Yellow) Urine Appearance Clear (Clear) Urine pH 7.5 (5.0-9.0) Ur Specific [place] 1.012 (1.001-1.035) Urine Protein Negative (Negative) mg/dL Urine Glucose (UA) Negative (Negative) mg/dL Urine Ketones Negative (Negative) mg/dL Ur Blood (Man) Negative (Negative) Urine Nitrate Negative (Negative) Urine Bilirubin Negative (Negative) Urine Urobilinogen 1.0 (<2.0) mg/dL Leukocyte Esterase Rfl Negative (Negative) NORTH/UL Influenza A (RT-PCR) Negative (Negative) Influenza B (RT-PCR) Negative (Negative) RSV (RT-PCR) Negative (Negative) SARS-CoV-2 RNA (RT-PCR) Negative (Negative) <Raphael Atwood MD - Last Filed: 05/26/24 12:31> Imaging Data Radiologist's impression: Impressions Head CT 05/24/24 13:43 Impression: No significant abnormality seen. Chest/Abdomen/Pelvis CT 05/24/24 13:46 Impression: Thick-walled cavitary lesion/nodule the right lung apex with several irregular satellite nodules. Although these findings are more prominent as compared to prior exam, distribution is relatively similar, suggesting chronic findings such as postinflammatory change or sarcoidosis. Treated metastatic disease is a consideration. Active malignancy not excluded, though felt to be less likely. Patchy consolidation at the medial, perihilar right lower lobe at site of previous noted mass. This probably represents postradiation change and sequelae of treated disease. Several irregular subcentimeter right lower lobe pulmonary nodules, indeterminate. Stable subcentimeter left apical pulmonary nodules. Moderate emphysema. Stable mediastinal/hilar lymphadenopathy, compatible with history of sarcoidosis. Luminal narrowing and possible concentric wall thickening at the hepatic flexure/proximal transverse colon, which could reflect colonic adenocarcinoma versus peristalsis. Correlate clinically. Consider colonoscopy. <Tianna Dorantes MD - Last Filed: 05/25/24 21:43> ECG Data EKG #1: Attestation: I personally reviewed and interpreted this ECG as follows: <Tianna Dorantes MD - Last Filed: 05/25/24 21:43> ECG completion date: 05/24/24 <Tianna Dorantes MD - Last Filed: 05/25/24 21:43> Interpretation: Normal sinus rhythm at 98 beats per minute, left atrial enlargement, borderline EKG, no previous EKG available for comparison <Tianna Dorantes MD - Last Filed: 05/25/24 21:43> Discharge Plan Discharge Clinical Impression: Binocular vision disorder with diplopia <Tianna Dorantes MD - Last Filed: 05/25/24 21:43> Patient Disposition: Still a Patient <Tianna Dorantes MD - Last Filed: 05/25/24 21:43> Condition: Stable <Tianna Dorantes MD - Last Filed: 05/25/24 21:43> Patient Language: Bahamian <Tianna Dorantes MD - Last Filed: 05/25/24 21:43> Prescriptions: No Action gabapentin 300 mg capsule 600 mg PO QPM Gvoke HypoPen 2-Pack 1 mg/0.2 mL auto-injector 1 mg subcut ONCE Qty: 0.4 0RF Rx Instructions: as a single dose; may repeat once after 15 minutes if no response glucose 4 gram tablet,chewable 16 g PO Q15M PRN (Reason: hypoglycemia) Qty: 360 0RF Rx Instructions: until symptoms of low blood sugar are controlled insulin glargine [Lantus Solostar U-100 Insulin] 100 unit/mL (3 mL) insulin pen 20 unit subcut QAM Qty: 3 0RF Rx Instructions: for backup if insulin pump fails bupropion HCl 150 mg tablet extended release 24 hr 150 mg PO QAM Qty: 30 2RF hydrocodone-acetaminophen 7.5-325 mg tablet 1 tablet PO TID PRN (Reason: Pain (Scale Score 7-10)) Qty: 90 0RF atorvastatin 20 mg tablet 20 mg PO DAILY Qty: 90 0RF (DME) Omnipod 5 G6 Intro Kit (Gen 5) Cartridge See Rx Instructions .Route Qty: 1 0RF Rx Instructions: change every 3 days losartan 25 mg tablet See Rx Instructions .ROUTE .COMPLEX Qty: 180 2RF Dose Instruction: TAKE 1 TABLET BY ORAL ROUTE TWO TIMES EVERY DAY FOR HYPERTENSION Rx Instructions: TAKE 1 TABLET BY ORAL ROUTE TWO TIMES EVERY DAY FOR HYPERTENSION Creon 36,000-114,000- 180,000 unit capsule,delayed release(DR/EC) See Rx Instructions .ROUTE .COMPLEX Qty: 810 2RF Dose Instruction: THREE CAP ORALLY DAILY ADMINISTER WITH MEALS AND/OR SNACKS Rx Instructions: THREE CAP ORALLY DAILY ADMINISTER WITH MEALS AND/OR SNACKS trazodone 150 mg tablet See Rx Instructions .ROUTE .COMPLEX Qty: 90 1RF Dose Instruction: 150 MG ORALLY BEDTIME Rx Instructions: 150 MG ORALLY BEDTIME insulin aspart U-100 [Novolog U-100 Insulin aspart] 100 unit/mL solution See Rx Instructions .ROUTE .COMPLEX MDD 80 Qty: 90 4RF Dose Instruction: FOR INSULIN PUMP, MAX DAILY DOSE: 60 UNITS INJECT 100 UNITS UNDER THE SKIN VIA INSULIN PUMP DAILY Rx Instructions: FOR INSULIN PUMP pantoprazole [Protonix] 40 mg tablet,delayed release (DR/EC) 40 mg PO QAM Qty: 90 3RF (DME) Omnipod 5 G6-G7 Pods (Gen 5) Cartridge See Rx Instructions .Route Qty: 40 6RF Rx Instructions: every 3 days (DME) insulin pump cart,automated,BT Cartridge See Rx Instructions .ROUTE .COMPLEX Qty: 45 2RF Dose Instruction: CHANGE POD EVERY 2-3 DAYS DIRECTED Rx Instructions: CHANGE POD EVERY 2-3 DAYS DIRECTED albuterol sulfate 90 mcg/actuation HFA aerosol inhaler See Rx Instructions .ROUTE .COMPLEX Qty: 18 2RF Dose Instruction: TWO PUFF INHALED TWICE A DAY Rx Instructions: TWO PUFF INHALED TWICE A DAY <Mahmoud Dorantes, MD - Last Filed: 05/25/24 21:43> Follow-up/Referrals: Kitty Quiles APRN [Primary Care Provider] - <Tianna Dorantes MD - Last Filed: 05/25/24 21:43>
--- OUTSIDE RECORDS SUMMARY | 2024-05-24 12:13 | XMS_ITS | Encounter Summary ---
Author Organization [facility] Care Team Providers Care Traffic Control Supervisor Name Role Phone Eugene Vega MD Primary Care Provi shantell Todd Gallardo MD Primary Care Provider [phone] Wai Espinoza MD Unavailable [phone] Justin Pineda MD Unavailable Encounter Details Date Type Department Care Team (Latest Contact Info) Description 10/08/2016 Orders Only [facility] ProviderKayla MD [address] [place] [id number] Social History Tobacco Use Types Packs/Day Years Used Date Smoking Tobacco: Never Assessed Sex and Gender Information Value Date Recorded Sex Assigned at Not on file Legal Sex 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 Gender Identity Male 01/06/2022 12:16 PM CDT [...] on filedocumented in this encounter Care Teams Traffic Control Supervisor Relationship Specialty Start Date End Date Eugene Vega MD [address] [place] [address] PCP - General Family Medicine 08/30/18 01/19/22 Todd Gallardo MD [address] [place] [address] PCP - General Family Practice 01/20/22 Wai Espinoza MD [address] DIV IM MEDICAL ONCOLOGY, [address], [address], [address] [place] [address] Medical Oncologist/Terminal Gauger Supervisor Medical Oncology 01/20/22 Justin Pineda MD [address] [place] [address] Radiation Oncologist Radiation Oncology 02/02/22 documented as of this encounter
--- OUTSIDE RECORDS SUMMARY | 2024-05-24 12:13 | XMS_ITS | Encounter Summary ---
Author Organization [facility] Address [address] [place] [address] Phone Care Team Providers Care Swager Operator Name Role Phone Eugene Vega MD Primary Care Provi shantell Todd Gallardo MD Primary Care Provider [phone] Wai Espinoza MD Unavailable [phone] Justin Pineda MD Unavailable Encounter Details Date [...] on file Legal Sex Male 12:03 AM RESOLUTION SPECIALIST Gender Identity Male 01/06/2022 12:16 PM CDT [...] on filedocumented in this encounter Care Teams Swager Operator Relationship Specialty Start Date End Date Eugene Vega MD [address] [place] [address] PCP - General Family Medicine 08/30/18 01/19/22 Todd Gallardo MD [address] [place] [address] PCP - General Family Practice 01/20/22 Wai Espinoza MD [address] DIV IM MEDICAL ONCOLOGY, [address]A, [address]B, [address] [place] [address] Medical Oncologist/Cement Gun Operator Medical Oncology 01/20/22 Justin Pineda MD [address] [place] [address] Radiation Oncologist Radiation Oncology 02/02/22 documented as of this encounter
--- OUTSIDE RECORDS SUMMARY | 2024-05-24 12:13 | XMS_ITS | Encounter Summary ---
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 Gender Identity Male 01/06/2022 12:16 PM CDT [...] on filedocumented in this encounter Care Teams Air Traffic Control Equipment Repairer Relationship Specialty Start Date End Date Eugene Vega MD [address] [place] [address] PCP - General Family Medicine 08/30/18 01/19/22 Todd Gallardo MD [address] [place] [address] PCP - General Family Practice 01/20/22 Wai Espinoza MD [address] DIV IM MEDICAL ONCOLOGY, [address], [address] [place] [address] Medical Oncologist/Manager Of Development Medical Oncology 01/20/22 Justin Pineda MD [address] [place] [address] Radiation Oncologist Radiation Oncology 02/02/22 documented as of this encounter
--- OUTSIDE RECORDS SUMMARY | 2024-05-24 12:13 | XMS_ITS ---
Author Organization [facility] [address] Address [address] [place] [address] Care Team Providers Care Nursing Informatics Clinical Analyst Name Role Phone Todd Gallardo MD Primary Care Provider [phone] Wai Espinoza MD Unavailable Justin Pineda MD Unavailable [phone] Active Problems Problem Noted Date Diagnosed Date Prophylaxis for chemotherapy-induced neutropenia 02/05/2022 Primary cancer of right upper lobe of lung 01/21 Cancer Staging:Clinical:Stage IIB(cT2b, cN1, cM0) - Unsigned Right lower lobe pulmonary nodule 12/24/2021 Chronic pain 09/06/2018 Diabetes mellitus with insulin therapy ([facility]) 09/06/2018 Disorder of vitamin B12 09/06/2018 Hypoglycemia 09/06/2018 Vitamin D deficiency 09/06/2018 Anxiety disorder 05/06/2018 Tobacco abuse 05/06/2018 Type 2 diabetes mellitus wit h other circulatory complications 09/06/2017 CPAP (continuous positive airway pressure) depen dence 09/06/2017 Insulin long-term use ([facility]) 09/06/[address] 09/06/2017 Major depressive disorder, r ecurrent episode with anxious distress ([facility]) 09/06/2017 Opioid use 09/06/2017 Chronic sinusitis 10/27/2016 [...] IVPB in 100 mL solution Therapy Complete Wia Monroy rn, MD 4 of 26 cycles [...]
--- OUTSIDE RECORDS SUMMARY | 2024-05-24 12:13 | XMS_ITS | Clinical Summary ---
Author Organization [facility] Address [address] [place] [address] Care Team Providers Care Pen Maker Name Role Phone Eugene Vgea MD Primary Care Provider Social History Tobacco [...] age to complete this topic Care Teams Pen Maker Relationship Specialty Start Date End Date Eugene Vega MD PCP - General 01/30/12
--- OUTSIDE RECORDS SUMMARY | 2024-05-24 12:13 | XMS_ITS | Referral Summary ---
Author Organization [facility] [address] Address [address] [place] [address] Care Team Providers Care Cook Starch Name Role Phone Todd Gallardo MD Primary Care Provider [phone] Wai Espinoza MD Unavailable Justin Pineda MD Unavailable Encounters Date Type Department Care Team Description 03/23/2024 10:00 AM CAP LINING MACHINE OPERATOR Office Visit [facility] [address] [facility] Floor 5 [place] [phone] Wai Espinoza MD Primary cancer of right upper lobe of lung (HCC) (Primary Dx) 03/20/2024 12:45 PM CAP LINING MACHINE OPERATOR Clinical Support [facility] - Lab Collection [address] [facility] Floor 6 [place] [address] Primary cancer of right upper lobe of lung (HCC) 03/20/2024 1:30 PM CAP LINING MACHINE OPERATOR Lab [facility] Lab [address] [facility] Floor 6 [place] [address] Primary cancer of right upper lobe of lung (HCC) 03/20/2024 11:37 AM CAP LINING MACHINE OPERATOR - 03/20/2024 11:59 PM CAP LINING MACHINE OPERATOR Hospital Encounter [facility] [place] [address] [facility] Floor 8 [place] [address] Primary cancer of right upper lobe of [...] pain 09/06/2018 Diabetes mellitus with insulin therapy ([facility] 09/06/2018 Disorder of vitamin B12 09/06/2018 Hypoglycemia 09/06/2018 Vitamin D deficiency 09/06/2018 Anxiety disorder 05/06/2018 Tobacco abuse 05/06/2018 Type 2 diabetes mellitus wit h other circulatory complications 09/06/2017 CPAP (continuous positive airway pressure) depen dence 09/06/2017 Insulin long-term use ([facility] 09/06/[address] 09/06/2017 Major depressive disorder, r ecurrent episode with anxious distress ([facility] 09/06/2017 Opioid use 09/06/2017 Chronic sinusitis 10/27/2016 [...] on file Legal Sex Male 12:03 AM CAP LINING MACHINE OPERATOR Gender Identity Male 01/06/2022 12:16 PM CDT Sexual Orientation Not on file Last Filed Vital Signs Vital Sign Reading Time Taken Comments Blood Pressure 135/70 03/23/2024 10:02 AM CAP LINING MACHINE OPERATOR Pulse 97 03/23/2024 10:02 AM CAP LINING MACHINE OPERATOR Temperature 36.4 C (97.5 F) 03/23/2024 10:02 AM CAP LINING MACHINE OPERATOR Respiratory Rate 18 03/23/2024 10:02 AM CAP LINING MACHINE OPERATOR Oxygen Saturation 93% 03/23/2024 10:02 AM CAP LINING MACHINE OPERATOR Inhaled Oxygen Concentration - - Weight 87.8 kg (193 lb 9.6 oz) 03/23/2024 10:02 AM CAP LINING MACHINE OPERATOR Height 187 cm (6' 1.62 ) 10/08/2022 9:27 AM CDT Body Mass Index 25.11 10/08/2022 9:27 AM CDT Plan of Treatment Not on file Medical Devices Implanted Type Area Advertising Sales Associate Device Identifier Shelf Expiration Date Model / Serial / Lot [employer] Power Inj. Port 8f Plastic Preattached Implanted:Qty: 1 on 02/11/2022 at [facility] [id number] 06/24/2026 [id number] / / [id number] Procedures Procedure Name Priority Date/Time Associated Diagnosis Comments EGFR Routine 03/20/2024 12:44 PM CAP LINING MACHINE OPERATOR Primary cancer of right upper lobe of lung (HCC) DIFFERENTIAL AUTO Routine 03/20/2024 12:44 PM CAP LINING MACHINE OPERATOR Primary cancer of right upper lobe of lung (HCC) CBC WITH AUTO DIFFERENTIAL Routine 03/20/2024 12:44 PM CAP LINING MACHINE OPERATOR Primary cancer of right upper lobe of lung (HCC) COMPREHENSIVE METABOLIC PANEL Routine 03/20/2024 12:44 PM CAP LINING MACHINE OPERATOR Primary cancer of right upper lobe of lung (HCC) CT CHEST ABDOMEN W CONTRAST Schedule Routine, Read Routine (OP Routine) 03/20/2024 12:03 PM CAP LINING MACHINE OPERATOR Primary cancer of right upper lobe of lung (HCC) POCT CREATININE - DEVICE Routine 03/20/2024 11:54 AM CAP LINING MACHINE OPERATOR HEMOGLOBIN A1C Routine 12/08/2018 7:35 AM CDT Type 2 diabetes mellitus with other circulatory complications (CMS/HCC) LIPID PANEL Routine 12/08/2018 7:35 AM CDT Mixed hyperlipidemia ALBUMIN CREATININE RATIO, URINE Routine 11/08/2017 7:48 AM CDT PSA, TOTAL Routine 11/08/2017 7:48 AM CDT from Last 3 Months or Most Recently Relevant to Health Maintenance Results * eGFR (03/20/2024 12:44 PM CAP LINING MACHINE OPERATOR) eGFR 80 >=60 mL/min/1. 73 m2 Comment: [...] reviewed 2021. Blood 03/20/2024 12:4 4 PM CAP LINING MACHINE OPERATOR 03/20/2024 12:51 PM CAP LINING MACHINE OPERATOR us Wai Espinoza MD LAB BLOOD ORDERABLES Marysol kaur Result [facility] Department [place] [address] * (ABNORMAL) Differential, auto (03/20/2024 12:44 PM CAP LINING MACHINE OPERATOR) Neutrophil abs 7.7(H) 1.5 - 6.5 K/cumm Comment:Testing performed by : [facility], [address] [place], [place] [phone] Lymphocyte abs 2.0 0.8 - 3.3 K/cumm CERNER BJ Comment:Testing performed by : [facility], [address] [place] [phone] Monocyte abs 0.8 0.2 - 0.8 K/cumm CERNER BJ Comment:Testing performed by : [facility], [address] [place] [phone] Eosinophil abs 0.2 0.0 - 0.5 K/cumm CERNER BJ Comment:Testing performed by : [facility], [address] [place] [phone] Basophil abs 0.1 0.0 - 0.1 K/cumm CERNER BJ Comment:Testing performed by : [facility], [address] [place] [phone] Neutrophil pct 71.4 % CERNER BJ Comment: Interpretive Data Percent cell count reference ranges are not reported, since discordance with absolute values may lead to misinterpretation of CBC data. Current Interpretive Data was last revised on 2017. Testing performed by: [facility], [address] [place] [phone] Lymphocyte pct 18.4 % CERTAMARA RUBIN Comment: Interpretive Data Percent cell count reference ranges are not reported, since discordance with absolute values may lead to misinterpretation of CBC data. Current Interpretive Data was last revised on 2017. Testing performed by: [facility], [address] [place] [phone] Monocyte pct 7.8 % FABY RUBIN Comment: Interpretive Data Percent cell count reference ranges are not reported, since discordance with absolute values may lead to misinterpretation of CBC data. Current Interpretive Data was last revised on 2017. Testing performed by: [facility], [address] [place] [phone] Eosinophil pct 1.5 % FABY RUBIN Comment: Interpretive Data Percent cell count reference ranges are not reported, since discordance with absolute values may lead to misinterpretation of CBC data. Current Interpretive Data was last revised on 2017. Testing performed by: [facility], [address] [place] [phone] Basophil pct 0.9 % FABY RUBIN Comment: Interpretive Data Percent cell count reference ranges are not reported, since discordance with absolute values may lead to misinterpretation of CBC data. Current Interpretive Data was last revised on 2017. Testing performed by: [facility], [address] [place] [phone] Blood 03/20/2024 12:4 4 PM CAP LINING MACHINE OPERATOR 03/20/2024 12:49 PM CAP LINING MACHINE OPERATOR us Wai Espinoza MD LAB BLOOD ORDERABLES Marysol l Result [facility] Department [place] [address] * (ABNORMAL) CBC with auto differential (03/20/2024 12:44 PM CAP LINING MACHINE OPERATOR) WBC 10.8(H) 3.8 - 9.9 K/cumm Comment:Testing performed by : [facility], [address] [place] [address] Hgb 12.9(L) 13.0 - 17.5 g/dL CERNER BJ Comment:Testing performed by : [facility], [address] [place] [address] Hct 40.0 38.9 - 50.3 % CERNER BJ Comment:Testing performed by : [facility], [address] [place], [place] [phone] Plt 262 150 - 400 K/cumm CERNER BJ Comment:Testing performed by : [facility], [address] [place] [address] MPV 8.0 6.8 - 10.4 fL CERNER BJ Comment:Testing performed by : [facility], [address] [place], [place] [phone] RBC 4.32 4.30 - 5.80 M/cumm CERNER BJ Comment:Testing performed by : [facility], [address] [place] [address] MCV 92.7 81.3 - 96.4 fL CERNER BJ Comment:Testing performed by : [facility], [address] [place] [address] MCH 30.0 27.1 - 33.3 pg CERNER BJ Comment:Testing performed by : [facility], [address] [place] [address] MCHC 32.4 32.3 - 35.7 g/dL CERNER BJ Comment:Testing performed by : [facility], [address] [place] [address] RDW CV 16.1(H) 11.1 - 14.9 % CERNER BJ Comment:Testing performed by : [facility], [address] [place] [address] NRBC abs 0.00 0.00 - 0.01 K/cumm CERNER BJ Comment:Testing performed by : [facility], [address] [place] [address] Blood 03/20/2024 12:4 4 PM CAP LINING MACHINE OPERATOR 03/20/2024 12:49 PM CAP LINING MACHINE OPERATOR us Wai Espinoza MD LAB BLOOD ORDERABLES Marysol dietrich Result [facility] Department [place] [address] * Comprehensive metabolic panel (03/20/2024 12:44 PM CAP LINING MACHINE OPERATOR) Pathologist [facility] Sodium 136 135 - 145 mmol/L Potassium, pl 4.4 3.3 - 4.9 mmol/L [facility] Chloride 102 97 - 110 mmol/L CERNER [facility] CO2 30 22 - 32 mmol/L CERNER [facility] Anion gap 4 2 - 15 mmol/L [facility] BUN 10 6 - 25 mg/dL [facility] Creatinine 1.00 0.80 - 1.30 mg/dL [facility] Glucose 151 70 - 199 mg/dL [facility] Comment: Interpretive Data Fasting glucose >/= 126 [...] Bilirubin, total 0.3 0.1 - 1.2 mg/dL [facility] Protein, pl 6.8 6.5 - 8.5 g/dL [facility] Albumin 4.1 3.5 - 5.0 g/dL [facility] Alk phos 62 40 - 130 Units/L CERNER [facility] ALT 8 7 - 55 Units/L [facility] AST 17 10 - 50 Units/L [facility] Comment:Hemolyzed; result ma y be falsely elevated Blood 03/20/2024 12:4 4 PM CAP LINING MACHINE OPERATOR 03/20/2024 12:51 PM CAP LINING MACHINE OPERATOR us Wai Espinoza MD LAB BLOOD ORDERABLES Marysol dietrich Result [facility] Department [place] [address] * CT Chest Abdomen W Contrast (03/20/2024 12:03 PM CAP LINING MACHINE OPERATOR) Anatomical Region Laterality Modality Body N/A Computed Tomogra phy 03/20/2024 12:5 1 PM CAP LINING MACHINE OPERATOR Impressions 03/20/2024 12:51 PM CAP LINING MACHINE OPERATOR 1. Stable posttreatment changes in the right lung with stable scattered pulmonary nodules bilaterally. 2. No evidence of metastatic disease in the abdomen. Electronically signed by: Padmaja Gibbs M.D. Narrative 03/20/2024 12:51 PM CAP LINING MACHINE OPERATOR EXAMINATION: Computed tomography of the chest and [...] esult * POCT creatinine (03/20/2024 11:54 AM CAP LINING MACHINE OPERATOR) [facility] Creatinine POC 1.2 0.7 - 1.3 mg/dL Blood 03/20/2024 11:5 4 AM CAP LINING MACHINE OPERATOR 03/20/2024 11:54 AM CAP LINING MACHINE OPERATOR Wai Espinoza MD LAB POCT ORDERABLES - DEV ICE Final Result FABY [facility] [place] [address] * (ABNORMAL) Hemoglobin A1c (12/08/2018 7:35 AM [...] Agency Comment Performing Organization Information: Site ID: [place] Name: [facility] Address: [address] [address] Director: Robin Case D.O., MPH Eugene Vega MD LAB BLOOD ORDERABLE S Final Result [facility] [place] * (ABNORMAL) Lipid panel (12/08/2018 7:35 AM CDT) Cholesterol 238(H) <200 mg/dL [facility] [place] HDL 77 >40 mg/dL [facility] [place] Triglycerides 84 <150 mg/dL [facility] [place] LDL 142(H) mg/dL (calc) [facility] [place] Comment: Reference range: <100 Desirable range <100 mg/dL for primary prevention; <70 mg/dL for patients with CHD or diabetic patients with > or = 2 CHD risk factors. LDL-C is now calculated using the Izaiah calculation, which is a validated novel method providing better accuracy than the Friedewald equation in the estimation of LDL-C. Kervin LUGO et al. KP. 2013;310(19): 4480-9958 (http://education.[employer]/faq/MDQ664) Chol/HDL ratio 3.1 <5.0 (calc) [facility] [place] Non-HDL, (LDL+VLDL) 161(H) <130 mg/dL (calc) [facility] [place] Comment: For patients with diabetes plus 1 major ASCVD risk factor, treating to a non-HDL-C goal of <100 mg/dL (LDL-C of <70 mg/dL) is considered a therapeutic option. Blood specimen (specimen) 12/08/2018 7:35 AM CDT 12/08/2018 7:36 AM CDT Narrative [facility] - 12/09/2018 11:40 AM CDT FASTING:YES FASTING: YES Resulting Agency Comment Performing Organization Information: Site ID: [place] Name: [facility] Ba[facility]uel[facility] Address: [address] [address] Director: Robin Case D.O. MPH Eugene Vega MD LAB BLOOD ORDERABLE S Final Result Performing Organization Address [facility] Co de Phone Number [facility] - [place] * PSA, total (11/08/2017 7:48 AM CDT) Pathologist [facility] PSA, TOTAL 1.0 < OR = 4.0 ng/mL [facility] HISTORICAL RESULTS Comment: The total PSA [...] 7:48 AM CDT 11/09/2017 1:15 PM CDT [facility] HISTORICAL RESULTS - 11/09/2017 1:01 PM CDT AN UPDATE OR CORRECTION HAS BEEN MADE TO NAME PERFORMING LAB: [place] [facility] [address] [place] [address] Robin Case D.O., MPH Eugene Vega MD LAB BLOOD ORDERABLE S Final Result Performing Organization Address City/[facility]/ZIP Co de Phone Number [facility] HISTORICAL RESULTS * Microalbumin / creatinine ratio, urine, random (11/08/2017 7:48 AM CDT) CREATININE, RANDOM URINE 201 20 - 370 mg/dL [facility] HISTORICAL RESULTS MICROALBUMIN 1.4 See Note: mg/dL [facility] HISTORICAL RESULTS Comment: Reference Range: Reference Range Not established MICROALBUMIN/CREAT ININE RATIO, RANDOM URINE 7 <30 mcg/mg creat [facility] HISTORICAL RESULTS Comment: The ADA defines [...] AM CDT 11/09/2017 1:15 PM CDT Narrative [facility] HISTORICAL RESULTS - 11/09/2017 1:01 PM CDT AN UPDATE OR CORRECTION HAS BEEN MADE TO NAME PERFORMING LAB: [place], [facility] [address] [place] [address] Robin Case D.O., MPH Eugene Vega MD LAB URINE ORDERABLE S Final Result [facility] HISTORICAL RESULTS from Last 3 Months or Most Recently Relevant to Health Maintenance Insurance [facility] PPO [employer] MEDICARE BLUE [employer] MEDICARE PREFERRED O PPO BLUE [employer] MEDICARE PREFERRED O PPO Advance Directives For more information, please contact: [phone] * Full Code (Latest Code Status on File) Date Activated Date Inactivated Comments 07/23/2022 12:36 PM 07/24/2022 4:57 AM * Full Code Date Activated Date Inactivated Comments 02/11/2022 7:13 AM 02/12/2022 5:03 AM Care Teams Cook Starch Relationship Specialty Start Date End Date Todd Gallardo MD PCP - General Family Practice 01/20/22 Wai Espinoza MD [address] DIV IM MEDICAL ONCOLOGY, [address] [place] [address] Medical Oncologist/Drafter Structural Medical Oncology 01/20/22 Justin Pineda MD [id number] [place] [address] Radiation Oncologist Radiation Oncology 02/02/22
--- OUTSIDE RECORDS SUMMARY | 2024-05-24 12:13 | XMS_ITS | Clinical Summary ---
Author Organization [facility] [address] Address [address] [place] [address] Care Team Providers Care Tangled Yarn Worker Name Role Phone Todd Gallardo MD Primary Care Provider [phone] Wai Espinoza MD Unavailable Justin Pineda MD Unavailable Allergies Active Allergy [...] pain 09/06/2018 Diabetes mellitus with insulin therapy ([facility]) 09/06/2018 Disorder of vitamin B12 09/06/2018 Hypoglycemia 09/06/2018 Vitamin D deficiency 09/06/2018 Anxiety disorder 05/06/2018 Tobacco abuse 05/06/2018 Type 2 diabetes mellitus wit h other circulatory complications 09/06/2017 CPAP (continuous positive airway pressure) depen dence 09/06/2017 Insulin long-term use ([facility]) 09/06/[address] 09/06/2017 Major depressive disorder, r ecurrent episode with anxious distress ([facility]) 09/06/2017 Opioid use 09/06/2017 Chronic sinusitis 10/27/2016 Moderate persistent asthma, uncomplicated 2016 Occupational exposure to unspecified risk factor 10/27/2016 Sleep apnea 10/27/2016 Alcohol dependence 09/29/2016 Sarcoidosis 09/29/2016 Hypertensive disorder 01/17/2016 Hyperlipidemia 01/17/2016 Gastroesophageal reflux disease 01/10/2016 Cervicalgia 11/01/2015 ED (erectile dysfunction) 10/23/2015 Encounters Date Type Department Care Team Description 03/23/2024 10:00 AM FACILITY MAINTENANCE HELPER Office Visit [facility] Oncology [facility] Floor [address] [place] [address] Wai Espinoza MD Primary cancer of right upper lobe of lung (HCC) (Primary Dx) 03/20/2024 1:30 PM FACILITY MAINTENANCE HELPER Lab [facility] Oncology Lab [facility] Floor [address] [place] [address] Primary cancer of right upper lobe of lung (HCC) 03/20/2024 12:45 PM FACILITY MAINTENANCE HELPER Clinical Support [facility] - Lab Collection [address] [facility] Floor [address] [place] [address] Primary cancer of right upper lobe of lung (HCC) 03/20/2024 11:37 AM FACILITY MAINTENANCE HELPER - 03/20/2024 11:59 PM FACILITY MAINTENANCE HELPER Hospital Encounter [facility] - [place] [address] [facility] Floor 8 [place] [address] Primary cancer of right upper lobe of [...] on file Legal Sex Male 12:03 AM FACILITY MAINTENANCE HELPER Gender Identity Male 01/06/2022 12:16 PM CDT Sexual Orientation Not on file Obstetrics History Last Filed Vital Signs Vital Sign Reading Time Taken Comments Blood Pressure 135/70 03/23/2024 10:02 AM FACILITY MAINTENANCE HELPER Pulse 97 03/23/2024 10:02 AM FACILITY MAINTENANCE HELPER Temperature 36.4 C (97.5 F) 03/23/2024 10:02 AM FACILITY MAINTENANCE HELPER Respiratory Rate 18 03/23/2024 10:02 AM FACILITY MAINTENANCE HELPER Oxygen Saturation 93% 03/23/2024 10:02 AM FACILITY MAINTENANCE HELPER Inhaled Oxygen Concentration - - Weight 87.8 kg (193 lb 9.6 oz) 03/23/2024 10:02 AM FACILITY MAINTENANCE HELPER Height 187 cm (6' 1.62 ) 10/08/2022 [...] history exists Medical Devices Implanted Type Area Dressage Instructor Device Identifier Shelf Expiration Date Model / Serial / Lot [employer] Power Inj. Port 8f Plastic Preattached Implanted:Qty: 1 on 02/11/2022 at [facility] [employer] [facility] [id number] 06/24/2026 [id number] / / [id number] Procedures Procedure Name Priority Date/Time Associated Diagnosis Comments EGFR Routine 03/20/2024 12:44 PM FACILITY MAINTENANCE HELPER Primary cancer of right upper lobe of lung (HCC) DIFFERENTIAL AUTO Routine 03/20/2024 12:44 PM FACILITY MAINTENANCE HELPER Primary cancer of right upper lobe of lung (HCC) CBC WITH AUTO DIFFERENTIAL Routine 03/20/2024 12:44 PM FACILITY MAINTENANCE HELPER Primary cancer of right upper lobe of lung (HCC) COMPREHENSIVE METABOLIC PANEL Routine 03/20/2024 12:44 PM FACILITY MAINTENANCE HELPER Primary cancer of right upper lobe of lung (HCC) CT CHEST ABDOMEN W CONTRAST Schedule Routine, Read Routine (OP Routine) 03/20/2024 12:03 PM FACILITY MAINTENANCE HELPER Primary cancer of right upper lobe of lung (HCC) POCT CREATININE - DEVICE Routine 03/20/2024 11:54 AM FACILITY MAINTENANCE HELPER HEMOGLOBIN A1C Routine 12/08/2018 7:35 AM CDT Type 2 diabetes mellitus with other circulatory complications (CMS/HCC) LIPID PANEL Routine 12/08/2018 7:35 AM CDT Mixed hyperlipidemia ALBUMIN CREATININE RATIO, URINE Routine 11/08/2017 7:48 AM CDT PSA, TOTAL Routine 11/08/2017 7:48 AM CDT from Last 3 Months or Most Recently Relevant to Health Maintenance Results * eGFR (03/20/2024 12:44 PM FACILITY MAINTENANCE HELPER) eGFR 80 >=60 mL/min/1. 73 m2 Comment: [...] reviewed 2021. Blood 03/20/2024 12:4 4 PM FACILITY MAINTENANCE HELPER 03/20/2024 12:51 PM FACILITY MAINTENANCE HELPER us Wai Espinoza MD LAB BLOOD ORDERABLES Marysol dietrich Result [facility] [place] [address] * (ABNORMAL) Differential, auto (03/20/2024 12:44 PM FACILITY MAINTENANCE HELPER) Neutrophil abs 7.7(H) 1.5 - 6.5 K/cumm Comment:Testing performed by : [facility], [address] [place] [phone] Lymphocyte abs 2.0 0.8 - 3.3 K/cumm [facility] Comment:Testing performed by : [facility], [address] [place] [phone] Monocyte abs 0.8 0.2 - 0.8 K/cumm [facility] Comment:Testing performed by : [facility], [address] [place] [phone] Eosinophil abs 0.2 0.0 - 0.5 K/cumm [facility] Comment:Testing performed by : [facility], [address] [place] [phone] Basophil abs 0.1 0.0 - 0.1 K/cumm [facility] Comment:Testing performed by : [facility], [address] [place] [phone] Neutrophil pct 71.4 % [facility] Comment: Interpretive Data Percent cell count reference ranges are not reported, since discordance with absolute values may lead to misinterpretation of CBC data. Current Interpretive Data was last revised on 2017. Testing performed by: [facility], [address] [place] [phone] Lymphocyte pct 18.4 % [facility] Comment: Interpretive Data Percent cell count reference ranges are not reported, since discordance with absolute values may lead to misinterpretation of CBC data. Current Interpretive Data was last revised on 2017. Testing performed by: [facility], [address] [place] [phone] Monocyte pct 7.8 % [facility] Comment: Interpretive Data Percent cell count reference ranges are not reported, since discordance with absolute values may lead to misinterpretation of CBC data. Current Interpretive Data was last revised on 2017. Testing performed by: [facility], [address] [place] [phone] Eosinophil pct 1.5 % [facility] Comment: Interpretive Data Percent cell count reference ranges are not reported, since discordance with absolute values may lead to misinterpretation of CBC data. Current Interpretive Data was last revised on 2017. Testing performed by: [facility], [address] [place] [phone] Basophil pct 0.9 % [facility] Comment: Interpretive Data Percent cell count reference ranges are not reported, since discordance with absolute values may lead to misinterpretation of CBC data. Current Interpretive Data was last revised on 2017. Testing performed by: [facility], [address] [place] [phone] Blood 03/20/2024 12:4 4 PM FACILITY MAINTENANCE HELPER 03/20/2024 12:49 PM FACILITY MAINTENANCE HELPER us Wai Espinoza MD LAB BLOOD ORDERABLES Marysol kaur Result [facility] [place] [address] * (ABNORMAL) CBC with auto differential (03/20/2024 12:44 PM FACILITY MAINTENANCE HELPER) WBC 10.8(H) 3.8 - 9.9 K/cumm Comment:Testing performed by : [facility], [address] [place] [address] Hgb 12.9(L) 13.0 - 17.5 g/dL [facility] Comment:Testing performed by : [facility], [address] [place] [address] Hct 40.0 38.9 - 50.3 % [facility] Comment:Testing performed by : [facility], [address] [place] [address] Plt 262 150 - 400 K/cumm [facility] Comment:Testing performed by : [facility], [address] [place] [address] MPV 8.0 6.8 - 10.4 fL [facility] Comment:Testing performed by : [facility], [address] [place] [address] RBC 4.32 4.30 - 5.80 M/cumm [facility] Comment:Testing performed by : [facility], [address] [place] [address] MCV 92.7 81.3 - 96.4 fL [facility] Comment:Testing performed by : [facility], [address] [place] [address] MCH 30.0 27.1 - 33.3 pg [facility] Comment:Testing performed by : [facility], [address] [place] [address] MCHC 32.4 32.3 - 35.7 g/dL [facility] Comment:Testing performed by : [facility], [address] [place] [address] RDW CV 16.1(H) 11.1 - 14.9 % [facility] Comment:Testing performed by : [facility], [address] [place] [address] NRBC abs 0.00 0.00 - 0.01 K/cumm [facility] Comment:Testing performed by : [facility], [address] [place] [address] Blood 03/20/2024 12:4 4 PM FACILITY MAINTENANCE HELPER 03/20/2024 12:49 PM FACILITY MAINTENANCE HELPER us Wai Espinoza MD LAB BLOOD ORDERABLES Marysol kaur Result [facility] [place] [address] * Comprehensive metabolic panel (03/20/2024 12:44 PM FACILITY MAINTENANCE HELPER) Sodium 136 135 - 145 mmol/L Potassium, pl 4.4 3.3 - 4.9 mmol/L [facility] Chloride 102 97 - 110 mmol/L [facility] CO2 30 22 - 32 mmol/L [facility] Anion gap 4 2 - 15 mmol/L [facility] BUN 10 6 - 25 mg/dL [facility] Creatinine 1.00 0.80 - 1.30 mg/dL [facility] Glucose 151 70 - 199 mg/dL [facility] Comment: Interpretive Data Fasting glucose >/= [...] 2022. Calcium 8.8 8.5 - 10.3 mg/dL [facility] Bilirubin, total 0.3 0.1 - 1.2 mg/dL [facility] Protein, pl 6.8 6.5 - 8.5 g/dL [facility] Albumin 4.1 3.5 - 5.0 g/dL [facility] Alk phos 62 40 - 130 Units/L [facility] ALT 8 7 - 55 Units/L [facility] AST 17 10 - 50 Units/L [facility] Comment:Hemolyzed; result ma y be falsely elevated Blood 03/20/2024 12:4 4 PM FACILITY MAINTENANCE HELPER 03/20/2024 12:51 PM FACILITY MAINTENANCE HELPER us Wai Espinoza MD LAB BLOOD ORDERABLES Marysol l Result [facility] [place] [address] * CT Chest Abdomen W Contrast (03/20/2024 12:03 PM FACILITY MAINTENANCE HELPER) Anatomical Region Laterality Modality Body N/A Computed Tomogra phy 03/20/2024 12:5 1 PM FACILITY MAINTENANCE HELPER Impressions 03/20/2024 12:51 PM FACILITY MAINTENANCE HELPER 1. Stable posttreatment changes in the right lung with stable scattered pulmonary nodules bilaterally. 2. No evidence of metastatic disease in the abdomen. Electronically signed by: Padmaja Gibbs M.D. Narrative 03/20/2024 12:51 PM FACILITY MAINTENANCE HELPER EXAMINATION: Computed tomography of the chest and [...] esult * POCT creatinine (03/20/2024 11:54 AM FACILITY MAINTENANCE HELPER) Creatinine POC 1.2 0.7 - 1.3 mg/dL Blood 03/20/2024 11:5 4 AM FACILITY MAINTENANCE HELPER 03/20/2024 11:54 AM FACILITY MAINTENANCE HELPER us Wai Espinoza MD LAB POCT ORDERABLES - DEV ICE Final Result [facility] [place] [address] * (ABNORMAL) Hemoglobin A1c (12/08/2018 7:35 AM CDT) Pathologist [facility] Hgb A1C 7.5(H) <5.7 % of total Hgb [facility] [place] Comment: For someone without known diabetes, a [...] Agency Comment Performing Organization Information: Site ID: [place] Name: [facility] Address: [address] [place] [id number] Director: Robin Case D.O., MPH us Eugene Vega MD LAB BLOOD ORDERABLE S Final Result [facility] [place] * (ABNORMAL) Lipid panel (12/08/2018 7:35 AM CDT) Pathologist [facility] Cholesterol 238(H) <200 mg/dL [facility] [place] HDL 77 >40 mg/dL [employer] [facility] [place] Triglycerides 84 <150 mg/dL [facility] [place] LDL 142(H) mg/dL (calc) [facility] Comment: Reference range: <100 Desirable range <100 mg/dL for primary prevention; <70 mg/dL for patients with CHD or diabetic patients with > or = 2 CHD risk factors. LDL-C is now calculated using the Izaiah calculation, which is a validated novel method providing better accuracy than the Friedewald equation in the estimation of LDL-C. Kervin LUGO et al. KP. 2013;310(19): 1432-2272 (http://education.Highwinds.WSI Onlinebiz/faq/PSM480) Chol/HDL ratio 3.1 <5.0 (calc) [facility] [...] Agency Comment Performing Organization Information: Site ID: [place] Name: [facility] Address: [address] [place] [address] Director: Robin Case D.O., MPH us Eugene Vega MD LAB BLOOD ORDERABLE S Final Result [facility] [place], [place] * PSA, total (11/08/2017 7:48 AM CDT) Pathologist [facility] PSA, TOTAL 1.0 < OR = 4.0 ng/mL [facility] HISTORICAL RESULTS Comment: The total PSA value from this assay system is standardized against the WHO standard. The test result will be approximately 20% lower when compared to the equimolar-standardized total PSA (Brendon Lagunitas). Comparison of serial PSA results should be interpreted with this fact in mind. This test was performed using the Siemens chemiluminescent method. Values obtained from different assay methods cannot be used interchangeably. PSA levels, regardless of value, should not be interpreted as absolute evidence of the presence or absence of disease. 11/08/2017 7:48 AM CDT 11/09/2017 1:15 PM CDT Narrative [facility] HISTORICAL RESULTS - 11/09/2017 1:01 PM CDT AN UPDATE OR CORRECTION HAS BEEN MADE TO NAME PERFORMING LAB: [place], [employer] [facility] [address], [place] [address] Robin Case D.O., MPH Eugene Vega MD LAB BLOOD ORDERABLE S Final Result Performing Organization Address [facility]/ZIP Co de Phone Number [facility] HISTORICAL RESULTS * Microalbumin / creatinine ratio, urine, random (11/08/2017 7:48 AM CDT) CREATININE, RANDOM URINE 201 20 - 370 mg/dL [facility] HISTORICAL RESULTS MICROALBUMIN 1.4 See Note: mg/dL [facility] HISTORICAL RESULTS Comment: Reference Range: Reference Range Not established MICROALBUMIN/CREAT ININE RATIO, RANDOM URINE 7 <30 mcg/mg creat [facility] HISTORICAL RESULTS Comment: The ADA defines abnormalities [...] AM CDT 11/09/2017 1:15 PM CDT Narrative [facility] HISTORICAL RESULTS - 11/09/2017 1:01 PM CDT AN UPDATE OR CORRECTION HAS BEEN MADE TO NAME PERFORMING LAB: [place] [employer] [address], [place] [address] Robin Case D.O., MPH Eugene Vega MD LAB URINE ORDERABLE S Final Result Performing Organization Address [facility] Co de Phone Number [facility] HISTORICAL RESULTS from Last 3 Months or Most Recently Relevant to Health Maintenance Insurance [employer] [place] ASO CMR PPO AET MEDICARE BLUE [place] MEDICARE PREFERRED HMO PPO BLUE [employer] MEDICARE PREFERRED HMO PPO Advance Directives For more information, please contact: [phone] * Full Code (Latest Code Status on File) Date Activated Date Inactivated Comments 07/23/2022 12:36 PM 07/24/2022 4:57 AM * Full Code Date Activated Date Inactivated Comments 02/11/2022 7:13 AM 02/12/2022 5:03 AM Care Teams Tangled Yarn Worker Relationship Specialty Start Date End Date Todd Gallardo MD PCP - General Family Practice 01/20/22 Wai Espinoza MD [address] DIV IM MEDICAL ONCOLOGY, [address] [place] [address] Medical Oncologist/Marketing Project Specialist Medical Oncology 01/20/22 Justin Pineda MD [address] [place] [address] Radiation Oncologist Radiation Oncology 02/02/22
--- OUTSIDE RECORDS SUMMARY | 2024-05-24 12:13 | XMS_ITS | Continuity of Care Document ---
Author Organization [facility] Address [address] [facility] [place] [address] Phone Care Team Providers Care Lay Health Advocate Name Role Phone Evaristo Jimenez MD, Armen [...] Providers Copied on Encounter [facility], [address] [place] [address], [id number] , tel: [phone] [facility] No Information 2 MD Armen Mckeon. [address] [place] [address] Dr [place], [place], [id number], [place]. tel:[phone] [facility], [address] [place] [address], [id number] , [place] tel: [phone] [facility] No Information 2 MD Armen Mckeon. [address] [place], [id number], . tel:[phone] [facility], [address] [place] [address], [id number] , tel: [phone] [facility] No Information 2 MD Armen Mckeon. [address], [place], [place], [address] [place] [address], . tel:[phone] [facility], [address] [facility] [place], [address] [place] [address] , tel: [phone] [facility] No Information 2 MD Armen Mckeon. [address], [place], [place], [address] [place] [address], . tel:[phone] [facility], [address] [place] [address], [address] [place] [address] , tel: [phone] [facility] No Information 2 MD Armen Mckeon. [address] [place] [address] Dr, [place], [address] [place] [address], . tel:[phone] ESTABLISHED PATIENT DETAILED [facility], [facility] [address], [place], [address] [place] [address] , tel: [phone] [facility] Cough (chief complaint)Head ache (chief complaint)Posi tive exposure (chief complaint) Mixed anxiety and depressive disorderEncou nter for observation for suspected exposure to other biological agents ruled outOther chronic pain 2 MD Armen Mckeon. [address], [place], [address] [place] [address], . tel:[phone] Referring Provider: Matty Jones MD, [address] [place] [address], [address] . tel:[phone] [facility], [facility] [place], [id number] , tel: [phone] [facility] No Information 2 MD Armen Mckeon. [address], [place], [address] [place] [address], . tel:[phone] [facility], [address] [place] [address], [address] [place] [address] , tel: [phone] [facility] No Information 2 MD Armen Mckeon. [address] [place] [address] , [place], [address] [place] [address], . tel:[phone] ESTABLISHED PATIENT DETAILED [facility], [address] [place] [address], [place], [address] [place] [address] , tel: [phone] [facility] hypertension (chief complaint)pros woo enlargement (chief complaint)diab etes (chief complaint)Anxi ety/Depression (chief complaint) Type 1 diabetes mellitus on insulin therapyMixed anxiety and depressive disorderOther chronic painTobacco use 2 MD Armen Mckeon. [address] [place] [address] , [place], [place], [id number], . [phone] Referring Provider: Armen Jimenez MD, [address] [place] [address] , [place], [address] . tel:[phone] OFFICE/OUTPA TIENT VISIT EST [facility], [address] [place] [address], [address] [place] [address] , tel: [phone] [facility] URI, acuteCOPD exacerbation 2 MD Armen Mckeon. [address] [place] [address] , [place], [place], [id number], . [phone] Referring Provider: Armen Jimenez MD, [address] [place] [address] , [place], [address] . tel:[phone] [facility], [address] [place] [address], [id number] , tel: [phone] [facility] Mixed anxiety and depressive disorderType 1 diabetes mellitus on insulin therapyEssent ial (primary) hypertensionP rostate enlargementSc reening PSA (prostate specific antigen) 1 MD Armen Mckeon. [address] [place] [address] [address] [place], [id number], . tel:[phone] Referring Provider: Armen Jimenez MD, [address] [facility] , [place], [address] . tel:[phone] ESTABLISHED PATIENT DETAILED [facility], [address] [place] [address], [id number] , tel: [phone] [facility] Depression (chief complaint) Tobacco useMixed anxiety and depressive disorderOther chronic pain 1 MD Armen Mckeon. [address] [facility] , [place], [place], [id number], [place]. tel:[phone] Referring Provider: Armen Jimenez MD, [address] [facility] [address] , [place], [address] . tel:[phone] OFFICE/OUTPA TIENT VISIT EST [facility], [address] [place] [address], [place], [id number] , [place] tel: [phone] [facility] Mixed anxiety and depressive disorderOther chronic painAlcohol use disorder, mild, abuse Oct 1 MD Armen Mckeon. [address] [facility] [address] , [place], [place], [id number], [place]. tel:[phone] Referring Provider: Armen Jimenez MD, [address] [place] [address] , [place], [address] . tel:[phone] ESTABLISHED PATIENT DETAILED [facility], [address] [place] [address], [place], [id number] , [place] tel: [phone] [facility] hyperlipidemia (chief complaint)diab etes (chief complaint) Mixed anxiety and depressive disorderOther chronic painType 1 diabetes mellitus on insulin therapyAcute pain of right kneeOSA on CPAPDependenc e on other enabling machines and devicesTobacc o use 1 MD Armen Mckeon. [address] [facility] [address] , [place], [place], [id number], . tel:[phone] Referring Provider: Armen Jimenez MD, [address] [place] [address] , [place], [address] . tel:[phone] OFFICE/OUTPA TIENT VISIT EST [facility], [address] [place] [address], [id number] , tel: [phone] [facility] Other chronic painAcute torticollisNe ck painMixed anxiety and depressive disorder Feb-0 1 MD Armen Mckeon. [address] [place] [address] [place], [id number], . tel:[phone] Referring Provider: Armen Jimenez MD, [address] [place] [address] Dr, [place], [address] . tel:[phone] OFFICE/OUTPA TIENT VISIT EST [facility], [address] [place] [address], [id number] , tel: [phone] [facility] Acute torticollisNe ck pain Sep-2 0 MD Armen Mckeon. [address] [place] [address] [place], [place], [id number], . [phone] Referring Provider: Armen Jimenez MD, [address] [place] [address], [address] . tel:[phone] OFFICE/OUTPA TIENT VISIT EST [facility], [address] [place] [address], [id number] , tel: [phone] [facility] Neck painAcute torticollis Sep-1 0 MD Armen Mckeon. [address] [place] [address] , [place], [id number], [place]. [phone] Referring Provider: Armen Jimenez MD, [address] [place] [address] , [place], [address] . tel:[phone] OFFICE/OUTPA TIENT VISIT EST [facility], [address] [place] [address], [id number] , tel:[phone] [facility] Essential (primary) hypertensionM ixed anxiety and depressive disorderOther chronic pain Иван-2 0- 0 MD Armen Mckeon. [address] [place] [address] , [place], [place], [id number], . [phone] Referring Provider: Armen Jimenez MD, [address] [place] [address] , [place], [address] . tel:[phone] [facility], [address] [place] [address], [id number] , tel: [phone] [facility] No Information 0 MD Armen Mckeon. [address] [place] [address] , [place], [id number], [place]. tel:[phone] ESTABLISHED PATIENT DETAILED [facility], [address] [place] [address], [id number] , tel: [phone] [facility] Essential (primary) hypertensionM ixed anxiety and depressive disorderType 1 diabetes mellitus on insulin therapyUrinar y dribbling 0 MD Armen Mckeon. [address] [place] [address] , [place], [id number], [place]. [phone] Referring Provider: Armen Jimenez MD, [address] [place] [address] , [place], [address] . tel:[phone] ESTABLISHED PATIENT DETAILED [facility], [address] [place] [address], [id number] , tel: [phone] [facility] hyperlipidemia (chief complaint)diab etes (chief complaint) Body mass index (BMI) 25.0-25.9, adultType 1 diabetes mellitus on insulin therapyEssent ial (primary) hypertensionM ixed anxiety and depressive disorder 0 MD Armen Mckeon. [address] [place] [address] , [place], [place], [id number], . [phone] Referring Provider: Matty Jones MD, [address] [place] [address], [place], [address] . tel:[phone] ESTABLISHED PATIENT DETAILED [facility], [address] [place] [address], [id number] , tel: [phone] [facility] med review (chief complaint) Other chronic painType 1 diabetes mellitus on insulin therapyEssent ial (primary) hypertensionM ixed anxiety and depressive disorderAlcoh ol abuse with alcohol-induc ed disorder 9 MD Armen Mckeon. [address] [place] [address] Dr, [place], [address] [place] [address], . tel:[phone] Referring Provider: Armen Jimenez MD, [address] [place] [address] Dr, [place], [address] . tel:[phone] ESTABLISHED PATIENT DETAILED [facility], [address] [place] [address], [id number] , tel:[phone] [facility] Med review (chief complaint) Body mass index (BMI) 24.0-24.9, adultOther chronic painViral upper respiratory tract infectionAlle rgic rhinitis, unspecified seasonality, unspecified triggerSleep apnea, unspecified type 9 MD Armen Mckeon. [address] [place] [address] Dr, [place], [place], [id number], . [phone] Referring Provider: Armen Jimenez MD, [address] [place] [address] Dr, [place], [address] . tel:[phone] ESTABLISHED PATIENT DETAILED [facility], [address] [place] [address], [id number] , tel: [phone] [facility] med review (chief complaint) Body mass index (BMI) 24.0-24.9, adultType 1 diabetes mellitus on insulin therapyAnxiet yEssential (primary) hypertensionM ixed anxiety and depressive disorder 9 MD Matty Jones. [address] [place] [address], [id number], [place]. tel:[phone] Referring Provider: Matty Jones MD, [address] [place] [address], [address] . tel:[phone] [facility], [address] [place] [address], [place], [id number] , [place] tel: [phone] [facility] No Information 9 Dean Espitiajaret Espinoir. [address] [facility] , [place], [place], [id number], [place]. tel:[phone] OFFICE/OUTPA TIENT VISIT, EST [facility], [facility] [address], [place], [place], [id number] , [place] tel: [phone] [facility] cough (chief complaint)head ache (chief complaint) Upper respiratory tract infection, unspecified typeRight ear impacted cerumenPain in right kneePain in left kneeOther chronic pain 0 9 Sherrie Mayuri. [address] [place], [place], [place], [id number], [place]. tel:[phone] Referring Provider: Matty Jones MD, [address] [place] [address], [address] . tel:[phone] OFFICE/OUTPA TIENT VISIT, EST [facility], [facility] [address], [place], [place], [id number] , [place] tel: [phone] [facility] cough (chief complaint)head ache (chief complaint) Upper respiratory tract infection, unspecified typeRight ear impacted cerumenPain in right kneePain in left kneeOther chronic pain 9 Sherrie Mayuri. [address] [place], [place], [place], [id number], [place]. [phone] Referring Provider: Matty Jones MD, [facility] [address], [place], [address] . tel:[phone] [facility], [address] [place] [address], [place], [id number] , [place] tel: [phone] [facility] No Information 9 LANDEN Garcia. [address], [place], [address]. tel:[phone] OFFICE/OUTPA TIENT VISIT, EST [facility], [address] [place] [address], [id number] , [place] tel: [phone] [facility] medication review (chief complaint) Current mild episode of major depressive disorder without prior episodeEssent ial (primary) hypertensionT ype 1 diabetes mellitus on insulin therapyAnxiet y 0 8 LANDEN Garcia. [address], [place], [address]. tel:[phone] Referring Provider: Matty Jones MD, [address] [place] [address], [address] . tel:[phone] OFFICE/OUTPA TIENT VISIT, EST [facility], [address] [place] [address], [id number] , [place] tel: [phone] [facility] medication review (chief complaint) Current mild episode of major depressive disorder without prior episodeEssent ial (primary) hypertensionT ype 1 diabetes mellitus on insulin therapyAnxiet y 0 8 LANDEN Garcia. [address], [place], [address]. [phone] Referring Provider: Matty Jones MD, [address] [place] [address], [address] . tel:[phone] [facility], [address] [place] [address], [id number] , [place] tel: [phone] [facility] No Information 8 MD Matty Jones. [address] [place] [address], [id number], [place]. tel:[phone] OFFICE/OUTPA TIENT VISIT, EST [facility], [address] [place] [address], [id number] , [place] tel: [phone] [facility] ear problems (chief complaint)diab etes (chief complaint) Essential (primary) hypertensionT ype 1 diabetes mellitus on insulin therapyOther hyperlipidemi aAcute non-recurrent frontal sinusitisLeft otitis media with effusionCurre nt mild episode of major depressive disorder without prior episode 8 LANDEN Garcia. [address] [place] [address] , [place], [address]. tel:[phone] Referring Provider: Matty Jones MD, [address] [place] [address], [address] . tel:[phone] OFFICE/OUTPA TIENT VISIT, EST [facility], [address] [place] [address], [id number] , [place] tel: [phone] [facility] ear problems (chief complaint)diab etes (chief complaint) Essential (primary) hypertensionT ype 1 diabetes mellitus on insulin therapyOther hyperlipidemi aAcute non-recurrent frontal sinusitisLeft otitis media with effusionCurre nt mild episode of major depressive disorder without prior episode 8 LANDEN Garcia. [address] [place] [address] , [place], [address]. [phone] Referring Provider: Matty Jones MD, [address] [place] [address], [address] . tel:[phone] OFFICE/OUTPA TIENT VISIT, EST [facility], [address] [place] [address], [id number] , [place] tel:[phone] [facility] Back pain (chief complaint) Midline low back pain without sciatica, unspecified chronicityTyp e 2 diabetes mellitus with hyperglycemia Other hyperlipidemi a 8 Dean Macdonald. [address] [place] [address] , [place], [place], [id number], [place]. tel:[phone] Referring Provider: Matty Jones MD, [address] [place] [address], [address] . tel:[phone] OFFICE/OUTPA TIENT VISIT, EST [facility], [address] [place] [address], [id number] , [place] tel: [phone] [facility] Back pain (chief complaint) Midline low back pain without sciatica, unspecified chronicityTyp e 2 diabetes mellitus with hyperglycemia Other hyperlipidemi a 8 Dean Macdonald. [address] [place] [address] Dr[place], [place], [id number], [place]. tel:[phone] Referring Provider: Matty Jones MD, [address] [place] [address], [address] . tel:[phone] OFFICE/OUTPA TIENT VISIT, EST [facility], [address] [place] [address], [id number] , [place] tel:[phone] [facility] Hypertension (chief complaint)Hype rlipidemia (chief complaint)Diab etes Mellitus (chief complaint) Essential (primary) hypertensionT ype 1 diabetes mellitus on insulin therapyOther hyperlipidemi a 7 Deray Ramu. [address] [facility], [facility] [address], [address] [place] [address], [facility], . tel:[phone] Referring Provider: Matty Jones MD, [address] [place] [address], [address] . tel:[phone] OFFICE/OUTPA TIENT VISIT, EST [facility], [address] [place] [address], [id number] , [place] tel:[phone] [facility] Hypertension (chief complaint)Hype rlipidemia (chief complaint)Diab etes Mellitus (chief complaint) Essential (primary) hypertensionT ype 1 diabetes mellitus on insulin therapyOther hyperlipidemi a Deray Ramu. [address] [facility], [address], [place], [place], [facility], . tel:[phone] Referring Provider: Matty Jones MD, [address] [place] [address], [address] . tel:[phone] OFFICE/OUTPA TIENT VISIT, EST [facility], [address] [place] [address], [id number] , [place] tel:[phone] [facility] Frequent urination (chief complaint) Urinary frequency 7 Deray Ramu. [address] [facility], [address] [place] [address], [facility], . tel:[phone] Referring Provider: Matty Jones MD, [address] [place] [address], [address] . tel:[phone] OFFICE/OUTPA TIENT VISIT, EST [facility], [address] [place] [address], [id number] , [place] tel:[phone] [facility] Frequent urination (chief complaint) Urinary frequency 7 Deray Ramu. [address] [facility], [address] [place] [address], [facility], . tel:[phone] Referring Provider: Matty Jones MD, [address] [place] [address], [address] . tel:[phone] OFFICE/OUTPA TIENT VISIT, EST [facility], [address] [place] [address], [id number] , [place] tel:[phone] [facility] Pain (chief complaint) Type 2 diabetes mellitus with hyperglycemia Essential (primary) hypertensionO ther hyperlipidemi a 6 Deray Ramu. [address] [facility], [address] [place] [address], [facility], [place]. tel:[phone] Referring Provider: Matty Jones MD, [address] [place] [address], [address] . tel:[phone] OFFICE/OUTPA TIENT VISIT, EST [facility], [address] [place] [address], [id number] , [place] tel:[phone] [facility] Pain (chief complaint) Type 2 diabetes mellitus with hyperglycemia Essential (primary) hypertensionO ther hyperlipidemi a 6 Deray Ramu. [address] [facility], [address] [place] [address], [facility], [place]. tel:[phone] Referring Provider: Matty Jones MD, [address] [place] [address], [address] . tel:[phone] [facility], [address] [place] [address], [id number] , [place] tel: [phone] [facility] No Information May-0 2-201 6 No Information OFFICE/OUTPA TIENT VISIT, EST [facility], [address] [place] [address], [id number] , [place] tel: [phone] [facility] ringing in his left ear (chief complaint) Otitis externa Feb-0 4-201 6 Deray Ramu. [address] [facility], [address] [place] [address], [facility], . tel:[phone] Referring Provider: Matty Jones MD, [address] [place] [address], [address] . tel:[phone] OFFICE/OUTPA TIENT VISIT, EST [facility], [address] [place] [address], [id number] , [place] tel: [phone] [facility] ringing in his left ear (chief complaint) Otitis externa Feb-0 4-201 6 Deray Ramu. [address] [facility], [address] [place] [address], [facility], . tel:[phone] Referring Provider: Matty Jones MD, [address] [place] [address], [address] . tel:[phone] OFFICE/OUTPA TIENT VISIT, EST [facility], [address] [place] [address], [id number] , [place] tel:[phone] [facility] SHOULDER PAIN (chief complaint) Pain in left shoulder Nov-0 9-201 5 Deray Ramu. [address] [facility], [address] [place] [address], [facility], . tel:[phone] Referring Provider: Matty Jones MD, [address] [place] [address], [address] . tel:[phone] OFFICE/OUTPA TIENT VISIT, EST [facility], [address] [place] [address], [id number] , [place] tel: [phone] [facility] SHOULDER PAIN (chief complaint) Pain in left shoulder Nov-0 5 Deray Ramu. [address] [facility], [address] [place] [address], [facility], . [phone] Referring Provider: Matty Jones MD, [address] [place] [address], [address] . tel:[phone] OFFICE/OUTPA TIENT VISIT, EST [facility], [address] [place] [address], [id number] , [place] tel: [phone] [facility] diabetes (chief complaint) Diabetes Mellitus, Adult Onset, Uncontrolled Jul- 5 Deray Ramu. [address] [facility], [address] [place] [address], [facility], . tel:[phone] Referring Provider: Matty Jones MD, [address] [place] [address], [address] . tel:[phone] OFFICE/OUTPA TIENT VISIT, EST [facility], [address] [place] [address], [id number] , [place] tel: [phone] [facility] diabetes (chief complaint) Diabetes Mellitus, Adult Onset, Uncontrolled Jul-2 5 Deray Ramu. [address] [facility], [address], [place], [facility], [place]. tel:[phone] Referring Provider: Matty Jones MD, [address] [place] [address], [address] . tel:[phone] OFFICE/OUTPA TIENT VISIT, EST [facility], [address] [place] [address], [id number] , [place] tel: [phone] [facility] diabetes (chief complaint)hype rtension (chief complaint) Diabetes Mellitus, Adult Onset, UncontrolledH ypertension, BenignOther and unspecified hyperlipidemi a Jun-3 0-201 5 Deray Ramu. [address] [facility], [address] [place] [address], [facility], . tel:[phone] Referring Provider: Matty Jones MD, [address] [place] [address], [address] . tel:[phone] OFFICE/OUTPA TIENT VISIT, EST [facility], [address] [place] [address], [id number] , [place] tel: [phone] [facility] diabetes (chief complaint)hype rtension (chief complaint) Diabetes Mellitus, Adult Onset, UncontrolledH ypertension, BenignOther and unspecified hyperlipidemi a Jun-3 0-201 5 Deray Ramu. [address] [facility], [address], [facility], . tel:[phone] Referring Provider: Matty Jones MD, [address] [place] [address], [address] . tel:[phone] OFFICE/OUTPA TIENT VISIT, ARMANI [facility] [employer] [employer], [address] [place] [address], [id number] , [place] tel: [phone] [place] [facility] fatigue (chief complaint)diab etes (chief complaint) Diabetes Mellitus, Adult Onset, UncontrolledF atigueHyperte nsion, Benign Dec-3 0-201 4 Deray Ramu. [address] [facility], [address] [place] [address], [facility], [place]. tel:[phone] Referring Provider: Matty Jones MD, [address] [place] [address], [address] . tel:[phone] OFFICE/OUTPA TIENT VISIT, ARMANI [facility] [employer], [address] [place] [address], [id number] , [place] tel: [phone] [place] [facility] fatigue (chief complaint)diab etes (chief complaint) Diabetes Mellitus, Adult Onset, UncontrolledF atigueHyperte nsion, Benign Dec-3 0-201 4 Deray Ramu. [address] [facility], [address], [facility], . tel:[phone] Referring Provider: Matty Jones MD, [address] [place] [address], [address] . tel:[phone] OFFICE/OUTPA TIENT VISIT, EST [facility] [employer], [address] [place] [address], [address] [place] [address] , tel: [phone] [facility] fatigue (chief complaint)naus ea (chief complaint)vomi tting (chief complaint) Fatigue Mar- 4 Deray Ramu. [address] [facility], [address], [facility], . tel:[phone] Referring Provider: Matty Jones MD, [address] [place] [address], [address] . tel:[phone] OFFICE/OUTPA TIENT VISIT, EST [facility] [employer], [address] [place] [address], [id number] , tel: [phone] [facility] fatigue (chief complaint)naus ea (chief complaint)vomi tting (chief complaint) Fatigue 4 Deray Ramu. [address] [facility], [address], [facility], . tel:[phone] Referring Provider: Matty Jones MD, [address] [place] [address], [address] . tel:[phone] OFFICE/OUTPA TIENT VISIT, EST [facility] [employer], [address] [place] [address], [address] [place] [address] , tel:[phone] [facility] diabetes (chief complaint) Diabetes Mellitus, Adult Onset, Uncontrolled Mar-0 1 4 Deray Ramu. [address] [facility], [address], [facility], . tel:[phone] Referring Provider: Matty Jones MD, [address] [place] [address], [address] . tel:[phone] OFFICE/OUTPA TIENT VISIT, EST [facility] [employer], [address] [place] [address], [id number] , [place] tel: [phone] [facility] diabetes (chief complaint) Diabetes Mellitus, Adult Onset, Uncontrolled Mar-0 4 Deray Ramu. [address] [facility], [address] [place] [address], [facility], . tel:[phone] Referring Provider: Matty Jones MD, [address] [place] [address], [address] . tel:[phone] OFFICE/OUTPA TIENT VISIT, EST [facility] [employer], [address] [place] [address], [id number] , [place] tel: [phone] [facility] diabetes (chief complaint)shor tness of breath (chief complaint) Diabetes Mellitus, Adult Onset, Uncontrolled 2 4 Deray Ramu. [address] [facility], [address] [place] [address], [facility], . tel:[phone] Referring Provider: Matty Jones MD, [address] [place] [address], [address] . tel:[phone] OFFICE/OUTPA TIENT VISIT, EST [facility] [employer], [address] [place] [address], [id number] , [place] tel:[phone] [place] [facility] diabetes (chief complaint)shor tness of breath (chief complaint) Diabetes Mellitus, Adult Onset, Uncontrolled 2 4 Deray Ramu. [address] [facility], [address], [place], [facility], . tel:[phone] Referring Provider: Matty Jones MD, [address] [place] [address], [address] . tel:[phone] OFFICE/OUTPA TIENT VISIT, EST [facility] [employer], [address] [facility] [place], [id number] , [place] tel: [phone] [facility] high blood sugars (chief complaint) Diabetes Mellitus, Adult Onset, UncontrolledN ondependent alcohol abuse, continuous drinking behaviorTobac co Abuse 4 No Information Referring Provider: Matty Jones MD, [address] [facility] [place], [address] . tel:[phone] OFFICE/OUTPA TIENT VISIT, EST [place] [facility] [employer], [address] [facility], [id number] , [place] tel: [phone] [facility] high blood sugars (chief complaint) Diabetes Mellitus, Adult Onset, UncontrolledN ondependent alcohol abuse, continuous drinking behaviorTobac co Abuse 4 No Information Referring Provider: Matty Jones MD, [address] [facility] [place], [address] . tel:[phone] [place] [facility] [employer] [facility], [address] [facility], [id number] , [place] tel: [phone] [place] [facility] No Information 4 MD Matty Jones. [address] [place], [place], [id number], [place]. tel:[phone] [facility] [employer], [address] [place], [place], [id number] , [place] tel: [phone] [place] [facility] No Information 4 MD Matty Jones. [address] [facility] [address], [id number], [place]. tel:[phone] OFFICE/OUTPA TIENT VISIT, EST [facility] [employer], [address] [facility] [address], [id number] , [place] tel: [phone] [place] [facility] Diabetes (chief complaint) Diabetes Mellitus, Adult Onset, UncontrolledH ypertension, Benign 4 Deray Ramu. [address] [facility], [address] [place] [address], [facility], [place]. tel:[phone] Referring Provider: Matty Jones MD, [address] [facility] [place], [address] . tel:[phone] OFFICE/OUTPA TIENT VISIT, EST [facility] [employer], [address] [facility], [id number] , [place] tel: [phone] [facility] Diabetes (chief complaint) Diabetes Mellitus, Adult Onset, UncontrolledH ypertension, Benign Sep- 4 Deray Ramu. [address] [facility], [address] [place] [address], [facility], . tel:[phone] Referring Provider: Matty Jones MD, [address] [place], [address] . tel:[phone] OFFICE/OUTPA TIENT VISIT, EST [place] [facility] [employer], [address] [facility], [id number] , [place] tel: [phone] [place] [facility] diabetes (chief complaint) Diabetes Mellitus, Adult Onset, UncontrolledH ypertension, BenignTobacco Abuse 4 Deray Ramu. [address] [facility], [address] [place] [address], [facility], [place]. tel:[phone] Referring Provider: Matty Jones MD, [address] [place], [address] . tel:[phone] OFFICE/OUTPA TIENT VISIT, EST [facility] [employer], [address] [facility], [id number] , [place] tel: [phone] [facility] diabetes (chief complaint) Diabetes Mellitus, Adult Onset, UncontrolledH ypertension, BenignTobacco Abuse 4 Deray Ramu. [address] [facility], [address] [place] [address], [facility], [place]. tel:[phone] Referring Provider: Matty Jones MD, [address] [place] [address], [address] . tel:[phone] OFFICE/OUTPA TIENT VISIT, EST [facility] [employer], [address] [place] [address], [id number] , [place] tel: [phone] [place] [facility] diabetes (chief complaint) Diabetes Mellitus, Adult Onset, UncontrolledH ypertension, Benign 4 Deray Ramu. [address] [facility], [address], [place], [facility], [place]. tel:[phone] Referring Provider: Matty Jones MD, [address] [place] [address], [address] . tel:[phone] OFFICE/OUTPA TIENT VISIT, EST [facility] [employer], [address] [place] [address], [id number] , [place] tel: [phone] [facility] diabetes (chief complaint) Diabetes Mellitus, Adult Onset, UncontrolledH ypertension, Benign 4 Deray Ramu. [address] [facility], [address], [place], [facility], [place]. tel:[phone] Referring Provider: Matty Jones MD, [address] [place] [address], [address] . tel:[phone] OFFICE/OUTPA TIENT VISIT, EST [facility] [employer], [address] [place] [address], [id number] , [place] tel: [phone] [facility] depression (chief complaint)diab etes (chief complaint) Diabetes Mellitus, Adult Onset, UncontrolledO ther and unspecified hyperlipidemi aHypertension , Benign 4 MD Matty Jones. [address] [place] [address], [id number], [place]. tel:[phone] Referring Provider: Matty Jones MD, [address] [place] [address], [address] . tel:[phone] OFFICE/OUTPA TIENT VISIT, EST [facility] [employer], [facility] [address], [place], [place], [address] [place] [address] , [place] tel: [phone] [facility] depression (chief complaint)diab etes (chief complaint) Diabetes Mellitus, Adult Onset, UncontrolledO ther and unspecified hyperlipidemi aHypertension , Benign Mainor-1 2-201 4 MD Matty Jones. [address] [place] [address], [address] [place] [address], [place]. tel:[phone] Referring Provider: Matty Jones MD, [facility] [address], [place], [address] . tel:[phone] OFFICE/OUTPA TIENT VISIT, EST [facility] [employer], [address] [place] [address], [address] [place] [address] , [place] tel: [phone] [place] [facility] diabetes (chief complaint)back pain (chief complaint) Diabetes Mellitus, Adult Onset, UncontrolledH ypertension, BenignOther and unspecified hyperlipidemi a Jun-0 4 MD Matty Jones. [address] [place] [address], [id number], [place]. tel:[phone] Referring Provider: Matty Jones MD, [address] [place] [address], [address] . tel:[phone] OFFICE/OUTPA TIENT VISIT, EST [facility] [employer], [address] [place] [address], [id number] , [place] tel: [phone] [facility] diabetes (chief complaint)back pain (chief complaint) Diabetes Mellitus, Adult Onset, UncontrolledH ypertension, BenignOther and unspecified hyperlipidemi a 0 201 4 MD Matty Jones. [address] [place] [address], [id number], [place]. tel:[phone] Referring Provider: Matty Jones MD, [address] [place] [address], [address] . tel:[phone] OFFICE/OUTPA TIENT VISIT, NEW [facility] [employer] [employer], [address] [place] [address], [id number] , tel:[phone] [facility] new patient (chief complaint)vomi ting (chief complaint)inso mnia (chief complaint)weak ness (chief complaint)no energy (chief complaint) Other and unspecified hyperlipidemi aHypertension , BenignGastrit isTobacco AbuseDiabetes Mellitus, Adult Onset, UncontrolledS arcoidosisNon dependent alcohol abuse, continuous drinking behaviorHyper tension, Benign 4 MD Matty Jones. [address] [place] [address], [id number], . tel:[phone] Referring Provider: Matty Jones MD, [address] [place] [address], [address] . tel:[phone] OFFICE/OUTPA TIENT VISIT, [facility] [employer] [employer], [address] [place] [address], [id number] , tel:[phone] [place] [facility] new patient (chief complaint)vomi ting (chief complaint)inso mnia (chief complaint)weak ness (chief complaint)no energy (chief complaint) Other and unspecified hyperlipidemi aHypertension , BenignGastrit isTobacco AbuseDiabetes Mellitus, Adult Onset, UncontrolledS arcoidosisNon dependent alcohol abuse, continuous drinking behaviorHyper tension, Benign 4 MD Matty Jones. [address] [place] [address], [id number], . tel:[phone] Referring Provider: Matty Jones MD, [address] [place] [address], [address] . tel:[phone] Family History Family Member Type Diagnosis Age [...] Insurance type Covered republican ID Authoriza tion(s) Medicare MB [id number] [facility] CI [id number] Medicare MB [id number] [facility] CI [id number] Medicare MB [id number] [facility] CI [id number] Medicare MB [id number] [facility] CI [id number] Social History Type Description Quantity Date Captured Comments Sex Male Smoking Status No Information Sexual Orientation Choose not to disclose Gender Identity Female Chief Complaint And Reason For Visit No Information Reason For Referral Reason For Referral No Information Plan Of Treatment Date Type Action Status [facility]al [facility] Due on due Goal Foot exam. Due on due Goal Dilated eye exam . Due on due Goal Colonoscopy. Due on 020 due Goal Abdominal Ultrasound due Goal Wellness [...] Goal Wellness Visit. Due on due Goal Tdap. Due on due Goal FOBT. Due on due Goal Colonoscopy. Due on 020 due Goal Influenza vaccin e. Due on [...] Abdominal Ultras ound. Due on due Goal Colonoscopy. Due on due Goal Tdap. Due on due Goal Chronic Care Man agement (CCM) Program. Due on due Goal Wellness Visit. Due on due Goal FOBT. Due on due Goal Annual Care Visi t. Due on due Goal Depression scree meredith. Due on due Goal Cognitive assess ment. Due on due Goal Form for Advance d Directives. Due on due Goal Influenza vaccin e. Due on due Goal Lipid panel. Due [...] Well[facility] s Visit. Due on due Goal Special diet [...] due Goal Colonoscopy. Due on due Goal Special diet education compl eted Goal Wellness Visit. Due on due Goal [...] Ultras ound. Due on due Goal Medicare [facility]. Due on due Goal Depression [...] on due Goal Chronic Care Man agement ([facility]) Program. Due on due Goal Abdominal Ultras ound. Due on due Goal Annual Care Visi t. Due on due Goal Medicare Well[facility] s Visit. Due on due Goal Tetanus Toxoid V accine. Due on due Goal Depression scree meredith. Due on due Goal Chronic Care Man agement ([facility]) Program. Due on due Goal Wellness Visit. Due on due Goal Form for Advance d Directives. Due on due Goal Cognitive assess ment. Due on due Goal Prevnar 13 due Goal Medicare Well[facility] Visit. Due on due Goal Cognitive assess ment. Due on due Goal Depression scree meredith. Due on due Goal Form for Advance d Directives. Due on due Goal Wellness Visit. Due on due Goal Prevnar 13 due Goal Annual Care Visi t. Due on due Goal Tetanus Toxoid V accine. Due on due Goal Chronic Care Man agement ([facility]) Program. Due on due Goal Abdominal Ultras ound. Due on due Goal Form for Advance d Directives. Due on due Goal Medicare Wellnes s Visit. Due on due Goal Prevnar 13. Due on due Goal Abdominal Ultras ound. Due on due Goal Depression scree meredith. Due on due Goal Cognitive assess ment. Due on due Goal Annual Care Visi t. Due on due Goal Wellness Visit. Due on due Goal Tetanus Toxoid V accine. Due on due Goal Chronic Care Man agement (CCM) Program. Due on due Goal Prevnar 13. Due on due Goal Form for Advance d Directives. Due on due Goal Medicare [facility]. Due on due Goal Chronic [...] due Goal PSA. Due on due Goal Wellness Visit. Due [...] Goal Colonoscopy. Due on 014 due Goal Influenza vaccin e. Due on [...] due Goal FOBT. Due on due Goal Influenza vaccin e. Due on due Goal Colonoscopy. Due on 014 due Goal FOBT. Due on due Goal PSA. Due on due Goal Td Vaccine. Due on 14 due Future Order: Radiology Order Ch est X-ray, 2 views ([id number]), Ordered on: Ordered Future Order: Lab Order CMP ([id number]), Ordered on: Ordered Future Order: Lab Order Hemoglob in A1c ([id number]), Ordered on: Ordered Future Order: Lab Order CBC w/di ff ([id number]), Ordered on: Ordered Future Order: Lab Order CMP ([id number]), Ordered on: Ordered Future Order: Lab Order Lipid Pa miriam ([id number]), Ordered on: Ordered Future Order: Lab Order TSH Rfx on Abnormal to Free T4 ([id number]), Ordered on: Ordered Future Order: Lab Order CBC w/di ff ([id number]), Ordered on: Ordered Future Order: Lab Order BMP ([id number]), Ordered on: Ordered Future Order: Lab Order Hemoglob in A1c ([id number]), Ordered on: Ordered Future Order: Lab Order Microalb umin, Random Urine ([id number]), Ordered on: Ordered Future Order: Lab Order TSH Rfx on Abnormal to Free T4 ([id number]), Ordered on: Ordered Future Order: Lab Order Hemoglob in A1c ([id number]), Ordered on: Ordered Future Order: Lab Order CMP ([id number]), Ordered on: Ordered Future Order: Lab Order PSA ([id number]), Ordered on: Ordered Future Order: Lab Order PSA ([id number]), Ordered on: Ordered Future Order: Lab Order [...] Cough Anxiety/Depression prostate enlargement hypertension diabetes Depression diabetes Comorbidity: Hyp ertension. hyperlipidemia Risk factors inc lude age over 50. diabetes Comorbidity: Hyp ertension. hyperlipidemia Risk factors inc lude age over 50. med review Med review med review cough headache headache cough medication review medication review ear problems diabetes ear problems diabetes Back pain Back pain Diabetes Mellitus Hypertension Hyperlipidemia Diabetes Mellitus Hypertension Hyperlipidemia Frequent urination Frequent urination Pain Pain ringing in his left ear ringing in his left ear SHOULDER PAIN SHOULDER PAIN diabetes diabetes diabetes hypertension diabetes hypertension fatigue diabetes fatigue diabetes nausea fatigue vomitting fatigue nausea vomitting diabetes Comorbidity: Hyp ertension. diabetes Comorbidity: Hyp ertension. diabetes He Has been herve ged with oral medications. Comorbidity: Hypertension. shortness of breath diabetes He Has been herve ged with oral medications. Comorbidity: Hypertension. shortness of breath high blood sugars high blood sugars Diabetes [...]
--- OUTSIDE RECORDS SUMMARY | 2024-05-24 12:13 | XMS_ITS | Encounter Summary ---
Author Organization [facility] Care Team Providers Care Swaging Machine Adjuster Name Role Phone Eugene Vega MD Primary Care Provi shantell Todd Gallardo MD Primary Care Provider [phone] Wai Espinoza MD Unavailable [phone] Justin Pineda MD Unavailable Encounter Details Date Type Department Care Team (Latest Contact Info) Description 10/02/2016 Orders Only [facility] CLINCONV ProviderKayla MD [address] [place] [address] Social History Tobacco Use Types Packs/Day Years Used Date Smoking Tobacco: Never Assessed Sex and Gender Information Value Date Recorded Sex Assigned at Not on file 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 Gender Identity Male 01/06/2022 12:16 PM CDT [...] on filedocumented in this encounter Care Teams Swaging Machine Adjuster Relationship Specialty Start Date End Date Eugene Vega MD [address] [place] [address] PCP - General Family Medicine 08/30/18 01/19/22 Todd Gallardo MD [address] [place] [address] PCP - General Family Practice 01/20/22 Wai Espinoza MD [address] DIV IM MEDICAL ONCOLOGY, [address] [place] [address] Medical Oncologist/Hide Cleaner Medical Oncology 01/20/22 Justin Pineda MD [address] [place] [address] Radiation Oncologist Radiation Oncology 02/02/22 documented as of this encounter
--- OUTSIDE RECORDS SUMMARY | 2024-05-24 12:13 | XMS_ITS | Encounter Summary ---
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 Gender Identity Male 01/06/2022 12:16 PM CDT [...] on filedocumented in this encounter Care Teams Business Project Analyst Relationship Specialty Start Date End Date Eugene Vega MD [address] [place] [address] PCP - General Family Medicine 08/30/18 01/19/22 Todd Gallardo MD [address] [place] [address] PCP - General Family Practice 01/20/22 Wai Espinoza MD [address] DIV IM MEDICAL ONCOLOGY, [address] [place] [address] Medical Oncologist/Top Lift Cutter Medical Oncology 01/20/22 Justin Pineda MD [address] [place] [address] Radiation Oncologist Radiation Oncology 02/02/22 documented as of this encounter
--- OUTSIDE RECORDS SUMMARY | 2024-05-24 12:13 | XMS_ITS | Encounter Summary ---
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 Gender Identity Male 01/06/2022 12:16 PM CDT [...] filedocumented in this encounter Care Teams Traffic Enumerator Relationship Specialty Start Date End Date Eugene Vega MD [address] [place] [address] PCP - General Family Medicine 08/30/18 01/19/22 Todd Gallardo MD [address] [place] [address] PCP - General Family Practice 01/20/22 Wai Espinoza MD [address] DIV IM MEDICAL ONCOLOGY, [address], [address] [place] [address] Medical Oncologist/Environmental Protection Geologist Medical Oncology 01/20/22 Justin Pineda MD [address] [place] [address] Radiation Oncologist Radiation Oncology 02/02/22 documented as of this encounter
--- OUTSIDE RECORDS SUMMARY | 2024-05-24 12:13 | XMS_ITS | Encounter Summary ---
Author Organization [facility] Care Team Providers Care Counter Professional Name Role Phone Eugene Vega MD Primary Care Provi shantell Todd Gallardo MD Primary Care Provider + [phone] Wai Espinoza MD Unavailable [phone] Justin Pineda MD Unavailable Encounter Details Date Type Department Care Team (Latest Contact Info) Description 02/22/2012 Orders Only [facility] CLINCONV ProviderKayla MD [address] [place] [address] Social History Tobacco Use Types Packs/Day Years Used Date Smoking Tobacco: Never Assessed Sex and Gender Information Value Date Recorded Sex Assigned at Not on file 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 Gender Identity Male 01/06/2022 12:16 PM CDT [...] on filedocumented in this encounter Care Teams Counter Professional Relationship Specialty Start Date End Date Eugene Vega MD [address] [place] [address] PCP - General Family Medicine 08/30/18 01/19/22 Todd Gallardo MD [address] [place] [address] PCP - General Family Practice 01/20/22 Wai Espinoza MD [address] DIV IM MEDICAL ONCOLOGY, [address] [place] [address] Medical Oncologist/Oil Refinery Process Technician Medical Oncology 01/20/22 Justin Pineda MD [address] [place] [address] Radiation Oncologist Radiation Oncology 02/02/22 documented as of this encounter
--- OUTSIDE RECORDS SUMMARY | 2024-05-24 12:13 | XMS_ITS | Encounter Summary ---
Author Organization [facility] Facility Care Team Providers Care Charging Plug Placer Name Role Phone Eugene Vega MD Primary Care Provi shantell Todd Gallardo MD Primary Care Provider + [phone] Wai Espinoza MD Unavailable [phone] Justin Pineda MD Unavailable Encounter Details Date Type Department Care Team (Latest Contact Info) Description 09/29/2016 Orders Only [facility]INCON[facility] ProviderKayla MD [address] [place] [id number] Social History Tobacco Use Types Packs/Day Years Used Date Smoking Tobacco: Never Assessed Sex and Gender Information Value Date Recorded Sex Assigned at Not on file 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 Gender Identity Male 01/06/2022 12:16 PM CDT [...] on filedocumented in this encounter Care Teams Charging Plug Placer Relationship Specialty Start Date End Date Eugene Vega MD [address] [place] [address] PCP - General Family Medicine 08/30/18 01/19/22 Todd Gallardo MD [address] [place] [address] PCP - General Family Practice 01/20/22 Wai Espinoza MD [address] DIV IM MEDICAL ONCOLOGY, [address] [place] [address] Medical Oncologist/Hydrotherapist Medical Oncology 01/20/22 Justin Pineda MD [address] [place] [address] Radiation Oncologist Radiation Oncology 02/02/22 documented as of this encounter
--- OUTSIDE RECORDS SUMMARY | 2024-05-24 12:13 | XMS_ITS | Encounter Summary ---
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 Gender Identity Male 01/06/2022 12:16 PM CDT Sexual Orientation Not on file documented as of this encounter Plan of Treatment Not on file documented as of this encounter Visit Diagnoses Not on filedocumented in this encounter Care Teams Service Car Operator Relationship Specialty Start Date End Date Todd Gallardo MD PCP - General Family Practice 01/20/22 Wai Espinoza MD [address] DIV IM MEDICAL ONCOLOGY, [address] [place] [address] Medical Oncologist/Ruling Technician Medical Oncology 01/20/22 Justin Pineda MD [address] [place] [address] Radiation Oncologist Radiation Oncology 02/02/22 documented as of this encounter
--- OUTSIDE RECORDS SUMMARY | 2024-05-24 12:13 | XMS_ITS | Encounter Summary ---
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 Gender Identity Male 01/06/2022 12:16 PM CDT Sexual Orientation Not on file documented as of this encounter Plan of Treatment Not on file documented as of this encounter Visit Diagnoses Not on filedocumented in this encounter Care Teams Opal Miner Relationship Specialty Start Date End Date Todd Gallardo MD PCP - General Family Practice 01/20/22 Wai Espinoza MD [address] DIV IM MEDICAL ONCOLOGY, [address] [place] [address] Medical Oncologist/Durable Medical Equipment Repairer Medical Oncology 01/20/22 Justin Pineda MD [address] [place] [address] Radiation Oncologist Radiation Oncology 02/02/22 documented as of this encounter
--- OUTSIDE RECORDS SUMMARY | 2024-05-24 12:13 | XMS_ITS | Continuity of Care Document ---
Author Organization [facility] Address [address] [facility], [facility] [address] [place] [address] Phone Care Team Providers Care Chief Crna Name Role Phone Evaristo Jimenez MD, Armen [...] Diagnoses Date Provider Providers Copied on Encounter [facility], [address], [place], [place], [address] [place] [address], tel:[phone] [facility] No Information 2 MD Armen Mckeon. [address] [facility] , [place], [place], [address] [place] [address], . tel:[phone] [facility], [address], [place], [address] [place] [address], tel:[phone] [facility] No Information 2 MD Armen Mckeon. [address] [facility] [address] [place], [place], [address] [place] [address], . tel:[phone] [facility], [address], [place], [place], [id number], tel:[phone] [facility] No Information 2 MD Armen Mckeon. [address] [facility] [address] [place], [place], [address] [place] [address], . tel:[phone] [facility], [address], [place], [address] [place] [address], tel:[phone] [facility] No Information 2 MD Armen Mckeon. [address] [facility] [address] [place], [place], [address] [place] [address], . tel:[phone] [facility], [address] [facility], [address], [address] [place] [address], tel:[phone] [facility] No Information 2 MD Armen Mckeon. [address] [facility] , [place], [place], [address] [place] [address], . tel:[phone] ESTABLISHED PATIENT DETAILED [facility], [address] [place] [address], [address] [place] [address], tel:[phone] [facility] Cough (chief complaint)Hea dache (chief complaint)Pos itive exposure (chief complaint) Mixed anxiety and depressive disorderEncou nter for observation for suspected exposure to other biological agents ruled outOther chronic pain 2 MD Armen Mckeon. [address] [place] [address] , [place], [place], [address] [place] [address], . tel:[phone] Referring Provider: Matty Jones MD, [address] [place], [address] . tel:[phone] [facility], [address] [place] [address] [employer], [address] [place] [address], tel:[phone] [facility] No Information 2 MD Armen Mckeon. [address] [place] [address] , [place], [address] [place] [address], . tel:[phone] [facility], [address] [place] [address] [employer], [address] [place] [address], tel:[phone] [facility] No Information 2 MD Armen Mckeon. [address] [place] [address] , [place], [address] [place] [address], . tel:[phone] ESTABLISHED PATIENT DETAILED [facility], [address] [place] [address], [address] [place] [address], tel:[phone] [facility] hypertension (chief complaint)pro state enlargement (chief complaint)gay betes (chief complaint)Anx iety/Depressi on (chief complaint) Type 1 diabetes mellitus on insulin therapyMixed anxiety and depressive disorderOther chronic painTobacco use 2 MD Armen Mckeon. [address] [facility] , [place], [place], [id number], . tel:[phone] Referring Provider: Armen Jimenez MD, [address] [facility] , [place], [address] . tel:[phone] OFFICE/OUTPA TIENT VISIT EST [facility], [address] [place] [address], [address], [id number], tel:[phone] [facility] URI, acuteCOPD exacerbation 2 MD Armen Mckeon. [address] [place] [address] , [place], [place], [id number], . tel:[phone] Referring Provider: Armen Jimenez MD, [address] [place] [address] , [place], [address] . tel:[phone] [facility], [address] [place] [address], [address], [id number], tel:[phone] [facility] Mixed anxiety and depressive disorderType 1 diabetes mellitus on insulin therapyEssent ial (primary) hypertensionP rostate enlargementSc reening PSA (prostate specific antigen) 1 MD Armen Mckeon. [address] [place] [address] Dr [place], [id number], . tel:[phone] Referring Provider: Armen Jimenez MD, [address] [place] [address] , [place], [address] . tel:[phone] ESTABLISHED PATIENT DETAILED [facility], [address] [place] [address], [address], [id number], tel:[phone] [facility] Depression (chief complaint) Tobacco useMixed anxiety and depressive disorderOther chronic pain 1 MD Armen Mckeon. [address] [place] [address] Dr [place], [id number], . tel:[phone] Referring Provider: Armen Jimenez MD, [address] [place] [address] , [place], [address] . tel:[phone] OFFICE/OUTPA TIENT VISIT EST [facility], [address] [place] [address], [id number], tel:[phone] [facility] Mixed anxiety and depressive disorderOther chronic painAlcohol use disorder, mild, abuse 1 MD Armen Mckeon. [address] [place] [address] , [place], [place], [id number], [place]. tel:[phone] Referring Provider: Armen Jimenez MD, [address] [place] [address] , [place], [address] . tel:[phone] ESTABLISHED PATIENT DETAILED [facility] [facility], [address] [place] [address], [id number], tel:[phone] [facility] hyperlipidemi a (chief complaint)gay betes (chief complaint) Mixed anxiety and depressive disorderOther chronic painType 1 diabetes mellitus on insulin therapyAcute pain of right kneeOSA on CPAPDependenc e on other enabling machines and devicesTobacc o use 1 MD Armen Mckeon. [address] [place] [address] , [place], [id number], [place]. tel:[phone] Referring Provider: Armen Jimenez MD, [address] [place] [address] , [place], [address] . tel:[phone] OFFICE/OUTPA TIENT VISIT EST [facility], [address] [place] [address], [address], [id number], [place] tel:[phone] [facility] Other chronic painAcute torticollisNe ck painMixed anxiety and depressive disorder 1 MD Armen Mckeon. [address] [place] [address] Dr [place], [id number], . tel:[phone] Referring Provider: Armen Jimenez MD, [address] [place] [address] Dr, [place], [address] . tel:[phone] OFFICE/OUTPA TIENT VISIT EST [employer] [facility], [address] [place] [address], [id number], tel:[phone] [facility] Acute torticollisNe ck pain Sep-2 3-202 0 MD Armen Mckeon. [address] [facility] , [place], [place], [id number], [place]. tel:[phone] Referring Provider: Armen Jimenez MD, [address] [facility] , [place], [address] . tel:[phone] OFFICE/OUTPA TIENT VISIT EST [facility] [facility], [address] [place] [address], [id number], tel:[phone] [facility] Neck painAcute torticollis Sep-1 7-202 0 MD Armen Mckeon. [address] [facility] , [place], [place], [id number], [place]. tel:[phone] Referring Provider: Armen Jimenez MD, [address] [facility] , [place], [address] . tel:[phone] OFFICE/OUTPA TIENT VISIT [facility] [employer] [facility], [address] [place] [address], [id number], tel:[phone] [facility] Essential (primary) hypertensionM ixed anxiety and depressive disorderOther chronic pain Иван-2 0-202 0 MD Armen Mckeon. [address] [facility] , [place], [place], [id number], [place]. tel:[phone] Referring Provider: Armen Jimenez MD, [address] [facility] , [place], [address] . tel:[phone] [facility] [facility], [address] [place] [address], [address], [id number], tel:[phone] [facility] No Information Mainor-0 4-202 0 MD Armen Mckeon. [address] [facility] [address] [place], [id number], . tel:[phone] ESTABLISHED PATIENT DETAILED [facility], [address], [id number], tel:[phone] [facility] Essential (primary) hypertensionM ixed anxiety and depressive disorderType 1 diabetes mellitus on insulin therapyUrinar y dribbling 0 MD Armen Mckeon. [address] [facility] [address] [place], [id number], . tel:[phone] Referring Provider: Armen Jimenez MD, [address] [place] [address] [place], [address] . tel:[phone] ESTABLISHED PATIENT DETAILED [facility], [address] [place] [address], [id number], tel:[phone] [facility] hyperlipidemi a (chief complaint)gay betes (chief complaint) Body mass index (BMI) 25.0-25.9, adultType 1 diabetes mellitus on insulin therapyEssent ial (primary) hypertensionM ixed anxiety and depressive disorder 0 MD Armen Mckeon. [address] [place] [address] Dr [place], [id number], . tel:[phone] Referring Provider: Matty Jones MD, [address] [facility] [place], [place], [address] . tel:[phone] ESTABLISHED PATIENT DETAILED [facility], [address] [place] [address], [address], [id number], tel:[phone] [facility] med review (chief complaint) Other chronic painType 1 diabetes mellitus on insulin therapyEssent ial (primary) hypertensionM ixed anxiety and depressive disorderAlcoh ol abuse with alcohol-induc ed disorder 9 MD Armen Mckeon. [address] [facility] [address] [place], [id number], . tel:[phone] Referring Provider: Armen Jimenez MD, [address] [place] [address] , [place], [address] . tel:[phone] ESTABLISHED PATIENT DETAILED [facility], [address] [facility], [address], [id number], tel:[phone] [facility] Med review (chief complaint) Body mass index (BMI) 24.0-24.9, adultOther chronic painViral upper respiratory tract infectionAlle rgic rhinitis, unspecified seasonality, unspecified triggerSleep apnea, unspecified type 9 MD Armen Mckeon. [address] [place] [address] Dr, [place], [place], [id number], [place]. tel:[phone] Referring Provider: Armen Jimenez MD, [address] [place] [address] , [place], [address] . tel:[phone] ESTABLISHED PATIENT DETAILED [facility], [address] [place] [address], [address], [id number], tel:[phone] [facility] med review (chief complaint) Body mass index (BMI) 24.0-24.9, adultType 1 diabetes mellitus on insulin therapyAnxiet yEssential (primary) hypertensionM ixed anxiety and depressive disorder 9 MD Matty Jones. [address] [place] [address], [id number], . tel:[phone] Referring Provider: Matty Jones MD, [address] [place] [address], [address] . tel:[phone] OFFICE/OUTPA TIENT VISIT, EST [facility], [address] [facility], [address], [id number], tel:[phone] [facility] cough (chief complaint)hea dache (chief complaint) Upper respiratory tract infection, unspecified typeRight ear impacted cerumenPain in right kneePain in left kneeOther chronic pain Jun-2 0 9 Sherrie Messina. [address], [address], [place], [place], [id number], . tel:[phone] Referring Provider: Matty Jones MD, [address] [place] [address], [address] . tel:[phone] OFFICE/OUTPA TIENT VISIT, [facility], [address] [place] [address], [address], [id number], [place] tel:[phone] [facility] medication review (chief complaint) Current mild episode of major depressive disorder without prior episodeEssent ial (primary) hypertensionT ype 1 diabetes mellitus on insulin therapyAnxiet y 8 LANDEN Garcia. [address] [place] [address] , [place], [address]. tel:[phone] Referring Provider: Matty Jones MD, [address] [place] [address], [address] . tel:[phone] OFFICE/OUTPA TIENT VISIT, [facility], [address] [place] [address], [address], [id number], [place] tel:[phone] [facility] ear problems (chief complaint)gay betes (chief complaint) Essential (primary) hypertensionT ype 1 diabetes mellitus on insulin therapyOther hyperlipidemi aAcute non-recurrent frontal sinusitisLeft otitis media with effusionCurre nt mild episode of major depressive disorder without prior episode 8 LANDEN Garcia. [address] [place] [address] , [place], [address]. tel:[phone] Referring Provider: Matty Jones MD, [address] [place] [address], [address] . tel:[phone] OFFICE/OUTPA TIENT VISIT, [facility], [address] [place] [address], [address], [id number], [place] tel:[phone] [facility] Back pain (chief complaint) Midline low back pain without sciatica, unspecified chronicityTyp e 2 diabetes mellitus with hyperglycemia Other hyperlipidemi a Feb 8 Dean Macdonald. [address] [place] [address] , [place], [id number], [place]. tel:[phone] Referring Provider: Matty Jones MD, [address] [place] [address], [address] . tel:[phone] OFFICE/OUTPA TIENT VISIT, [facility], [address] [place] [address], [address], [id number], tel:[phone] [facility] Hypertension (chief complaint)Hyp erlipidemia (chief complaint)Gay betes Mellitus (chief complaint) Essential (primary) hypertensionT ype 1 diabetes mellitus on insulin therapyOther hyperlipidemi a 7 Deray Ramu. [address] [facility] 3, [address], [facility], . tel:[phone] Referring Provider: Matty Jones MD, [address] [place] [address], [address] . tel:[phone] OFFICE/OUTPA TIENT VISIT, [facility], [address] [place] [address], [address], [id number], [place] tel:[phone] [facility] Frequent urination (chief complaint) Urinary frequency 201 7 Deray Ramu. [address] [facility] 3, [address] [place] [address], [facility], [place]. tel:[phone] Referring Provider: Matty Jones MD, [address] [place] [address], [address] . tel:[phone] OFFICE/OUTPA TIENT VISIT, [facility], [address] [place] [address], [address], [id number], tel:[phone] [facility] Pain (chief complaint) Type 2 diabetes mellitus with hyperglycemia Essential (primary) hypertensionO ther hyperlipidemi a 8201 6 Deray Ramu. [address] [facility] 3, [address] [place] [address], [facility], [place]. tel:[phone] Referring Provider: Matty Jones MD, [address] [place] [address], [address] . tel:[phone] OFFICE/OUTPA TIENT VISIT, [facility], [address] [place] [address], [id number], tel:[phone] [facility] ringing in his left ear (chief complaint) Otitis externa 0 4201 6 Deray Ramu. [address] [facility] 3, [address] [place] [address], [facility], . tel:[phone] Referring Provider: Matty Jones MD, [address] [place] [address], [address] . tel:[phone] OFFICE/OUTPA TIENT VISIT, [facility], [address] [place] [address], [id number], tel:[phone] [facility] SHOULDER PAIN (chief complaint) Pain in left shoulder 0 9201 5 Deray Ramu. [address] [facility] 3, [address], [facility], . tel:[phone] Referring Provider: Matty Jones MD, [address] [place] [address], [address] . tel:[phone] OFFICE/OUTPA TIENT VISIT, [facility], [address] [place] [address], [id number], tel:[phone] [facility] diabetes (chief complaint) Diabetes Mellitus, Adult Onset, Uncontrolled Jul-2 8201 5 Deray Ramu. [address] [facility] 3, [address], [facility], . tel:[phone] Referring Provider: Matty Jones MD, [address] [place] [address], [address] . tel:[phone] OFFICE/OUTPA TIENT VISIT, [facility], [address] [place] [address], [address], [id number], tel:[phone] [facility] diabetes (chief complaint)hyp ertension (chief complaint) Diabetes Mellitus, Adult Onset, UncontrolledH ypertension, BenignOther and unspecified hyperlipidemi a Jun- 0-201 5 Deray Ramu. [address] [facility] 3, [address] [place] [address], [facility], . tel:[phone] Referring Provider: Matty Jones MD, [address] [place] [address], [address] . tel:[phone] OFFICE/OUTPA TIENT VISIT, [facility], [address] [place] [address], [id number], tel:[phone] [facility] fatigue (chief complaint)gay betes (chief complaint) Diabetes Mellitus, Adult Onset, UncontrolledF atigueHyperte nsion, Benign 0-201 4 Deray Ramu. [address] [facility] 3, [address], [facility], . tel:[phone] Referring Provider: Matty Jones MD, [address] [place] [address], [address] . tel:[phone] OFFICE/OUTPA TIENT VISIT, [facility], [address] [place] [address], [id number], tel:[phone] [facility] fatigue (chief complaint)gauri sea (chief complaint)vom itting (chief complaint) Fatigue 6201 4 Deray Ramu. [address] [facility] 3, [address] [place] [address], [facility], . tel:[phone] Referring Provider: Matty Jones MD, [address] [place] [address], [address] . tel:[phone] OFFICE/OUTPA TIENT VISIT, [facility], [address] [place] [address], [id number], tel:[phone] [facility] diabetes (chief complaint) Diabetes Mellitus, Adult Onset, Uncontrolled 4 Deray Ramu. [address] [facility] 3, [address] [place] [address], [facility], . tel:[phone] Referring Provider: Matty Jones MD, [address] [place] [address], [address] . tel:[phone] OFFICE/OUTPA TIENT VISIT, [facility], [address] [place] [address], [id number], tel:[phone] [facility] diabetes (chief complaint)sandra rtness of breath (chief complaint) Diabetes Mellitus, Adult Onset, Uncontrolled 4 Deray Ramu. [address] [facility] 3, [address], [place], [place], [facility], . tel:[phone] Referring Provider: Matty Jones MD, [address] [place] [address], [address] . tel:[phone] OFFICE/OUTPA TIENT VISIT, [facility], [address] [place] [address], [id number], [place] tel:[phone] [facility] high blood sugars (chief complaint) Diabetes Mellitus, Adult Onset, UncontrolledN ondependent alcohol abuse, continuous drinking behaviorTobac co Abuse 4 No Information Referring Provider: Matty Jones MD, [address] [place] [address], [address] . tel:[phone] [facility], [address] [place] [address], [id number], tel:[phone] [facility] No Information 4 MD Matty Jones. [address] [place] [address], [id number], [place]. tel:[phone] OFFICE/OUTPA TIENT VISIT, [facility], [address] [facility], [address], [id number], tel:[phone] [facility] Diabetes (chief complaint) Diabetes Mellitus, Adult Onset, UncontrolledH ypertension, Benign Dec- 4 Deray Ramu. [address] [facility] 3, [address] [place] [address], [facility], . tel:[phone] Referring Provider: Matty Jones MD, [address] [place] [address], [address] . tel:[phone] OFFICE/OUTPA TIENT VISIT, [facility], [address] [place] [address], [address], [id number], [place] tel:[phone] [facility] diabetes (chief complaint) Diabetes Mellitus, Adult Onset, UncontrolledH ypertension, BenignTobacco Abuse 4 Deray Ramu. [address] [facility] 3, [address] [place] [address], [facility], . tel:[phone] Referring Provider: Matty Jones MD, [address] [place] [address], [address] . tel:[phone] OFFICE/OUTPA TIENT VISIT, [facility], [address] [place] [address], [address], [id number], [place] tel:[phone] [facility] diabetes (chief complaint) Diabetes Mellitus, Adult Onset, UncontrolledH ypertension, Benign 4 Deray Ramu. [address] [facility] 3, [address], [place], [facility], . tel:[phone] Referring Provider: Matty Jones MD, [address] [place] [address], [address] . tel:[phone] OFFICE/OUTPA TIENT VISIT, [facility], [address] [facility], [address], [id number], [place] tel:[phone] [facility] depression (chief complaint)gay betes (chief complaint) Diabetes Mellitus, Adult Onset, UncontrolledO ther and unspecified hyperlipidemi aHypertension , Benign 4 MD Matty Jones. [address] [place] [address], [address] [place] [address], . tel:[phone] Referring Provider: Matty Jones MD, [address] [place] [address], [address] . tel:[phone] OFFICE/OUTPA TIENT VISIT, Count includes the [facility], [address] [place] [address], [address], [id number], [phone] [facility] diabetes (chief complaint)tristin k pain (chief complaint) Diabetes Mellitus, Adult Onset, UncontrolledH ypertension, BenignOther and unspecified hyperlipidemi a 4 MD Matty Jones. [address] [place] [address], [id number], . [phone] Referring Provider: Matty Jones MD, [address] [place] [address], [address] . tel:[phone] OFFICE/OUTPA TIENT VISIT, [facility] [facility], [address] [place] [address], [address], [id number], [phone] [facility] new patient (chief complaint)vom iting (chief complaint)ins omnia (chief complaint)wea kness (chief complaint)no energy (chief complaint) Other and unspecified hyperlipidemi aHypertension , BenignGastrit isTobacco AbuseDiabetes Mellitus, Adult Onset, UncontrolledS arcoidosisNon dependent alcohol abuse, continuous drinking behaviorHyper tension, Benign 4 MD Matty Jones. [address] [place] [address], [id number], . tel:[phone] Referring Provider: Matty Jones MD, [address] [place] [address], [address] . tel:[phone] Family History Family Member Type Diagnosis Age [...] Unspecified Payers Payer name Insurance type Covered green party ID Authoriza tion(s) No Information Social History [...] due Goal FOBT. Due on due Goal Abdominal Ultrasound due [...] (CCM) Program. Due on due Goal Abdominal Ultrasound due [...] due Goal Colonoscopy. Due on due Goal Colonoscopy. Due on [...] Lipid panel. Due on 021 due Goal Abdominal Ultrasound due Goal Form [...] agement (CCM) Program. Due on due Goal Chronic Care Man [...] due Goal Colonoscopy. Due on due Goal Colonoscopy. Due on due Goal FOBT. Due on due Goal Medicare Wellnes s Visit. Due on due Goal Wellness Visit. Due on due Goal Form for Advance d Directives. Due on due Goal Annual Care Visi t. Due on due Goal Tdap. Due on due Goal Abdominal Ultras ound. Due on due Goal Cognitive assess ment. Due on due Goal Depression scree meredith. Due on due Goal Influenza vaccin e. Due on due Goal Lipid panel. Due on due Goal Tetanus Toxoid V [...] Goal Special diet education compl eted Goal Tdap. Due on due Goal Cognitive [...] Goal Lipid panel. Due on due Goal Special diet education [...] Influenza vaccin e. Due on due Goal Td Vaccine. Due on 14 due Goal FOBT. Due on due Goal Colonoscopy. Due on 014 due Future Order: Radiology Order Ch est X-ray, 2 views ([id number]), Ordered on: Ordered Future Order: Lab Order CMP ([id number]), Ordered on: Ordered Future Order: Lab Order Hemoglob in A1c ([id number]), Ordered on: Ordered Future Order: Lab Order CBC w/di ff ([id number]), Ordered on: Ordered Future Order: Lab Order CMP ([id number]), Ordered on: Ordered Future Order: Lab Order Lipid Pa miriam ([id number]), Ordered on: Ordered Future Order: Lab Order TSH Rfx on Abnormal to Free T4 ([id number]), Ordered on: Ordered Future Order: Lab Order CBC w/di ff ([id number]), Ordered on: Ordered Future Order: Lab Order BMP ([id number]), Ordered on: Ordered Future Order: Lab Order Hemoglob in A1c ([id number]), Ordered on: Ordered Future Order: Lab Order Microalb umin, Random Urine ([id number]), Ordered on: Ordered Future Order: Lab Order TSH Rfx on Abnormal to Free T4 ([id number]), Ordered on: Ordered Future Order: Lab Order Hemoglob in A1c ([id number]), Ordered on: Ordered Future Order: Lab Order CMP ([id number]), Ordered on: Ordered Future Order: Lab Order PSA ([id number]), Ordered on: Ordered Future Order: Lab Order [...] Prese nt Illness Headache Cough Positive exposure hypertension prostate enlargement diabetes Anxiety/Depression Depression hyperlipidemia Risk factors inc lude age over 50. diabetes Comorbidity: Hyp ertension. hyperlipidemia Risk factors inc lude age over 50. diabetes Comorbidity: Hyp ertension. med review Med review med review cough headache medication review ear problems diabetes Back pain Hyperlipidemia Hypertension Diabetes Mellitus Frequent urination Pain ringing in his left ear SHOULDER PAIN diabetes diabetes hypertension diabetes fatigue nausea fatigue vomitting diabetes Comorbidity: Hyp ertension. diabetes He Has been herve ged with oral medications. Comorbidity: Hypertension. shortness of breath high blood sugars Diabetes diabetes He Has [...]
--- OUTSIDE RECORDS SUMMARY | 2024-05-24 12:13 | XMS_ITS | Encounter Summary ---
Author Organization [facility] Facility Care Team Providers Care Stripping And Booking Machine Operator Name Role Phone Eugene Vega MD Primary Care Provi shantell Todd Gallardo MD Primary Care Provider [phone] Wai Espinoza MD Unavailable [phone] Justin Pineda MD Unavailable Encounter Details Date Type Department Care Team (Latest Contact Info) Description 10/14/2016 Orders Only [facility] ProviderKayla MD [address] [place] [id number] Social History Tobacco Use Types Packs/Day Years Used Date Smoking Tobacco: Never Assessed Sex and Gender Information Value Date Recorded Sex Assigned at Not on file 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 Gender Identity Male 01/06/2022 12:16 PM CDT [...] on filedocumented in this encounter Care Teams Stripping And Booking Machine Operator Relationship Specialty Start Date End Date Eugene Vega MD [address] [place] [address] PCP - General Family Medicine 08/30/18 01/19/22 Todd Gallardo MD [address] [place] [address] PCP - General Family Practice 01/20/22 Wai Espinoza MD [address] DIV IM MEDICAL ONCOLOGY, [address] [place] [address] Medical Oncologist/Mortar Man Medical Oncology 01/20/22 Justin Pineda MD [address] [place] [address] Radiation Oncologist Radiation Oncology 02/02/22 documented as of this encounter
--- OUTSIDE RECORDS SUMMARY | 2024-05-24 12:14 | XMS_ITS | Encounter Summary ---
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 Gender Identity Male 01/06/2022 12:16 PM CDT Sexual Orientation Not on file documented as of this encounter Functional Status documented as of this encounter Miscellaneous Notes * Telephone Encounter - Shruthi Higgins, KEVYN - 02/10/2022 4:39 PM CST EN PRINTING MACHINE OPERATOR HELPER documented in this encounter Plan of Treatment Not on file documented as of this encounter Visit Diagnoses Not on filedocumented in this encounter Care Teams Metallurgical Tester Relationship Specialty Start Date End Date Todd Gallardo MD PCP - General Family Practice 01/20/22 Wai Espinoza MD [address] DIV IM MEDICAL ONCOLOGY, [address] [place] [address] Medical Oncologist/Box Person Medical Oncology 01/20/22 Justin Pineda MD [address] [place] [address] Radiation Oncologist Radiation Oncology 02/02/22 documented as of this encounter
--- NOTE | 2024-05-24 12:35 | ECG_ITS ---
Test Date: 2024-05-24 12:44:19 Measurements Intervals [place] Rate: 98 P: 55 AR: 180 QRS: 30 QRSD: 93 T: 55 QT: 328 QTc: 419 Interpretive Statements SINUS RHYTHM POSSIBLE LEFT ATRIAL ENLARGEMENT BORDERLINE ECG No previous ECG available for comparison Electronically Signed On 05-24-2024 13:33:29 SCREEN ROLLER by Aaron Horta D.O.
[2024-05-24] MEDS: SODIUM CHLORIDE 0.9% IV 1,000 ML 999 ML IV CONT (12:49)
[2024-05-24 13:05] LABS: Basophils Percent Auto 0.3 % (0.2-1.2); Eosinophils Absolute Auto 0.2 K/mm3 (0-0.3); Eosinophils Percent Auto 1.6 % (0-4.4); Hematocrit 40.2 % (42.0-52.0); Hemoglobin 13.4 g/dL (14.0-18.0); Immature Granulocyte Absolute 0.07 K/mm3 (0.00-0.031); Immature Granulocyte Percent A 0.5 % (0-0.5); Lymphocytes Absolute Auto 2.16 K/mm3 (0.9-3.2); Lymphocytes Percent Auto 16.8 % (18.3-44.2); Mean Corpuscular HGB Conc 33.3 g/dl (32-36); Mean Corpuscular Hemoglobin 31.1 pg (26-34); Mean Corpuscular Volume 93.3 fl (80-100); Mean Platelet Volume 9.8 fl (7.4-10.4); Monocytes Absolute Auto 1.3 K/mm3 (0.1-0.6); Neutrophils Absolute Auto 9.1 K/mm3 (1.3-6.7); Neutrophils Percent Auto 70.8 % (45.5-73.1); Platelet Count Result 259 k/mm3 (150-375); Red Blood Count 4.31 M/mm3 (4.6-6.20); White Blood Count 12.9 K/mm3 (4.5-10.0)
[2024-05-24 13:17] LABS: Alanine Aminotransferase 21 U/L (6-50); Albumin Level 4.1 g/dL (3.5-5.1); Alkaline Phosphatase 55 U/L (38-126); Anion Gap 8 mmol/L (4-12); Aspartate Amino Transferase 21 U/L (17-59); Bilirubin,Total 0.6 mg/dL (0.2-1.3); Blood Urea Nitrogen 13 mg/dL (9-20); Calcium 9.2 mg/dL (8.4-10.2); Carbon Dioxide 27 mmol/L (22-30); Chloride 101 mmol/L (98-107); Estimated CRCL calculation 73 ml/min; Estimated Glomerular Filt Rate > 60; Glucose 153 mg/dL (65-110); Potassium 4.7 mmol/L (3.4-5.0); Sodium 136 mmol/L (137-145)
[2024-05-24 13:18] LABS: Prothrombin Time 13.6 Seconds (11.1-14.7)
[2024-05-24 13:19] LABS: Partial Thromboplastin Time 34.8 Seconds (22.3-36.8)
[2024-05-24 13:37] LABS: Add Urine Microscopic? NO; Appearance Urine Clear (Clear); Bilirubin Urine Negative (Negative); Blood Urine Negative (Negative); Color Urine Yellow (Yellow); Glucose Urine UA Negative (Negative); Ketones Urine Negative (Negative); Leukocyte Esterase Ur Negative LEU/UL (Negative); Nitrate Urine Negative (Negative); Protein Urine Negative (Negative); Specific Grav Ur 1.012 (1.001-1.035); pH Urine 7.5 (5.0-9.0)
[2024-05-24 13:41] LABS: Influenza A QL RT-PCR Negative (Negative); Influenza B QL RT-PCR Negative (Negative); RSV RNA, RT-PCR Negative (Negative); SARS-CoV-2 RNA PCR Negative (Negative)
[2024-05-24] MEDS: NICOTINE (*PBKC) 21 MG PATCH 1 PATCH TRANSDERM (15:00)
--- NOTE | 2024-05-24 15:53 | PC.NURSE ---
Sammi from [facility] transfer center calls at [phone] stating patient was accepted to oncology and asks for report on patient.
--- NOTE | 2024-05-24 19:57 | PC.NURSE ---
received VORB from Dr. Dorantes to allow pt to take home medication brought in. patient took atorvastatin 20mg. gabapentin 300mg, and trazodone 150mg.
--- NOTE | 2024-05-24 20:03 | PC.NURSE ---
pt has Dexcom located on LEFT upper arm and Omnipod Insulin pump located on left lower abdomen. provider aware of this.
[2024-05-24 22:33] LABS: Glucose Point of Care 107 mg/dl (65-105)
[2024-05-24] MEDS: diazePAM INJ (*CRX) 10 MG/2 ML SYRINGE 5 MG IV PUSH (22:51)
[2024-05-25 02:18] VITALS: PULSE 87; RESP 14; O2SAT 98
[2024-05-25 06:06] VITALS: BP 112/79; PULSE 89; RESP 14; O2SAT 97
--- NOTE | 2024-05-25 07:03 | PC.NURSE ---
This RN spoke with [facility] transfer center at 0200, pt is 7th on waitlist for an oncology bed.
[2024-05-25 07:22] VITALS: BP 112/79; PULSE 89; RESP 14; O2SAT 95
--- NOTE | 2024-05-25 09:15 | PC.NURSE ---
Karla with [facility] transfer center called for update. states we are still waiting on bed placement and will call when they have a bed.
[2024-05-25] MEDS: NICOTINE (*PBKC) 21 MG PATCH 1 PATCH TRANSDERM (15:40)
[2024-05-25 15:42] VITALS: BP 114/79; PULSE 86; RESP 17; TEMP 36.7; O2SAT 97
--- NOTE | 2024-05-25 15:51 | PC.NURSE ---
ordered pt meal tray.
[2024-05-25 20:14] VITALS: BP 127/90; PULSE 88; RESP 18; O2SAT 97
[2024-05-25] MEDS: diazePAM INJ (*CRX) 10 MG/2 ML SYRINGE 5 MG IV PUSH (20:55)
--- NOTE | 2024-05-25 21:05 | PC.NURSE ---
called transfer center and gave patient update at 2104 to Laura. no new transfer updates on patient.
[2024-05-25 22:30] VITALS: BP 122/78; PULSE 77; RESP 16; O2SAT 97
--- NOTE | 2024-05-25 23:08 | PC.NURSE ---
care and report given to KEVYN Arriaza. all questions answered.
[2024-05-26 04:35] VITALS: BP 117/75; PULSE 92; RESP 18; O2SAT 95
[2024-05-26] MEDS: NICOTINE (*PBKC) 21 MG PATCH 1 PATCH TRANSDERM (09:24)
[2024-05-26 09:26] VITALS: BP 138/86; PULSE 78; RESP 16; TEMP 36.8; O2SAT 99
--- NOTE | 2024-05-26 13:32 | P.HP_ITS ---
H&P: HPI History of Present Illness Date/Time: 05/26/24 13:32 Chief Complaint: Double Vision, Headache, Dizziness Narrative: 73 y/o M presents here with dizziness, double vision, and headache with PMH of DM 1.5, GERD, chronic pain syndrome, sarcoidosis, COPD, pancreatic insufficiency, and lung cancer. The patient presents here on 05/24/24 from home with double vision, headache and dizziness. He reports acute onset on 05/23/24 at 0700 am. He reports last known well at 10 pm on 05/22. He describes the diplopia as bilateral and objects remain side by side, resolves with covering one side (R and L). He felt the dizziness was due to the double/blurred vision. Headache is describes as frontal, dull, and worse than his usual because of his eyes . Hx of headaches, estimates he gets them a few times per week. Dizziness is not accompanied by congestion, ear fullness, or URI symptoms. He has a history of lung cancer for which he undergone chemotherapy and radiation. He receives his oncology care through [facility] [place]. Most recent CT with [facility] on 03/20/2024 showed no evidence of disease progression. Plan for continued surveillance and repeat labs and CT on 06/12/2024 and RTC on 06/15/2024. Last Brain MRI through [facility] on 06/22/22 showed no intracranial metastatic disease. The patient is currently reporting improvement in his headache, double vision, and dizziness have somewhat improved since arrival. Headache currently a 5/10. Reports the blurred vision resolved completely last night at 9 pm and returned when he woke up this morning around 7 am. Last colonoscopy around 5 months ago and showed a few benign polyps per patient. Initial VS at presentation: 97.4? F, HR 110, R 16, 132/80, and 96% on RA. ED workup showed: WBC 12.9, hemoglobin 13.4, normal coags, sodium 136, creatin ine 0.93 and GFR >60, UA unremarkable. Viral PCR negative. Head CT showed no significant abnormality. CT of the chest/abdomen/pelvis showed multiple findings, see report. CTA of the head/neck showed 30% stenosis of the right carotid bulb, 40% stenosis of the left carotid bulb, atherosclerotic plaque at the bilateral carotid siphons with no hemodynamic significant stenosis, no thrombus or aneurysm in the cerebral arteries, moderate emphysema with cavitary mass in the right upper lobe which could be infectious or malignant in etiology (see separate CT report). Review of Systems Review of Systems: All systems reviewed & are unremarkable except as noted in HPI and below [facility] Past Medical History Medical History Anxiety Hyperlipidemia Pancreatic insufficiency GERD (gastroesophageal reflux disease) Colon polyp Neuropathy Hypertension Type 1.5 diabetes, managed as type 1 Insomnia Chronic pain syndrome Lung cancer Squamous papilloma History of sarcoidosis COPD (chronic obstructive pulmonary disease) Hilar mass Acute hyponatremia Surgical History Surgical History History of appendectomy History of tonsillectomy Family History Family History Sibling Carcinoma of colon sister Alcoholism brother Father Esophagus cancer Social History Social History Smoking packs per day: 0.75 Smoking cigarettes per day: 15.0 Years smoked: 59 Smoking pack-years: 44.25 Smoking status: Current every day smoker Tobacco type: cigarettes Second hand tobacco smoke exposure: No Additional smoking assessment comments: Started smoke around age 13 or 14 Alcohol intake: former Drinks per week: 84 Alcohol use details: stopped drinking for one year, recent stress caused binge weekend. No drinks since. Has quit drinking since 11/2022. Substance use: current Substance use type: painkillers Other substance usage details: Hydrocodone for R Knee pain Last use: 2009 Do You Feel Safe in your Home?: Yes Lack of Transportation: No Lack of Food: Never True Current Housing: I Have Housing Concerned About Future Housing: No Difficulty Paying Gas/Electric Bills: No Difficulty Paying for Meds: No Currently Unemployed: No Education: High School Diploma/GED Difficulty w/ Childcare or Family Care: No Living arrangements: with family Occupation/Education: retired Gender identity (if verbalized by the patient): Male Spiritual care concerns: No Meds Home Medications and Allergies Home Medications ?Medication ?Instructions ?Recorded ?Confirmed ?Type gabapentin 300 mg capsule 600 mg PO QPM 09/01/22 05/26/24 History insulin pump cartridge,automated #1 ea 12/15/22 05/26/24 Rx dose,BT with controller subcutaneous (Omnipod 5 G6 Intro Kit (Gen 5) subcutaneous cartridge with controller) glucagon 1 mg/0.2 mL subcutaneous 1 mg (0.2 mL) subcut ONCE #0.4 mL 05/26/23 05/26/24 Rx auto-injector (Gvoke HypoPen 2-Pack) glucose 4 gram chewable tablet 16 g (4 x 4 gram) PO Q15M PRN 05/26/23 05/26/24 Rx hypoglycemia #360 tabs insulin glargine 100 unit/mL (3 20 unit (0.2 mL) subcut QAM #3 mL 05/26/23 05/26/24 Rx mL) subcutaneous pen (Lantus Solostar U-100 Insulin) losartan 25 mg tablet See Rx Instructions .Route 07/14/23 05/26/24 Rx .COMPLEX #180 tabs calnrj-cbyvbamc-ghceseg See Rx Instructions .Route 09/20/23 05/26/24 Rx 36,000-114,000-180,000 unit .COMPLEX #810 caps capsule,delay rel (Creon) trazodone 150 mg tablet See Rx Instructions .Route 10/14/23 05/26/24 Rx .COMPLEX #90 tabs bupropion HCl 150 mg 24 hr tablet, 150 mg PO QAM #30 tabs 02/01/24 05/26/24 Rx extended release insulin aspart U-100 100 unit/mL See Rx Instructions .Route 02/24/24 05/26/24 Rx subcutaneous solution (Novolog .COMPLEX insulin pump #90 mL U-100 Insulin aspart) insulin pump cart,auto,BT,G6/7 #40 ea 04/12/24 05/26/24 Rx (Omnipod 5 G6-G7 Pods (Gen 5) subcutaneous cartridge) pantoprazole 40 mg tablet,delayed 40 mg PO QAM #90 tabs 04/12/24 05/26/24 Rx release (Protonix) insulin pump cart,automated,BT #45 caps 04/14/24 05/26/24 Rx atorvastatin 20 mg tablet 20 mg PO DAILY #90 tabs 04/19/24 05/26/24 Rx hydrocodone 7.5 mg-acetaminophen 1 tablet PO TID PRN Pain (Scale 04/19/24 05/26/24 Rx 325 mg tablet Score 7-10) #90 tabs albuterol sulfate 90 mcg/actuation See Rx Instructions .Route 05/23/24 05/26/24 Rx aerosol inhaler .COMPLEX #18 grams Allergies Allergy/AdvReac Type Severity Reaction Status Date / Time Shrimp Allergy Unknown Vomiting Uncoded 05/26/24 14:50 Vital Signs Vital Signs - 24 hr 05/25/24 15:42 05/25/24 20:14 05/25/24 22:30 Temperature 98.1 F Pulse Rate 86 88 77 Respiratory Rate 17 18 16 Blood Pressure 114/79 127/90 122/78 Pulse Oximetry 97 97 97 05/26/24 04:35 05/26/24 09:26 Temperature 98.2 F Pulse Rate 92 78 Respiratory Rate 18 16 Blood Pressure 117/75 138/86 Pulse Oximetry 95 99 Exam Const: General: comfortable and no acute distress Other: , male, nontoxic appearance HENMT: Face/Nose/Sinus: Normal nares present Mouth: Yes moist mucous membranes Eyes: General: appearance normal, both eyes and all related structures Sclera: sclerae normal Pupils: Equal, round and reactive pupils present EOM: EOMs intact bilaterally Other: No nystagmus or gaze palsy. Resp: Effort & Inspection: normal respiratory effort Auscultation: clear to auscultation bilaterally Cardio: Rate: regular rate Rhythm: regular rhythm Other: S1-S2 present without murmur, rub, ectopy GI: Other: Abdomen soft, nondistended, nontender. Skin: General skin exam: normal color and no rashes or lesions noted Wounds: no wounds Neuro: Speech: normal speech Motor exam (neuro): 5/5 motor strength present throughout Sensory Exam: normal sensation Other: A&O x4. No nystagmus or gaze palsy. NIHSS 0. Extrem: General: normal to inspection Psych: Mental Status: mental status grossly normal Affect: normal affect Other: Good insight and judgment, pleasant Assessment and Plan Assessment and plan (1) Binocular vision disorder with diplopia: Code(s): H53.2 - Diplopia Status: Acute Assessment and Plan: New deficits of diplopia, dizziness, headache discovered on 05/23 at 7:00 a.m.. Last known well 05/22 at 10:00 p.m.. - admission for observation and telemetry - not candidate for thrombolytics due to timeframe - not candidate for thrombectomy, no LVO on CTA - Head CT: No significant abnormality seen - CTA head/neck: 1. 30% stenosis of the right carotid bulb relative to normal distal artery lumen diameter (NASCET criteria). 2. 40% stenosis of the left carotid bulb relative to normal distal artery lumen diameter. 3. Atherosclerotic plaque at the bilateral carotid siphons with no hemodynamically significant stenosis. No thrombosis or aneurysm in the cerebral arteries. 4. Moderate emphysema with cavitary mass in right upper lobe which could be infectious or malignant in etiology. See separate chest CT report for further detail. - currently awaiting transfer to [facility] for oncology, optho, and neuro - brain MRI w/wo: No CVA or lesion - MR venogram - echo w/Bubble ordered - neuro checks Q4 - check lipid panel, TSH, and A1C - trial headache cocktail including Toradol x1, Benadryl, Compazine, and IV fluids - monitor daily labs - fall precautions - start Atorvastatin 40 mg PO, Plavix 75 mg PO, ASA 81 mg - consider 30 day event monitoring at discharge (2) Dizziness: Code(s): R42 - Dizziness and giddiness Status: Acute Assessment and Plan: - see above (3) Lung cancer: Qualifiers: Laterality: right Lung location: unspecified part of lung Qualified Code(s): C34.91 - Malignant neoplasm of unspecified part of right bronchus or lung Code(s): C34.90 - Malignant neoplasm of unspecified part of unspecified bronchus or lung Status: Chronic Assessment and Plan: - follows [facility] for onc[facility] care - current treatment plan per most recent Onc note on 03/23/24: 1. Continue surveillance 2. Labs in CT 06/12/2024 3. RTC 06/15/2024 - currently awaiting transfer to [facility] for oncology, optho, and neuro (4) Type 1.5 diabetes, managed as type 1: Code(s): E13.9 - Other specified diabetes mellitus without complications Status: Chronic Assessment and Plan: - continue home insulin pump post MRI, q.4 glucose checks in interim - hypoglycemia protocol - home medication: Lantus 20 units q.a.m. for when pump not in place - correct regimen ordered - low/high dose TIDWM - A1C ordered, previously 7.1% in 2022 (5) Hypertension: Qualifiers: Hypertension type: unspecified Qualified Code(s): I10 - Essential (primary) hypertension Code(s): I10 - Essential (primary) hypertension Status: Chronic Assessment and Plan: - chronic, currently 136/77 - continue home medications: Losartan - monitor Plan Diet: Diabetic GI Prophylaxis: Not currently indicated DVT Prophylaxis: Lovenox Lines: Peripheral Code Status: Full code Quality VTE Prophylaxis VTE prophylaxis: pharmacologic ordered Hospitalist MIPS Advance Care Plan I have confirmed that the patient's Advanced Care Plan is present, code status is documented, or surrogate decision maker is listed in patient medical record.: Yes Medication Reconciliation I have utilized all available resources to obtain, update and review the patients current medications (includes all prescriptions, OTC, herbals, cannabis, and nutritional supplements).: Yes
[2024-05-26 13:34] VITALS: BMI 24.3
[2024-05-26 13:38] VITALS: BP 136/77; PULSE 98; RESP 22; TEMP 36.3; O2SAT 95
--- NOTE | 2024-05-26 14:17 | ECHO_ITS ---
Patient Info Name: Pradip Land Age: 73 years : 1950 Gender: Male Ht: 74 in Wt: 197 lbs BSA: 2.17 m2 HR: 98 bpm BP: 136 / 77 mmHg Technical Quality: Fair Exam Date: 05/26/2024 4:07 PM Exam Location: Echo Lab Patient Status: Outpatient Admit Date: 05/26/2024 Staff Ordering Physician: Steph Mittal APRN Window Trimmer Apprentice: Brody Jones RDCS Attending Provider: Collins Martinez MD Referring Physician: Daxa HODGE; Exam Type: CA echo dop bubble study w con Study Info Indications - C/F CVA - DIZZINESS - DIPLOPIA Complete two-dimentional, color flow and Doppler transthoracic echocardiogram is performed with agitated saline and with contrast to opacify the left ventricle and to improve the delineation of the left ventricle endocardial borders. Contrast/Agitated Saline Contrast/Ag. Saline: Agitated Saline Amount: 20.00 ml Existing IV Access: Yes Contrast/Ag. Saline: Definity Amount: 2.00 ml Existing IV Access: Yes Summary 1. Definity contrast administered improved wall motion interpretation. 2. Left ventricular chamber dimension is normal. 3. Left ventricular systolic function is normal, estimated at 60-65%. 4. There is moderate concentric increased left ventricular wall thickness. 5. The left ventricular diastolic function is grade I diastolic dysfunction. 6. E/e' 7 is not elevated. 7. Agitated saline injection with and without valsalva maneuver opacified right side cardiac chambers. A few bubbles shunt to left side cardiac chambers and more bubbles upon valsalva maneuver suggesting patent foramen ovale. Left Ventricle E/e' 7 is not elevated. Definity contrast administered improved wall motion interpretation. Left ventricular chamber dimension is normal. Left ventricular systolic function is normal, estimated at 60-65%. There is moderate concentric increased left ventricular wall thickness. The left ventricular diastolic function is grade I diastolic dysfunction. Right Ventricle Right ventricular systolic function is normal and with normal TAPSE 2.1 cm. Right ventricular chamber dimension is normal. Left Atria Left atrial chamber dimension is normal. Right Atria Right atrial chamber dimension is normal. Atrial Septum Agitated saline injection with and without valsalva maneuver opacified right side cardiac chambers. A few bubbles shunt to left side cardiac chambers and more bubbles upon valsalva maneuver suggesting patent foramen ovale. Interatrial septum not well visualized by 2D and agitated saline imaging. Aortic Valve The aortic valve is trileaflet. There is no aortic valve stenosis. There is no aortic valve regurgitation. Pulmonic Valve There is no pulmonic regurgitation. Mitral Valve There is no mitral valve stenosis. There is no mitral valve regurgitation. Tricuspid Valve There is no tricuspid valve regurgitation. Pericardium/Pleural There is no pericardial effusion. Inferior Vena Cava Normal inferior vena cava with >50% collapse upon inspiration consistent with normal right atrial pressure, 5 mmHg. Aorta The aortic root size at the sinus of Valsalva is normal. Left Ventricular Outflow Tract Name Value Normal LVOT 2D LVOT Diameter 2.2 cm LVOT Doppler LVOT Peak Velocity 93 cm/s LVOT Peak Gradient 3 mmHg LVOT Mean Gradient 2 mmHg LVOT VTI 18 cm LVOT VTI/AV VTI Ratio 0.7 LVOT Stroke Volume 71 ml LVOT CO 9.0 l/min LVOT CI 4.2 l/min/m2 Pulmonic Valve Name Value Normal RVOT Doppler RVOT Peak Gradient 3 mmHg PV Doppler PV Peak Velocity 74 cm/s PV Peak Gradient 2 mmHg Mitral Valve Name Value Normal MV Doppler MV Decel [place] 649 cm/s2 MV PHT 33 ms MV Area (PHT) 6.7 cm2 4.0-5.0 MV Diastolic Function MV E Peak Velocity 73 cm/s MV A Peak Velocity 107 cm/s MV E/A 0.7 MV Decel Time 113 ms MV Annular TDI MV Septal e' Velocity 9.3 cm/s >=8.0 MV E/e' (Septal) 7.9 <=8.0 MV Lateral e' Velocity 10.3 cm/s >=10.0 MV E/e' (Lateral) 7.1 <=8.0 MV e' Average 9.80 MV E/e' (Average) 7.5 Tricuspid Valve Name Value Normal Estimated PAP/RSVP RA Pressure 5 mmHg <=5 TV Annular TDI TV Lateral Deanna s' Velocity 14.8 cm/s 9.5-18.7 Aorta Name Value Normal Ascending Aorta Ao Root Diameter (MM) 3.5 cm Ao Root Diam Index (MM) 1.6 cm/m2 Ao [place] Diameter 3.0 cm 2.6-3.2 Aortic Valve Name Value Normal AV Doppler AV Peak Velocity 127 cm/s AV Peak Gradient 6 mmHg AV Mean Gradient 4 mmHg AV VTI 25 cm AV Area (Cont Eq VTI) 2.9 cm2 >=3.0 AV Area (Cont Eq Luis M) 2.9 cm2 AV V1/V2 Ratio 0.73 AV Regurgitation 2D LVOT Area 3.9 cm2 Ventricles Name Value Normal LV Dimensions 2D/MM IVS Diastolic Thickness (2D) 1.3 cm 0.6-1.0 LVID Diastole (2D) 4.5 cm 4.2-5.8 LVIW Diastolic Thickness (2D) 1.8 cm 0.6-1.0 LVID Systole (2D) 3.2 cm 2.5-4.0 LVOT Diameter 2.2 cm LV Mass (2D Cubed) 298.11 g 88.00-224.00 LV Mass Index (2D Cubed) 138 g/m2 49-115 Relative Wall Thickness (2D) 0.80 LV Fractional Shortening/Ejection Fraction 2D/MM LV Fractional Shortening (2D) 29 % 25-43 LV EF (2D Teicholz) 56 % 52-72 LV Diastolic Volume (4C MOD) 104 ml LV EF (4C MOD) 47 % LV Diastolic Volume (2C MOD) 92 ml LV EF (2C MOD) 57 % LV Diastolic Volume (BP MOD) 99 ml 62-150 LV Diastolic Volume Index (BP MOD) 46 ml/m2 34-74 LV Systolic Volume (BP MOD) 47 ml 21-61 LV Systolic Volume Index (BP MOD) 22 ml/m2 11-31 LV EF (BP MOD) 53 % 52-72 LV Diastolic Length (4C) 8.3 cm LV Systolic Length (4C) 6.7 cm LV Stroke Volume (4C MOD) 49 ml Atria Name Value Normal LA Dimensions LA Dimension (MM) 2.7 cm 3.0-4.1 LA Volume (4C A-L) 47 ml LA Volume (BP A-L) 46 ml RA Dimensions RA Area (4C) 12.3 cm2 <=18.0 Report Signatures
--- NOTE | 2024-05-26 14:47 | ADMGEN ---
This patient, Pradip Land, was admitted to Medical Room 257-01 at 1335. Patient/family oriented to hospital policies and general routines including ID bracelet, bed and alarms, visiting hours, pain management, procedures, bathroom and other care routines, personal items, smoking policy, room service/diet, and visiting hours. Information on how to activate the Rapid Response Team has been discussed. Patient/Family are encouraged to report perceived risks to care and to ask questions if they do not understand what they are told or what they should do.
[2024-05-26] MEDS: PERFLUTREN LIPID MICROSPHERES 1.5 ML VIAL DILUTED TO 10 ML TOTAL VOLUME IV PUSH (16:35)
[2024-05-26 17:17] LABS: Glucose Point of Care 107 mg/dl (65-105)
[2024-05-26] MEDS: diphenhydrAMINE HCl INJ 50 MG/ML VIAL 25 MG IV PUSH (18:01)
[2024-05-26] MEDS: SODIUM CHLORIDE 0.9% IV 1,000 ML 500 ML IV CONT (18:04)
[2024-05-26] MEDS: KETOROLAC 30 MG/ML VIAL (*BKC) IV PUSH (18:08)
[2024-05-26] MEDS: PROCHLORPERAZINE EDISYLATE 10 MG/2 ML VIAL IV PUSH (18:11)
[2024-05-26] MEDS: GABAPENTIN 300 MG CAPSULE 600 MG PO (18:11)
[2024-05-26 20:00] VITALS: PULSE 100; PULSE 97; RESP 16; O2SAT 96
[2024-05-26] MEDS: traZODone HCL 50 MG TABLET 150 MG PO (20:31)
[2024-05-26] MEDS: LOSARTAN POTASSIUM 25 MG TABLET PO (20:31)
[2024-05-26 20:50] LABS: Glucose Point of Care 424 mg/dl (65-105)
[2024-05-26 21:12] VITALS: BP 150/86; PULSE 97; RESP 16; TEMP 36.8; O2SAT 96
[2024-05-26] MEDS: INSULIN ASPART (*BKC) 100 UNITS/ML SUB-Q ×2 (21:45→23:57)
[2024-05-26] MEDS: MORPHINE SULFATE (*CRX) 2 MG/ML INJ IV PUSH (21:46)
[2024-05-26 23:55] LABS: Glucose Point of Care 286 mg/dl (65-105)
[2024-05-27] VITALS (7 sets, daily range): BP systolic 123–164; BP diastolic 68–78; PULSE 79–99; RESP 16–19; TEMP 36.6; O2SAT 95–98
[2024-05-27 03:45] LABS: Glucose Point of Care 199 mg/dl (65-105)
[2024-05-27 06:19] LABS: Basophils Percent Auto 0.3 % (0.2-1.2); Eosinophils Absolute Auto 0.3 K/mm3 (0-0.3); Eosinophils Percent Auto 3.7 % (0-4.4); Hematocrit 38.2 % (42.0-52.0); Hemoglobin 12.4 g/dL (14.0-18.0); Immature Granulocyte Absolute 0.05 K/mm3 (0.00-0.031); Immature Granulocyte Percent A 0.6 % (0-0.5); Lymphocytes Absolute Auto 1.83 K/mm3 (0.9-3.2); Lymphocytes Percent Auto 23.2 % (18.3-44.2); Mean Corpuscular HGB Conc 32.5 g/dl (32-36); Mean Corpuscular Hemoglobin 30.3 pg (26-34); Mean Corpuscular Volume 93.4 fl (80-100); Mean Platelet Volume 9.6 fl (7.4-10.4); Monocytes Absolute Auto 0.8 K/mm3 (0.1-0.6); Monocytes Percent Auto 9.8 % (2.6-8.5); Neutrophils Absolute Auto 4.9 K/mm3 (1.3-6.7); Neutrophils Percent Auto 62.4 % (45.5-73.1); Platelet Count Result 227 k/mm3 (150-375); Red Blood Count 4.09 M/mm3 (4.6-6.20); Red Cell Distribution Width 15.7 % (11.5-14.5); White Blood Count 7.9 K/mm3 (4.5-10.0)
[2024-05-27 07:08] LABS: Hemoglobin A1C 7.8 % (<5.7)
[2024-05-27] MEDS: ALBUTEROL SULFATE (*SP) AEROSOL 1 PUFF 2 PUFF INHALATION (07:55)
[2024-05-27 08:06] LABS: Alanine Aminotransferase 20 U/L (6-50); Albumin Level 3.4 g/dL (3.5-5.1); Alkaline Phosphatase 59 U/L (38-126); Anion Gap 10 mmol/L (4-12); Aspartate Amino Transferase 21 U/L (17-59); Bilirubin,Total 0.9 mg/dL (0.2-1.3); Blood Urea Nitrogen 14 mg/dL (9-20); Calcium 8.8 mg/dL (8.4-10.2); Carbon Dioxide 20 mmol/L (22-30); Chloride 106 mmol/L (98-107); Cholesterol 94 mg/dL (0-200); Estimated CRCL calculation 89 ml/min; Estimated Glomerular Filt Rate > 60; Glucose 256 mg/dL (65-110); HDL Direct 34 mg/dL; Potassium 4.8 mmol/L (3.4-5.0); Sodium 136 mmol/L (137-145); Triglycerides 102 mg/dL (<150)
[2024-05-27 08:19] LABS: Glucose Point of Care 294 mg/dl (65-105)
[2024-05-27] MEDS: INSULIN ASPART (*BKC) 100 UNITS/ML SUB-Q (08:25)
[2024-05-27 08:28] LABS: LDL Cholesterol Direct 45 mg/dL
[2024-05-27] MEDS: ATORVASTATIN 20 MG TABLET PO (08:30)
[2024-05-27] MEDS: HYDROcodone/acetaminophen (*CRX) 5-325 MG TABLET 1 TAB PO (08:31)
[2024-05-27] MEDS: LOSARTAN POTASSIUM 25 MG TABLET PO (08:31)
[2024-05-27] MEDS: PANTOPRAZOLE 40 MG TABLET PO (08:31)
[2024-05-27] MEDS: CLOPIDOGREL BISULFATE 75 MG TABLET PO (08:32)
[2024-05-27] MEDS: LIPASE/AMYLASE/PROTEASE 12,000 UNITS CAP 3 CAP PO ×2 (08:32→11:48)
[2024-05-27] MEDS: ASPIRIN 81 MG ENTERIC TABLET PO (08:32)
[2024-05-27] MEDS: NICOTINE (*PBKC) 21 MG PATCH 1 PATCH TRANSDERM (09:54)
[2024-05-27] MEDS: ENOXAPARIN 40 MG/0.4 ML SYRINGE SUB-Q (09:54)
[2024-05-27 11:39] LABS: Glucose Point of Care 287 mg/dl (65-105)
[2024-05-27 15:20] LABS: Glucose Point of Care 195 mg/dl (65-105)
--- NOTE | 2024-05-27 16:01 | PM.DS ---
DS: Admitting Diagnosis Discharge Date 05/27/2024 Admitting Diagnosis Diplopia DS: Discharge Diagnosis Discharge Diagnosis (1) Binocular vision disorder with diplopia: Code(s): H53.2 - Diplopia Status: Acute (2) Dizziness: Code(s): R42 - Dizziness and giddiness Status: Acute (3) Lung cancer: Qualifiers: Laterality: right Lung location: unspecified part of lung Qualified Code(s): C34.91 - Malignant neoplasm of unspecified part of right bronchus or lung Code(s): C34.90 - Malignant neoplasm of unspecified part of unspecified bronchus or lung Status: Chronic (4) Type 1.5 diabetes, managed as type 1: Code(s): E13.9 - Other specified diabetes mellitus without complications Status: Chronic (5) Hypertension: Qualifiers: Hypertension type: unspecified Qualified Code(s): I10 - Essential (primary) hypertension Code(s): I10 - Essential (primary) hypertension Status: Chronic DS: Summary Hospital Course Hospital Course: 73 y/o M presents here with dizziness, double vision, and headache with PMH of DM 1.5, GERD, chronic pain syndrome, sarcoidosis, COPD, pancreatic insufficiency, and lung cancer. The patient presents here on 05/24/24 from home with double vision, headache and dizziness. He reports acute onset on 05/23/24 at 0700 am. He reports last known well at 10 pm on 05/22. He describes the diplopia as bilateral and objects remain side by side, resolves with covering one side (R and L). He felt the dizziness was due to the double/blurred vision. Headache is describes as frontal, dull, and worse than his usual because of his eyes . Hx of headaches, estimates he gets them a few times per week. Dizziness is not accompanied by congestion, ear fullness, or URI symptoms. He has a history of lung cancer for which he undergone chemotherapy and radiation. He receives his oncology care through [facility]. Most recent CT with [facility] on 03/20/2024 showed no evidence of disease progression. Plan for continued surveillance and repeat labs and CT on 06/12/2024 and RTC on 06/15/2024. Last Brain MRI through [facility] on 06/22/22 showed no intracranial metastatic disease. The patient is currently reporting improvement in his headache, double vision, and dizziness have somewhat improved since arrival. Headache currently a 5/10. Reports the blurred vision resolved completely last night at 9 pm and returned when he woke up this morning around 7 am. Last colonoscopy around 5 months ago and showed a few benign polyps per patient. Initial VS at presentation: 97.4? F, HR 110, R 16, 132/80, and 96% on RA. ED workup showed: WBC 12.9, hemoglobin 13.4, normal coags, sodium 136, creatinine 0.93 and GFR >60, UA unremarkable. Viral PCR negative. Head CT showed no significant abnormality. CT of the chest/abdomen/pelvis showed multiple findings, see report. CTA of the head/neck showed 30% stenosis of the right carotid bulb, 40% stenosis of the left carotid bulb, atherosclerotic plaque at the bilateral carotid siphons with no hemodynamic significant stenosis, no thrombus or aneurysm in the cerebral arteries, moderate emphysema with cavitary mass in the right upper lobe which could be infectious or malignant in etiology (see separate CT report). he was subsequentlyl admittedd here while awaiting trasnfer. he was further evaluated with cta head and neck which showed: 1. 30% stenosis of the right carotid bulb relative to normal distal artery lumen diameter (NASCET criteria). 2. 40% stenosis of the left carotid bulb relative to normal distal artery lumen diameter. 3. Atherosclerotic plaque at the bilateral carotid siphons with no hemodynamically significant stenosis. No thrombosis or aneurysm in the cerebral arteries. 4. Moderate emphysema with cavitary mass in right upper lobe which could be infectious or malignant in etiology. See separate chest CT report for further detail. Brain MRI performed which was negative for any stroke or any other intracranial abnormality. MR venogram was negative as well. ehco unremarkable. 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 he is opting to follow up with neurology and ophthalmology as op basis. etiology of this cranial nerve palsy is unclear, diabetes or sarcoidosis could be undelrying issue. his thyroid function is normal no ptosis noted. his labs were unreamkable. with long wait for transfer, decision is made to discharge him and have him follow up with them as op basis. patient and family agreeable with the plan. Time Spent with Patient Time attestation: Total time spent providing and/or coordinating discharge services:50 mins Exam Narrative: General appearance: Well-developed, well-nourished Skin: Normal color Head: Normocephalic, nontraumatic Eyes: Clear conjunctiva pERRLA ENT: Oropharynx normal, ears normal, nose normal Neck: Supple, nontender Chest and respiratory: Airway patent, no respiratory distress, no accessory muscle use Heart: Regular rate/rhythm Abdomen: Soft, nontender, no organomegaly, quiet bowel sounds Vascular: Normal peripheral pulses, normal capillary refill. Musculoskeletal: Limited range of motion at the lumbar area because of right lower back pain, no localized tenderness, no bruises, no rash or swelling Neurologic: Alert and oriented ?3, Whaeu0ic cn pareesis noted on examination. left gaze with resolution of diplopia DS: Data Data Completed and Pending Completed studies during hospitalization: Exam Type: CA echo dop bubble study w con Study Info Indications - C/F CVA - DIZZINESS - DIPLOPIA Complete two-dimentional, color flow and Doppler transthoracic echocardiogram is performed with agitated saline and with contrast to opacify the left ventricle and to improve the delineation of the left ventricle endocardial borders. Contrast/Agitated Saline Contrast/Ag. Saline: Agitated Saline Amount: 20.00 ml Existing IV Access: Yes Contrast/Ag. Saline: Definity Amount: 2.00 ml Existing IV Access: Yes Summary 1. Definity contrast administered improved wall motion interpretation. 2. Left ventricular chamber dimension is normal. 3. Left ventricular systolic function is normal, estimated at 60-65%. 4. There is moderate concentric increased left ventricular wall thickness. 5. The left ventricular diastolic function is grade I diastolic dysfunction. 6. E/e' 7 is not elevated. 7. Agitated saline injection with and without valsalva maneuver opacified right side cardiac chambers. A few bubbles shunt to left side cardiac chambers and more bubbles upon valsalva maneuver suggesting patent foramen ovale. Left Ventricle E/e' 7 is not elevated. Definity contrast administered improved wall motion interpretation. Left ventricular chamber dimension is normal. Left ventricular systolic function is normal, estimated at 60-65%. There is moderate concentric increased left ventricular wall thickness. The left ventricular diastolic function is grade I diastolic dysfunction. Right Ventricle Right ventricular systolic function is normal and with normal TAPSE 2.1 cm. Right ventricular chamber dimension is normal. Left Atria Left atrial chamber dimension is normal. Right Atria Right atrial chamber dimension is normal. Atrial Septum Agitated saline injection with and without valsalva maneuver opacified right side cardiac chambers. A few bubbles shunt to left side cardiac chambers and more bubbles upon valsalva maneuver suggesting patent foramen ovale. Interatrial septum not well visualized by 2D and agitated saline imaging. Aortic Valve The aortic valve is trileaflet. There is no aortic valve stenosis. There is no aortic valve regurgitation. Pulmonic Valve There is no pulmonic regurgitation. Mitral Valve There is no mitral valve stenosis. There is no mitral valve regurgitation. Tricuspid Valve There is no tricuspid valve regurgitation. Pericardium/Pleural There is no pericardial effusion. Inferior Vena Cava Normal inferior vena cava with >50% collapse upon inspiration consistent with normal right atrial pressure, 5 mmHg. Aorta The aortic root size at the sinus of Valsalva is normal. Labs on day of discharge: Labs from last 24 hours 05/27/24 05/27/24 05/27/24 14:39 11:33 08:16 WBC RBC Hgb Hct MCV MCH MCHC RDW Plt Count MPV Immature Gran % (Auto) Neut % (Auto) Lymph % (Auto) Wells % (Auto) Eos % (Auto) Baso % (Auto) Lymph # (Auto) Wells # (Auto) Eos # (Auto) Baso # (Auto) Abs Immat Gran (auto) Absolute Neuts (auto) Absolute Nucleated RBC Nucleated RBC % Sodium Potassium Chloride Carbon Dioxide Anion Gap BUN Creatinine Estim Creat Clear Calc Estimated GFR Glucose POC Capillary Glucose 195 H 287 H 294 H Hemoglobin A1c Calcium Total Bilirubin AST ALT Alkaline Phosphatase Total Protein Albumin Triglycerides Cholesterol LDL Cholesterol Direct HDL Direct TSH (Reflex) 05/27/24 05/27/24 05/26/24 06:06 03:42 23:52 WBC 7.9 RBC 4.09 L Hgb 12.4 L Hct 38.2 L MCV 93.4 MCH 30.3 MCHC 32.5 RDW 15.7 H Plt Count 227 MPV 9.6 Immature Gran % (Auto) 0.6 H Neut % (Auto) 62.4 Lymph % (Auto) 23.2 Wells % (Auto) 9.8 H Eos % (Auto) 3.7 Baso % (Auto) 0.3 Lymph # (Auto) 1.83 Wells # (Auto) 0.8 H Eos # (Auto) 0.3 Baso # (Auto) 0.0 Abs Immat Gran (auto) 0.05 H Absolute Neuts (auto) 4.9 Absolute Nucleated RBC 0.000 Nucleated RBC % 0.0 Sodium 136 L Potassium 4.8 Chloride 106 Carbon Dioxide 20 L Anion Gap 10 BUN 14 Creatinine 0.76 Estim Creat Clear Calc 89 Estimated GFR > 60 Glucose 256 H POC Capillary Glucose 199 H 286 H Hemoglobin A1c 7.8 H Calcium 8.8 Total Bilirubin 0.9 AST 21 ALT 20 Alkaline Phosphatase 59 Total Protein 6.0 L Albumin 3.4 L Triglycerides 102 Cholesterol 94 LDL Cholesterol Direct 45 HDL Direct 34 TSH (Reflex) 2.560 05/26/24 05/26/24 20:22 17:14 WBC RBC Hgb Hct MCV MCH MCHC RDW Plt Count MPV Immature Gran % (Auto) Neut % (Auto) Lymph % (Auto) Wells % (Auto) Eos % (Auto) Baso % (Auto) Lymph # (Auto) Wells # (Auto) Eos # (Auto) Baso # (Auto) Abs Immat Gran (auto) Absolute Neuts (auto) Absolute Nucleated RBC Nucleated RBC % Sodium Potassium Chloride Carbon Dioxide Anion Gap BUN Creatinine Estim Creat Clear Calc Estimated GFR Glucose POC Capillary Glucose 424 H 107 H Hemoglobin A1c Calcium Total Bilirubin AST ALT Alkaline Phosphatase Total Protein Albumin Triglycerides Cholesterol LDL Cholesterol Direct HDL Direct TSH (Reflex) Imaging Radiologist's impression: ITS Impressions Head CT 05/24/24 13:43 Impression: No significant abnormality seen. Chest/Abdomen/Pelvis CT 05/24/24 13:46 Impression: Thick-walled cavitary lesion/nodule the right lung apex with several irregular satellite nodules. Although these findings are more prominent as compared to prior exam, distribution is relatively similar, suggesting chronic findings such as postinflammatory change or sarcoidosis. Treated metastatic disease is a consideration. Active malignancy not excluded, though felt to be less likely. Patchy consolidation at the medial, perihilar right lower lobe at site of previous noted mass. This probably represents postradiation change and sequelae of treated disease. Several irregular subcentimeter right lower lobe pulmonary nodules, indeterminate. Stable subcentimeter left apical pulmonary nodules. Moderate emphysema. Stable mediastinal/hilar lymphadenopathy, compatible with history of sarcoidosis. Luminal narrowing and possible concentric wall thickening at the hepatic flexure/proximal transverse colon, which could reflect colonic adenocarcinoma versus peristalsis. Correlate clinically. Consider colonoscopy. Head/Neck CTA 05/24/24 15:59 IMPRESSION: 1. 30% stenosis of the right carotid bulb relative to normal distal artery lumen diameter (NASCET criteria). 2. 40% stenosis of the left carotid bulb relative to normal distal artery lumen diameter. 3. Atherosclerotic plaque at the bilateral carotid siphons with no hemodynamically significant stenosis. No thrombosis or aneurysm in the cerebral arteries. 4. Moderate emphysema with cavitary mass in right upper lobe which could be infectious or malignant in etiology. See separate chest CT report for further detail. Brain MRI 05/26/24 15:11 IMPRESSION: 1. Normal brain. No acute intracranial process or abnormally enhancing brain lesions. Head/Brain Mag Res Venography 05/27/24 07:59 IMPRESSION: 1. Normal MRV of the head Discharge Plan Discharge Attending physician on discharge: Osmin Lobato Discharging Clinician: Osmin Lobato Anticipated Discharge Date/Time: 05/27/24 16:06 Patient Disposition: Home, Self-Care Activity: as tolerated Diet: diabetic Patient Instructions: Antibiotic Form Patient Language: Citizen Of [place] Stand Alone Forms: General Discharge Information Follow-up/Referrals: Kitty Quiles APRN [Primary Care Provider] - 1 Week Discharge Medications: New aspirin 81 mg Tablet,Delayed Release (Dr/Ec) 81 mg PO QAM Qty: 30 0RF Continued gabapentin 300 mg capsule 600 mg PO QPM Gvoke HypoPen 2-Pack 1 mg/0.2 mL auto-injector 1 mg subcut ONCE Qty: 0.4 0RF Rx Instructions: as a single dose; may repeat once after 15 minutes if no response glucose 4 gram tablet,chewable 16 g PO Q15M PRN (Reason: hypoglycemia) Qty: 360 0RF Rx Instructions: until symptoms of low blood sugar are controlled insulin glargine [Lantus Solostar U-100 Insulin] 100 unit/mL (3 mL) insulin pen 20 unit subcut QAM Qty: 3 0RF Rx Instructions: for backup if insulin pump fails bupropion HCl 150 mg tablet extended release 24 hr 150 mg PO QAM Qty: 30 2RF hydrocodone-acetaminophen 7.5-325 mg tablet 1 tablet PO TID PRN (Reason: Pain (Scale Score 7-10)) Qty: 90 0RF atorvastatin 20 mg tablet 20 mg PO DAILY Qty: 90 0RF (DME) Omnipod 5 G6 Intro Kit (Gen 5) Cartridge See Rx Instructions .Route Qty: 1 0RF Rx Instructions: change every 3 days losartan 25 mg tablet See Rx Instructions .ROUTE .COMPLEX Qty: 180 2RF Dose Instruction: TAKE 1 TABLET BY ORAL ROUTE TWO TIMES EVERY DAY FOR HYPERTENSION Rx Instructions: TAKE 1 TABLET BY ORAL ROUTE TWO TIMES EVERY DAY FOR HYPERTENSION Creon 36,000-114,000- 180,000 unit capsule,delayed release(DR/EC) See Rx Instructions .ROUTE .COMPLEX Qty: 810 2RF Dose Instruction: THREE CAP ORALLY DAILY ADMINISTER WITH MEALS AND/OR SNACKS Rx Instructions: THREE CAP ORALLY DAILY ADMINISTER WITH MEALS AND/OR SNACKS trazodone 150 mg tablet See Rx Instructions .ROUTE .COMPLEX Qty: 90 1RF Dose Instruction: 150 MG ORALLY BEDTIME Rx Instructions: 150 MG ORALLY BEDTIME insulin aspart U-100 [Novolog U-100 Insulin aspart] 100 unit/mL solution See Rx Instructions .ROUTE .COMPLEX MDD 80 Qty: 90 4RF Dose Instruction: FOR INSULIN PUMP, MAX DAILY DOSE: 60 UNITS INJECT 100 UNITS UNDER THE SKIN VIA INSULIN PUMP DAILY Rx Instructions: FOR INSULIN PUMP pantoprazole [Protonix] 40 mg tablet,delayed release (DR/EC) 40 mg PO QAM Qty: 90 3RF (DME) Omnipod 5 G6-G7 Pods (Gen 5) Cartridge See Rx Instructions .Route Qty: 40 6RF Rx Instructions: every 3 days (DME) insulin pump cart,automated,BT Cartridge See Rx Instructions .ROUTE .COMPLEX Qty: 45 2RF Dose Instruction: CHANGE POD EVERY 2-3 DAYS DIRECTED Rx Instructions: CHANGE POD EVERY 2-3 DAYS DIRECTED albuterol sulfate 90 mcg/actuation HFA aerosol inhaler See Rx Instructions .ROUTE .COMPLEX Qty: 18 2RF Dose Instruction: TWO PUFF INHALED TWICE A DAY Rx Instructions: TWO PUFF INHALED TWICE A DAY Date of admission: 05/27/24 09:30 Primary Care Provider: Kitty Quiles Admitting Provider: Collins Martinez Attending physician on admission: Collins Martinez Condition: Stable
--- NOTE | 2024-06-02 13:56 | IVDEFINITY ---
Prior to administration of IV Definity the patient was educated on the risks and benefits of the imaging enhancing agent including potential adverse side effects. The patient verbalized understanding. Allergies were verified. No exclusion criteria were identified and at least one of the following inclusion criteria were met: 1) physician request, 2) patient technically difficult to image (per the [place] [employer] guidelines of two or more segments not discernable within the apical view), or 3) questionable left ventricular function. ?
== END 2024-05-27 16:40 | disposition home or self-care (01) | DRG 123 ==
LOC: ANHED 05-26 12:31 → ANH2MED 05-26 13:02
PROVIDERS: Student in an Organized Health Care Education/Training Program; Admitting Provider General Practice; Emergency Provider Emergency Medicine; PCP Nurse Practitioner Adult Health; Visit Provider Internal Medicine
DX: H49.21 Sixth [abducent] nerve palsy, right eye (principal); C34.91 Malignant neoplasm of unspecified part of right bronchus or lung; H53.2 Diplopia; D86.8 Sarcoidosis of other sites; I10 Essential (primary) hypertension; K21.9 Gastro-esophageal reflux disease without esophagitis; J44.9 Chronic obstructive pulmonary disease, unspecified; K86.89 Other specified diseases of pancreas; R91.8 Other nonspecific abnormal finding of lung field; D86.9 Sarcoidosis, unspecified; G89.4 Chronic pain syndrome; E78.5 Hyperlipidemia, unspecified; E13.40 Other specified diabetes mellitus with diabetic neuropathy, unspecified; F17.210 Nicotine dependence, cigarettes, uncomplicated; Z90.49 Acquired absence of other specified parts of digestive tract
CPT/HCPCS: 36415; 70450; 70496; 70498; 70544; 70553; 71260; 74177; 80053; 80061; 81003; 82948; 83036; 84443; 85025; 85610; 85730; 87637; 93005; 94640; 96360; 96374; 96375; 99285; A9270; A9577; C8929; G0378; J0780; J1200; J1650; J1815; J1885; J2270; J3360; J7030; Q9957; Q9967